=== PATIENT | male | born 1955 | race Caucasian/White ===

== ENCOUNTER 2025-04-15 13:27 | Outpatient (POV) | payer MEDICARE, MEDICAID, SELFPAY ==
--- OUTSIDE RECORDS SUMMARY | 2025-02-17 11:12 | XMS_ITS | Encounter Summary ---
Author Organization [facility] [address] [facility] [address] Phone Care Team Providers Care Manager Equity Name Role Phone KeenanCassyAundreadalton LANTIGUA Primary Care Provider [phone] Encounter Details Date Type Department Care Team (Latest Contact Info) Description 02/17/2025 11:12 AM EDT - 02/17/2025 11:59 PM EDT Hospital Encounter [facility] - [facility] - [facility] [address] [facility] [place], [place] [id number] Johnnie Mccarthy, [place] [address] [place], [place] [id number] Other injury of unspecified body region, initial encounter [T14.8XXA] Discharge Disposition: Home or Self Care Social History Tobacco Use Types Packs/Day Years Used Date Smoking Tobacco: Former Smokeless Tobacco: Never Alcohol Use Standard Drinks/Week Comments No 0 (1 standard drink = 0.6 oz pur e alcohol) Sex and Gender Information Value Date Recorded Sex Assigned at Not on file Legal Sex Male 7:53 PM EDT Gender Identity Male 02/02/2019 7:24 AM EDT Sexual Orientation Not on file documented as of this encounter Functional Status * Are you deaf or do you have serious difficulty hearing? Answer Date of Assessment Author No 02/02/2019 7:45 AM EDT Rachana Young, Registered Nurse * Are you blind or do you have serious difficulty seeing, even when wearing glasses? Answer Date of Assessment Author No 02/02/2019 7:45 AM EDT Rachana Young, Registered Nurse * Do you have serious difficulty walking or climbing stairs? (5 years old or older) Answer Date of Assessment Author No 02/02/2019 7:45 AM EDRachana Farmer, Registered Nurse * Do you have difficulty dressing or bathing? (5 years old or older) Answer Date of Assessment Author No 02/02/2019 7:45 AM EDT Rachana Young, Registered Nurse * Because of a physical, mental, or emotional condition, do you have difficulty doing errands alone such as visiting a doctor???s office or shopping? (15 years old or older) Answer Date of Assessment Author No 02/02/2019 7:45 AM Rachana Servin, Registered Nurse documented as of this encounter Mental Status * Because of a physical, mental, or emotional condition, do you have serious difficulty concentrating, remembering, or making decisions? (5 years old or older) Answer Entry Date Author No 02/02/2019 7:45 AM Rachana Servin, Registered Nurse documented in this encounter Medications at Time of Discharge metoprolol succinate (TOPROL-XL) 50 MG TB24 Take 1 tablet by mouth daily. 90 tablet 3 05/15/2019 acetaminophen (TYLENOL) 500 MG TABS Take 500 mg by mouth every 6 (six) hours as needed. apixaban (ELIQUIS) 5 MG TABSIndications:a trial fibrillation Take 1 tablet by mouth 2 (two) times daily. Indications: atrial fibrillation 60 tablet 3 02/06/2019 documented as of this encounter Plan of Treatment Not on file documented as of this encounter Procedures Procedure Name Priority Date/Time Associated Diagnosis Comments XR LUMBAR SPINE AP AND LATERAL Routine 02/17/2025 11:23 AM EDT Sprain documented in this encounter Results * XR LUMBAR SPINE AP AND LATERAL (02/17/2025 11:23 AM EDT) Anatomical Region Laterality Modality Ankle Foot Toe Right, Femur Right, Knee Right, Tib Fib Right Digital Radiography 02/17/2025 1:54 PM EDT Impressions 02/17/2025 1:55 PM EDT Multilevel mild degenerative disc height loss and mild facet arthrosis Narrative 02/17/2025 1:55 PM EDT HISTORY: Other injury of unspecified body region, initial encounter COMPARISON: 2014 NOTE: If there are questions about the content of this report, please contact [facility] radiology by calling [phone] FINDINGS: ALIGNMENT: Unremarkable BONES: Unremarkable. No aggressive osseous lesion or fracture POST-SURGICAL FINDINGS: None DISC LEVELS: Mild multilevel degenerative disc height loss. Mild anterior spur formation FACET JOINTS: Degenerative sclerosis of the facet joints in the lower lumbar spine LUMBOSACRAL JUNCTION: Unremarkable SACRUM AND SI JOINTS: Unremarkable OTHER: None Procedure Note Alfredito Shay MD - 02/17/2025 HISTORY: Other injury of unspecified body region, initial encounter COMPARISON: 2014 NOTE: If there are questions about the content of this report, pleasecontact [facility] radiology by calling [phone] FINDINGS: ALIGNMENT: Unremarkable BONES: Unremarkable. No aggressive osseous lesion or fracture POST-SURGICAL FINDINGS: None DISC LEVELS: Mild multilevel degenerative disc height loss. Mild anteriorspur formation FACET JOINTS: Degenerative sclerosis of the facet joints in the lowerlumbar spine LUMBOSACRAL JUNCTION: Unremarkable SACRUM AND SI JOINTS: Unremarkable OTHER: None IMPRESSION Multilevel mild degenerative disc height loss and mild facet arthrosis Johnnie Mccarthy DC RAD Final Resu lt documented in this encounter Visit Diagnoses Diagnosis Sprain Unspecified site of sprain and strain documented in this encounter Care Teams Manager Equity Relationship Specialty Start Date End Date Aundrea Hussein CNP PCP - General 12/23/19 documented as of this encounter
--- OUTSIDE RECORDS SUMMARY | 2025-03-07 09:45 | XMS_ITS | Encounter Summary ---
Author Organization [facility] Address [address] [place] [address] Care Team Providers Care Line Tender Flakeboard Name Role Phone Stephany Ortega RN Unavailable Amaris Cueva MD Unavailable [phone] Maverick Lee MD Unavailable [phone] Michael Gonzales MD Unavailable [phone] Lolly Warren NP Unavailable [phone] Daniel Whittington MD, PhD Unavailable [phone] Regina Esquivel NP Unavailable [phone] Maverick Waterman DO Unavailable [phone] Aris Tracey MD Unavailable [phone] Noé Sofia DO Unavailable [phone] Sudhakar Lipscomb AMBULANCE ATTENDANT Primary Care Provider Reason for Referral * Consult, Test & Treat (Routine) - Authorized Specialty Diagnoses / Procedures Referred By Winter t Referred To Contact Spine Surgery / Orthopedic Surgery Diagnoses Right hip pain Acute right-sided low back pain, unspecified whether sciatica present Judd Wu PA [address] [place] [address] Phone: tel: [place]: [place] [address] [place] [address]. [address] [place] [address] Phone: tel: fax: Referral ID Status Reason Start Date Expiration Date V isits Requested Visits Authorized [id number] Authorized 03/07/2025 03/07/2026 99 99 * Radiology Services (Routine) - Pending Review Specialty Diagnoses / Procedures Referred By Contac t Referred To Contact Diagnoses Right knee pain, unspecified chronicity Procedures DIAG-KNEE MIN 4-[place] [address] [place] [address] Phone: tel: fax: [address] [address] Phone: tel: Referral ID Status Reason Start Date Expiration Date V isits Requested Visits Authorized [id number] Pending Review 03/07/2025 03/07/2026 1 1 * Radiology Services (Routine) - Pending Review Specialty Diagnoses / Procedures Referred By Contac t Referred To Contact Diagnoses Right hip pain Procedures DIAG-RIGHT HIP 2-3 VIEWS W/[place] [address] [place] [address] Phone: tel: fax: [address] [address] Phone: tel: Referral ID Status Reason Start Date Expiration Date V isits Requested Visits Authorized [id number] Pending Review 03/07/2025 03/07/2026 1 1 Reason for Visit * Reason Comments Hip/pelvic Pain Knee Pain Encounter Details Date Type Department Care Team (Latest Contact Info) Description 03/07/2025 9:45 AM EDT Office Visit [facility] Physicians - Orthopaedics & Sports Medicine, [employer] [address] [place] [address] Judd Wu, PA [address] [place] [address] Arthritis of right knee (Primary Dx); Right hip pain; Right knee pain, unspecified chronicity; Acute right-sided low back pain, unspecified whether sciatica present Social History Tobacco Use Types Packs/Day Years Used Date Smoking Tobacco: Former Cigarettes 1 6 0 09/11/1964 - 09/11/1970 Passive Smoke Exposure: Past Smokeless Tobacco: Never Alcohol Use Standard Drinks/Week Comments Not Currently 0 (1 standard drink = 0.6 oz pur e alcohol) PHQ-2 Answer Date Recorded PHQ-9 Auto Total 10 08/31/2021 Sex and Gender Information Value Date Recorded Sex Assigned at Male 03/07/2025 9:32 AM EDT Legal Sex Male 7:03 PM EST Gender Identity Male 03/07/2025 9:32 AM EDT Sexual Orientation Straight 03/07/2025 9: 32 AM EDT documented as of this encounter Last Filed Vital Signs Vital Sign Reading Time Taken Comments Blood Pressure - - Pulse - - Temperature - - Respiratory Rate - - Oxygen Saturation - - Inhaled Oxygen Concentration - - Weight 113.4 kg (250 lb) 03/07/2025 9:47 AM EDT Height 172.7 cm (5' 8 ) 03/07/2025 9:47 AM EDT Body Mass Index 38.01 03/07/2025 9:47 AM EDT documented in this encounter Functional Status * Are you blind or do you have difficulty seeing, even when wearing glasses? Answer Date of Assessment Author Yes 10/29/2024 11:35 AM Zain Tirado RN * Do you have serious difficulty walking or climbing stairs? Answer Date of Assessment Author No 10/29/2024 11:35 AM Zain Tirado RN * Do you have difficulty dressing or bathing? Answer Date of Assessment Author No 10/29/2024 11:35 AM Zain Tirado RN * Because of a physical, mental, or emotional condition, do you have difficulty doing errands alone such as a visiting a doctor's office or shopping? Answer Date of Assessment Author Yes 10/29/2024 11:35 AM Zain Tirado RN documented as of this encounter Mental Status * Because of a physical, mental, or emotional condition, do you have serious difficulty concentrating, remembering, or making decisions? Answer Entry Date Author Yes 10/29/2024 11:35 AM Zain Tirado RN documented in this encounter Patient Instructions * Patient Instructions* Judd Wu PA - 03/07/2025 9:45 AM EDT Today you received a CORTISONE injection. In general, you may notice a benefit from the injection in approximately 1-3 days. The effect can last several months. We can repeat the injection every 3 months if needed. If you are diabetic, please monitor your sugars, as the injection may increase your blood sugar temporarily. You may want to ice the area tonight as sometimes you can have mild increase in pain and swelling from the injection procedure. documented in this encounter Progress Notes * Judd Wu PA - 03/07/2025 9:45 AM EDT Images from the original note were not included. Patient Name: Yo Ruiz :1955 Provider: FRANKLIN Dietrich Encounter Date: 03/07/2025 Chief Complaint: Chief Complaint Patient presents with Hip/pelvic Pain Knee Pain History HPI: Yo Ruiz is a 69 year old male with knee arthritis who presents with right leg pain. He experiences right leg pain, primarily in the knee and hip, with shooting pains extending down the leg. The pain is burning and sometimes accompanied by swelling in the ankle. There is no numbness or tingling in the foot, but occasional swelling on the outside of the ankle. The pain disrupts sleep, causing him to be up almost all night. Chiropractic therapy has improved his back pain but not fully alleviated the leg pain. A past injury where he tripped and twisted his leg two to three months ago may have exacerbated his symptoms. Heuses a TENS unit and has undergone traction therapy, which he believes helps with nerve alignment. He takes prednisone, 4 mg daily, and has been prescribed tramadol, which he is hesitant to take dueto concerns about interactions with his heart condition. The pain worsens with sitting or applying pressure to the knee, particularly on the medial side. The arthritis pain in his knee has worsened since his recent fall. He has had steroid injections in the past for meniscus issues. Past Medical History[1] Past Surgical History[2] Medications Ordered Prior to Encounter[3] Physical Examination General height: Ht Readings from Last 1 Encounters: 03/07/25 5' 8 (1.727 m) weight: Wt Readings from Last 3 Encounters: 03/07/25 250 lb (113.4 kg) 01/13/25 250 lb (113.4 kg) 12/18/24 253 lb 9.6 oz (115 kg) current BMI: Body mass index is 38.01 kg/m??. Patient is a very pleasant 69 y.o. male, appearing stated age, no acute distress, alert and oriented x3. Patient converses freely without shortness of breath, lower extremities appear well-perfused. Ambulation assistive device: independently without assistive device gait: antalgic Inspection effusion: small Palpation tenderness: medial joint line and greater trochanter Range of motion knee: full active and passive with crepitus hip above: full active and passive without pain Stability stable to anterior/posterior drawer, stable to varus/valgus stress MUSCULOSKELETAL: Right knee with good range of motion but pain on full flexion. Right knee stable. Distal quadriceps tenderness. Hip with no pain on manipulation. Tenderness at greater trochanter. Imaging Imaging taken in office today and independently reviewed: 4 x-ray views of the right knee demonstrate severe joint height narrowing, osteophyte formation, and sclerosis, particularly in the medial and anterior compartment. AP pelvis, AP, and lateral view of the right hip demonstrate mild joint height narrowing. Assessment & Plan Assessment: 1. Right knee pain, right knee arthritis, greater trochanteric pain, possible lumbar radiculopathy Plan: I had a lengthy, involved, and complete discussion with the patient in the office. We discussed treatment options of right knee pain with use of activity modification, over the counter medication, ice, physical therapy, home exercise program, weight loss, and injections. Right knee osteoarthritis Chronic osteoarthritis with significant pain and swelling, exacerbated by recent fall. X-rays show [id number] arthritis with spurs. Previous steroid injections well-tolerated. - Administer right knee cortisone injection. - Encourage low-impact activities like exercise bike or swimming. - Advise using ice for swelling. Sciatica Suspected sciatica with shooting leg pain, possibly due to spinal nerve compression. Some relief from chiropractic traction therapy. - Refer to FRANKLIN Cohen on spine team for evaluation. - Consider MRI of back if recommended by spine team. Mild hip osteoarthritis Mild osteoarthritis with joint space narrowing. Pain in groin area, possibly due to altered gait from knee and back pain. - Encourage low-impact activities. - Consider referral to physical therapy if symptoms persist. Atrial fibrillation Well-controlled atrial fibrillation with minimal symptoms. Concerns about medication interactions with heart rhythm noted. - Ensure new medications or treatments do not affect heart rhythm. Brief summary: Patient would like cortisone injection, which was provided in our office without complication. See procedure note below. Patient may return for repeat injection per our protocol as needed. All of patient's questions have been answered, and he agrees to this plan of care. Follow up with us for further evaluation and treatment options as needed, or for additional concerns or questions. FRANKLIN Hannon * Please note that this document was generated using voice recognition software. If there are any questions about the content of this document, please contact the office at [phone] as some errors in brush polisher may have occurred. Procedure Performed Lateral Knee Injection - Right Procedure in Detail: After the patient's chart was reviewed, informed consent was obtained to proceed with the stated procedure. The appropriate extremity and site of procedure was identified and verified with the patient. The site was then prepped and draped in usual sterile fashion utilizing aseptic solution. The patient was seated upright with knees flexed approximately 90 degrees and legs suspended from table. The sulcus or soft spot, defined by the lateral joint line, patellar tendon, femoral condyle, and tibial plateau was identified. Ethyl Chloride was used to anesthetize the skin. Theneedle was introduced and directed posteriorly and towards the intercondylar notch. A 3 ml mixture of 1 % lidocaine, 80 mg Kenalog was injected freely without resistance using a 22 gauge 1-1/2 inch needle. The needle was withdrawn from the site and hemostasis was obtained by direct pressure. A bandaide was applied to the site. The patient tolerated the procedure well without complications. [1] Past Medical History: Diagnosis Date Accidental overdose with resusitation in 1972 Arrhythmia PAF Asthma Back problem from laying in bed recently-11/30 Cancer ([facility]) prostate cancer treated with radiation and hormones 2018 to 2020 GERD (gastroesophageal reflux disease) Hypertension Kidney stones Neck problem neck pain--right side Sleep apnea going through testing in a couple weeks-01/2022 [2] Past Surgical History: Procedure Laterality Date CRYOABLATION 09/09/2021 CRYOABLATION performed by Daniel Whittington MD, PhD at [facility] ELECTROPHYSIOLOGY LAB HX KNEE SURGERY HX SPLENECTOMY IABP INSERTION 09/02/2021 IABP INSERTION performed by Maverick Lee MD at [facility] CARDIAC BIAS CUTTER HELPER LEFT & RIGHT HEART CATH 09/02/2021 LEFT & RIGHT HEART CATH performed by Maverick Lee MD at [facility] CARDIAC BIAS CUTTER HELPER [place] LITHOLAPAXY SMPL/SM <2.5 CM N/A 01/24/2022 Cystoscopy Laser Litholapaxy. performed by Aris Tracey MD at [facility] [place] THORACENTESIS NEEDLE/CATH PLEURA W/O IMAGING Right 08/30/2023 RIGHT ULTRASOUND GUIDED THORACENTESIS performed by Schuyler Dueñas MD at ENDOSCOPY [3] Current Outpatient Medications on File Prior to Visit Medication Sig Dispense Refill abiraterone (Zytiga) 250 mg Tablet Take 4 Tablets (1,000 mg) by mouth daily. 0 acetaminophen 325 mg Capsule Take 2 Capsules by mouth every 6 hours as needed. albuterol (VENTOLIN/PROAIR/PROVENTIL HFA) 90 mcg/actuation HFA Aerosol Inhaler Inhale 1 puff every 4 hours by inhalation route, for wheezing. apixaban (ELIQUIS) 5 mg Tablet Take 1 Tablet (5 mg) by mouth 2 times daily. 60 Tablet 4 cyclobenzaprine (FLEXERIL) 5 mg tablet dapagliflozin propanediol (Farxiga) 10 mg Tablet tablet Take 1 Tablet by mouth every morning. 90 Tablet 3 furosemide (LASIX) 20 mg tablet Take 1 Tablet (20 mg) by mouth daily. 60 Tablet 0 gabapentin (NEURONTIN) 300 mg capsule Take 1 Capsule (300 mg) by mouth every evening. 30 Capsule 2 leuprolide (Eligard) 22.5 mg Syringe 22.5 mg by Subcutaneous route. Lidocaine 4 % Adhesive Patch, Medicated Apply 1 patch every day by topical route as needed. losartan (COZAAR) 100 mg Tablet Take 1 Tablet by mouth in the morning. 90 Tablet 3 metoprolol succinate (TOPROL) 50 mg Tablet Sustained Release 24 hr Take 1 Tablet (50 mg) by mouth 2times daily. 180 Tablet 3 predniSONE (DELTASONE) 5 mg tablet Take 1 Tablet (5 mg) by mouth 2 times daily. tamsulosin (FLOMAX) 0.4 mg sustained release capsule Take 0.4 mg by mouth 2 times daily. traMADol (ULTRAM) 50 mg tablet No current facility-administered medications on file prior to visit. documented in this encounter Plan of Treatment Upcoming Encounters Date Type Department Care Team (Late st Contact Info) Description 04/17/2025 10:30 AM EDT Appointment [facility] Physicians - Heart & Vascular, [address] [place] [address] Daniel Elder MD [address] [place] [address] 04/21/2025 1:00 PM EDT Appointment [facility] Physicians - Sleep Medicine, [address] [phone] Jayy Whitfield, TORRES [address] [place], [place] [phone] 04/28/2025 2:40 PM EDT Appointment [facility] Physicians - Pulmonary Medicine, [facility] [address] [facility] [address] [place] [phone] Noé Sofia DO [address] [place], [place] [address] 05/14/2025 1:15 PM EDT Appointment [facility] Physicians - Spine Surgery, [facility] [address] [place] [phone] Leo Mosley PA-C [address] [place], [place] [phone] 07/02/2025 2:15 PM EDT Appointment [facility] Physicians - Heart & Vascular, [facility] [address] [place] [address] [address] [place] [address] Amaris Cueva MD [address] [facility] [address] [place] [address] Scheduled Referrals Name Type Priority Associated Diagnoses Orde r Schedule AMB REFERRAL TO SPINE SURGERY Outpatient Referral Routine Right hip pain Acute right-sided low back pain, unspecified whether sciatica present Ordered: 03/07/2025 documented as of this encounter Goals Goal Patient Goal Type Associated Problems Recent Progress Patient-Stated? Author Limit fluid intake to 2 liters per day Diet No Tariq Lee BS Reduce salt intake to 2 grams per day Diet No Tariq Lee BS Record weight daily Lifestyle Yes Tariq Lee BS documented as of this encounter Procedures Procedure Name Priority Date/Time Associated Diagnosis Comments DIAG-KNEE MIN 4-VIEWS RT Today 03/07/2025 Right knee pain, unspecified chronicity DIAG-RIGHT HIP 2-3 VIEWS W/WO PELVIS Today 03/07/2025 Right hip pain documented in this encounter Results * DIAG-KNEE MIN 4-VIEWS RT (03/07/2025) Anatomical Region Laterality Modality Thigh, Knee, Leg Other Richar Aguirre MD [facility] ORDERAB LES Final Result * DIAG-RIGHT HIP 2-3 VIEWS W/WO PELVIS (03/07/2025) Anatomical Region Laterality Modality Pelvis Other Richar Aguirre MD [facility] ORDERAB LES Final Result documented in this encounter Visit Diagnoses Diagnosis Arthritis of right knee- Primary Unspecified arthropathy, lower leg Right hip pain Pain in joint, pelvic region and thigh Right knee pain, unspecified chronicity Acute right-sided low back pain, unspecified whether sciatica present documented in this encounter Administered Medications Inactive Administered Medications - up to 3 most recent administrations Medication Order MAR Action Action Date Dose Rate Site lidocaine 1 % injection 1 mL 1 mL, Injection, ONCE, On Mon03/07/25 at 1123, For 1 doseIndications:Right knee pain, unspecified chronicity Given 03/07/2025 11:24 AM EDT 1 mL Right Knee triamcinolone (KENALOG-40) injection 80 mg 80 mg, Intra-articular, ONCE, On Mon03/07/25 at 1123, For 1 doseIndications:Right knee pain, unspecified chronicity Given 03/07/2025 11:25 AM EDT 80 mg Right Knee documented in this encounter Care Teams Line Tender Flakeboard Relationship Specialty Start Date End Date Sudhakar Lipscomb NP [address] [place] [address] PCP - General Family Medicine 08/30/23 Stephany Ortega, RN Cardiology 08/04/21 Amaris Cueva MD [address] [address] Cardiology 08/10/21 Maverick Lee MD [address] [facility] [address] [place] [address] Interventional Cardiology 09/06/21 Michael Gonzales MD [address] [place] [address] Internal Medicine, Sleep Medicine 09/07/21 Lolly Warren, TORRES [address] [place] [address] Nurse Practitioner Nurse Practitioner, Acute Care 09/08/21 Daniel Whittington MD, PhD [facility] [address] [place] [address] Clinical Cardiac Electrophysiology 09/13/21 Regina Esquivel NP [address] [place] [address] Nurse Practitioner Nurse Practitioner, Acute Care 09/22/21 Maverick Waterman DO [address] [facility] [place] [address] Advanced Heart Failure/Transplant 09/30/21 Aris Tracey MD [facility] [facility] [address] [place] [address] Urology 10/28/21 Noé Sofia DO [facility] [place] [address] Critical Care Medicine 12/28/22 documented as of this encounter
--- OUTSIDE RECORDS SUMMARY | 2025-03-22 19:53 | XMS_ITS | Encounter Summary ---
Author Organization [facility] Address [address] [place] [address] Care Team Providers Care Brim Cutter Name Role Phone Stephany Ortega RN Unavailable Amaris Cueva MD Unavailable [phone] Maverick Lee MD Unavailable [phone] Michael Gonzales MD Unavailable [phone] Lolly Warren NP Unavailable [phone] Daniel Whittington MD, PhD Unavailable [phone] Regina Esquivel NP Unavailable [phone] Maverick Waterman DO Unavailable [phone] Aris Tracey MD Unavailable [phone] oNé Sofia DO Unavailable [phone] Sudhakar Lipscomb DIGITAL FORENSIC ANALYST Primary Care Provider Reason for Visit * Auth/Cert (Routine) Specialty Diagnoses / Procedures Referred By Contac t Referred To Contact Diagnoses HANNAH (obstructive sleep apnea) Procedures SPLIT-NIGHT SLEEP STUDY Referral ID Status Reason Start Date Expiration Date Visits Re quested Visits Authorized [id number] 1 1 Encounter Details Date Type Department Care Team (Latest Contact Info) Description 03/22/2025 7:53 PM EDT - 03/22/2025 10:58 PM EDT Hospital Encounter [facility] [place] [address] [place] [address] HANNAH (obstructive sleep apnea) Discharge Disposition: Home [...] mouth every 6 hours as needed. albuterol (VENTOLIN/PROAIR/NM OVENTIL HFA) 90 mcg/actuation HFA Aerosol Inhaler [...] Description 04/17/2025 10:30 AM EDT Appointment [facility] Physicians - Heart & Vascular, [address] [place] [address] Daniel Elder MD [address] [facility] [place] [address] 04/21/2025 1:00 PM EDT Appointment [facility] - Sleep Medicine, [place] [address] [place] [phone] Jayy Whitfield NP [address] [place] [address] 04/28/2025 2:40 PM EDT Appointment [facility] Physicians - Pulmonary Medicine, [facility] [address] [facility] [address] [place] [phone] Noé Sofia DO [address] [place], [place] [id number] 05/14/2025 1:15 PM EDT Appointment [facility]icians - Spine Surgery, [facility] [address] [place] [phone] Leo Mosley PA-C [address] [place], [place] [id number] 07/02/2025 2:15 PM EDT Appointment [facility]icians - Heart & Vascular, [facility] [address] [place] [address] Amaris Cueva MD [address] [facility] [address] [place] [address] Scheduled Orders Name Type Priority Associated Diagnoses [...] sleep apnea) Obstructive sleep apnea (adult) (pediatric) documented in this encounter Care Teams Brim Cutter Relationship Specialty Start Date End Date Sudhakar Lipscomb NP [address] [place] [address] PCP - General Family Medicine 08/30/23 Stephany Ortega RN Cardiology 08/04/21 Amaris Cueva MD [address] [facility] [address] [place] [address] Cardiology 08/10/21 Maverick Lee MD [address] [facility] [address] [place], [place] [id number] Interventional Cardiology 09/06/21 Michael Gonzales MD [address] [place] [address] Internal Medicine, Sleep Medicine 09/07/21 Lolly Warren NP [address] [place] [address] Nurse Practitioner Nurse Practitioner, Acute Care 09/08/21 Daniel Whittington MD, PhD [address] [place] [address] Clinical Cardiac Electrophysiology 09/13/21 Regina Esquivel DIGITAL FORENSIC ANALYST [address] [place] [address] Nurse Practitioner Nurse Practitioner, Acute Care 09/22/21 Maverick Waterman DO [address] [place] [address] Advanced Heart Failure/Transplant 09/30/21 Aris Tracey MD [facility] [address] [place] [address] Urology 10/28/21 Noé Sofia DO [address] [place], [place] [address] Critical Care Medicine 12/28/22 documented as of this encounter
--- OUTSIDE RECORDS SUMMARY | 2025-03-26 14:00 | XMS_ITS | Encounter Summary ---
Author Organization [facility] Address [address] [place] [address] Care Team Providers Care Noodle Press Operator Name Role Phone Stephany Ortega RN Unavailable Amaris Cueva MD Unavailable [phone] Maverick Lee MD Unavailable [phone] Michael Gonzales MD Unavailable [phone] Lolly Warren NP Unavailable [phone] Daniel Whittington MD, PhD Unavailable [phone] Regina Esquivel NP Unavailable [phone] Maverick Waterman DO Unavailable [phone] Aris Tracey MD Unavailable [phone] Noé Sofia DO Unavailable [phone] Sudhakar Lipscomb IT CONSULTING MANAGER Primary Care Provider Reason for Referral * Consult, Test & Treat (Urgent) - Authorized Specialty Diagnoses / Procedures Referred By Contact Referred To Contact Clinical Cardiac Electrophysiology Diagnoses Persistent atrial fibrillation ([facility]/HCC) Amaris Cueva MD [address] [place] [address] Phone: tel:[phone] fax:[phone] Daniel Whittington MD, PhD [address] [facility] [place] [address] Phone: tel:[phone] fax: Referral ID Status Reason Start Date Expiration Date V isits Requested Visits Authorized [id number] Authorized 03/26/2025 03/26/2026 99 99 * Radiology Services (Emergency) - Not Needed Specialty Diagnoses / Procedures Referred By Contac t Referred To Contact Diagnoses Persistent atrial fibrillation (CMS/HCC) Procedures KRIS ECHO CARDIOVERSION PRN CONTR/BUBBLE/3D CA CELL ENUMRTION W/IMMUN SELXN & ID FLUID SPECIMN Amaris Cueva MD [address] [place] [address] Phone: tel: fax: [facility] [address] [place] [address] Phone: tel: Referral ID Status Reason Start Date Expiration Date V isits Requested Visits Authorized [id number] Not Needed 03/26/2025 1 1 Reason for Visit * Reason Comments 3 month follow up Encounter Details Date Type Department Care Team (Late st Contact Info) Description 03/26/2025 2:00 PM EDT Office Visit [facility] Physicians - Heart & Vascular, [facility] [address] [place] [address] Amaris Cueva MD [address] [place], [place] [id number] Persistent atrial fibrillation (CMS/HCC) (Primary Dx); Coronary artery disease involving [place] ge[place] coronary artery of [place] george heart without angina pectoris; Cryoballoon catheter ablation of longstanding persistent atrial fibrillation 09-09-2021 Nelsy; Essential hypertension; Nonischemic cardiomyopathy (CMS/HCC); HANNAH (obstructive sleep apnea); Chronic systolic CHF (congestive heart failure) (CMS/HCC); Localized edema; Mixed hyperlipidemia Social History Tobacco Use Types Packs/Day Years Used Date Smoking Tobacco: Former Cigarettes 1 6 0 09/11/1964 - 09/11/1970 Passive Smoke Exposure: Past Smokeless Tobacco: Never Tobacco Cessation:Counseling Given: No Alcohol Use Standard Drinks/Week Comments Not Currently [...] Sign Reading Time Taken Comments Blood Pressure 140/70 03/26/2025 1:47 PM EDT Pulse 78 03/26/2025 1:47 PM EDT Temperature - - Respiratory Rate - - Oxygen Saturation - - Inhaled Oxygen Concentration - - Weight 119.3 kg (263 lb) 03/26/2025 1:47 PM EDT Height 172.7 cm (5' 8 ) 03/26/2025 1:47 PM EDT Body Mass Index 39.99 03/26/2025 1:47 PM EDT documented in this encounter Functional Status [...] this encounter Patient Instructions * Patient Instructions* Amaris Cueva MD - 03/26/2025 2:00 PM EDT 1) start taking eliquis twice a day starting today!! 2) increase Toprol two in the AM and one in the PM until your cardioversion (take two tonight) thengo back to taking one tablet twice a day documented in this encounter Progress Notes * Amaris Cueva MD - 03/26/2025 2:00 PM EDT Subjective Renetta Sheppard Joseph 1955 Chief Complaint Patient presents with 3 month follow up I had the pleasure seeing Renetta in a follow-up. The patient is a 69-year-old with a history of metastatic prostate cancer for which he received hormone therapy and external radiation. He has had issues with pleural effusions and required thoracentesis last year. He had abdominal surgery and went into atrial fibrillation in January of 2019. to be in AFib with a rapid ventricular rate. He was started onXarelto along with amiodarone therapy and underwent an echo 02/05/2019 which showed an EF of 55-60%with concentric left ventricular hypertrophy and no significant valvular heart disease. He apparently was seen by [facility] recently and noted to be back in AFib with a rapid ventricular rate with a heart rate running about 130-140. He had his Toprol dose is adjusted and amiodarone but he still have elevated heart rates. He was sent for a outpatient KRIS cardioversion on 08/30/2021 andwas noted to have severely depressed LV function with RV dysfunction. Patient was subsequently admitted to the hospital. He had a right left heart catheterization which showed elevated filling pressur es with a wedge of 22 mm Hg but nonobstructive coronary disease with preserved cardiac output. He was diuresed and was taken to the ICU with a IABP assisted cardioversion. He had recurrent atrial fibrillation and EP was consulted and subsequently underwent a cryo balloon catheter ablation on 09/09/2021. He had issues with perioperative hypotension requiring pressors he had problems with acute renal insufficiency and hypotension with Entresto along with some hyperkalemia and this was discontinued. A repeat KRIS prior to discharge showed his ejection fraction was 10% with mild aortic stenosis, mild mitral regurgitation, [id number]-[id number] tricuspid regurgitation and left atrial dilatation. He had a subsequent echo done 10/26/2021 which showed an EF of 45%. He was seen in follow-up 01/2023 and taken off of amiodarone. He also notes that he is stopped taking Eliquis. He was admitted to [facility] on 08/18/2024 after presenting with shortness of breath and found to be in AFib with a rapid ventricular rate. Echo showed a decline in his ejection fraction to 25-30% with mild mitral regurgitation and he subsequently had a cardioversion after having a CT of the chest which showed no evidence of a left atrial appendage thrombus. He was placed on Eliquis, he had been intolerant of Entresto and Aldactone in the past and was discharged home on metoprolol, Farxiga and losartan which he had been taking it as an outpatient. He was noted to be back in atrial fibrillation with a rapid ventricular rate on 10/07/2024 and was started on amiodarone 400 mg three times daily. He was subsequentlyweaned down on amiodarone with plans for a repeat cardioversion. He was subsequently admitted to the hospital 10/29/2024 with a fall and generalized weakness. He was in AFib with a rapid ventricular r ate with signs pneumonia. He subsequently underwent a KRIS cardioversion with his transesophageal echo showing that his EF was still reduced at 25-30% with mild AR and mild MR and no evidence of left atrial appendage. He was subsequently cardioverted from AFib to normal sinus rhythm. The patient wasdischarged home on Lasix 20 mg a day Eliquis 5 mg a day, Farxiga 10 mg a day, Toprol-XL 50 mg a day. Amiodarone was held due to concerns for hyperthyroidism.and losartan was held due to low blood pressure. He called the office March 11 because he thought he was in atrial fibrillation with a rapid ventricular rate and was instructed to go the emergency room but did not. He notes that his heart rates been intermittently high. He has had some increased fatigue and weakness over the last several weeks but denies any increased lower extremity swelling or shortness of breath. He has gained weight because he has had sciatica in his been much less active. He has been getting physical therapy for this with some improvement in symptoms. He denies any chest pain and has had some occasional intermittent palpitations. He denies any melena hematochezia. He has had no syncope or dizziness. He notes that he has only been taking his Eliquis once a day Patient's Medications Current Medications ABIRATERONE (ZYTIGA) 250 MG TABLET Take 1,000 mg by mouth in the morning. Order Dose: 1,000 mg ACETAMINOPHEN 325 MG CAPSULE Take 2 Capsules by mouth every 6 hours as needed. Order Dose: 2 Capsules ALBUTEROL (VENTOLIN/PROAIR/PROVENTIL HFA) 90 MCG/ACTUATION HFA AEROSOL INHALER Order Dose: -- APIXABAN (ELIQUIS) 5 MG TABLET Take 1 Tablet (5 mg) by mouth 2 times daily. Order Dose: 5 mg CYCLOBENZAPRINE (FLEXERIL) 5 MG TABLET Order Dose: -- DAPAGLIFLOZIN PROPANEDIOL (FARXIGA) 10 MG TABLET TABLET Take 1 Tablet by mouth every morning. Order Dose: 10 mg FUROSEMIDE (LASIX) 20 MG TABLET Take 1 Tablet (20 mg) by mouth daily. Order Dose: 20 mg GABAPENTIN (NEURONTIN) 300 MG CAPSULE Take 1 Capsule (300 mg) by mouth every evening. Order Dose: 300 mg LEUPROLIDE (ELIGARD) 22.5 MG SYRINGE 22.5 mg by Subcutaneous route. Order Dose: 22.5 mg LIDOCAINE 4 % ADHESIVE PATCH, MEDICATED Apply 1 patch every day by topical route as needed. Order Dose: -- LOSARTAN (COZAAR) 100 MG TABLET Take 1 Tablet by mouth in the morning. Order Dose: 100 mg METOPROLOL SUCCINATE (TOPROL) 50 MG TABLET SUSTAINED RELEASE 24 HR Take 1 Tablet (50 mg) by mouth 2times daily. Order Dose: 50 mg PREDNISONE (DELTASONE) 5 MG TABLET Take 5 mg by mouth in the morning and 5 mg before bedtime. Order Dose: 5 mg TAMSULOSIN (FLOMAX) 0.4 MG SUSTAINED RELEASE CAPSULE Take 0.4 mg by mouth in the morning and 0.4 mgbefore bedtime. Order Dose: 0.4 mg TRAMADOL (ULTRAM) 50 MG TABLET Order Dose: -- Review of Systems Constitutional: Positive for fatigue. Musculoskeletal: Positive for back pain. Neurological: Positive for weakness. Objective Vitals: 03/26/25 1347 BP: 140/70 Pulse: 78 Weight: 263 lb (119.3 kg) Height: 5' 8 (1.727 m) Body mass index is 39.99 kg/m??. Physical Exam Vitals reviewed. Constitutional: General: He is not in acute distress. Appearance: Normal appearance. Neck: Vascular: No carotid bruit or JVD. Cardiovascular: Rate and Rhythm: Tachycardia present. Rhythm irregularly irregular. No extrasystoles are present. Pulses: Normal pulses. Heart sounds: Normal heart sounds, S1 normal and S2 normal. No murmur heard. No gallop. Pulmonary: Effort: Pulmonary effort is normal. Breath sounds: Normal breath sounds. No wheezing or rales. Abdominal: General: Bowel sounds are normal. Tenderness: There is no abdominal tenderness. Skin: General: Skin is warm and dry. Nails: There is no clubbing. Neurological: Mental Status: He is alert and oriented to person, place, and time. The patient's most recent CBC, basic metabolic panel, liver function tests and lipids were reviewed Assessment IMPRESSION: ICD-10-CM 1. Coronary artery disease involving [facility] george coronary artery of [place] george heart without angina pchyoxycH29.10 2. Cryoballoon catheter ablation of longstanding persistent atrial fibrillation 09-09-2021 Nelsy Z98.890 Z86.79 3. Essential hypertension I10 4. Nonischemic cardiomyopathy ([facility] HCC) I42.8 5. HANNAH (obstructive sleep apnea) G47.33 6. Persistent atrial fibrillation ([facility] HCC) I48.19 7. Chronic systolic CHF (congestive heart failure) ([facility] HCC) I50.22 8. Localized edema R60.0 9. Mixed hyperlipidemia E78.2 PLAN AND RECOMMENDATION: 1. Persistent atrial fibrillation-the patient is back in AFib with a rapid ventricular rate. The patient has had significant issues with heart failure when he has had AFib with RVR. The patient was encouraged to see EP at his last visit but never made an appointment. He has been taking Eliquis onlyonce a day so will have him take it twice a day. Will set him up for a urgent KRIS cardioversion on Monday. I am concerned that he would go back in decompensated heart failure if we do not get his heart rate under better control. Will have him increase his Toprol to 100 mg in the morning and 50 at night until he has his procedure 2. Cryo balloon catheter ablation of AFib-the patient had an ablation in the past. He is now off antiarrhythmic therapy due to problems with hyperthyroidism. He is significantly depressed LV function. Will send an urgent consult to Dr. Whittington to see if we can get him seen in the office. I think he would benefit from another procedure 3. Essential hypertension-the patient's blood pressure is slightly above goal. Will increase Toprolfor rate control for now and will follow up with his blood pressures at his follow-up visit 4. Nonischemic cardiomyopathy-the patient has had a tachycardia mediated cardiomyopathy in the pastwith severely depressed LV function based on his EF assessment October 2024. He will have a repeatTEE on Monday to see what his ejection fraction is. It could be depressed persistently due to his recurrent AFib with rapid ventricular rate. Despite this he does not appear to be volume overloaded. The patient is on Farxiga and will increase his Toprol up to 150 mg a day. He will continue on high-dose losartan. He is also taking Lasix with minimal swelling 5. Chronic systolic heart failure-the patient has had a tachycardia mediated cardiomyopathy likely in the past. Will get a repeat transesophageal echo. Will continue Toprol, Lasix, Farxiga and losartan 6. Mixed hyperlipidemia-the patient's LDL cholesterol is been reasonably controlled at 72. Will continue with dietary management. 7. Nonrheumatic tricuspid valve regurgitation-the patient has had oxdd-ya-ogymtlvm tricuspid regurgitation based on prior imaging. He is not having symptoms related to the valve documented in this encounter Plan of Treatment Upcoming Encounters Date Type Department Care Team (Late st Contact Info) Description 04/17/2025 10:30 AM EDT Appointment [facility] Physicians - Heart & Vascular, [address] [place] [address] Daniel Elder MD [address] [facility] [address] [facility] [place] [address] 04/21/2025 1:00 PM EDT Appointment [facility] Physicians - Sleep Medicine, [facility] [address] [place] [phone] Jayy Whitfield NP [address] [place], [place] [address] 04/28/2025 2:40 PM EDT Appointment [facility] Phys[facility] - Pulmonary Medicine, [facility] [address] [place] [phone] Noé Sofia DO [address] [place], [place] [phone] 05/14/2025 1:15 PM EDT Appointment [facility] Physicians - Spine Surgery, [facility] [address] [place] [phone] Leo Mosley PA-C [address] [place], [place] [id number] 07/02/2025 2:15 PM EDT Appointment [facility] Phys[facility] - Heart & Vascular, [facility] [address] [place] [address] Amaris Cueva MD [address] [place] [address] Scheduled Referrals Name Type Priority Associated Diagnoses Order Schedule REFERRAL TO CLINICAL CARDIAC ELECTROPHYSIOLOGY Outpatient Referral Routine Persistent atrial fibrillation (CMS/HCC) Ordered: 03/26/2025 documented as of this encounter Goals Goal Patient Goal Type Associated Problems Recent Progress Patient-Stated? Author Limit fluid intake to 2 liters per day Diet No Tariq Lee BS Reduce salt intake to 2 grams per day Diet No Tariq Lee BS Record weight daily Lifestyle Yes Tariq Lee BS documented as of this encounter Procedures Procedure Name Priority Date/Time Associated Diagnosis Comments ECG Routine 03/26/2025 2:02 PM EDT Persistent atrial fibrillation (CMS/HCC) documented in this encounter Results * KRIS ECHO CARDIOVERSION PRN CONTR/BUBBLE/3D (03/28/2025 8:09 AM EDT) Anatomical Region Laterality Modality Cardiac Ultrasou nd 03/28/2025 7:32 AM EDT Narrative 03/28/2025 1:17 PM EDT [facility] Echocardiography Lab [address] [place] [address] Transesophageal Echocardiography Patient: Renetta Ruiz Gender: Loco MR #: [id number] Age: 69 Account: [id number] : 1955 Study Date: 03/28/2025 Room: BP: 125 / 91 Referring Physician: Amaris Cueva Interpreting Physician: Herbert Camacho REFERRING Amaris Cueva PERFORMING Herbert Camacho ORDERING Amaris Cueva Procedure:KRIS ECHO CARDIOVERSION PRN Order: Number:[id number] Facility: [facility] Heart Station Indications: Atrial Fibrillation. PMH: Atrial fibrillation. Right bundle branch block. Coronary artery disease. Congestive heart failure. Non-ischemic cardiomyopathy. Risk factors: The patient is a former tobacco user. Hypertension. Dyslipidemia. Family history is significant for coronary artery disease. Study data: Study began at 07:40 AM. Study was ended at 07:47 AM. Study status: Stat. Objective: Pre-procedural evaluation prior to cardioversion. Consent: The risks, benefits, and alternatives to the procedure were explained to the patient and informed consent was obtained. Procedure: The patient arrived at the laboratory in an in the fasting state. Intravenous access was obtained. Surface ECG leads, blood pressure measurements, and pulse oximetric signals were monitored. Moderate sedation was administered by cardiology staff. Sedation medication administered by Jerri Coon RN. A transesophageal echocardiogram was performed for exclusion of intracardiac thrombi. Topical anesthesia was obtained using viscous lidocaine. Anadult multiplane transesophageal probe was insertedby the performing material checker without difficulty. Image quality was adequate. Scanning was performed from the esophageal and transgastric acoustic windows. The transesophageal probe was removed. Study completion: The patient tolerated the procedure well. There were no complications. Administered medications: Fentanyl , 50 mcg , IV. Midazolam , 1 mg , IV. Transesophageal echocardiography. Complete 2D, complete spectral Doppler, and Color Flow Doppler. Age: Patient is 69year(s) old. Sex: gender: male. Body mass index: BMI: 40kg/m^2. Patient status: Outpatient. Study date: Study date: 03/28/2025. Study time: 07:32 AM. Location: Echo laboratory. Study Conclusions - Left atrium: The atrium is dilated. Appendage: There is no evidence of a thrombus. - Left ventricle: The cavity size is normal. Wall thickness is normal. Systolic function is moderately reduced. The estimated ejection fraction is 30-35%, by visual assessment. - Right ventricle: The cavity size is normal. Systolic function is normal. - Aortic valve: There is mild regurgitation. - Mitral valve: There is mild to moderate regurgitation. - Atrial septum: No defect or patent foramen ovale is identified. Cardiac Anatomy Left ventricle: - The cavity size is normal. Wall thickness is normal. Systolic function is moderately reduced. The estimated ejection fraction is 30-35%, by visual assessment. Aortic valve: - The valve is trileaflet. There is mild regurgitation. Mitral valve: - There is mild to moderate regurgitation. Left atrium: The atrium is dilated. Appendage: There is no evidence of a thrombus. Atrial septum: No defect or patent foramen ovale is identified. Right ventricle: - The cavity size is normal. Systolic function is normal. Pulmonic valve: - There is trivial regurgitation. Tricuspid valve: - There is mild regurgitation. Right atrium: The atrium is normal in size. Pericardium: - There is no pericardial effusion. Reviewed and confirmed by Herbert Camacho [id number] Procedure Note Herbert Camacho MD - 03/28/2025 [facility] Echocardiography Lab [address] [place] [address] Transesophageal Echocardiography Patient: Renetta Ruiz Gender: M MR #: [id number] Age: 69 Account: [id number] : 1955 Study Date: 03/28/2025 Room: BP: 125 / 91 Referring Physician: Amaris Cueva Interpreting Physician: Herbert Camacho REFERRING Amaris Cueva PERFORMING Herbert Camacho ORDERING Amaris Cueva Procedure:KRIS ECHO CARDIOVERSION PRN Order: Sol NOLAND/MARC/3D Number:[id number] Facility: [facility] Heart Station Indications: Atrial Fibrillation. PMH: Atrial fibrillation. Right bundle branch block. Coronary artery disease. Congestive heart failure. Non-ischemic cardiomyopathy. Risk factors: The patient is a former tobacco user. Hypertension.Dyslipidemia. Family history is significant for coronary artery disease. Study data: Study began at 07:40 AM. Study was ended at 07:47 AM.Study status: Stat. Objective: Pre-procedural evaluation prior to cardioversion. Consent: The risks, benefits, and alternatives to the procedure were explained to the patient and informed consent wasobtained. Procedure: The patient arrived at the laboratory in an in the fasting state. Intravenous access was obtained. Surface ECG leads, bloodpressure measurements, and pulse oximetric signals were monitored. Moderatesedation was administered by cardiology staff. Sedation medication administeredby Jerri Coon RN. A transesophageal echocardiogram was performedfor exclusion of intracardiac thrombi. Topical anesthesia was obtained using viscous lidocaine. Anadult multiplane transesophageal probe wasinsertedby the performing material checker without difficulty. Image quality wasadequate. Scanning was performed from the esophageal and transgastric acoustic windows. The transesophageal probe was removed. Study completion: The patient tolerated the procedure well. There were no complications. Administered medications: Fentanyl , 50 mcg , IV. Midazolam , 1 mg ,IV. Transesophageal echocardiography. Complete 2D, completespectral Doppler, and Color Flow Doppler. Age: Patient is 69year(s) old. Sex: gender: male. Body mass index: BMI: 40kg/m^2. Patient status: Outpatient. Study date: Study date: 03/28/2025. Study time: 07:32 AM. Location: Echo laboratory. Study Conclusions - Left atrium: The atrium is dilated. Appendage: There is no evidence ofa thrombus. - Left ventricle: The cavity size is normal. Wall thickness is normal. Systolic function is moderately reduced. The estimated ejectionfraction is 30-35%, by visual assessment. - Right ventricle: The cavity size is normal. Systolic function isnormal. - Aortic valve: There is mild regurgitation. - Mitral valve: There is mild to moderate regurgitation. - Atrial septum: No defect or patent foramen ovale is identified. Cardiac Anatomy Left ventricle: - The cavity size is normal. Wall thickness is normal. Systolic functionis moderately reduced. The estimated ejection fraction is 30-35%, byvisual assessment. Aortic valve: - The valve is trileaflet. There is mild regurgitation. Mitral valve: - There is mild to moderate regurgitation. Left atrium: The atrium is dilated. Appendage: There is no evidence of a thrombus. Atrial septum: No defect or patent foramen ovale is identified. Right ventricle: - The cavity size is normal. Systolic function is normal. Pulmonic valve: - There is trivial regurgitation. Tricuspid valve: - There is mild regurgitation. Right atrium: The atrium is normal in size. Pericardium: - There is no pericardial effusion. Reviewed and confirmed by Herbert Camacho [id number] us Amaris Cueva MD CARDNT KRIS ORDERABLES Final Result * ECG (03/26/2025 2:02 PM EDT) Heart Rate 132 bpm [facility] EXTER NAL LAB QRS Interval 134 ms [facility] EXT ERNAL LAB QT Interval 336 ms [facility] EXTE RNAL LAB QTc Interval 498 ms [facility] EXT ERNAL LAB P [place] 0 deg [facility] SENIOR CYTOGENETIC TECHNOLOGIST AL LAB QRS [place] -60 deg [facility] SENIOR CYTOGENETIC TECHNOLOGIST AL LAB T Wave [place] 99 deg [facility] EXTE RNAL LAB P-R Interval 0 msec [facility] EXT ERNAL LAB 03/26/2025 2:02 PM EDT Narrative [facility] EXTERNAL LAB - 03/26/2025 2:14 PM EDT [facility] Test Date: 2025-03-26 14:02:42 Pat Name: RENETTA RUIZ [facility] Room: blank Gender: Male 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: JEREMI : 1955 Requested By: AMARIS Centeno Order Number: [id number] Reading MD: Amaris Cueva MD Interpretive Statements Atrial fibrillation With a rapid ventricular rate RBBB and LAFB Abnormal T, consider ischemia, lateral leads Electronically Signed On 03-26-2025 14:14:51 EDT by Amaris Cueva MD Procedure Note Amaris Cueva MD - 03/26/2025 [facility] Test Date: 2025-03-26 14:02:42 Pat Name: RENETTA RUIZ Department: [facility] Room: blank Gender: Male 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 coronary artery of 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 [place] [address] Internal Medicine, Sleep Medicine 09/07/21 Lolly Warren NP [facility] [address] [place] [address] Nurse Practitioner Nurse Practitioner, Acute Care 09/08/21 Daniel Whittington MD, PhD [facility] [address] [place] [address] Clinical Cardiac Electrophysiology 09/13/21 Regina Esquivel NP [facility] [address] [place] [address] Nurse Practitioner Nurse Practitioner, Acute Care 09/22/21 Maverick Waterman DO [address] [place] [address] Advanced Heart Failure/Transplant 09/30/21 Aris Tracey MD [facility] [facility] [address] [place] [address] Urology 10/28/21 Noé Sofia DO [address] [facility] [address] [place] [address] Critical Care Medicine 12/28/22 documented as of this encounter
--- OUTSIDE RECORDS SUMMARY | 2025-03-28 06:44 | XMS_ITS | Encounter Summary ---
Author Organization [facility] Address [address] [place] [address] Care Team Providers Care Proof Load Mechanic Name Role Phone Stephany Ortega RN Unavailable Amaris Cueva MD Unavailable [phone] Maverick Lee MD Unavailable [phone] Michael Gonzales MD Unavailable [phone] Lolly Warren NP Unavailable [phone] Daniel Whittington MD, PhD Unavailable [phone] Regina Esquivel NP Unavailable [phone] Maverick Waterman DO Unavailable [phone] Aris Tracey MD Unavailable [phone] Noé Sofia DO Unavailable [phone] Sudhakar Lipscomb PAPER GUILLOTINE OPERATOR Primary Care Provider [phone] Reason for Referral * Radiology Services (Emergency) - Not Needed Specialty Diagnoses / Procedures Referred By Contkristi t Referred To Contact Diagnoses Persistent atrial fibrillation (CMS/HCC) Procedures KRIS ECHO CARDIOVERSION PRN CONTR/BUBBLE/3D DE CELL ENUMRTION W/IMMUN SELXN & ID FLUID SPECIMN Amaris Cueva MD [address] [facility] [address] [place] [address] Phone: tel: fax: [address] [address] Phone: tel: Referral ID Status Reason Start Date Expiration Date V isits Requested Visits Authorized [id number] Not Needed 03/26/2025 1 1 Reason for Visit * Radiology Services (Emergency) - Not Needed Specialty Diagnoses / Procedures Referred By Contac t Referred To Contact Diagnoses Persistent atrial fibrillation (CMS/HCC) Procedures KRIS ECHO CARDIOVERSION PRN CONTR/BUBBLE/3D DE CELL ENUMRTION W/IMMUN SELXN & ID FLUID SPECIMN Amaris Cueva MD [address] [facility] [address] [place] [address] Phone: tel: fax: [address] [address] Phone: tel: Referral ID Status Reason Start Date Expiration Date V isits Requested Visits Authorized [id number] Not Needed 03/26/2025 1 1 Encounter Details Date Type Department Care Team (Latest Contact Info) Description 03/28/2025 6:44 AM EDT - 03/28/2025 11:59 PM EDT Hospital Encounter [facility] C-Level [address] [place] [address] Persistent atrial fibrillation (CMS/HCC) Discharge Disposition: Home or Self Care Social [...] Sign Reading Time Taken Comments Blood Pressure 131/85 03/28/2025 8:30 AM EDT Pulse 61 03/28/2025 8:30 AM EDT Temperature 36.7 C (98.1 F) 03/28/2025 7:02 AM EDT Respiratory Rate 16 03/28/2025 8:30 AM EDT Oxygen Saturation 95% 03/28/2025 8:30 AM EDT Inhaled Oxygen Concentration - - Weight 119.3 kg (263 lb) 03/28/2025 7:02 AM EDT Height 172.7 cm (5' 8 ) 03/28/2025 7:02 AM EDT Body Mass Index 39.99 03/28/2025 7:02 AM EDT documented in this encounter Functional [...] Zain Tirado RN documented in this encounter Discharge Instructions * Discharge Instructions* Mariluz Coon RN - 03/28/2025 8:13 AM EDT [facility] Transesophageal Echocardiogram (KRIS) with Cardioversion Patient Instructions Your physician sent you in for a Transesophageal Echocardiogram (KRIS) with Electrical Cardioversiontoday. 1. Activity: Driving: Do not drive or operate any form of machinery today Bath/Shower: No restrictions Walking: No restrictions Steps: No restrictions Lifting: No restrictions Other: No important decision making today because the sedatives may impair your judgement. 2. Nutrition: Resume your regular diet but avoid alcoholic beverages today. 3. Expect as normal and remedies: a. Sore throat: Use over the counter throat lozenges or gargle with warm water. b. IV Site: If you have soreness, swelling, or bruising at the IV site, apply a cool compress to the site. c. You may experience lightheadedness, tiredness, and/or sleepiness. We suggest you plan on bedrestor quiet relaxation. You should not drive yourself, take public transportation, Uber, or Lift today. d. For a day, you skin on your chest and back may feel a little sore, like a mild sunburn. 4. Arrange for a plant health care technician to bring you home and for someone to stay with you for 24 hours following your cardioversion. 5. Return to the emergency room if you are experiencing any neck pain, fevers, chest pain, bloody sputum, voice changes, or difficulty swallowing. 6. Follow up with your ordering provider. Call for an appointment. No Smoking. Information regarding smoking cessation and/or risk factors associated with tobacco products given. Continue taking these medications which have not changed: Prior to Admission medications Medication Sig Start Date End Date Taking? Authorizing Provider abiraterone (Zytiga) 250 mg Tablet Take 1,000 mg by mouth in the morning. 10/16/23 Yes Amaris Cueva MD acetaminophen 325 mg Capsule Take 2 Capsules by mouth every 6 hours as needed. Yes Provider, Historical albuterol (VENTOLIN/PROAIR/PROVENTIL HFA) 90 mcg/actuation HFA Aerosol Inhaler Provider, Historical apixaban (ELIQUIS) 5 mg Tablet Take 1 Tablet (5 mg) by mouth 2 times daily. 10/14/24 Yes Amaris Cueva MD cyclobenzaprine (FLEXERIL) 5 mg tablet 02/20/25 Provider, Historical dapagliflozin propanediol (Farxiga) 10 mg Tablet tablet Take 1 Tablet by mouth every morning. 02/26/25 Yes Amaris Cueva MD furosemide (LASIX) 20 mg tablet Take 1 Tablet (20 mg) by mouth daily. 11/06/24 Yes Nathaly Weems MD leuprolide (Eligard) 22.5 mg Syringe 22.5 mg by Subcutaneous route. 01/03/24 Provider, Historical losartan (COZAAR) 100 mg Tablet Take 1 Tablet by mouth in the morning. 02/26/25 Yes Amaris Cueva MD metoprolol succinate (TOPROL) 50 mg Tablet Sustained Release 24 hr Take 1 Tablet (50 mg) by mouth 2times daily. 12/16/24 Yes Amaris Cueva MD predniSONE (DELTASONE) 5 mg tablet Take 5 mg by mouth in the morning and 5 mg before bedtime. 10/09/23 Yes Amaris Cueva MD tamsulosin (FLOMAX) 0.4 mg sustained release capsule Take 0.4 mg by mouth in the morning and 0.4 mgbefore bedtime. Provider, Historical If you have questions or concerns feel free to call [phone] between the hours of 8:00 am and 4:30 pm; after hours please contact your ordering provider. MARILUZ COON RN, RN 8:13 AM 03/28/2025 documented in this encounter Medications at Time of Discharge abiraterone (Zytiga) 250 mg Tablet Take 1,000 mg by mouth in the morning. 0 4 acetaminophen 325 mg Capsule Take 2 Capsules by mouth every 6 hours as needed. albuterol (VENTOLIN/PROAIR/DE OVENTIL HFA) 90 mcg/actuation HFA Aerosol Inhaler [...] (FLEXERIL) 5 mg tablet 5 04/01/20 25 tamsulosin (FLOMAX) 0.4 mg sustained release capsule Take 0.4 mg by mouth in the morning and 0.4 mg before bedtime. 04/01/20 25 documented as of this encounter Procedure Notes * Herbert Camacho MD - 03/28/2025 8:00 AM EDTAssociated Order(s): ELECTRICAL CARDIOVERSION Procedure(s): ELECTRICAL CARDIOVERSION Pre-Procedure Diagnose(s): Persistent atrial fibrillation (CMS/HCC) Images from the original note were not included. Electrical Cardioversion Procedure Note Physician Performing Procedure: Herbert Camacho MD Informed Consent: The nature and purpose of the procedure were reviewed along with its medical indications. The potential risks and complications of the procedure, in total, were extensively reviewed including disability and . The likelihood of success of the procedure was discussed and the alternatives to thisprocedure, including the risks and benefits and likelihood of success of these, were introduced. The likely and possible outcomes if this procedure was not performed was also discussed. All questionswere answered to the patient's satisfaction. The patient understands and agrees to the procedure. Indication: Persistent atrial fibrillation Procedure: The patient was brought to the procedural room where informed consent was obtained. The risks benefits and alternatives of the procedure were discussed and all questions were answered to his satisfaction. I confirmed that the patient is adequately anticoagulated. The potassium was normal. A KRIS was performed to rule out thrombus.. He was sedated with brevitol and 1 synchronized biphasic shock was performed at 200 Joules. The procedure was successful. There were no acute complications. The patient was instructed to continue without interruption his anticoagulation regimen.The patient awakened spontaneously. He was instructed not to drive today. Moderate Sedation: Start time: 7:38 AM End time: 7:54 AM Conclusion: Successful cardioversion. Final rhythm was Sinus rhythm documented in this encounter Miscellaneous Notes * Interdisciplinary - Carla Leal RN - 03/28/2025 8:00 AM EDT Patient Education D: Patient to Heart Station for Transesophageal Echocardiogram with Electrical Cardioversion. A: Patient oriented to room and call light. Educated about procedure, medications, anticoagulation,pain scale 0-10, and consent signed. Patient connected to monitors. R: Atrial fibrillation noted on monitor. Patient verbalized understanding. * Interdisciplinary - Ricardo Mistry RCP - 03/28/2025 8:00 AM EDT D. Called to room for Transesophageal Echocardiogram and Cardioversion Assist. A. Patient on 2lpm nasal cannula prior to procedure. Procedure performed without incident. Jaw thrust and oral airway was used for airway support. R. Patient on 6lpm nasal cannula. Patient is arousable. Vital Signs Stable. HR 64, B/P 125/91 and SaO2 95%. RN aware and will continue to monitor patient. documented in this encounter Plan of Treatment Upcoming Encounters Date Type Department Care Team (Late st Contact Info) Description 04/17/2025 10:30 AM EDT Appointment [facility] - Heart & Vascular, [address] [place] [address] [address] [place] [address] Daniel Elder MD [address] [place] [address] 04/21/2025 1:00 PM EDT Appointment [facility] - Sleep Medicine, [facility] [address] [place] [phone] Jayy Whitfield NP [address] [place] [address] 04/28/2025 2:40 PM EDT Appointment [facility] - Pulmonary Medicine, [facility] [address] [place] [address] [address] [place] [phone] Noé Sofia DO [address] [place], [place] [address] 05/14/2025 1:15 PM EDT Appointment [facility] - Spine Surgery, [facility] [address] [place] [phone] Leo Mosley, PALouieC [address] [facility] [place], [place] [id number] 07/02/2025 2:15 PM EDT Appointment [facility] - Heart & Vascular, [facility] [address] [place] [address] AVE [address] [place] [address] Amaris Cueva MD [address] [facility] [address] [place], [place] [id number] documented as of this encounter Goals Goal Patient Goal Type Associated Problems Recent Progress Patient-Stated? Author Limit fluid intake to 2 liters per day Diet No Tariq Lee, BS Reduce salt intake to 2 grams per day Diet No Tariq Lee BS Record weight daily Lifestyle Yes Tariq Lee BS documented as of this encounter Procedures Procedure Name Priority Date/Time Associated Diagnosis Comments KRIS ECHO CARDIOVERSION PRN CONTR/BUBBLE/3D STAT 03/28/2025 8:09 AM EDT Persistent atrial fibrillation (CMS/HCC) ELECTRICAL CARDIOVERSION Routine 03/28/2025 8:00 AM EDT ECG STAT 03/28/2025 7:59 AM EDT POC POTASSIUM Routine 03/28/2025 7:14 AM EDT ECG Routine 03/28/2025 7:10 AM EDT documented in this encounter Results * KRIS ECHO CARDIOVERSION PRN CONTR/BUBBLE/3D (03/28/2025 8:09 AM EDT) Anatomical Region Laterality Modality Cardiac Ultrasou nd 03/28/2025 7:32 AM EDT Narrative 03/28/2025 1:17 PM EDT [facility] Echocardi[facility] [address] [place], [place] [id number] Transesophageal Echocardiography Patient: Renetta Ruiz Gender: Loco MR #: [id number] Age: 69 Account: [id number] : 1955 Study Date: 03/28/2025 Room: BP: 125 / 91 Referring Physician: Amaris Cueva Interpreting Physician: Herbert Camacho REFERRING Amaris Cueva PERFORMING Herbert Camacho ORDERING Amaris Cueva Procedure:KRIS ECHO CARDIOVERSION PRN Order: Number:[id number] Facility: [facility] Heart Station Indications: Atrial Fibrillation. PMH: [...] by cardiology staff. Sedation medication administered by Mariluz Coon RN. A transesophageal echocardiogram was performed for exclusion of intracardiac thrombi. Topical anesthesia was obtained using viscous lidocaine. Anadult multiplane transesophageal probe was insertedby the performing return checker without difficulty. Image quality was adequate. [...] effusion. Reviewed and confirmed by Herbert Camacho [id number] Procedure Note Herbert Camacho MD - 03/28/2025 [facility] [address] [place] [address] Transesophageal Echocardiography Patient: Renetta Ruiz Gender: M MR #: [id number] Age: 69 Account: [id number] : 1955 Study Date: 03/28/2025 Room: BP: 125 / 91 Referring Physician: Amaris Cueva Interpreting Physician: Herbert Camacho REFERRING Amaris Cueva PERFORMING Herbert Camacho ORDERING Amaris Cueva Procedure:KRIS ECHO CARDIOVERSION PRN Order: Sol NOLAND/MARC/3D Number:[id number] Facility: [facility] Heart Station Indications: Atrial Fibrillation. PMH: [...] administered by cardiology staff. Sedation medication administeredby Mariluz Coon RN. A transesophageal echocardiogram was performedfor exclusion of intracardiac thrombi. Topical anesthesia was obtained using viscous lidocaine. Anadult multiplane transesophageal probe wasinsertedby the performing return checker without difficulty. Image quality wasadequate. Scanning [...] effusion. Reviewed and confirmed by Herbert Camacho [id number] us Amaris Cueva MD CARDNT KRIS ORDERABLES Final Result * ELECTRICAL CARDIOVERSION (03/28/2025 8:00 AM EDT) Narrative Procedure Note Herbert Camacho MD - 03/28/2025 8:00 AM EDT Images from the original note were not included. Electrical Cardioversion Procedure Note Physician Performing Procedure: Herbert Camacho MD Informed Consent: The nature and purpose of the procedure were reviewed along with itsmedical indications. The potential risks and complications of theprocedure, in total, were extensively reviewed including disability anddeath. The likelihood of success of the procedure was discussed and thealternatives to this procedure, including the risks and benefits andlikelihood of success of these, were introduced. The likely and possibleoutcomes if this procedure was not performed was also discussed. Allquestions were answered to the patient's satisfaction. The patientunderstands and agrees to the procedure. Indication: Persistent atrial fibrillation Procedure: The patient was brought to the procedural room where informedconsent was obtained. The risks benefits and alternatives of theprocedure were discussed and all questions were answered to hissatisfaction. I confirmed that the patient is adequately anticoagulated.The potassium was normal. A KRIS was performed to rule out thrombus.. Hewas sedated with brevitol and 1 synchronized biphasic shock wasperformed at 200 Joules. The procedure was successful. There were noacute complications. The patient was instructed to continue withoutinterruption his anticoagulation regimen.The patient awakenedspontaneously. He was instructed not to drive today. Moderate Sedation: Start time: 7:38 AM End time: 7:54 AM Conclusion: Successful cardioversion. Final rhythm was Sinus rhythm us Physician Procedure MD PROCEDURE/MINOR SURGICAL ORDERABLES Final Result * ECG (03/28/2025 7:59 AM EDT) Heart Rate 64 bpm [facility] EXTER NAL LAB QRS Interval 141 ms [facility] EXT ERNAL LAB QT Interval 462 ms [facility] EXTE RNAL LAB QTc Interval 477 ms [facility] EXT ERNAL LAB P [place] 32 deg [facility] CHEMIST ASSISTANT AL LAB QRS [place] -54 deg T[facility] CHEMIST ASSISTANT AL LAB T Wave [place] 17 deg [facility] EXTE RNAL LAB P-R Interval 142 msec [facility] EXT ERNAL LAB 03/28/2025 7:59 AM EDT Narrative [facility] EXTERNAL LAB - 03/28/2025 11:54 AM EDT [facility] Test Date: 2025-03-28 07:59:07 Pat Name: RENETTA RUIZ Department: [facility] Room: [facility] Gender: Male Facilities 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: [facility] : 1955 Requested By: LYDIA Cárdenas Order Number: [id number] Reading MD: Jeff Buck MD Interpretive Statements Sinus rhythm Ventricular premature complexes Premature atrial complex RBBB and LAFB Compared to the prior tracing, sinus rhythm has replaced atrial fibrillation Electronically Signed On 03-28-2025 11:54:11 EDT by Jeff Buck MD Procedure Note Jeff Buck MD - 03/28/2025 [facility] Test Date: 2025-03-28 07:59:07 Pat Name: RENETTA RUIZ Department: [facility] Room: [facility] Gender: Male Facilities 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: [facility] : 1955 Requested By: LYDIA Cárdenas Order Number: [id number] Reading MD: Jeff Buck MD Interpretive Statements Sinus rhythm Ventricular premature complexes Premature atrial complex RBBB and LAFB Compared to the prior tracing, sinus rhythm has replaced atrialfibrillation Electronically Signed On 03-28-2025 11:54:11 EDT by Jeff Buck MD us Lydia Villanueva MD ECG ORDERABLES Final Result Performing Organization Address [facility] Co de Phone Number [facility] EXTERNAL LAB [address] * POC POTASSIUM (03/28/2025 7:14 AM EDT) Pathologist [facility] POC Potassium 4.4 3.5 - 5.1 mmol/L [facility] EXTERNAL LAB Blood, Venous 03/28/2025 7:1 4 AM EDT 03/28/2025 7:15 AM EDT us Amaris Cueva MD POINT OF CARE TEST ORDERABL ES Final Result Performing Organization Address [facility] Co de Phone Number [facility] EXTERNAL LAB [address] * ECG (03/28/2025 7:10 AM EDT) Heart Rate 127 bpm [facility] EXTER NAL LAB QRS Interval 130 ms [facility] EXT ERNAL LAB QT Interval 346 ms [facility] EXTE RNAL LAB QTc Interval 504 ms [facility] EXT ERNAL LAB P [place] 0 deg TCH CHEMIST ASSISTANT AL LAB QRS [place] 192 deg TCH CHEMIST ASSISTANT AL LAB T Wave [place] 47 deg T[facility] EXTE RNAL LAB P-R Interval 0 msec [facility] EXT ERNAL LAB 03/28/2025 7:10 AM EDT Narrative [facility] EXTERNAL LAB - 03/28/2025 11:53 AM EDT [facility] Test Date: 2025-03-28 07:10:54 Pat Name: RENETTA RUIZ Department: [facility] Room: KRIS ROOM 1 Gender: Male Facilities 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: B[employer] : 1955 Requested By: LYDIA Cárdenas Order Number: [id number] Reading MD: Jeff Buck MD Interpretive Statements Atrial fibrillation with RVR Nonspecific intraventricular conduction delay Nonspecific ST-T changes Low voltage Compared to the prior tracing, no significant change Electronically Signed On 03-28-2025 11:53:06 EDT by Jeff Buck MD Procedure Note Jeff Buck MD - 03/28/2025 [facility] Test Date: 2025-03-28 07:10:54 Pat Name: [facility] Department: [facility] Room: KRIS ROOM 1 Gender: Male Facilities 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: [id number] : 1955 Requested By: LYDIA Cárdenas Order Number: [id number] Reading MD: Jeff Buck MD Interpretive Statements Atrial fibrillation with RVR Nonspecific intraventricular conduction delay Nonspecific ST-T changes Low voltage Compared to the prior tracing, no significant change Electronically Signed On 03-28-2025 11:53:06 EDT by Jeff Buck MD us Lydia Villanueva MD ECG ORDERABLES Final Result [facility] EXTERNAL LAB [facility] [place] [facility] documented in this encounter Visit Diagnoses Diagnosis Persistent atrial fibrillation (CMS/HCC) Atrial fibrillation documented in this encounter Administered Medications Inactive Administered Medications - up to 3 most recent administrations Medication Order MAR Action Action Date Dose Rate Site fentaNYL (Sublimaze) 50 mcg/mL injection 25-200 mcg 25-200 mcg, Intravenous, INTRA-PROCEDURE, Starting on Mon03/28/25 at 0648, For 1 dose Given 03/28/2025 8:06 AM EDT 50 mcg lidocaine HCL (GLYDO) 2 % jelly 6 mL 6 mL, Mouth/Throat, INTRA-OP PRN, Pain, gag reflex, Starting on Mon03/28/25 at 0648, May repeat times one. Given 03/28/2025 8:06 AM EDT 6 mL METHOHEXITAL (Brevital) 100 mg/ 10 ml IV syringe 10-100 mg 10-100 mg, Intravenous, PRE-PROCEDURE, Starting on Mon03/28/25 at 0648, For 1 dose Given 03/28/2025 8:05 AM EDT 50 mg midazolam (Versed) 5 mg/mL injection 1-10 mg 1-10 mg, Intravenous, INTRA-PROCEDURE, Starting on Mon03/28/25 at 0648, For 1 dose Given 03/28/2025 8:05 AM EDT 1 mg sodium chloride 0.9% IV solution 500 mL, Intravenous, CONTINUOUS, Starting on Mon03/28/25 at 0800 New Bag 03/28/2025 8:04 AM EDT 500 mL 30 mL/hr documented in this encounter Care Teams Proof Load Mechanic Relationship Specialty Start Date End Date Sudhakar Lipscomb NP [address] [place] [address] PCP - General Family Medicine 08/30/23 Stephany Ortega, RN Cardiology 08/04/21 Amaris Cueva MD [address] [facility] [address] [facility] [place] [address] Cardiology 08/10/21 Maverick Lee MD [address] [facility] [address] [place] [address] Interventional Cardiology 09/06/[address] [facility] [place], [place] [id number] Internal Medicine, Sleep Medicine 09/07/[address] [facility] [place], [place] [address] Nurse Practitioner Nurse Practitioner, Acute Care 09/08/21 Daniel Whittington MD, PhD [facility] [address] [place] [address] Clinical Cardiac Electrophysiology 09/13/21 Regina Esquivel NP [address] [place] [address] Nurse Practitioner Nurse Practitioner, Acute Care 09/22/21 Maverick Waterman DO 1955 [address] [facility] [place] [address] Advanced Heart Failure/Transplant 09/30/21 Aris Tracey MD [address] [place] [address] [address] [place] [address] Urology 10/28/21 Noé Sofia DO [address] [place] [address] Critical Care Medicine 12/28/22 documented as of this encounter
--- OUTSIDE RECORDS SUMMARY | 2025-04-01 14:15 | XMS_ITS | Encounter Summary ---
Author Organization [facility] Address [address] [place] [address] Care Team Providers Care Hotel Custodian Name Role Phone Stephany Ortega RN Unavailable Mariola Cueva MD Unavailable [phone] Maverick Lee MD Unavailable [phone] Michael Gonzales MD Unavailable [phone] Lolly Warren NP Unavailable [phone] Daniel Whittington MD, PhD Unavailable [phone] Regina Esquivel NP Unavailable [phone] Maverick Waterman DO Unavailable [phone] Aris Tracey MD Unavailable [phone] Noé Sofia DO Unavailable [phone] Sudhakar Lipscomb POLICE OFFICER BOOKING Primary Care Provider [phone] Reason for Visit * Reason Comments Atrial Fibrillation Encounter Details Date Type Department Care Team (Late st Contact Info) Description 04/01/2025 2:15 PM EDT Office Visit [facility] Physicians - Heart & Vascular, [facility] [address] [facility] [address] [place] [address] Mariola Cueva MD [address] [place] [address] Persistent atrial fibrillation (CMS/HCC) (Primary Dx); Cryoballoon catheter ablation of longstanding persistent atrial fibrillation 09-09-2021 Beyerbach; Coronary artery disease involving wyandotte coronary artery of wyandotte heart without angina pectoris; Nonischemic cardiomyopathy (CMS/HCC); HANNAH (obstructive sleep apnea); Mixed hyperlipidemia; Nonrheumatic mitral valve regurgitation; Chronic systolic CHF (congestive heart failure) (CMS/HCC) Social History Tobacco Use Types Packs/Day Years [...] Sign Reading Time Taken Comments Blood Pressure 130/80 04/01/2025 2:27 PM EDT Pulse 70 04/01/2025 2:27 PM EDT Temperature - - Respiratory Rate - - Oxygen Saturation - - Inhaled Oxygen Concentration - - Weight 116 kg (255 lb 12.8 oz) 04/01/2025 2:27 P M EDT Height 172.7 cm (5' 8 ) 04/01/2025 2:27 PM EDT Body Mass Index 38.89 04/01/2025 2:27 PM EDT documented in this encounter Functional [...] Entry Date Author Yes 10/29/2024 11:35 AM aZin Tirado RN documented in this encounter Progress Notes * Mariola Cueva MD - 04/01/2025 2:15 PM EDT Subjective Renetta Sheppard Joseph 1955 Chief Complaint Patient presents with Atrial Fibrillation I had the pleasure seeing Renetta in [...] heart disease. He apparently was seen by [facility] Cardiology recently and noted to be [...] with mild aortic stenosis, mild mitral regurgitation, nbif-pp-tzqyvbmd tricuspid regurgitation and left atrial dilatation. He had a subsequent echo done 10/26/2021 which showed an EF of 45%. He was seen in follow-up 01/2023 and taken off of amiodarone. He also notes that he is stopped taking Eliquis. He was admitted to [facility] on 08/18/2024 after presenting with shortness of [...] his heart rates been intermittently high. He was seen in follow-up on 03/26/2025 and was noted to be in AFib witha rapid ventricular rate. He had not been taking his anticoagulation regularly and so he underwent a KRIS cardioversion on 03/28/2025 in his here in follow-up. His KRIS showed an EF of 30-35% with mildaortic regurgitation and vija-tk-iayxnnbu mitral regurgitation he is supposed to see EP in consultation early April. He notes that he has had no further episodes of palpitations in his heart is beenregular at home. He has had baseline energy level with baseline dyspnea exertion. He does note thathe has been having problems with his sciatica but his symptoms have improved and he has been takinggabapentin. Patient's Medications Current Medications ABIRATERONE (ZYTIGA) 250 [...] 2 times daily. Order Dose: 5 mg DAPAGLIFLOZIN PROPANEDIOL (FARXIGA) 10 MG TABLET TABLET Take 1 Tablet by mouth every morning. Order Dose: 10 mg FUROSEMIDE (LASIX) 20 MG TABLET Take 1 Tablet (20 mg) by mouth daily. Order Dose: 20 mg LEUPROLIDE (ELIGARD) 22.5 MG SYRINGE 22.5 mg by Subcutaneous route. Order Dose: 22.5 mg LOSARTAN (COZAAR) 100 MG TABLET Take 1 Tablet by mouth in the morning. Order Dose: 100 mg METOPROLOL SUCCINATE (TOPROL) 50 MG TABLET SUSTAINED RELEASE 24 HR Take 1 Tablet (50 mg) by mouth 2times daily. Order Dose: 50 mg PREDNISONE (DELTASONE) 5 MG TABLET Take 5 mg by mouth in the morning and 5 mg before bedtime. Order Dose: 5 mg Discontinued Medications CYCLOBENZAPRINE (FLEXERIL) 5 MG TABLET Notes: -- TAMSULOSIN (FLOMAX) 0.4 MG SUSTAINED RELEASE CAPSULE Take 0.4 mg by mouth in the morning and 0.4 mgbefore bedtime. Notes: >> REGINA BUTTERFIELD MonJan 05, 2022 12:50 PM May take dos. Review of Systems Musculoskeletal: Positive for arthralgias and back pain. Objective Vitals: 04/01/25 1427 BP: 130/80 Pulse: 70 Weight: 255 lb 12.8 oz (116 kg) Height: 5' 8 (1.727 m) Body mass index is 38.89 kg/m??. Physical Exam Vitals reviewed. Constitutional: General: He is not in acute distress. Appearance: Normal appearance. He is not diaphoretic. Neck: Vascular: Normal carotid pulses. No carotid bruit, hepatojugular reflux or JVD. Cardiovascular: Rate and Rhythm: Normal rate and regular rhythm. No extrasystoles are present. Chest Wall: PMI is not displaced. Pulses: Normal pulses. Heart sounds: Normal heart sounds, S1 normal and S2 normal. No murmur heard. No systolic murmur is present. No diastolic murmur is present. No friction rub. No gallop. No S3 or S4 sounds. Pulmonary: Effort: Pulmonary effort is normal. No respiratory distress. Breath sounds: Normal breath sounds. No wheezing. Abdominal: General: Bowel sounds are normal. Tenderness: There is no abdominal tenderness. Musculoskeletal: General: Swelling present. Comments: Trace Psychiatric: Judgment: Judgment normal. The patient's most recent CBC, lipids, liver function and BMP were reviewed. Assessment IMPRESSION: ICD-10-CM 1. Persistent atrial fibrillation ([facility] I48.19 ECG 2. Cryoballoon catheter ablation of longstanding persistent atrial fibrillation 09-09-2021 Nelsy Z98.890 Z86.79 3. Coronary artery disease involving wy[place] coronary artery of wyand[place] heart without angina kqfboxqqZ38.10 4. Nonischemic cardiomyopathy ([facility] I42.8 5. HANNAH (obstructive sleep apnea) G47.33 6. Nonrheumatic tricuspid valve regurgitation I36.1 7. Morbid (severe) obesity with alveolar hypoventilation ([facility] E66.2 8. Mixed hyperlipidemia E78.2 9. Localized edema R60.0 PLAN AND RECOMMENDATION: 1. Coronary artery disease wy[place] vessel without complaints of angina-the patient has had nonobstructive coronary disease by catheterization in the past. He is not having symptoms to suggest cardiac ischemia 2. Persistent atrial fibrillation-the patient is off amiodarone due to issues with hyperthyroidism in the past. He did have an ablation in the past. The patient is not a candidate for any other antiarrhythmic the Betapace. The patient is going to see EP in consultation concerning a repeat ablation in early April. The patient is back in sinus rhythm per my personal interpretation of his EKG. The patient is agreeable to staying on Eliquis twice a day dosing in his on metoprolol with adequate heart rate control. 3. Cryo balloon catheter ablation of AFib-the patient has had an ablation in the past. He is off antiarrhythmic therapy in his seeing EP for considerations of a repeat ablation. 4. Nonischemic cardiomyopathy-the patient has had issues with a tachycardia mediated cardiomyopathy. His LV function has improved slightly in his up to 30- 35%. The patient does not appear to have signs of volume overload in his clinically stable on Lasix, losartan, metoprolol and Farxiga. 5. Chronic systolic heart failure-the patient has a tachycardia mediated cardiomyopathy. The patient is clinically stable on his present heart failure regimen. 6. Mixed hyperlipidemia-the patient's LDL cholesterol is reasonably controlled on dietary management at 72 7. Nonrheumatic mitral valve regurgitation-the patient has qadu-wt-fqwlifvo mitral regurgitation based on his most recent assessment. He is not having symptoms related to the valve 8. Obstructive sleep apnea-the patient is undergoing a repeat sleep study. The patient understands the importance of diagnosing and treating sleep apnea if present. documented in this encounter Plan of Treatment Upcoming Encounters Date Type Department Care Team (Late st Contact Info) Description 04/17/2025 10:30 AM EDT Appointment [facility] Physicians - Heart & Vascular, [address] [place] [address] Daniel Elder MD [address] [facility] [place] [address] 04/21/2025 1:00 PM EDT Appointment [facility] Physicians - Sleep Medicine, [place] [address] [place] [address] Jayy Whitfield NP [address] [place] [address] 04/28/2025 2:40 PM EDT Appointment [facility] Physicians - Pulmonary Medicine, [facility] [address] [facility] [address] [place] [phone] Noé Sofia DO [address] [facility] [place], [place] [id number] 05/14/2025 1:15 PM EDT Appointment [facility] Physicians - Spine Surgery, [facility] [address] [facility] [place] [phone] Leo Mosley PA-C [address] [place], [place] [id number] 07/02/2025 2:15 PM EDT Appointment [facility] Physicians - Heart & Vascular, [facility] [address] [place] [address] [address] [place] [address] Mariola Cueva MD [address] [facility] [address] [place] [address] documented as of this encounter Goals Goal [...] Priority Date/Time Associated Diagnosis Comments ECG Routine 04/01/2025 2:29 PM EDT Persistent atrial fibrillation (CMS/HCC) documented in this encounter Results * ECG (04/01/2025 2:29 PM EDT) Heart Rate 67 bpm [facility] EXTER NAL LAB QRS Interval 133 ms [facility] EXT ERNAL LAB QT Interval 441 ms [facility] EXTE RNAL LAB QTc Interval 466 ms [facility] EXT ERNAL LAB P Avilla 10 deg [facility] TESTING MANAGER AL LAB QRS Avilla -82 deg T[facility] TESTING MANAGER AL LAB T Wave Avilla 24 deg [facility] EXTE RNAL LAB P-R Interval 139 msec [facility] EXT ERNAL LAB 04/01/2025 2:29 PM EDT Narrative [facility] EXTERNAL LAB - 04/01/2025 2:44 PM EDT [facility] Test Date: 2025-04-01 14:29:22 Pat Name: RENETTA MARILEEFORMERLY [facility] Department: [facility] Room: blank 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: HAS : 1955 Requested By: MARIOLA Centeno Order Number: [id number] Reading MD: Mariola Cueva MD Interpretive Statements Sinus rhythm Ventricular premature complex RBBB and LAFB abnormal EKG PACs are no longer present compared with the prior EKG Electronically Signed On 04-01-2025 14:44:03 EDT by Mariola Cueva MD Procedure Note Mariola Cueva MD - 04/01/2025 [facility] Test Date: 2025-04-01 14:29:22 Pat Name: RENETTA RUIZ Department: [facility] Room: blank 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: HAS : 1955 Requested By: MARIOLA Centeno Order Number: [id number] Reading : Mariola Cueva MD Interpretive Statements Sinus rhythm Ventricular premature complex RBBB and LAFB abnormal EKG PACs are no longer present compared with the prior EKG Electronically Signed On 04-01-2025 14:44:03 EDT by Mariola Cueva MD us Mariola Cueva MD ECG ORDERABLES Final Resul t [facility] EXTER[facility] [address] [id number], [facility] documented in this encounter Visit Diagnoses Diagnosis Persistent atrial fibrillation (CMS/HCC)- Primary Atrial fibrillation Cryoballoon catheter ablation of longstanding persistent atrial fibrillation 09-09-2021 Nelsy Other postprocedural status Coronary artery disease involving wy[place] coronary artery of wy[place] heart without angina pectoris Nonischemic cardiomyopathy (CMS/HCC) Other primary cardiomyopathies HANNAH (obstructive sleep apnea) Obstructive sleep apnea (adult) (pediatric) Mixed hyperlipidemia Nonrheumatic mitral valve regurgitation Chronic systolic CHF (congestive heart failure) (CMS/HCC) Chronic systolic heart failure documented in this encounter Care Teams Hotel Custodian Relationship Specialty Start Date End Date Sudhakar Lipscomb NP [address] [place] [address] PCP - General Family Medicine 08/30/23 Stephany Ortega RN Cardiology 08/04/21 Mariola Cueva MD [address] [facility] [address] [place] [address] Cardiology 08/10/21 Maverick Lee MD [address] [facility] [address] [facility] [place] [address] Interventional Cardiology 09/06/21 Michael Gonzales MD [address] [facility] [place] [address] Internal Medicine, Sleep Medicine 09/07/21 Lolly Warren NP [address] [place] [address] Nurse Practitioner Nurse Practitioner, Acute Care 09/08/21 Daniel Whittington MD, PhD [address] [place] [address] Clinical Cardiac Electrophysiology 09/13/21 Regina Esquivel POLICE OFFICER BOOKING [address] [place] [address] Nurse Practitioner Nurse Practitioner, Acute Care 09/22/21 Maverick Waterman DO 1955 [facility] [place] [address] Advanced Heart Failure/Transplant 09/30/21 Aris Tracey MD [facility] [facility] [address] [place] [address] Urology 10/28/21 Noé Sofia DO [address] [place] [address] Critical Care Medicine 12/28/22 documented as of this encounter
--- OUTSIDE RECORDS SUMMARY | 2025-04-15 13:41 | XMS_ITS | Encounter Summary ---
Author Organization [facility] Address [address] [place] [address] Care Team Providers Care Bicycle Racer Name Role Phone Stephany Ortega RN Unavailable Amaris Cueva MD Unavailable [phone] Maverick Lee MD Unavailable [phone] Michael Gonzales MD Unavailable [phone] Lolly Warren NP Unavailable [phone] Daniel Whittington MD, PhD Unavailable +[phone] Regina Esquivel NP Unavailable [phone] Maverick Waterman DO Unavailable [phone] Aris Tracey MD Unavailable [phone] Noé Sofia DO Unavailable [phone] Sudhakar Lipscomb DRILLER MULTIPLE SPINDLE Primary Care Provider [phone] Reason for Visit * Reason Comments Medications Refill Encounter Details Date Type Department Care Team (Late st Contact Info) Description 02/25/2025 Refill [facility] Physicians - Heart & Vascular, [facility] [address] [place] [address] [address] [place] [address] Amaris Cueva MD [address] [facility] [address] [place] [address] Medications Refill Social History Tobacco Use Types Packs/Day Years [...] Zain Tirado RN documented in this encounter Plan of Treatment Upcoming Encounters Date Type Department Care Team (Late st Contact Info) Description 04/17/2025 10:30 AM EDT Appointment [facility] Physicians - Heart & Vascular, [address] [place] [address] Daniel Elder MD [address] [place] [address] 04/21/2025 1:00 PM EDT Appointment [facility] Physicians - Sleep Medicine, [place] [address] [place] [address] Jayy Whitfield NP [address] [place] [address] 04/28/2025 2:40 PM EDT Appointment [facility] Physicians - Pulmonary Medicine, [facility] [address] [facility] [address] [place] [address] Noé Sofia DO [address] [place], [place] [address] 05/14/2025 1:15 PM EDT Appointment [facility] Physicians - Spine Surgery, [facility] [address] [place] [address] Leo Mosley PA-C [address] [place] [address] 07/02/2025 2:15 PM EDT Appointment [facility] Physicians - Heart & Vascular, [facility] [address] [place] [address] Amaris Cueva MD [address] [facility] [address] [place] [address] documented as of this encounter Goals Goal Patient Goal Type Associated Problems Recent Progress Patient-Stated? Author Limit fluid intake to 2 liters per day Diet No Tariq Lee BS Reduce salt intake to 2 grams per day Diet No Tariq Lee BS Record weight daily Lifestyle Yes Tariq Lee BS documented as of this encounter Visit Diagnoses Diagnosis Primary hypertension Unspecified essential hypertension Persistent atrial fibrillation (CMS/HCC) Atrial fibrillation documented in this encounter Care Teams Bicycle Racer Relationship Specialty Start Date End Date Sudhakar Lipscomb NP [address] [place] [address] PCP - General Family Medicine 08/30/23 Stephany Ortega, SHARONDA Cardiology 08/04/21 Amaris Cueva MD [address] [facility] [address] [place], [place] [id number] Cardiology 08/10/21 Maverick Lee MD [address] [facility] [address] [place], [place] [id number] Interventional Cardiology 09/06/21 Michael Gonzales MD [address] [place], [place] [address] Internal Medicine, Sleep Medicine 09/07/21 Lolly Warren NP [address] [place], [place] [address] Nurse Practitioner Nurse Practitioner, Acute Care 09/08/21 Daniel Whittington MD, PhD [address] [place], [place] [address] Clinical Cardiac Electrophysiology 09/13/21 Regina Esquivel NP [facility] [place] [place] [address] Nurse Practitioner Nurse Practitioner, Acute Care 09/22/21 Maverick Waterman DO [address] [place] [address] Advanced Heart Failure/Transplant 09/30/21 Aris Tracey MD [facility] [facility] [address] [place] [address] Urology 10/28/21 Noé Sofia DO [address] [place], [place] [address]. [address] [place] [address] Critical Care Medicine 12/28/22 documented as of this encounter
--- OUTSIDE RECORDS SUMMARY | 2025-04-15 13:41 | XMS_ITS | Encounter Summary ---
Author Organization [facility] Address [address] [place] [address] Care Team Providers Care Hog Counter Name Role Phone Stephany Ortega RN Unavailable Amaris Cueva MD Unavailable [phone] Maverick Lee MD Unavailable [phone] Michael Gonzales MD Unavailable [phone] Lolly Warren NP Unavailable [phone] Daniel Whittington MD, PhD Unavailable [phone] Regina Esquivel NP Unavailable [phone] Maverick Waterman DO Unavailable [phone] Aris Tracey MD Unavailable [phone] Noé Sofia DO Unavailable [phone] Sudhakar Lipscomb BLOCKER METAL BASE Primary Care Provider [phone] Encounter Details Date Type Department Care Team (Latest Contact Info) Description 03/22/2025 Travel Social History Tobacco Use Types Packs/Day Years [...] [facility] - [facility] Vascular, [address] [place] [address] Daniel Elder MD [address] [facility] [place] [address] 04/21/2025 1:00 PM EDT Appointment [facility] Physicians - Sleep Medicine, [place] [address] [place] [address] Jayy Whitfield NP [address] [place], [place] [address] 04/28/2025 2:40 PM EDT Appointment [facility] Physicians - Pulmonary Medicine, [facility] [address] [facility] [address] [place] [address] Noé Sofia DO [address] [facility] [place], [place] [address] 05/14/2025 1:15 PM EDT Appointment [facility] Physicians - Spine Surgery, [facility] [address] [place] [address] Leo Mosley PA-C [address] [place] [address] 07/02/2025 2:15 PM EDT Appointment [facility] Physicians - Heart & Vascular, [facility] [address] [place] [address] [address] [place] [address] Amaris Cueva MD [address] [facility] [address] [place], [place] [address] documented as of this encounter Goals Goal Patient Goal Type Associated Problems Recent Progress Patient-Stated? Author Limit fluid intake to 2 liters per day Diet No Tariq Lee BS Reduce salt intake to 2 grams per day Diet No Tariq Lee BS Record weight daily Lifestyle Yes Tariq Lee BS documented as of this encounter Visit Diagnoses Not on filedocumented in this encounter Care Teams Hog Counter Relationship Specialty Start Date End Date Sudhakar Lipscomb NP [address] [place] [id number] PCP - General Family Medicine 08/30/23 Stephany Ortega, RN Cardiology 08/04/21 Amaris Cueva MD [address] [facility] [address] [place] [address] Cardiology 08/10/21 Maverick Lee MD [address] [facility] [address] [place] [address] Interventional Cardiology 09/06/21 Michael Gonzales MD [address] [place] [address] Internal Medicine, Sleep Medicine 09/07/21 Lolly Warren NP [address] [place] [address] Nurse Practitioner Nurse Practitioner, Acute Care 09/08/21 Daniel Whittington MD, PhD [address] [place] [address] Clinical Cardiac Electrophysiology 09/13/21 Regina Esquivel NP [address] [place] [address] Nurse Practitioner Nurse Practitioner, Acute Care 09/22/21 Maverick Waterman DO [address] [facility] [place], [place] [address] Advanced Heart Failure/Transplant 09/30/21 Aris Tracey MD [address] [place] [address] [address] [place], [place] [address] Urology 10/28/21 Noé Sofia DO [address] [place] [address] [address] [place] [address] Critical Care Medicine 12/28/22 documented as of this encounter
--- OUTSIDE RECORDS SUMMARY | 2025-04-15 13:41 | XMS_ITS | Encounter Summary ---
Author Organization [facility] Address [address] [place] [address] Care Team Providers Care Scraper Operator Name Role Phone Pamela Apple Primary Care Provider Stephany Ortega RN Unavailable Amaris Cueva MD Unavailable [phone] Maverick Lee MD Unavailable [phone] Michael Gonzales MD Unavailable [phone] Lolly Warren NP Unavailable [phone] Daniel Whittington MD, PhD Unavailable [phone] Regina Esquivel NP Unavailable [phone] Maverick Waterman DO Unavailable [phone] Aris Tracey MD Unavailable [phone] Noé Sofia DO Unavailable [phone] Sudhakar Lipscomb LEASE EXAMINER Primary Care Provider Encounter Details Date Type Department Care Team (Latest Contact Info) Description 10/28/2021 Preop Surgical Orders [facility] Physicians - Urology, [place] [address] [facility] [address] [place] [address] Lolly Lipscomb, RN Bladder stone (Primary Dx); Gross hematuria Social History Tobacco Use Types Packs/Day Years Used Date Smoking Tobacco: Former Cigarettes 1 6 0 09/11/1964 - 09/11/1970 Smokeless Tobacco: Never Alcohol Use Standard Drinks/Week [...] Orientation Straight 03/07/2025 9: 32 AM EDT COVID-19 Exposure Response Date Recorded In the last month, have you been in contact with someone who was confirmed or suspected to have Coronavirus / COVID-19? No / Unsure 10/26/2021 2:12 PM EST documented as of this encounter Plan of Treatment Upcoming Encounters Date Type Department Care Team (Late st Contact Info) Description 04/17/2025 10:30 AM EDT Appointment [facility] Physicians - Heart & Vascular, [address] [facility] [address] [place] [address] Daniel Elder MD [address] [facility] [place] [address] 04/21/2025 1:00 PM EDT Appointment [facility] Physicians - Sleep Medicine, [place] [address] [place] [address] Jayy Whitfield NP [address] [facility] [address] [place] [address] 04/28/2025 2:40 PM EDT Appointment [facility] Physicians - Pulmonary Medicine, [place] [address] [facility] [address] [place] [address] Noé Sofia DO [address] [facility] [place] [address] 05/14/2025 1:15 PM EDT Appointment [facility] Physicians - Spine Surgery, [facility] [address] [facility] [address] [place] [address] Leo Mosley PA-C [address] [place], [place] [address] 07/02/2025 2:15 PM EDT Appointment [facility] Physicians - Heart & Vascular, [facility] [address] [facility] [address] [place] [address] Amaris Cueva MD [address] [facility] [address] [place] [address] documented as of this encounter Goals Goal Patient Goal Type Associated Problems Recent Progress Patient-Stated? Author Limit fluid intake to 2 liters per day Diet No Tariq Lee BS Reduce salt intake to 2 grams per day Diet No Tariq Lee BS Record weight daily Lifestyle Yes Tariq Lee BS documented as of this encounter Visit Diagnoses Diagnosis Bladder stone- Primary Other calculus in bladder Gross hematuria documented in this encounter Care Teams Scraper Operator Relationship Specialty Start Date End Date Apple Santiago [address] [place] [address] M[place]IEHL [address] PCP - General Family Medicine 08/02/21 08/29/23 Sudhakar Lipscomb NP [address] [place] [address] PCP - General Family Medicine 08/30/23 Stephany Ortega, RN Cardiology 08/04/21 Amaris Cueva MD [address] [facility] [address] [place] [address] Cardiology 08/10/21 Maverick Lee MD [address] [facility] [address] [place], [place] [phone] Interventional Cardiology 09/06/21 Michael Gonzales MD [address] [place] [address] Internal Medicine, Sleep Medicine 09/07/21 Lolly Warren NP [address] [place] [address] Nurse Practitioner Nurse Practitioner, Acute Care 09/08/21 Daniel Whittington MD, PhD [address] [place] [address] Clinical Cardiac Electrophysiology 09/13/21 Regina Esquivel NP [address] [place] [address] Nurse Practitioner Nurse Practitioner, Acute Care 09/22/21 Maverick Waterman DO [address] [facility] [place] [address] Advanced Heart Failure/Transplant 09/30/21 Aris Tracey MD [address] [facility] [address] [place] [address] Urology 10/28/21 Noé Sofia DO [address] [place] [address] [place] [address] Critical Care Medicine 12/28/22 documented as of this encounter
--- OUTSIDE RECORDS SUMMARY | 2025-04-15 13:41 | XMS_ITS | Encounter Summary ---
Author Organization [facility] Address [address] [place] [address] Care Team Providers Care Residential Solar Consultant Name Role Phone Stephany Ortega RN Unavailable Amaris Cueva MD Unavailable [phone] Maverick Lee MD Unavailable [phone] Michael Gonzales MD Unavailable [phone] Lolly Warren NP Unavailable [phone] Daniel Whittington MD, PhD Unavailable [phone] Regina Esquivel NP Unavailable [phone] Maverick Waterman DO Unavailable [phone] Aris Tracey MD Unavailable [phone] Noé Sofia DO Unavailable [phone] Sudhakar Lipscomb CIGARETTE INSPECTOR Primary Care Provider [phone] Reason for Visit * Reason Onset Date Comments Scheduling 03/24/2025 Encounter Details Date Type Department Care Team (Late st Contact Info) Description 03/24/2025 Telephone [facility] Physicians - Sleep Medicine, [place] [address] [place] [address] Michael Gonzales MD [address] [place] [address] Scheduling Social History Tobacco Use Types Packs/Day Years [...] Zain Tirado RN documented in this encounter Miscellaneous Notes * Telephone Encounter - Kina Brownlee - 03/24/2025 9:21 AM EDT Called pt to reschedule sleep study. Pt stated that he would call back to reschedule when he finds out what his chemotherapy schedule will be. documented in this encounter Plan of Treatment Upcoming Encounters Date Type Department Care Team (Late st Contact Info) Description 04/17/2025 10:30 AM EDT Appointment [facility] Physicians - Heart & Vascular, [address] [place] [address] Daniel Elder MD [address] [facility] [place] [address] 04/21/2025 1:00 PM EDT Appointment [facility] Physicians - Sleep Medicine, [place] [address] [place] [address] Jayy Whitfield NP [address] [place], [place] [address] 04/28/2025 2:40 PM EDT Appointment [facility] Physicians - Pulmonary Medicine, [address] [place] [address] Noé Sofia DO [address] [place], [place] [address] 05/14/2025 1:15 PM EDT Appointment [facility] Physicians - Spine Surgery, [facility] [place] [address] [place] [address] Leo Mosley PA-C [address] [place], [place] [id number] 07/02/2025 2:15 PM EDT Appointment [facility] Physicians - Heart & Vascular, [facility] [address] [facility] [address] [place] [address] Amaris Cueva MD [address] [facility] [address] [facility] [place] [address] documented as of this encounter Goals Goal [...] on filedocumented in this encounter Care Teams Residential Solar Consultant Relationship Specialty Start Date End Date Sudhakar Lipscomb NP [address] [place] [address] PCP - General Family Medicine 08/30/23 Stephany Ortega, SHARONDA Cardiology 08/04/21 Amaris uCeva MD [address] [facility] [address] [place], [place] [address] Cardiology 08/10/21 Maverick Lee MD [address] [facility] [address] [facility] [place], [place] [id number] Interventional Cardiology 09/06/21 Michael Gonzales MD [facility] [place], [place] [address] Internal Medicine, Sleep Medicine 09/07/21 Lolly Warren NP [address] [place] [address] Nurse Practitioner Nurse Practitioner, Acute Care 09/08/21 Daniel Whittington MD, PhD [address] [place] [address] Clinical Cardiac Electrophysiology 09/13/21 Regina Esquivel, CIGARETTE INSPECTOR [address] [place] [address] Nurse Practitioner Nurse Practitioner, Acute Care 09/22/21 Maverick Waterman DO [address] [place] [address] Advanced Heart Failure/Transplant 09/30/21 Aris Tracey MD [address] [facility] [address] [place] [address] Urology 10/28/21 Noé Sofia DO [address] [place] [address] Critical Care Medicine 12/28/22 documented as of this encounter
--- OUTSIDE RECORDS SUMMARY | 2025-04-15 13:41 | XMS_ITS | Encounter Summary ---
Author Organization [facility] Address [address] [place] [address] Care Team Providers Care Scrap Separator Name Role Phone Stephany Ortega RN Unavailable Amaris Cueva MD Unavailable [phone] Maverick Lee MD Unavailable [phone] Michael Gonzales MD Unavailable [phone] Lolly Warren NP Unavailable [phone] Daniel Whittington MD, PhD Unavailable [phone] Regina Esquivel NP Unavailable [phone] Maverick Waterman DO Unavailable [phone] Aris Tracey MD Unavailable [phone] Noé Sofia DO Unavailable [phone] Sudhakar Lipscomb GRAPPLER Primary Care Provider [phone] Reason for Visit * Reason Onset Date Comments Results 03/28/2025 KRIS & DCCV Encounter Details Date Type Department Care Team (Latest Contact Info) Description 03/28/2025 Results Follow-Up [facility] Physicians - Heart & Vascular, [facility] [address] [place] [address] Ayesha Rouse RN [address] [place] [address] KRIS ECHO CARDIOVERSION PRN CONTR/BUBBLE/3D Social History Tobacco Use Types Packs/Day Years [...] encounter Miscellaneous Notes * Telephone Encounter - Ayesha Rouse RN - 03/28/2025 2:39 PM EDT Spoke w/JLE Pt successfully cardioverted Advised per JLE to take BB twice daily Reinforced pt to take Eliquis twice daily Pt has f/u w/JLE 04/01 and EP GRAPPLER visit 04/17/25 Pt aware of all instructions documented in this encounter Plan of Treatment Upcoming Encounters Date Type Department Care Team (Late st Contact Info) Description 04/17/2025 10:30 AM EDT Appointment [facility] Physicians - Heart & Vascular, [address] [facility] [address] [place] [address] aDniel Elder MD [address] [facility] [place] [address] 04/21/2025 1:00 PM EDT Appointment [facility] Physicians - Sleep Medicine, [address] [phone] Jayy Whitfield NP [address] [facility] [address] [place] [address] 04/28/2025 2:40 PM EDT Appointment [facility] Physicians - Pulmonary Medicine, [facility] [address] [facility] [address] [place] [address] Noé Sofia DO [address] [facility] [place], [place] [address] 05/14/2025 1:15 PM EDT Appointment [facility] Physicians - Spine Surgery, [facility] [address] [place] [address] Leo Mosley PA-C [address] [place] [address] 07/02/2025 2:15 PM EDT Appointment [facility] Physicians - Heart & Vascular, [facility] [address] [facility] [address] [place] [address] Amaris Cueva MD [address] [facility] [address] [place] [address] documented as of this encounter Goals Goal [...] on filedocumented in this encounter Care Teams Scrap Separator Relationship Specialty Start Date End Date Sudhakar Lipscomb NP [address] [place] [address] PCP - General Family Medicine 08/30/23 Stephany Ortega, RN Cardiology 08/04/21 Amaris Cueva MD [address] [facility] [address] [facility] [place] [address] Cardiology 08/10/21 Maverick Lee MD [address] [facility] [address] [place] [address] Interventional Cardiology 09/06/21 Michael Gonzales MD [address] [place] [address] [address] [place] [address] Internal Medicine, Sleep Medicine 09/07/21 Lolly Warren NP [address] [place] [address] Nurse Practitioner Nurse Practitioner, Acute Care 09/08/21 Daniel Whittington MD, PhD [address] [place] [address] Clinical Cardiac Electrophysiology 09/13/21 Regina Esquivel NP [address] [place] [address] Nurse Practitioner Nurse Practitioner, Acute Care 09/22/21 Maverick Waterman DO [address] [facility] [place] [address] Advanced Heart Failure/Transplant 09/30/21 Aris Tracey MD [address] [place] [address] [address] [place] [address] Urology 10/28/21 Noé Sofia DO [address] [place] [address] Critical Care Medicine 12/28/22 documented as of this encounter
--- OUTSIDE RECORDS SUMMARY | 2025-04-15 13:41 | XMS_ITS | Clinical Summary ---
Author Organization [facility] Address [address] [facility] [place] [address] Care Team Providers Care Wing Commander Name Role Phone Donell Decker Primary Care Provider [phone] Allergies Active Allergy Reactions Criticality Noted Date Comments Antihistamines, Diphenhydramine-Type Anxiety Low 10/30/2013 Codeine Hives,Itching Low 10/30/2013 Medications ibuprofen (ADVIL;MOTRIN) 600 MG tablet Take 600 mg by mouth every 6 hours as needed for Pain Active predniSONE (DELTASONE) 10 MG tabletIndication s:Labyrinthine vertigo, unspecified laterality Take 2 tablets bid for 3 days, 1 tablet bid for 2 days, 1 tablet daily for 2 days, then one half tablet daily 25 tablet 09/22/2017 Active Active Problems Problem Noted Date Diagnosed Date Vertigo, 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 Social History Tobacco Use Types Packs/Day Years Used Date Smoking Tobacco: Never Smokeless Tobacco: Never Alcohol Use Standard Drinks/Week Comments No 0 (1 standard drink = 0.6 oz pur e alcohol) Sex and Gender Information Value Date Recorded Sex Assigned at Not on file Legal Sex Male 3:36 PM EST Gender Identity Not on file Sexual Orientation Not on file Last Filed Vital Signs Vital Sign Reading Time Taken Comments Blood Pressure 120/86 09/22/2017 12:32 PM EST Pulse 75 08/08/2016 1:11 PM EST Temperature 35.7 C (96.3 F) 03/20/2016 8:02 PM EDT Respiratory Rate 18 03/20/2016 8:02 PM EDT Oxygen Saturation 98% 03/20/2016 8:02 PM EDT Inhaled Oxygen Concentration - - Weight 108.9 kg (240 lb) 08/08/2016 1:11 PM EST Height 172.7 cm (5' 8 ) 08/08/2016 1:11 PM EST Body Mass Index 36.49 08/08/2016 1:11 PM EST Plan of Treatment Not on file Care Teams Wing Commander Relationship Specialty Start Date End Date Donell Decker [address] [facility] [address] PCP - General 11/25/10
--- OUTSIDE RECORDS SUMMARY | 2025-04-15 13:41 | XMS_ITS | Clinical Summary ---
Author Organization [facility] Address [address] [place] [address] Care Team Providers Care Machine Installer Name Role Phone Stephany Ortega RN Unavailable Amaris Cueva MD Unavailable [phone] Maverick Lee MD Unavailable [phone] Michael Gonzales MD Unavailable [phone] Lolly Warren NP Unavailable [phone] Daniel Whittington MD, PhD Unavailable [phone] Regina Esquivel NP Unavailable [phone] Maverick Waterman DO Unavailable [phone] Aris Tracey MD Unavailable [phone] Noé Sofia DO Unavailable [phone] Sudhakar Lipscomb TIRE CENTER MANAGER Primary Care Provider Allergies Active Allergy Reactions Criticality Noted Date Comments Amiodarone 12/18/2024 Low TSH Anti-Hyst 08/16/2010 excitable Diphenhydramine Hcl 08/04/2021 excitable Codeine 08/16/2010 itchy Meperidine 08/16/2010 Scared feeling Proton Pump Inhibitors Other (See Comments) Phenazopyridine Other (See Comments) 09/05/2021 Visual disturbances- orange color in eyes Medications acetaminophen 325 mg Capsule Take 2 Capsules by mouth every 6 hours as needed. Active predniSONE (DELTASONE) 5 mg tablet Take 5 mg by mouth in the morning and 5 mg before bedtime. Active abiraterone (Zytiga) 250 mg Tablet Take 1,000 mg by mouth in the morning. 0 Active leuprolide (Eligard) 22.5 mg Syringe 22.5 mg by Subcutaneous route. Active albuterol (VENTOLIN/PROAIR/ PROVENTIL HFA) 90 mcg/actuation HFA Aerosol Inhaler Acti ve furosemide (LASIX) 20 mg tabletIndications :Nonischemic cardiomyopathy (CMS/HCC) Take 1 Tablet (20 mg) by mouth daily. 60 Tablet Active metoprolol succinate (TOPROL) 50 mg Tablet Sustained Release 24 hrIndications:Ekaterina charlette hypertension,Pers istent atrial fibrillation (CMS/HCC) Take 1 Tablet (50 mg) by mouth 2 times daily. 180 Tablet 3 Active losartan (COZAAR) 100 mg Tablet Take 1 Tablet by mouth in the morning. 90 Tablet 3 Active dapagliflozin propanediol (Farxiga) 10 mg Tablet tablet Take 1 Tablet by mouth every morning. 90 Tablet 3 025 Active apixaban (Eliquis) 5 mg Tablet Take 1 Tablet (5 mg) by mouth 2 times daily. 60 Tablet 11 Active tamsulosin (FLOMAX) 0.4 mg sustained release capsule Take 0.4 mg by mouth in the morning and 0.4 mg before bedtime. 2024 Discontinued apixaban (ELIQUIS) 5 mg Tablet Take 1 Tablet (5 mg) by mouth 2 times daily. 60 Tablet 4 025 2024 Discontinued traMADol (ULTRAM) 50 mg tablet 025 2024 Discontinued gabapentin (NEURONTIN) 300 mg capsule Take 1 Capsule (300 mg) by mouth every evening. 30 Capsule 2 025 2024 Discontinued Lidocaine 4 % Adhesive Patch, Medicated Apply 1 patch every day by topical route as needed. 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 11/08/2022 Essential hypertension 05/09/2022 Bladder stone 10/28/2021 Overview (10/28/2021): Added automatically from request for surgery [id number] Chronic systolic CHF (congestive heart failure) 09/21/2021 Cryoballoon catheter ablatio n of longstanding persistent atrial fibrillation 09-09-2021 Beyerbach 09/09/2021 Persistent atrial fibrillation 09/09/2021 Paroxysmal A-fib 08/10/2021 Gross hematuria 08/10/2021 History of prostate cancer 08/10/2021 RBBB with left anterior fascicular block 021 HANNAH (obstructive sleep apnea) 08/10/2021 Localized edema 08/10/2021 Resolved Problems Problem Noted Date Diagnosed Date Resolved Date Nonrheumatic tricuspid valve regurgitation 01/10/2023 04/01/2025 Acute systolic CHF (congestive heart failure) 08/30/20 21 11/08/2022 Acute systolic heart failure 08/30/2021 12/18/2024 MORRELL (dyspnea on exertion) 08/10/2021 Encounters Date Type Department Care Team Description 04/09/2025 Refill [facility] Heart [address] [place] [phone] Amaris Cueva MD Medications Refill 04/01/2025 2:15 PM EDT Office Visit The [address] [place] [phone] Amaris Cueva MD Persistent atrial fibrillation (CMS/HCC) (Primary Dx); Cryoballoon catheter ablation of longstanding persistent atrial fibrillation 09-09-2021 Beyerbach; Coronary artery disease involving tribe coronary artery of tribe heart without angina pectoris; Nonischemic cardiomyopathy (CMS/HCC); HANNAH (obstructive sleep apnea); Mixed hyperlipidemia; Nonrheumatic mitral valve regurgitation; Chronic systolic CHF (congestive heart failure) (CMS/HCC) 03/28/2025 6:44 AM EDT - 03/28/2025 11:59 PM EDT Hospital Encounter [facility] Cardiovascular Testing Center - [facility] - C-Level [address] [place] [address] Persistent atrial fibrillation (CMS/HCC) Discharge Disposition: Home or Self Care 03/28/2025 Results Follow-Up The [address] [place] [phone] Ayesha Rouse RN KRIS ECHO CARDIOVERSION PRN CONTR/BUBBLE/3D 03/26/2025 2:00 PM EDT Office Visit The [address] [place] [phone] Amaris Cueva MD Persistent atrial fibrillation (CMS/HCC) (Primary Dx); Coronary artery disease involving tribe coronary artery of tribe heart without angina pectoris; Cryoballoon catheter ablation of longstanding persistent atrial fibrillation 09-09-2021 Beyerbach; Essential hypertension; Nonischemic cardiomyopathy (CMS/HCC); HANNAH (obstructive sleep apnea); Chronic systolic CHF (congestive heart failure) (CMS/HCC); Localized edema; Mixed hyperlipidemia 03/26/[address] [facility] Physicians - Heart & Vascular, [facility] [address] [facility] [address] [place] [address] Tiffanie Cole RN Procedure (KRIS/CV) 03/24/[address] [facility] Physicians - Sleep Medicine, [place] [address] [place] [address] Michael Gonzales MD Scheduling 03/23/2025 Orders Only [facility] - Sleep Medicine, [address] [place] [address] Michael Gonzales MD HANNAH (obstructive sleep apnea) (Primary Dx) 03/22/2025 7:53 PM EDT - 03/22/2025 10:58 PM EDT Hospital Encounter [facility] Sleep [place] [id number] [facility] [address] [place] [address] HANNAH (obstructive sleep apnea) Discharge Disposition: Home or Self Care 03/22/2025 Travel 03/21/2025 Telephone [facility] Sleep Medicine, [address] [place] [address] Michael Gonzales MD 03/11/2025 Telephone Cardiology Services [address] [place] [address] Lindsey Danielson PA Palpitations/Arrhythm ia 03/11/[address] [facility]opedic [facility] - Central Scheduling [address] [place] [address] Richar Aguirre MD Advice Only 03/07/2025 9:45 AM EDT Office Visit [facility] Physicians - Orthopaedics & Sports Medicine, [place] [address] [facility] [address] [place] [address] Judd Wu PA Arthritis of right knee (Primary Dx); Right hip pain; Right knee pain, unspecified chronicity; Acute right-sided low back pain, unspecified whether sciatica present 03/07/2025 Clinical Update [facility] - Spine Surgery, [place] [address] [place] [phone] ElleCharlette 02/26/2025 Refill [facility] Heart & [facility] [address] [place] [address] Amaris Cueva MD Medications Refill 02/25/2025 Refill [facility] Heart & [facility] [address] [facility] [address] [place] [address] Amaris Cueva MD Medications Refill 02/13/2025 Telephone [facility] [address] [place] [phone] Michael Gonzales MD Scheduling (r/s split night at [place]) 02/13/2025 Telephone [facility] [address] [facility] [address] [place] [address] Tiffanie Cole RN Patient Status Update 01/13/2025 1:00 PM EDT Office Visit [facility] Sleep Medicine, [place] [address] [place] [phone] Michael Gonzales MD HANNAH (obstructive sleep apnea) (Primary Dx); Obesity (BMI 30-39.9); Paroxysmal A-fib ([facility]); Cryoballoon catheter ablation of longstanding persistent atrial fibrillation 09-09-2021 Beyerbach; Chronic systolic CHF (congestive heart failure) ([facility]); RLS (restless legs syndrome); Essential hypertension; Chronic insomnia from Last 3 Months Family History Medical History Relation Name Comments Diabetes Brother Heart Problems Brother Anesthesia Complications Neg Hx Relation Name Status Comments Brother Social History Tobacco Use Types Packs/Day Years [...] Orientation Straight 03/07/2025 9: 32 AM EDT Last Filed Vital Signs Vital Sign Reading Time Taken Comments Blood Pressure 130/80 04/01/2025 2:27 PM EDT Pulse 70 04/01/2025 2:27 PM EDT Temperature 36.7 C (98.1 F) 03/28/2025 7:02 AM EDT Respiratory Rate 16 03/28/2025 8:30 AM EDT Oxygen Saturation 95% 03/28/2025 8:30 AM EDT Inhaled Oxygen Concentration - - Weight 116 kg (255 lb 12.8 oz) 04/01/2025 2:27 P M EDT Height 172.7 cm (5' 8 ) 04/01/2025 2:27 PM EDT Body Mass Index 38.89 04/01/2025 2:27 PM EDT Plan of Treatment Upcoming Encounters Date Type Department Care Team (Late st Contact Info) Description 04/17/2025 10:30 AM EDT Appointment [facility] Physicians - Heart & Vascular, [address] [facility] [address] [place] [address] Daniel Elder MD [address] [facility] [place], [place] [address] 04/21/2025 1:00 PM EDT Appointment [facility] Physicians - Sleep Medicine, [place] [address] [place] [phone] Jayy Whitfield NP [address] [facility] [address] [place] [address] 04/28/2025 2:40 PM EDT Appointment [facility] Physicians - Pulmonary Medicine, [place] [address] [facility] [address] [place] [phone] Noé Sofia DO [address] [facility] [place], [place] [address] 05/14/2025 1:15 PM EDT Appointment [facility] Physicians - Spine Surgery, CoFady ClancyMarcie [address] [facility] [address] [place] [phone] Leo Mosley PA-C [address] [place], [place] [phone] 07/02/2025 2:15 PM EDT Appointment [facility] Physicians - Heart & Vascular, [facility] [address] [place] [address] [address] [place] [address] Amaris Cueva MD [address] [facility] [address] [place] [address] Health Maintenance Due Date Last Done Comments Annual Care Visit for Contra ct Coordination 1955 Cologuard 1955 Colonoscopy 1955 Colorectal Cancer Screening 1955 FIT 1955 Tetanus Vaccination (Every 10 Years) 1972 Pneumococcal Vaccine: 50+ Ye ars (1 of 2 - PCV) 1973 Hepatitis C Virus (HCV) Screening 1975 Zoster-RZV(Shingrix) (1 of 2) 2004 RSV Vaccines (1 - Risk 60-74 years 1-dose series) 2014 Fall Risk Assessment 2019 COVID-19 Vaccine (1 - 2023-2 5 season) 2024 Advance Care Planning 09/11/2024 BMI Counseling 09/11/2024 Depression Screening 09/11/2024 Influenza Vaccination (#1) 2025 Lipid Monitoring 09/07/2025 09/07/2024, 11/2022, 08/30/2021 Lipid Screening Discontinued 09/07/2024, 11/0 11/2022, 08/30/2021 Goals Goal Patient Goal Type Associated Problems Recent Progress Patient-Stated? Author Limit fluid intake to 2 liters per day Diet No Tariq Lee BS Reduce salt intake to 2 grams per day Diet No Tariq Lee BS Record weight daily Lifestyle Yes Tariq Lee BS Procedures Procedure Name Priority Date/Time Associated Diagnosis Comments ECG Routine 04/01/2025 2:29 PM EDT Persistent atrial fibrillation (CMS/HCC) KRIS ECHO CARDIOVERSION PRN CONTR/BUBBLE/3D STAT 03/28/2025 8:09 AM EDT Persistent atrial fibrillation (CMS/HCC) ELECTRICAL CARDIOVERSION Routine 03/28/2025 8:00 AM EDT ECG STAT 03/28/2025 7:59 AM EDT POC POTASSIUM Routine 03/28/2025 7:14 AM EDT ECG Routine 03/28/2025 7:10 AM EDT ECG Routine 03/26/2025 2:02 PM EDT Persistent atrial fibrillation (CMS/HCC) DIAG-KNEE MIN 4-VIEWS RT Today 03/07/2025 Right knee pain, unspecified chronicity DIAG-RIGHT HIP 2-3 VIEWS W/WO PELVIS Today 03/07/2025 Right hip pain LIPID PROFILE STAT Future 09/07/2024 7:14 PM EST from Last 3 Months or Most Recently Relevant to Health Maintenance Results * ECG (04/01/2025 2:29 PM EDT) Only the most recent of2 resultswithin the time period is included. Heart Rate 67 bpm [facility] EXTER NAL LAB QRS Interval 133 ms [facility] EXT ERNAL LAB QT Interval 441 ms [facility] EXTE RNAL LAB QTc Interval 466 ms [facility] EXT ERNAL LAB P [place] 10 deg [facility] QRS [place] -82 deg [facility] LAB T Wave [place] 24 deg [facility] EXTE RNAL LAB P-R Interval 139 msec [facility] EXT ERNAL LAB 04/01/2025 2:29 PM EDT Narrative [facility] EXTERNAL LAB - 04/01/2025 2:44 PM EDT [facility] C[facility] Test Date: 2025-04-01 14:29:22 Pat [facility] Department: [facility] Room: blank Gender: Male Unit Secretary: HAS : 1955 Requested By: AMARIS Centeno Order Number: [id number] [place] MD: Amaris Cueva MD Interpretive Statements Sinus rhythm Ventricular premature complex RBBB and LAFB abnormal EKG PACs are no longer present compared with the prior EKG Electronically Signed On 04-01-2025 14:44:03 EDT by Amaris Cueva MD Procedure Note Amaris Cueva MD - 04/01/2025 [facility] Test Date: 2025-04-01 14:29:22 Pat Name: [facility] Department: [facility] Room: blank Gender: Male Unit Secretary: HAS : 1955 Requested By: AMARIS Centeno Order Number: [id number] [place] MD: Amaris Cueva MD Interpretive Statements Sinus rhythm Ventricular premature complex RBBB and LAFB abnormal EKG PACs are no longer present compared with the prior EKG Electronically Signed On 04-01-2025 14:44:03 EDT by Amaris Cueva MD us Amaris Cueva MD ECG ORDERABLES Final Resul t [facility] EXTERNAL LAB [address] * KRIS ECHO CARDIOVERSION PRN CONTR/BUBBLE/3D (03/28/2025 8:09 AM EDT) Anatomical Region Laterality Modality Cardiac Ultrasou nd 03/28/2025 7:32 AM EDT Narrative 03/28/2025 1:[address] [facility] Echocardiography Lab [facility] [place] [address] Transesophageal Echocardiography Patient: Renetta Ruiz Gender: Loco MR #: [id number] Age: 69 Account: [id number] : 1955 Study Date: 03/28/2025 Room: 10 BP: 125 / 91 Referring Physician: Amaris Cueva Interpreting Physician: Herbert Camacho REFERRING Amaris Cueva PERFORMING Herbert Camacho ORDERING Amaris Cueva Procedure:KRIS ECHO CARDIOVERSION PRN Order: Sol JOSEPH/Mee Number:[id number] Facility: [facility] Heart Station Indications: Atrial Fibrillation. PMH: [...] multiplane transesophageal probe was insertedby the performing technology lead without difficulty. Image quality was adequate. Scanning [...] effusion. Reviewed and confirmed by Herbert Camacho [id number] Procedure Note Herbert Camacho MD - 03/28/[address] [facility] Echocardiography Lab [address] [place] [address] Transesophageal Echocardiography Patient: Renetta Ruiz Gender: Loco MR #: [id number] Age: 69 Account: [id number] : 1955 Study Date: 03/28/2025 Room: BP: 125 / 91 Referring Physician: Amaris Cueva Interpreting Physician: Herbert Camacho REFERRING Amaris Cueva PERFORMING Herbert Camacho ORDERING Amaris Cueva Procedure:KRIS ECHO CARDIOVERSION PRN Order: Number:[id number] Facility: [facility] Heart Station Indications: Atrial Fibrillation. PMH: [...] Anadult multiplane transesophageal probe wasinsertedby the performing technology lead without difficulty. Image quality wasadequate. Scanning was [...] effusion. Reviewed and confirmed by Herbert Camacho [id number] us Amaris Cueva MD CARDNT KRIS ORDERABLES [...] Result * ECG (03/28/2025 7:59 AM EDT) Only the most recent of2 resultswithin the time period is included. Heart Rate 64 bpm [facility] EXTER NAL LAB QRS Interval 141 ms [facility] EXT ERNAL LAB QT Interval 462 ms [facility] EXTE RNAL LAB QTc Interval 477 ms TC EXT ERNAL LAB P [place] 32 deg [facility] QRS [place] -54 deg [facility] LAB T Wave [place] 17 deg TCH EXTE RNAL LAB P-R Interval 142 msec TC EXT ERNAL LAB 03/28/2025 7:59 AM EDT Narrative [facility] EXTERNAL LAB - 03/28/2025 11:54 AM EDT [facility] Test Date: 2025-03-28 07:59:07 Pat Name: [facility] Department: [facility] Room: [facility] Gender: Male Unit Secretary: [facility] : 1955 Requested By: LYDIA Cárdenas Order Number: [id number] [place] MD: Jeff Buck MD Interpretive Statements Sinus rhythm Ventricular premature complexes Premature atrial complex RBBB and LAFB Compared to the prior tracing, sinus rhythm has replaced atrial fibrillation Electronically Signed On 03-28-2025 11:54:11 EDT by Jeff Buck MD Procedure Note Jeff Buck MD - 03/28/2025 [facility] Test Date: 2025-03-28 07:59:07 Pat [facility]: [facility]: [facility] Room: [facility] Gender: Male Unit Secretary: [facility] : 1955 Requested By: LYDIA Cárdenas Order Number: [id number] [place] MD: Jeff Buck MD Interpretive Statements Sinus rhythm Ventricular premature complexes Premature atrial complex RBBB and LAFB Compared to the prior tracing, sinus rhythm has replaced atrialfibrillation Electronically Signed On 03-28-2025 11:54:11 EDT by Jeff Buck MD us Lydia Villanueva MD ECG ORDERABLES Final Result [facility] EXTERNAL LAB [address] * POC POTASSIUM (03/28/2025 7:14 AM EDT) POC Potassium 4.4 3.5 - 5.1 mmol/L [facility] EXTERNAL LAB Blood, Venous 03/28/2025 7:1 4 AM EDT 03/28/2025 7:15 AM EDT Amaris Cueva MD POINT OF CARE TEST ORDERABL ES Final Result [facility] EXTERNAL LAB [address] [place] [address], [facility] * DIAG-KNEE MIN 4-VIEWS RT (03/07/2025) Anatomical Region Laterality Modality Thigh, Knee, Leg Other Richar Aguirre MD IMG DIAGNOSTIC IMAGING ORDERAB LES Final Result * DIAG-RIGHT HIP 2-3 VIEWS W/WO PELVIS (03/07/2025) Anatomical Region Laterality Modality Pelvis Other Richar Aguirre MD IMG DIAGNOSTIC IMAGING ORDERAB LES Final Result * (ABNORMAL) LIPID PROFILE (09/07/2024 7:14 PM EST) Cholesterol 118(L) 125 - 199 mg/dL [facility] EXTERNAL LAB Comment: TOTAL CHOLESTEROL INTERPRETATION: Less than 200 mg/dL Desireable 200-239 mg/dL Borderline Greater or Equal to 240 mg/dL High LDL Calculated 72 0 - 100 mg/dL [facility] EXTERNAL LAB Comment: LDL CHOLESTEROL INTERPRETATION: Less than 100 mg/dL Optimal 100-129 mg/dL Near optimal/above optimal 130-159 mg/dL Borderline High 160-189 mg/dL High Greater or Equal to 190 mg/dL Very High HDL 35(L) 40 - 180 mg/dL [facility] EXTERNAL LAB Comment: HDL CHOLESTEROL INTERPRETATION: Less than 40 mg/dL Low Greater than 60 mg/dL Desirable Triglycerides 56 0 - 149 mg/dL [facility] EXTERNAL LAB Comment: TOTAL TRIGLYCERIDE INTERPRETATION: Less than 150 mg/dL Normal 150-199 mg/dL Borderline HIgh 200-499 mg/dL High Greater or Equal to 500 mg/dL Very High NONHDL Calculated 83 0 - 129 mg/dL [facility] EXTERNAL LAB Comment: NON-HDL INTERPRETATION: Less than 130 mg/dL Desirable 130-159 mg/dL Above Desirable 160-189 mg/dL Borderline High 190-219 mg/dL High Greater than or equal to 220 mg/dL Very High Plasma 09/07/2024 7:14 PM EST 09/07/2024 7:37 PM EST Barbie Taylor MD CHEMISTRY ORDERABLES Final Result [facility] EXTERNAL LAB [address] [place] [address], [facility] from Last 3 Months or Most Recently Relevant to Health Maintenance Insurance [facility] DUAL Advance Directives For more information, please contact: [phone] Documents on File Type Date Recorded Patient Assurance Senior Manager Insurance Expl anation Advance Directives and Living Will 09/17/2021 10:26 AM [facility] * Full Code (Latest Code Status on File) Date Activated Date Inactivated Comments 10/29/2024 11:27 AM 03/22/2025 7:53 PM No automate d chest compression devices for VAD Patients * Full Code Date Activated Date Inactivated Comments 09/10/2024 8:01 AM 10/29/2024 10:47 AM * Full Code Date Activated Date Inactivated Comments 09/07/2024 4:05 PM 09/10/2024 8:01 AM No automat ed chest compression devices for VAD Patients * Full Code Date Activated Date Inactivated Comments 09/09/2021 5:19 PM 01/24/2022 7:43 AM No automate d chest compression devices for VAD Patients * Full Code Date Activated Date Inactivated Comments 09/02/2021 6:52 PM 09/09/2021 5:19 PM No automat ed chest compression devices for VAD Patients Healthcare Agents on File Name Relationship Healthcare Agent Relationshi p Communication None Other Health Care Agent Ingrid Stephenson Daughter First Alternate Health Care Agent Care Teams Machine Installer Relationship Specialty Start Date End Date Sudhakar Lipscomb NP [address] [place] [address] PCP - General Family Medicine 08/30/23 Stephany Ortega, SHARONDA Cardiology 08/04/21 Amaris Cueva MD [address] [facility] [address] [place], [place] [id number] Cardiology 08/10/21 Maverick Lee MD [address] [facility] [address] [place], [place] [phone] Interventional Cardiology 09/06/21 Michael Gonzales MD [address] [place], [place] [address] Internal Medicine, Sleep Medicine 09/07/21 Lolly Warren NP [address] [place], [place] [address] Nurse Practitioner Nurse Practitioner, Acute Care 09/08/21 Daniel Whittington MD, PhD [address] [place], [place] [address] Clinical Cardiac Electrophysiology 09/13/21 Regina Esquivel NP [address] [place], [place] [address] Nurse Practitioner Nurse Practitioner, Acute Care 09/22/21 Maverick Waterman DO [address] [place] [address] Advanced Heart Failure/Transplant 09/30/21 Aris Tracey MD [address] [place] [address] [address] [place] [address] Urology 10/28/21 Noé Sofia DO [address] [place] [address] [address] [place] [address] Critical Care Medicine 12/28/22
--- OUTSIDE RECORDS SUMMARY | 2025-04-15 13:41 | XMS_ITS | Encounter Summary ---
Author Organization [facility] Address [address] [place] [address] Care Team Providers Care Karate Instructor Name Role Phone Stephany Ortega RN Unavailable Amaris Cueva MD Unavailable [phone] Maverick Lee MD Unavailable [phone] Michael Gonzales MD Unavailable [phone] Lolly Warren NP Unavailable [phone] Daniel Whittington MD, PhD Unavailable [phone] Regina Esquivel NP Unavailable [phone] Maverick Waterman DO Unavailable [phone] Aris Tracey MD Unavailable [phone] Noé Sofia DO Unavailable [phone] Sudhakar Lipscomb OPTICAL MECHANIC APPRENTICE Primary Care Provider Reason for Visit * Reason Comments Medications Refill Encounter Details Date Type Department Care Team (Late st Contact Info) Description 04/09/2025 Refill [facility] Physicians - Heart & Vascular, [facility] [address] [place] [address] [address] [place] [address] Amaris Cueva MD [address] [facility] [address] [place] [address] Medications Refill Social History Tobacco Use Types [...] encounter Miscellaneous Notes * Telephone Encounter - Lesley Matt - 04/09/2025 9:[address] Cueva is out, Please advise documented in this encounter Plan of Treatment Upcoming Encounters Date Type Department Care Team (Late st Contact Info) Description 04/17/2025 10:30 AM EDT Appointment [facility] Physicians - Heart & Vascular, [address] [place] [address] Daniel Elder MD [address] [place], [place] [address] 04/21/2025 1:00 PM EDT Appointment [facility] Physicians - Sleep Medicine, [place] [address] [place] [phone] aJyy Whitfield NP [address] [place], [place] [id number] 04/28/2025 2:40 PM EDT Appointment [facility] Physicians - Pulmonary Medicine, [facility] [address] [facility] [address] [place] [address] Noé Sofia DO [address] [place], [place] [id number] 05/14/2025 1:15 PM EDT Appointment [facility] Physicians - Spine Surgery, [facility] [address] [place] [address] Leo Mosley PA-C [address] [facility]. [place], [place] [id number] 07/02/2025 2:15 PM EDT Appointment [facility] Physicians - Heart & Vascular, [facility] [address] [facility] [address] [place] [address] Amaris Cueva MD [address] [facility] [address] [place] [address] documented as of this encounter Goals Goal [...] on filedocumented in this encounter Care Teams Karate Instructor Relationship Specialty Start Date End Date Sudhakar Lipscomb NP [address] [place] [address] PCP - General Family Medicine 08/30/23 Stephany Ortega, SHARONDA Cardiology 08/04/21 Amaris Cueva MD [address] [facility] [address] [place], [place] [id number]- Cardiology 08/10/21 Maverick Lee MD [address] [facility] [address] [facility] [place], [place] [phone] Interventional Cardiology 09/06/21 Michael Gonzales MD [address] [place], [place] [address] Internal Medicine, Sleep Medicine 09/07/21 Lolly Warren NP [address] [place], [place] [address] Nurse Practitioner Nurse Practitioner, Acute Care 09/08/21 Daniel Whittington MD, PhD [address] [place] [address] Clinical Cardiac Electrophysiology 09/13/21 Regina Esquivel NP [address] [place] [address] Nurse Practitioner Nurse Practitioner, Acute Care 09/22/21 Maverick Waterman DO [address] [place] [address] Advanced Heart Failure/Transplant 09/30/21 Aris Tracey MD [facility] [facility] [address] [place] [address] Urology 10/28/21 Noé Sofia DO [address] [place] [address] Critical Care Medicine 12/28/22 documented as of this encounter
--- OUTSIDE RECORDS SUMMARY | 2025-04-15 13:41 | XMS_ITS | Encounter Summary ---
Author Organization [facility] Address [address] [place] [address] Care Team Providers Care Route Cdl Driver Name Role Phone Stephany Ortega RN Unavailable Amaris Cueva MD Unavailable [phone] Maverick Lee MD Unavailable [phone] Michael Gonzales MD Unavailable [phone] Lolly Warren NP Unavailable [phone] Daniel Whittington MD, PhD Unavailable [phone] Regina Esquivel NP Unavailable [phone] Maverick Waterman DO Unavailable [phone] Aris Tracey MD Unavailable [phone] Noé Sofia DO Unavailable [phone] Sudhakar Lipscomb ELECTRONICS PARTS SALES REPRESENTATIVE Primary Care Provider [phone] Reason for Visit * Reason Onset Date Comments Procedure 03/26/2025 KRIS/CV Encounter Details Date Type Department Care Team (Late st Contact Info) Description 03/26/2025 Telephone [facility] Physicians - Heart & Vascular, [facility] [address] [place] [address] Tiffanie Cole RN [address] [place] [address] Procedure (KRIS/CV) Social History Tobacco Use Types Packs/Day Years [...] encounter Miscellaneous Notes * Telephone Encounter - Tiffanie Cole RN - 03/26/2025 2:21 PM EDT Images from the original note were not included. Cardioversion Scheduling Scheduled CV w/Pt today for KRIS / CV - discussed all instructions w/pt and pt verbalized understanding Denied any questions - sent all information discussed through [employer] message and encouraged to reach out as needed DCCV = CARDIOVERSION - if pt has device will need to contact rep b/c they need to be there!! [employer] = URGENT schedule: Call [facility] [id number] #2 STAT request then call schedules to put on schedule Non-urgent (3 wks or longer) call schedules [phone] KRIS prior to Cardioversion - this will take an US of heart obtained through the throat - camera used to take images at the back of the heart to show if there is a clot. 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 - If taking WARFARIN INR MUST be WNL xlast few months to be able to have CV and INR will be checked prior to procedure If INR has NOT been WNL pt will need INR 1 a week x4 weeks and all WNL before can have CV Warfarin look back last 2 mths at INR levels - INR will need to be w/in range to proceed Amio load Post Cardioversion AC needs to be stayed on x1 mth no stopping CARDIOVERSION Brevital for moderate sedation Arrive 60 minutes prior to scheduled time. Nothing to eat or drink 6 hours prior to procedure. It is acceptable to take scheduled medicines with just a sip of water. The patient will be receiving sedation for their procedure so they will need a loved one to drive them to and from the hospital and they will be required to stay in the waiting room during the procedure. The procedure will be canceled if they do not have a designated person to stay with them duringthe procedure and to observe them for 24 hours post procedure. NO Uber, Lift, or Taxi rides home unless a loved one is with them. NO driving or operating heavy machinery for 24 hours post procedure. NO alcoholic beverages for 24 hours post procedure. Please inform your physician if you have missed any doses of your blood thinner in the last 3 weeks. If CV unsuccessful next step could be adding a antiarrhythmic medication (this being amio, or flecainide along w/BB (can only be on flecainide if pt not dx w/CAD) and/or Sotalol but pt will need admission to start this. Afternoon Yo Ruiz , We just spoke and set up your heart procedure. KRIS Cardioversion at [facility] on Friday, March 28, 2025 Arrival time: 7am Procedure time: 8am Otorhinolaryngologist: Family Please arrive to [facility], Heart Center, Level Registration Desk - Ground level Address: [address] [place] [address] 1. Please do NOT have anything to eat or drink 6 hours prior (unless taking medications w/sips of water). 2. If you need to CANCEL your procedure, please call [phone]. - SHARONDA Moreno 3. The patient will be receiving sedation for their procedure so they will need a loved one to drive them to and from the hospital and they will be required to stay in the waiting room during the procedure. The procedure will be canceled if they do not have a designated person to stay during the procedure and to observe them for 24 hours post procedure. NO Uber, Lift, or Taxi rides home unless a loved one is with them. NO driving or operating heavy machinery for 24 hours post procedure. NO alcoholic beverages for 24 hours post procedure. Please inform your physician if you have missed any doses of your blood thinner in the last 3 weeks. 4. Your procedure will be performed at the [facility] on [facility]. The most convenient parking option is to use the [facility] [employer] Parking Service. [employer] parking is provided for a fee of $6. Follow signs to the Heart Center (P3). Academic Vice President parking is located under the overhang in the fishs eddy driveway. Other self parking is available free of charge in the P3 parking garage. Enter the hospital and go to the Registration desk. It is located on C level. 5. Here is a check list of items to bring into the hospital with you: List of current medications Insurance Card Photo ID MEDICATION INSTRUCTIONS: Please hold all vitamins, supplements, and diabetic medications the day of procedure. Okay to take approved morning medications day of procedure with small sips of water; Eliquis, Farxiga, Losartan, Metoprolol. Your follow up appointment MondayApril 01 @ 2:15 T[facility] & [facility] documented in this encounter Plan of Treatment Upcoming Encounters Date Type Department Care Team (Late st Contact Info) Description 04/17/2025 10:30 AM EDT Appointment [facility] Physicians - Heart & Vascular, [address] [place], [place] [address] [address] [place] [address] [place] [address] [place] [address]. [address] [place] [address] 04/21/2025 1:00 PM EDT Appointment [facility] Physicians - Sleep Medicine, [address] [phone] Jayy Whitfield NP [address] [facility] [address] [place] [address] 04/28/2025 2:40 PM EDT Appointment [facility] Physicians - Pulmonary Medicine, [address] [place] [phone] Noé Sofia DO [address] [facility] [place], [place] [address] 05/14/2025 1:15 PM EDT Appointment [facility] Physicians - Spine Surgery, [place] [address] [place] [address] Leo Mosley PA-C [address] [place] [address] 07/02/2025 2:15 PM EDT Appointment [facility] Physicians - Heart & Vascular, [facility] [address] [facility] [address] [place] [address] Amaris Cueva MD [address] [id number] documented as of this encounter Goals Goal [...] on filedocumented in this encounter Care Teams Route Cdl Driver Relationship Specialty Start Date End Date Sudhakar Lipscomb NP [address] [place] [address] PCP - General Family Medicine 08/30/23 Stephany Ortega, SHARONDA Cardiology 08/04/21 Amaris Cueva MD [address] [id number] Cardiology 08/10/21 Maverick Lee MD [address] [id number] Interventional Cardiology 09/06/21 Michael Gonzales MD [address] [place] [address] Internal Medicine, Sleep Medicine 09/07/21 Lolly Warren NP [address] [place] [address] Nurse Practitioner Nurse Practitioner, Acute Care 09/08/21 Daniel Whittington MD, PhD [address] [place] [address] Clinical Cardiac Electrophysiology 09/13/21 Regina Esquivel NP [address] [place] [address] Nurse Practitioner Nurse Practitioner, Acute Care 09/22/21 Maverick Waterman DO [address] [place] [address] Advanced Heart Failure/Transplant 09/30/21 Aris Tracey MD [address] [place] [address] [address] [place] [address] Urology 10/28/21 Noé Sofia DO [address] [place], [place] [address] Critical Care Medicine 12/28/22 documented as of this encounter
--- OUTSIDE RECORDS SUMMARY | 2025-04-15 13:41 | XMS_ITS | Encounter Summary ---
Author Organization [facility] Address [address] [place] [address] Care Team Providers Care Central Control Room Operator Name Role Phone Stephany Ortega RN Unavailable Amaris Cueva MD Unavailable [phone] Maverick Lee MD Unavailable [phone] Michael Gonzales MD Unavailable [phone] Lolly Warren NP Unavailable [phone] Daniel Whittington MD, PhD Unavailable [phone] Regina Esquivel NP Unavailable [phone] Maverick Waterman DO Unavailable [phone] Aris Tracey MD Unavailable [phone] Noé Sofia DO Unavailable [phone] uSdhakar Lipscomb HEAVY RAIL TRAIN OPERATOR Primary Care Provider Reason for Visit * Reason Comments Medications Refill Encounter Details Date Type Department Care Team (Late st Contact Info) Description 02/26/2025 Refill [facility] Physicians - Heart & Vascular, [facility] [address] [place] [address] [address] [place] [address] Amaris Cueva MD [address] [facility] [address] [place] [address] Medications Refill Social History Tobacco Use Types [...] of Assessment Author Yes 10/29/2024 11:35 AM Zani Tirado RN * Do you have serious [...] Description 04/17/2025 10:30 AM EDT Appointment [facility] Physicians - Heart & Vascular, [address] [place] [address] Daniel Elder MD [address] [place] [address] 04/21/2025 1:00 PM EDT Appointment [facility] Physicians - Sleep Medicine, [place] [address] [place] [address] Jayy Whitfield NP [address] [place] [address] 04/28/2025 2:40 PM EDT Appointment [facility] Physicians - Pulmonary Medicine, [facility] [address] [facility] [address] [place] [address] Noé Sofia DO [address] [place], [place] [address] 05/14/2025 1:15 PM EDT Appointment [facility] Physicians - Spine Surgery, [facility] [address] [place] [address] Leo Mosley PA-C [address] [place] [address] 07/02/2025 2:15 PM EDT Appointment [facility] Physicians - Heart & Vascular, [facility] [address] [place] [address] Amaris Cueva MD [address] [facility] [address] [place] [address] documented as of this encounter Goals Goal [...] on filedocumented in this encounter Care Teams Central Control Room Operator Relationship Specialty Start Date End Date Sudhakar Lipscomb NP [address] [place] [address] PCP - General Family Medicine 08/30/23 Stephany Ortega, SHARONDA Cardiology 08/04/21 Amaris Cueva MD [address] [facility] [address] [place], [place] [id number] Cardiology 08/10/21 Maverick Lee MD [address] [facility] [address] [place], [place] [phone] Interventional Cardiology 09/06/21 Michael Gonzales MD [address] [place] [address] Internal Medicine, Sleep Medicine 09/07/21 Lolly Warren NP [address] [place] [address] Nurse Practitioner Nurse Practitioner, Acute Care 09/08/21 Daniel Whittington MD, PhD [address] [place], [place] [address] Clinical Cardiac Electrophysiology 09/13/21 Regina Esquivel NP [facility] [place] [address] Nurse Practitioner Nurse Practitioner, Acute Care 09/22/21 Maverick Waterman DO [address] [facility] [place] [address] Advanced Heart Failure/Transplant 09/30/21 Aris Tracey MD [facility] [facility] [address] [place] [address] Urology 10/28/21 Noé Sofia DO [facility] [place] [address] Critical Care Medicine 12/28/22 documented as of this encounter
--- OUTSIDE RECORDS SUMMARY | 2025-04-15 13:41 | XMS_ITS | Encounter Summary ---
Author Organization [facility] Address [address] [place] [address] Care Team Providers Care Ivory Polisher Name Role Phone Stephany Ortega RN Unavailable Amaris Cueva MD Unavailable [phone] Maverick Lee MD Unavailable [phone] Michael Gonzales MD Unavailable [phone] Lolly Warren NP Unavailable [phone] Daniel Whittington MD, PhD Unavailable [phone] Regina Esquivel NP Unavailable [phone] Maverick Waterman DO Unavailable [phone] Aris Tracey MD Unavailable [phone] Noé Sofia DO Unavailable [phone] Sudhakar Lipscomb CORE DRILLER Primary Care Provider [phone] Reason for Visit * Reason Onset Date Comments Advice Only 03/11/2025 Encounter Details Date Type Department Care Team (Late st Contact Info) Description 03/11/2025 Telephone [facility] - Central Scheduling [address] [place] [address] [place] [address] [facility] [address] [place], [place] [id number] Advice Only Social History Tobacco Use Types Packs/Day Years [...] encounter Miscellaneous Notes * Telephone Encounter - Yamileth Baron MA - 03/11/2025 10:40 AM EDT Spoke with Kendal Edmonds know I have faxed over last office note along with X- ray report with Judd REID to [phone]. Kendal verbalized understanding. * Telephone Encounter - Annmarie Collins - 03/11/2025 10:23 AM EDT Molly with Dr. Mccarthy called for patient with a Request: requesting X ray report from 03/07/25. Ph. [phone]. documented in this encounter Plan of Treatment Upcoming Encounters Date Type Department Care Team (Late st Contact Info) Description 04/17/2025 10:30 AM EDT Appointment [facility] Physicians - Heart & Vascular, [address] [place] [address] [place] [address] [place] [address] Ave[address] [place], [place] [address] 04/21/2025 1:00 PM EDT Appointment [facility] Physicians - Sleep Medicine, [place] [address] [place] [phone] Jayy Whitfield NP [address] [place], [place] [address] 04/28/2025 2:40 PM EDT Appointment [facility] Physicians - Pulmonary Medicine, [address] [place] [address] Noé Sofia DO [address] [place] [address] 05/14/2025 1:15 PM EDT Appointment [facility] Physicians - Spine Surgery, [place] [address] [place] [address] Leo Mosley PA-C [address] [place] [address] 07/02/2025 2:15 PM EDT Appointment [facility] Physicians - Heart & Vascular, [facility] [address] [facility] [address] [place] [address] [place]ue[place] [address] [id number] documented as of this encounter Goals Goal [...] on filedocumented in this encounter Care Teams Ivory Polisher Relationship Specialty Start Date End Date Sudhakar Lipscomb NP [address] [place] [address] PCP - General Family Medicine 08/30/23 Stehpany Ortega, SHARONDA Cardiology 08/04/21 Amaris Cueva MD [address] [id number] Cardiology 08/10/21 Maverick Lee MD [address] [id number] Interventional Cardiology 09/06/21 Michael Gonzales MD [address] [place] [address] Internal Medicine, Sleep Medicine 09/07/21 Lolly Warren NP [address] [place] [address] Nurse Practitioner Nurse Practitioner, Acute Care 09/08/21 Daniel Whittington MD, PhD [address] [place] [address] Clinical Cardiac Electrophysiology 09/13/21 Regina Esquivel NP [address] [place] [address] Nurse Practitioner Nurse Practitioner, Acute Care 09/22/21 Maverick Waterman DO [address] [place] [address] Advanced Heart Failure/Transplant 09/30/21 Aris Tracey MD [address] [place] [address] [address] [place] [address] Urology 10/28/21 Noé Sofia DO [address] [place] [address] Critical Care Medicine 12/28/22 documented as of this encounter
--- OUTSIDE RECORDS SUMMARY | 2025-04-15 13:41 | XMS_ITS | Encounter Summary ---
Author Organization [facility] Address [address] [place] [address] Care Team Providers Care Pocket Flap Creasing Machine Operator Name Role Phone Stephany Ortega RN Unavailable Amaris Cueva MD Unavailable [phone] Maverick Lee MD Unavailable [phone] Michael Gonzales MD Unavailable [phone] Lolly Warren NP Unavailable [phone] Daniel Whittington MD, PhD Unavailable [phone] Regina Esquivel NP Unavailable [phone] Maverick Waterman DO Unavailable [phone] Aris Tracey MD Unavailable [phone] Noé Sofia DO Unavailable [phone] Sudhakar Lipscomb HOMEOPATHIC DOCTOR Primary Care Provider Encounter Details Date Type Department Care Team (Late st Contact Info) Description 03/21/2025 Telephone [facility] Physicians - Sleep Medicine[address] [place] [phone] Michael Gonzales MD [address] [place] [address]. [address] [place] [address] Social History Tobacco Use Types Packs/Day Years [...] of Assessment Author Yes 10/29/2024 11:35 AM Zian Tirado RN * Do you have serious [...] encounter Miscellaneous Notes * Telephone Encounter - Michelle Saba - 03/21/2025 12:00 PM EDT While calling to confirm sleep study patient informed that he is NOT taking Gabapentin as rx'd due to his concerns regard Afib. documented in this encounter Plan of Treatment Upcoming Encounters Date Type Department Care Team (Late st Contact Info) Description 04/17/2025 10:30 AM EDT Appointment [facility] Physicians - Heart & Vascular, [address] [place] [address] Daniel Elder MD [address] [place] [address] 04/21/2025 1:00 PM EDT Appointment [facility] Physicians - Sleep Medicine, [place] [address] [place] [address] Jayy Whitfield NP [address] [place], [place] [id number] 04/28/2025 2:40 PM EDT Appointment [facility] Physicians - Pulmonary Medicine, [address] [place] [address] Noé Sofia DO [address] [place], [place] [address] 05/14/2025 1:15 PM EDT Appointment [facility] Physicians - Spine Surgery, [facility] [address] [place] [phone] Leo Mosley PA-C [address] [facility]. [place], [place] [id number] 07/02/2025 2:15 PM EDT Appointment [facility] Physicians - Heart & Vascular, [facility] [address] [facility] [address] [place] [address] Amaris Cueva MD [address] [facility] [address] [place] [address] documented as of this encounter Goals Goal [...] on filedocumented in this encounter Care Teams Pocket Flap Creasing Machine Operator Relationship Specialty Start Date End Date Sudhakar Lipscomb NP [address] [place] [address] PCP - General Family Medicine 08/30/23 Stephany Ortega, SHARONDA Cardiology 08/04/21 Amaris Cueva MD [address] [place] [address] [address] [place], [place] [id number] Cardiology 08/10/21 Maverick Lee MD [address] [facility] [address] [place], [place] [id number] Interventional Cardiology 09/06/21 Michael Gonzales MD [address] [place], [place] [address] Internal Medicine, Sleep Medicine 09/07/21 Lolly Warren NP [address] [place] [address] Nurse Practitioner Nurse Practitioner, Acute Care 09/08/21 Daniel Whittington MD, PhD [address] [place] [address] Clinical Cardiac Electrophysiology 09/13/21 Regina Esquivel NP [address] [place] [address] Nurse Practitioner Nurse Practitioner, Acute Care 09/22/21 Maverick Waterman DO [address] [place] [address] Advanced Heart Failure/Transplant 09/30/21 Aris Tracey MD [address] [place] [address] [address] [place] [address] Urology 10/28/21 Noé Sofia DO [address] [place] [address] Critical Care Medicine 12/28/22 documented as of this encounter
--- OUTSIDE RECORDS SUMMARY | 2025-04-15 13:41 | XMS_ITS | Encounter Summary ---
Author Organization [facility] Address [address] [place] [address] Care Team Providers Care Supervisor Edging Name Role Phone Stephany Ortega RN Unavailable Amaris Cueva MD Unavailable [phone] Maverick Lee MD Unavailable [phone] Michael Gonzales MD Unavailable [phone] Lolly Warren NP Unavailable [phone] Daniel Whittington MD, PhD Unavailable [phone] Regina Esquivel NP Unavailable [phone] Maverick Waterman DO Unavailable [phone] Aris Tracey MD Unavailable [phone] Noé Sofia DO Unavailable [phone] Sudhakar Lipscomb TOMB MAKER HELPER Primary Care Provider [phone] Reason for Visit * Reason Onset Date Comments Palpitations/Arrhythmia 03/11/2025 Encounter Details Date Type Department Care Team (Late st Contact Info) Description 03/11/2025 Telephone Cardiology Services [address] [place] [address] Lindsey Danielson PA [address] [place], [place] [address] Palpitations/Arrhythmia Social History Tobacco Use Types Packs/Day Years [...] Telephone Encounter - Tiffanie Cole RN - 03/12/2025 9:34 AM EDT Patient called in with an update today and his HR has been 60-80 since he woke up. His sciatic nerve is not bothering him today and he reports no pain. He is feeling better today and is at work. He will reach out with any further issues. * Telephone Encounter - Lindsey Danielson PA - 03/11/2025 9:16 PM EDT Patient reports HR 130s on EKG at PCP office earlier today. Was advised to go to the ED for furtherevaluation, but pt wished to call business continuity specialist cardiology. States his HR was in the 110s at home. Hx of afib s/p ablations and cardioversion in the past. On eliquis anticoagulation. Also takes toprol 50mgBID, for which he took both his morning and evening dose. Pt reports agitation d/t pain from his sciatic nerve. States that's likely what's driving his elevated HR. Advised patient to recheck HR. Twodifferent forms of monitoring showed HR in the 50-60. Advised patient to continue to monitor, but no new recommendations at this time. documented in this encounter Plan of Treatment Upcoming Encounters Date Type Department Care Team (Late st Contact Info) Description 04/17/2025 10:30 AM EDT Appointment [facility] Physicians - Heart & Vascular, [address] [place] [address] Daniel Elder MD [address] [facility] [address] [place] [address] 04/21/2025 1:00 PM EDT Appointment [facility] Physicians - Sleep Medicine, [place] [address] [place] [address] Jayy Whitfield NP [address] [place] [address] 04/28/2025 2:40 PM EDT Appointment [facility] Physicians - Pulmonary Medicine, [facility] [address] [facility] [address] [place] [phone] Noé Sofia DO [address] [facility] [place] [address] 05/14/2025 1:15 PM EDT Appointment [facility] Physicians - Spine Surgery, [facility] [address] [facility] [address] [place] [phone] Leo Mosley PA-C [address] [facility] [place] [address] 07/02/2025 2:15 PM EDT Appointment [facility] Physicians - Heart & Vascular, [facility] [address] [place] [address] [address] [place] [address] Amaris Cueva MD [address] [facility] [address] [place], [place] [id number] documented as of this encounter Goals Goal Patient Goal Type Associated Problems Recent Progress Patient-Stated? Author Limit fluid intake to 2 liters per day Diet No Tariq Lee BS Reduce salt intake to 2 grams per day Diet No Tariq Lee BS Record weight daily Lifestyle Yes aTriq Lee BS documented as of this encounter Visit Diagnoses Not on filedocumented in this encounter Care Teams Supervisor Edging Relationship Specialty Start Date End Date Sudhakar Lipscomb NP [address] [place], [place] [id number] PCP - General Family Medicine 08/30/23 Stephany Ortega, RN Cardiology 08/04/21 Amaris Cueva MD [address] [facility] [address] [place], [place] [id number] Cardiology 08/10/21 Maverick Lee MD [address] [facility] [address] [place], [place] [phone] Interventional Cardiology 09/06/21 Michael Gonzales MD [address] [place] [address] Internal Medicine, Sleep Medicine 09/07/21 Lolly Warren NP [address] [place] [address] Nurse Practitioner Nurse Practitioner, Acute Care 09/08/21 Daniel Whittington MD, PhD [address] [place] [address] Clinical Cardiac Electrophysiology 09/13/21 Regina Esquivel NP [address] [place] [address] Nurse Practitioner Nurse Practitioner, Acute Care 09/22/21 Maverick Waterman DO [address] [facility] [place], [place] [address] Advanced Heart Failure/Transplant 09/30/21 Aris Tracey MD [facility] [facility] [address] [place] [address] Urology 10/28/21 Noé Sofia DO [address] [place] [address] [address] [place] [address] Critical Care Medicine 12/28/22 documented as of this encounter
--- OUTSIDE RECORDS SUMMARY | 2025-04-15 13:41 | XMS_ITS | Encounter Summary ---
Author Organization [facility] Address [address] [place] [address] Care Team Providers Care Starbucks Clerk Name Role Phone Stephany Ortega RN Unavailable Amaris Cueva MD Unavailable [phone] Maverick Lee MD Unavailable [phone] Michael Gonzales MD Unavailable [phone] Lolly Warren NP Unavailable [phone] Daniel Whittington MD, PhD Unavailable [phone] Regina Esquivel NP Unavailable [phone] Maverick Waterman DO Unavailable [phone] Aris Tracey MD Unavailable [phone] Noé Sofia DO Unavailable [phone] Sudhakar Lipscomb ARC WELDING MACHINE OPERATOR Primary Care Provider [phone] Encounter Details Date Type Department Care Team (Late st Contact Info) Description 03/07/2025 Clinical Update [facility] Physicians - Spine Surgery, [place] [address] [place] [address] Almeida, Charlette Social History Tobacco Use Types Packs/Day Years [...] documented in this encounter Miscellaneous Notes * Update Note - Charlette Almeida - 03/07/2025 11:37 AM EDT Most appropriate to be seen by: Spine PA VISIT TYPE ARC WELDING MACHINE OPERATOR / AREA LUMBAR / PREV TX NONE / PREV SX NONE / IMG XRAY L SPINE 02-17-25 AT [facility] / INSURANCE [facility] / REF BY MIRIAM CUELLAR ORTHO Referred to: Dr. Ezekiel Bolanos Referred by: Miriam REID ortho I called patient to discuss his symptoms. Yo reports that he had tripped over a curb about three weeks ago sustaining a fall and subsequentpain radiating from low back down right buttock, lateral hip, thigh and anterior and posterior calf. He denies weakness or bowel or bladder dysfunction. He reports that he has been going to a chiropractor which has improved the back greatly but the radicular type pain has not resolved and interferes with his life but particularly his sleep. He is also getting a right hip workup per orthopedics. He does have HX of paroxysmal A fib and is on Eliqius daily. BMI: 38.01 A1c: 6.5 Smoker or Active Nicotine Use: former smoker Imaging Studies and Findings Xray L Spine 02/17/25 [facility] Multilevel mild degenerative disc height loss and mild facet arthrosis Medications he has tried to date: Tylenol NSAIDs Muscle Relaxers Neuromodulatory Agents Treatments he has tried to date: Exercise-Based Physical Therapy Gear Machine Operator Prior spine surgical procedures- none documented in this encounter Plan of Treatment Upcoming Encounters Date Type Department Care Team (Late st Contact Info) Description 04/17/2025 10:30 AM EDT Appointment [facility] Physicians - Heart & Vascular, [address] [place] [address] Daniel Elder MD [address] [place] [address] 04/21/2025 1:00 PM EDT Appointment [facility] Physicians - Sleep Medicine, [place] [address] [place] [address] Jayy Whitfield NP [address] [place] [address] 04/28/2025 2:40 PM EDT Appointment [facility] Physicians - Pulmonary Medicine, [place] [address] [place] [address] Noé Sofia DO [address] [facility] [place], [place] [address] 05/14/2025 1:15 PM EDT Appointment [facility] Physicians - Spine Surgery, [place] [place] [address] [facility] [address] [place] [phone] Leo Mosley PA-C [address] [place] [address] [place], [place] [address] 07/02/2025 2:15 PM EDT Appointment [facility] Physicians - Heart & Vascular, [facility] [address] [place] [address] [address] [place] [address] Amaris Cueva MD [address] [facility] [address] [place], [place] [id number] documented as of this encounter Goals Goal [...] on filedocumented in this encounter Care Teams Starbucks Clerk Relationship Specialty Start Date End Date Sudhakar Lipscomb NP [address] [place] [address] PCP - General Family Medicine 08/30/23 Stephany Ortega, SHARONDA Cardiology 08/04/21 Amaris Cueva MD [address] [facility] [address] [place], [place] [phone] Cardiology 08/10/21 Maverick Lee MD [address] [facility] [address] [place] [address] Interventional Cardiology 09/06/21 Michael Gonzales MD [address] [place] [address] Internal Medicine, Sleep Medicine 09/07/21 Lolly Warren NP [address] [place] [address] Nurse Practitioner Nurse Practitioner, Acute Care 09/08/21 Daniel Whittington MD, PhD [facility] [address] [place] [address] Clinical Cardiac Electrophysiology 09/13/21 Regina Esquivel NP [address] [place] [address] Nurse Practitioner Nurse Practitioner, Acute Care 09/22/21 Maverick Waterman DO [address] [facility] [place] [address] Advanced Heart Failure/Transplant 09/30/21 Aris Tracey MD [facility] [facility] [address] [place] [address] Urology 10/28/21 Noé Sofia DO [address] [place] [address] Critical Care Medicine 12/28/22 documented as of this encounter
--- OUTSIDE RECORDS SUMMARY | 2025-04-15 13:42 | XMS_ITS | Encounter Summary ---
Author Organization [facility] Address [address] [place] [address] Care Team Providers Care Collection Manager Name Role Phone Stephany Ortega RN Unavailable Amaris Cueva MD Unavailable [phone] Maverick Lee MD Unavailable [phone] Michael Gonzales MD Unavailable [phone] Lolly Warren NP Unavailable [phone] Daniel Whittington MD, PhD Unavailable [phone] Regina Esquivel NP Unavailable [phone] Maverick Waterman DO Unavailable [phone] Aris Tracey MD Unavailable [phone] Noé Sofia DO Unavailable [phone] Sudhakar Lipscomb BLOW MACHINE TENDER STARCH SPRAYING Primary Care Provider [phone] Reason for Visit * Reason Onset Date Comments Questions About Medications 09/12/2024 Encounter Details Date Type Department Care Team (Late st Contact Info) Description 09/12/2024 Telephone [facility] Physicians - Pulmonary Medicine, [place] [address] [facility] [address] [place] [phone] Noé Sofia DO [address] [facility] [place] [address] Questions About Medications Social History Tobacco Use Types Packs/Day Years [...] AM EDT documented as of this encounter Miscellaneous Notes * Telephone Encounter - Puja Esqueda - 09/12/2024 12:21 PM EST Patient is wanting the Dr to see his CT scan. It was done here at the [facility] on 09/10. Please advise. Avised would send this message. documented in this encounter Plan of Treatment Upcoming Encounters Date Type Department Care Team (Late st Contact Info) Description 04/17/2025 10:30 AM EDT Appointment [facility] Physicians - Heart & Vascular, [address] [place] [address] Daniel Elder MD [address] [facility] [place] [address] 04/21/2025 1:00 PM EDT Appointment [facility] Physicians - Sleep Medicine, [address] [place] [address] Jayy Whitfield NP [address] [place], [place] [id number] 04/28/2025 2:40 PM EDT Appointment [facility] Physicians - Pulmonary Medicine, [facility] [address] [facility] [address] [place] [address] oNé Sofia DO [address] [facility] [place], [place] [id number] 05/14/2025 1:15 PM EDT Appointment [facility] Physicians - Spine Surgery, [facility] [address] [place] [phone] Leo Mosley PA-C [address] [place] [address] 07/02/2025 2:15 PM EDT Appointment [facility] Physicians - Heart & Vascular, [facility] [address] [place] [address] [address] [place] [address] Amaris Cueva MD [address] [facility] [address] [place], [place] [id number] documented as of this encounter Goals Goal [...] on filedocumented in this encounter Care Teams Collection Manager Relationship Specialty Start Date End Date Sudhakar Lipscomb NP [address] [place], [place] [id number] PCP - General Family Medicine 08/30/23 Stephany Ortega, RN Cardiology 08/04/21 Amaris Cueva MD [address] [facility] [address] [place] [address] Cardiology 08/10/21 Maverick Lee MD [address] [facility] [address] [place], [place] [id number] Interventional Cardiology 09/06/21 Michael Gonzales MD [address] [place] [address] Internal Medicine, Sleep Medicine 09/07/21 Lolly Warren NP [address] [place] [address] Nurse Practitioner Nurse Practitioner, Acute Care 09/08/21 Daniel Whittington MD, PhD [address] [place] [address] Clinical Cardiac Electrophysiology 09/13/21 Regina Esquivel NP [address] [place] [address] Nurse Practitioner Nurse Practitioner, Acute Care 09/22/21 Maverick Waterman DO [address] [facility] [place] [address] Advanced Heart Failure/Transplant 09/30/21 Aris Tracey MD [address] [facility] [address] [place] [address] Urology 10/28/21 Noé Sofia DO [address] [facility] [address] [place], [place] [address] Critical Care Medicine 12/28/22 documented as of this encounter
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
--- OUTSIDE RECORDS SUMMARY | 2025-04-15 13:42 | XMS_ITS | Encounter Summary ---
Author Organization The Address [address] [place] [address] Care Team Providers Care Cementing Bulk Material Operator Name Role Phone Stephany Ortega RN Unavailable Amaris Cueva MD Unavailable [phone] Maverick Lee MD Unavailable [phone] Michael Gonzales MD Unavailable [phone] Lolly Warren NP Unavailable [phone] Daniel Whittington MD, PhD Unavailable [phone] Regina Esquivel NP Unavailable [phone] Maverick Waterman DO Unavailable [phone] Aris Tracey MD Unavailable [phone] Noé Sofia DO Unavailable [phone] Sudhakar Lipscomb ACCOUNT GROUP SUPERVISOR Primary Care Provider [phone] Encounter Details Date Type Department Care Team (Late st Contact Info) Description 08/30/2023 Orders Only [facility] [place] [address] [place] [address] Melendez Ermelinda, RT [address] [place] [address] Social History Tobacco Use Types Packs/Day Years [...] AM EDT documented as of this encounter Plan of Treatment Upcoming Encounters Date Type Department Care Team (Late st Contact Info) Description 04/17/2025 10:30 AM EDT Appointment [facility] - Heart [facility] Vascular, [address] [place] [address] Daniel Elder MD [address] [place] [address] 04/21/2025 1:00 PM EDT Appointment The [facility] - Sleep Medicine, [address] [phone] Jayy Whitfield, TORRES [address] [place] [address] 04/28/2025 2:40 PM EDT Appointment The [facility] - Pulmonary Medicine, [facility] [address] [place] [address] Noé Sofia DO [address] [place] [address] 05/14/2025 1:15 PM EDT Appointment [facility] - Spine Surgery, [place] [address] [place] [phone] Leo Mosley PA-C [address] [place] [address] 07/02/2025 2:15 PM EDT Appointment [facility], [facility] [address] [facility] [address] [place] [address] Amaris Cueva MD [address] [id number] documented as of this encounter Goals Goal [...] on filedocumented in this encounter Care Teams Cementing Bulk Material Operator Relationship Specialty Start Date End Date Sudhakar Lipscomb NP [address] [place] [address] PCP - General Family Medicine 08/30/23 Stephany Ortega, RN Cardiology 08/04/21 Amaris Cueva MD [address] [id number] Cardiology 08/10/21 [place] MD [address] [id number] Interventional Cardiology 09/06/21 Michael Gonzales MD [address] [place] [address] Internal Medicine, Sleep Medicine 09/07/21 Lolly Warren NP [address] [place] [address] Nurse Practitioner Nurse Practitioner, Acute Care 09/08/21 Daniel Whittington MD, PhD [address] [place] [address] Clinical Cardiac Electrophysiology 09/13/21 Regina Esquivel NP [address] [place] [address] Nurse Practitioner Nurse Practitioner, Acute Care 09/22/21 Maverick Waterman DO [address] [place] [address] Advanced Heart Failure/Transplant 09/30/21 Aris Tracey MD [address] [place] [address] [address] [place] [address] Urology 10/28/21 Noé Sofia DO [address] [place] [address] Critical Care Medicine 12/28/22 documented as of this encounter
--- OUTSIDE RECORDS SUMMARY | 2025-04-15 13:42 | XMS_ITS | Encounter Summary ---
Author Organization The [facility] Address [address] [place] [address] Care Team Providers Care Restaurant Manager Name Role Phone Stephany Ortega RN Unavailable Amaris Cueva MD Unavailable [phone] Maverick Lee MD Unavailable [phone] Michael Gonzales MD Unavailable [phone] Lolly Warren NP Unavailable [phone] Daniel Whittington MD, PhD Unavailable [phone] Regina Esquivel NP Unavailable [phone] Maverick Waterman DO Unavailable [phone] Aris Tracey MD Unavailable [phone] Noé Sofia DO Unavailable [phone] Sudhakar Lipscomb BIOASSAYIST Primary Care Provider [phone] Encounter Details Date Type Department Care Team (Late st Contact Info) Description 09/17/2024 Telephone [facility] Physicians - Pulmonary Medicine, [facility] [address] [facility] [address] [place] [address] Noé Sofia DO [address] [facility] [address] [place] [address] Social History Tobacco Use Types Packs/Day Years [...] * Telephone Encounter - Puja Esqueda - 09/17/2024 11:16 AM EST Patient is requesting for the Dr to read his Ct scan and other procedure that he had done a few days ago. Please Advise. documented in this encounter Plan of Treatment Upcoming Encounters Date Type Department Care Team (Late st Contact Info) Description 04/17/2025 10:30 AM EDT Appointment [facility] Physicians - Heart & Vascular, [address] [place] [address] Daniel Elder MD [address] [facility] [address] [place] [address] 04/21/2025 1:00 PM EDT Appointment [facility] Physicians - Sleep Medicine, [address] [address] BasJayy calderon NP [address] [facility] [address] [place], [place] [address] 04/28/2025 2:40 PM EDT Appointment [facility] Physicians - Pulmonary Medicine, [facility] [address] [facility] [address] [place] [address] Noé Sofia DO [address] [facility] [address] [place], [place] [id number] 05/14/2025 1:15 PM EDT Appointment [facility] Physicians - Spine Surgery, [facility] [address] [facility] [address] [place] [phone] Leo Mosley PA-C [address] [facility] [place], [place] [id number] 07/02/2025 2:15 PM EDT Appointment [facility] Physicians - Heart & Vascular, [facility] [address] [place] [address] [address] [place] [address] Amaris Cueva MD [address] [facility] [address] [place], [place] [id number] documented as of this encounter Goals Goal [...] on filedocumented in this encounter Care Teams Restaurant Manager Relationship Specialty Start Date End Date Sudhakar Lipscomb NP [address] [place] [address] PCP - General Family Medicine 08/30/23 Stephany Ortega, RN Cardiology 08/04/21 Amaris Cueva MD [address] [facility] [address] [place] [address] Cardiology 08/10/21 Maverick Lee MD [address] [facility] [address] [place] [address] Interventional Cardiology 09/06/21 Michael Gonzales MD [address] [place] [address] Internal Medicine, Sleep Medicine 09/07/21 Lolly Warren NP [facility] [address] [place] [address] Nurse Practitioner Nurse Practitioner, Acute Care 09/08/21 Daniel Whittington MD, PhD [facility] [address] [place] [address] Clinical Cardiac Electrophysiology 09/13/21 Regina Esquivel NP [facility] [address] [place] [address] Nurse Practitioner Nurse Practitioner, Acute Care 09/22/21 Maverick Waterman DO [address] [facility] [place] [address] Advanced Heart Failure/Transplant 09/30/21 Aris Tracey MD [facility] [facility] [address] [place] [address] Urology 10/28/21 Noé Sofia DO [facility] [place] [address] Critical Care Medicine 12/28/22 documented as of this encounter
--- OUTSIDE RECORDS SUMMARY | 2025-04-15 13:42 | XMS_ITS | Encounter Summary ---
Author Organization [facility] Address [address] [place] [address] [place] [address] Phone Care Team Providers Care Pipe Fitter Apprentice Name Role Phone [facility] Primary Care Provider Lico Villareal MD Primary Care Provider [phone] Aundrea Hussein CNP Primary Care Provider [phone] Encounter Details Date Type Department Care Team (Late st Contact Info) Description 02/07/2019 Discharge Call Center Patient Call Center [address] [place] [address] Social History Tobacco Use Types Packs/Day Years [...] 02/02/2019 7:45 AM Rachana Servin, Registered Nurse * Are you blind or do you have serious difficulty seeing, even when wearing glasses? Answer Date of Assessment Author No 02/02/2019 7:45 AM Rachana Servni, Registered Nurse * Do you have serious difficulty walking or climbing stairs? (5 years old or older) Answer Date of Assessment Author No 02/02/2019 7:45 AM Rachana Servin, Registered Nurse * Do you have difficulty dressing or bathing? (5 years old or older) Answer Date of Assessment Author No 02/02/2019 7:45 AM Rachana Servin, Registered Nurse * Because of a physical, [...] Servin, Registered Nurse documented in this encounter Plan of Treatment Not on file documented as of this encounter Visit Diagnoses Not on filedocumented in this encounter Additional Health Concerns Infection Onset Date Last Indicated Resolved Time COVID-19 Suspect 10/31/2024 10/31/2024 11/30/2024 8:08 PM EDT documented as of this encounter Care Teams Pipe Fitter Apprentice Relationship Specialty Start [facility] [address] [place] [address] PCP - General Family Medicine 02/07/19 04/03/19 Lico Villareal MD [address] [place] [address] PCP - General Internal Medicine 04/04/19 12/22/19 Aundrea Hussein CNP [facility] [place] [address] PCP - General 12/23/19 documented as of this encounter
--- OUTSIDE RECORDS SUMMARY | 2025-04-15 13:42 | XMS_ITS | Encounter Summary ---
Author Organization [facility] Address [address] [place] [address] Care Team Providers Care Cook Cold Meat Name Role Phone Alfredito Ramey MD Unavailable [phone] Joann Zarate RN Unavailable Unavailable Ezekiel Kang MD Unavailable [phone] Aundrea Hussein APRN Primary Care Provider [phone] Alfredito Ramey MD Unavailable [phone] Jerri Santiago MD Primary Care Provider [phone] Source Comments This information has been disclosed to you from confidential records protectfrom disclosure by state law. You shall make no further disclosure of thisinformation without the specific, written, and informed release of theindividual to whom it pertains, or as otherwise permitted by law. A generalauthorization for the release of medical or other information is not sufficientfor the purposes of the release of HIV test results or diagnoses. [id number] Health Encounter Details Date Type Department Care Team (Late st Contact Info) Description 06/03/2019 Chart Note [facility] Radiotherapy [address] [place] [address] Rae Alvarado MD [address] [place] [address] Adenocarcinoma of prostate ([facility]) (Primary Dx) Social History Tobacco Use Types Packs/Day Years Used Date Smoking Tobacco: Former Cigarettes Q uit: 1972 Smokeless Tobacco: Never Alcohol Use Standard Drinks/Week Comments No 0 (1 standard drink = 0.6 oz pur e alcohol) Sex and Gender Information Value Date Recorded Sex Assigned at Male 01/28/2025 11:54 AM EDT Legal Sex Male 7:53 PM EST Gender Identity Male 01/28/2025 11:54 AM EDT Sexual Orientation Not on file 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 Not on f ile Not on file Not on file documented as of this encounter Plan of Treatment Not on file documented as of this encounter Visit Diagnoses Diagnosis Adenocarcinoma of prostate (CMS-HCC)- Primary Malignant neoplasm of prostate documented in this encounter Additional Health Concerns Assessment Noted Time PHQ-9 Depression Total Score: 3 02/20/20 19 3:00 PM EDT documented as of this encounter Care Teams Cook Cold Meat Relationship Specialty Start Date End Date Aundrea Hussein APRN [facility] [place] [address] PCP - General Internal Medicine 02/18/19 04/11/21 [place] [address] PCP - General Family Medicine 04/12/21 Alfredito Ramey MD Radiation Oncologist Radiation Oncology 02/18/19 Joann Zarate, RN Registered Nurse 02/18/19 Ezekiel Kang MD [address] [facility] [address] [place] [address] 02/18/19 Alfredito Ramey MD Initiating Oncologist Radiation Oncology 06/03/20 documented as of this encounter
--- OUTSIDE RECORDS SUMMARY | 2025-04-15 13:42 | XMS_ITS | Clinical Summary ---
Author Organization [facility] Address [address] [place] [address] Care Team Providers Care Computer Technician Name Role Phone Alfredito Ramey MD Unavailable [phone] Joann Zarate RN Unavailable Unavailable Ezekiel Kang MD Unavailable [phone] Alfredito Ramey MD Unavailable [phone] Jerri Santiago MD Primary Care Provider [phone] Source Comments This information has been disclosed to you from confidential records protectedfrom disclosure by state law. You shall make no further disclosure of thisinformation without the specific, written, and informed release of theindividual to whom it pertains, or as otherwise permitted by law. A generalauthorization for the release of medical or other information is not sufficientfor the purposes of therelease of HIV test results or diagnoses. [id number] Allergies Active Allergy Reactions Criticality Noted Date Comments Anti-Hyst 08/16/2010 excitable Antihistamines - Alkylamine Anxiety Low 01/08/2019 Clemastine-Phenylprop 04/26/2012 Per pt, he experiences panic attacks Codeine Itching 08/16/2010 itchy Meperidine 08/16/2010 Scared feeling States he has taken recently but no incidence of paranoia like he experiences in 2005 Other Anxiety Low 10/30/2013 Pheniramine 2016 Other reaction(s): increased heart rate Other reaction(s): increased heart rate Pseudoephedrine Hcl Anxiety,Other (See Comments) Low 06/30/2011 Rapid heart rate. Medications metoprolol succinate (TOPROL-XL) 50 MG 24 hr tablet Take 1 tablet (50 mg total) by mouth daily. Active acetaminophen (TYLENOL) 500 MG tablet Take 1 tablet (500 mg total) by mouth every 6 hours as needed. Active dapagliflozin (FARXIGA) 10 mg Tab tablet Take 1 tablet (10 mg total) by mouth daily. Active losartan (COZAAR) 100 MG tablet Take 1 tablet (100 mg total) by mouth daily. Active furosemide (LASIX) 20 MG tablet Take 1 tablet (20 mg total) by mouth if needed. Active aspirin 81 MG EC tablet Take 1 tablet (81 mg total) by mouth daily. Active bicalutamide (CASODEX) 50 MG tablet Take 1 tablet (50 mg total) by mouth daily. Active abiraterone (ZYTIGA) 250 mg TabIndications: metastatic castration-resi stant prostate cancer Take 4 tablets (1,000 mg total) by mouth daily. 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 120 tablet 11 5 Active tamsulosin (FLOMAX) 0.4 mg CapIndications: Adenocarcinoma of prostate (CMS-HCC) Take 1 capsule (0.4 mg total) by mouth in the morning and at bedtime. 180 capsule 3 5 Active predniSONE (DELTASONE) 5 MG tabletIndicatio ns:Adenocarcino ma of prostate (CMS-HCC) Take 1 tablet (5 mg total) by mouth 2 times a day. 180 tablet 3 5 Active tamsulosin (FLOMAX) 0.4 mg Cap Take 1 capsule (0.4 mg total) by mouth 2 times a day as needed. 180 capsule 3 5 04/09/20 25 Active Problems Patient Care Coordination No te Formatting of this note is d ifferent from the original. Mr. Yo Ruiz is a 63 year old male who refers self at the direction of daughter, Benny Stephenson to discuss radiation therapy for prostate cancer. Mr. Ruiz reports his care [facility] # [phone] prior to obtaining insurance. He currently has [...] has a CT of abd/pelvis scheduled at [facility] on 02/26/2019. Mr. Ruiz has not had [...] his daughter. Oncology History Adenocarcinoma of prostate ([facility]) 02/01/2019 Imaging Imaging Completed: Ultrasound Renal Kidney [...] carcinoma: 12 02/14/2019 Pathology Adenocarcinoma of prostate Anjali score 10(5+5) left lateral mid / core 100% 9012 mm of 12 mm). Left lateral apec / core 85% (11 mm of 13 mm). [...] 13 mm Oncology Care Plan-Prostate Cancer 01/09/2019 Encounters Date Type Department Care Team Description 03/25/2025 Telephone [facility] Radiation Oncology at [address] [address] Joann Zarate, RN 03/12/2025 Telephone [facility] Radiation Oncology at [address] [address] Joann Zarate, RN 02/18/2025 Telephone [facility] Radiation Oncology at [address] [address] Joann Zarate, RN 02/13/2025 Telephone [facility] Radiation Oncology at [address] [address] Joann Zarate, RN 01/13/2025 Refill [facility] Radiation Oncology at [address] [address] Alfredito Ramey MD Adenocarcinoma of prostate ([facility]) 01/13/2025 Telephone [facility] Radiation Oncology at [address] [address] Joann Zarate, RN from Last 3 Months Family History Medical History Relation Comments Prostate Cancer Brother Lung Cancer Father Relation Status Comments Brother Alive Father Mother (Age 90) old age Social History Tobacco Use Types Packs/Day Years Used Date Smoking Tobacco: Former Cigarettes Q uit: 1972 Smokeless Tobacco: Never Alcohol Use Standard Drinks/Week Comments No 0 (1 standard drink = 0.6 oz pur e alcohol) PHQ-2 Answer Date Recorded PHQ-2 Total Score 0 01/09/2025 Yearly Questionnaire Answer Date Record ed Do you need any assistance w ith obtaining housing, meals, medication, transportation or medical equipment? No 01/09 Assistance needed for: Not on file 5 Yearly Questionnaire Answer Date Record ed Do you need any assistance w ith obtaining housing, meals, medication, transportation or medical equipment? No 01/09 Assistance needed for: Not on file 5 Yearly Questionnaire Answer Date Record ed Do you need any assistance w ith obtaining housing, meals, medication, transportation or medical equipment? 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 Not on f ile Not on file Not on file Last Filed Vital Signs Vital Sign Reading Time Taken Comments Blood Pressure 145/87 01/09/2025 2:54 PM EDT Pulse 60 01/09/2025 2:54 PM EDT Temperature 36.3 C (97.4 F) 01/09/2025 2:54 PM EDT Respiratory Rate 16 01/09/2025 2:54 PM EDT Oxygen Saturation 95% 01/09/2025 2:54 PM EDT Inhaled Oxygen Concentration 95% 01/09/2025 2 :54 PM EDT Weight 114.8 kg (253 lb) 01/09/2025 2:54 PM EDT Height 172.7 cm (5' 8 ) 01/09/2025 2:54 PM EDT Body Mass Index 38.47 01/09/2025 2:54 PM EDT Plan of Treatment Health Maintenance Due Date Last Done Comments Abnormal Colonoscopy Follow Up 1955 Diabetes Screening 1955 Hepatitis C Screening ([employer]ioGenixhart) 1955 Immunization: Haemophilus Influenzae Type B / Hib (1 of 1 - Risk 1-dose series) 12/14/1955 Immunization: Meningococcal ACWY (1 - Risk 2-dose series) 1956 Immunization: COVID-19 (#1) 1959 Immunization: Meningococcal B (1 of 4 - Increased Risk) 1964 Immunization: DTaP/Tdap/Td (1 - Tdap) 1973 Immunization: Pneumococcal (1 of 2 - PCV) 1973 Immunization: Zoster (1 of 2) 1973 Cologuard (FIT-DNA) 1999 Colonoscopy 1999 Colorectal Cancer Screening (MyChart) 1999 Stool Testing (gFOBT) 1999 Immunization: RSV (Adult) (1 - Risk 60-74 years 1-dose series) 2014 Abdominal Aortic Aneurysm (AAA) Screening 2019 Immunization: Influenza (MyChart) (#1) 2025 Depression Screening 01/09/2026 01/09/2025, 07/04/2024, 04/04/2024, Additional history exists Immunization: HPV Aged Out No longer eligible based on patient's age to complete this topic Insurance [facility] MEDICARE HMO COMPLETE [facility] Care Address: [id number] [place] [id number] Care Teams Computer Technician Relationship Specialty Start Date End Date Jerri Santiago MD [address] [place] [address] PCP - General Family Medicine 04/12/21 Alfredito Ramey MD Radiation Oncologist Radiation Oncology 02/18/19 Joann Zarate, RN Registered Nurse 02/18/19 Ezekiel Kang MD [address] [address] 02/18/19 Alfredito Ramey MD Initiating Oncologist Radiation Oncology 06/03/20
--- OUTSIDE RECORDS SUMMARY | 2025-04-15 13:42 | XMS_ITS | Encounter Summary ---
Author Organization [facility] Address [facility] [place] [address] Care Team Providers Care Pediatric Cns Name Role Phone Alfredito Ramey MD Unavailable [phone] Joann Zarate RN Unavailable Unavailable Ezekiel Kang MD Unavailable [phone] Alfredito Ramey MD Unavailable [phone] Jerri Santiago MD Primary Care Provider [phone] Source Comments This information has been disclosed [...] release of HIV test results or diagnoses. 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 Not on file Not on file documented as of this encounter Plan of Treatment Not on file documented as of this encounter Visit Diagnoses Not on filedocumented in this encounter Additional Health Concerns Assessment Noted Time PHQ-9 Depression Total Score: 3 02/20/20 19 3:00 PM EDT documented as of this encounter Care Teams Pediatric Cns Relationship Specialty Start Date End [place] [address] PCP - General Family Medicine 04/12/21 Alfredito Ramey MD Radiation Oncologist Radiation Oncology 02/18/19 Joann Zarate, RN Registered Nurse 02/18/19 Ezekiel Kang MD [address] [place] [address] [address] [place] [phone] 02/18/19 Alfredito Ramey MD Initiating Oncologist Radiation Oncology 06/03/20 documented as of this encounter
--- OUTSIDE RECORDS SUMMARY | 2025-04-15 13:42 | XMS_ITS | Encounter Summary ---
Author Organization [facility] Address [address] [place] [address] Care Team Providers Care Rd Manager Name Role Phone Stephany Ortega RN Unavailable Amaris Cueva MD Unavailable [phone] Maverick Lee MD Unavailable [phone] Michael Gonzalse MD Unavailable [phone] Lolly Warren NP Unavailable [phone] Daniel Whittington MD, PhD Unavailable [phone] Regina Esquivel NP Unavailable [phone] Maverick Waterman DO Unavailable [phone] Aris Tracey MD Unavailable [phone] Noé Sofia DO Unavailable [phone] Sudhakar Lipscomb NEGATIVE DEVELOPER Primary Care Provider [phone] Reason for Visit * Reason Onset Date Comments Imaging Results 11/23/2023 Patient called a nd stated he had his PET CT done yesterday, 11/22/23 at Encounter Details Date Type Department Care Team (Late st Contact Info) Description 11/23/2023 Telephone [facility] Physicians - Pulmonary Medicine, [facility] [address] [facility] [address] [place] [address] Noé Sofia [address] [facility] [place] [address] Imaging Results (Patient called and stated he had his PET CT done yesterday, 11/22/23 at ) Social History Tobacco Use Types Packs/Day Years [...] encounter Miscellaneous Notes * Telephone Encounter - Mariza Singh MA - 11/23/2023 12:36 PM EDT Images requested * Telephone Encounter - Maurice Castañeda CMA - 11/23/2023 9:56 AM EDT Pt called and stated that PET SCAN was done at [facility]. * Telephone Encounter - Mariza Singh MA - 11/23/2023 9:52 AM EDT Left MessageCommunicated - [facility] for pt to confirm the location where the pt had his PET/CT scan so that I can request the imaging. If pt calls back please find out what location the imaging was done. Thanks * Telephone Encounter - Charlette Thomas - 11/23/2023 9:26 AM EDT Patient called and stated he had his PET CT done yesterday, 11/22/23 at documented in this encounter Plan of Treatment Upcoming Encounters Date Type Department Care Team (Late st Contact Info) Description 04/17/2025 10:30 AM EDT Appointment [facility] Physicians - Heart & Vascular, [address] [place] [address] Daniel Elder MD [address] [facility] [place] [address] 04/21/2025 1:00 PM EDT Appointment [facility] Physicians - Sleep Medicine, [address] [phone] Jayy Whitfield NP [address] [place] [address] 04/28/2025 2:40 PM EDT Appointment [facility] Physicians - Pulmonary Medicine, [facility] [address] [facility] [address] [place] [phone] Noé Sofia DO [address] [place], [place] [id number] 05/14/2025 1:15 PM EDT Appointment [facility] Physicians - Spine Surgery, [place] [address] [place] [phone] Leo Mosley PA-C [address] [place] [address] 07/02/2025 2:15 PM EDT Appointment [facility] Physicians - Heart & Vascular, [facility] [address] [facility] [address] [place] [address] Amaris Cueva MD [address] [facility] [address] [place] [address] documented as of this encounter Goals Goal [...] on filedocumented in this encounter Care Teams Rd Manager Relationship Specialty Start Date End Date Sudhakar Lipscomb NP [address] [place] [address] PCP - General Family Medicine 08/30/23 Stephany Ortega, RN Cardiology 08/04/21 Amaris Cueva MD [address] [facility] [address] [facility] [place], [place] [id number] Cardiology 08/10/21 Maverick Lee MD [address] [id number] Interventional Cardiology 09/06/21 Michael Gonzales MD [address] [place] [address] [address] [place] [address] Internal Medicine, Sleep Medicine 09/07/21 Lolly Warren NP [address] [place] [address] Nurse Practitioner Nurse Practitioner, Acute Care 09/08/21 Daniel Whittington MD, PhD [address] [place] [address] Clinical Cardiac Electrophysiology 09/13/21 Regina Esquivel NP [address] [place] [address] Nurse Practitioner Nurse Practitioner, Acute Care 09/22/21 Maverick Waterman DO [address] [facility] [place] [address] Advanced Heart Failure/Transplant 09/30/21 Aris Tracey MD [address] [place] [address] [address] [place] [address] Urology 10/28/21 Noé Sofia DO [address] [place] [address] Critical Care Medicine 12/28/22 documented as of this encounter
--- OUTSIDE RECORDS SUMMARY | 2025-04-15 13:42 | XMS_ITS | Referral Summary ---
Author Organization [facility] Address [id number] [place] [address] Care Team Providers Care Machinery Rigger Name Role Phone KeenanCassyAundreadalton LANTIGUA Primary Care Provider Encounters Date Type Department Care Team Description 02/17/2025 11:12 AM EDT - 02/17/2025 11:59 PM EDT Hospital Encounter [facility] - Imaging - [address] [place], [place] [id number] Johnnie Mccarthy, YAO Other injury of unspecified body region, initial encounter [T14.8XXA] Discharge Disposition: Home or Self Care from Last 3 Months Allergies Active Allergy Reactions Criticality Noted Date Comments Antihistamines, Chlorpheniramine-Type Anxiety High 02/28/2019 Codeine Hives 06/01/2015 Medications apixaban (ELIQUIS) 5 MG TABSIndications: atrial fibrillation Take 1 tablet by mouth 2 (two) times daily. Indications: atrial fibrillation 60 tablet 3 9 Active acetaminophen (TYLENOL) 500 MG TABS Take 500 mg by mouth every 6 (six) hours as needed. Active metoprolol succinate (TOPROL-XL) 50 MG TB24 Take 1 tablet by mouth daily. 90 tablet 3 9 Active Active Problems Problem Noted Date Diagnosed Date Prostatic cancer (HCC) Gleas on 10, treating at [facility]. 02/25/2019 Hyperkalemia 02/07/2019 Atrial fibrillation with RVR 02/04/2019 Benign prostatic hyperplasia with urinary obstru ction 02/02/2019 Hydronephrosis, bilateral 02/02/2019 Enlarged prostate with urinary obstruction 02/01 Labral tear of shoulder, left, sequela 8 Chondromalacia of patella 05/12/2017 Contusion of knee, left 01/05/2017 Lesions of both ulnar nerves 08/27/2015 Carpal tunnel syndrome, bilateral 08/27/2015 Herniated cervical disc 07/16/2015 Impingement syndrome of shoulder 07/13/2015 Intervertebral cervical disc disorder with myelopathy, cervical region 07/13/2015 Left-sided low back pain with left-sided sciatic a 06/08/2015 Contusion of leg 06/08/2015 Lumbar spine strain 06/01/2015 Cervical strain, acute 06/01/2015 H/O amiodarone therapy Resolved Problems Problem Noted Date Diagnosed Date Resolved Date JERRY (acute kidney injury) 02/02/2019 Hyperkalemia 02/02/2019 02/03/2019 Metabolic acidosis 02/02/2019 9 Social History Tobacco Use Types Packs/Day Years Used Date Smoking Tobacco: Former Smokeless Tobacco: Never Alcohol Use Standard Drinks/Week Comments No 0 (1 standard drink = 0.6 oz pur e alcohol) Sex and Gender Information Value Date Recorded Sex Assigned at Not on file Legal Sex Male 7:53 PM EDT Gender Identity Male 02/02/2019 7:24 AM EDT Sexual Orientation Not on file Last Filed Vital Signs Vital Sign Reading Time Taken Comments Blood Pressure 150/100 04/04/2019 9:56 AM EDT Pulse 72 04/04/2019 9:56 AM EDT Temperature 36.6 C (97.8 F) 02/06/2019 9:01 AM EDT Respiratory Rate 22 02/06/2019 9:01 AM EDT Oxygen Saturation 95% 02/28/2019 8:19 AM EDT Inhaled Oxygen Concentration - - Weight 111.1 kg (245 lb) 04/04/2019 9:56 AM EDT Height 172.7 cm (5' 8 ) 04/04/2019 9:56 AM EDT Body Mass Index 37.25 04/04/2019 9:56 AM EDT Functional Status * Are you deaf or [...] Young, Registered Nurse * Do you have difficulty [...] 7:45 AM EDT Rachana Young, Registered Nurse Mental Status * Because of a physical, mental, or emotional condition, do you have serious difficulty concentrating, remembering, or making decisions? (5 years old or older) Answer Entry Date Author No 02/02/2019 7:45 AM Rachana Servin, Registered Nurse Plan of Treatment Not on file Procedures Procedure Name Priority Date/Time Associated Diagnosis Comments XR LUMBAR SPINE AP AND LATERAL Routine 02/17/2025 11:[address] ABDOMEN PELVIS W CONTRAST Routine 02/26/2019 7:50 AM EDT Prostate cancer (HCC) PROSTATIC SPECIF AG-BLOOD Routine 02/01/2019 12:32 PM EDT Enlarged prostate with urinary obstruction from Last 3 Months or Most Recently Relevant to Health Maintenance Results * XR LUMBAR SPINE AP AND [...] the content of this report, please contact [facility] by calling [phone] FINDINGS: ALIGNMENT: Unremarkable BONES: Unremarkable. No aggressive [...] about the content of this report, pleasecontact [facility] by calling [phone] FINDINGS: ALIGNMENT: Unremarkable BONES: Unremarkable. No aggressive osseous lesion or fracture POST-SURGICAL FINDINGS: None DISC LEVELS: Mild multilevel degenerative disc height loss. Mild anteriorspur formation FACET JOINTS: Degenerative sclerosis of the facet joints in the lowerlumbar spine LUMBOSACRAL JUNCTION: Unremarkable SACRUM AND SI JOINTS: Unremarkable OTHER: None IMPRESSION Multilevel mild degenerative disc height loss and mild facet arthrosis us Johnnie Mccarthy DC RAD Final Resu lt * CT ABDOMEN PELVIS W CONTRAST (02/26/2019 7:50 AM EDT) Anatomical Region Laterality Modality Pelvis Computed Tomogra phy 02/26/2019 8:01 AM EDT Impressions 02/26/2019 8:21 AM EDT No evidence of metastatic disease. Questionable 2.2 cm renal lesion left superior pole. Recommend follow-up MRI of the abdomen with and without contrast. Narrative 02/26/2019 8:21 AM EDT HISTORY: Prostate cancer Malignant neoplasm of prostate COMPARISON: None TECHNIQUE: Post IV contrast multiplanar CT images of the abdomen and pelvis NOTE: If there are questions about the content of this report, please contact [facility] radiology by calling [phone] FINDINGS: LOWER CHEST: Unremarkable LIVER: Unremarkable GALLBLADDER/BILE DUCTS: Unremarkable. No opaque gallstones PANCREAS: Unremarkable. No mass or duct dilation SPLEEN: Splenules left upper quadrant. ADRENALS: Unremarkable KIDNEYS/URETERS: Nonspecific lesion left upper pole, measuring 2.2 cm. Renal cysts. GI TRACT: Unremarkable. No obstruction or wall thickening VESSELS: Unremarkable. No aneurysm or dissection LYMPH NODES: Unremarkable. No enlarged lymph nodes ABD WALL: Unremarkable PELVIS: Unremarkable BONES: Unremarkable OTHER: None Procedure Note Manuel Xavier MD - 02/26/2019 HISTORY: Prostate cancer Malignant neoplasm of prostate COMPARISON: None TECHNIQUE: Post IV contrast multiplanar CT images of the abdomen andpelvis NOTE: If there are questions about the content of this report, pleasecontact [facility] radiology by calling [phone] FINDINGS: LOWER CHEST: Unremarkable LIVER: Unremarkable GALLBLADDER/BILE DUCTS: Unremarkable. No opaque gallstones PANCREAS: Unremarkable. No mass or duct dilation SPLEEN: Splenules left upper quadrant. ADRENALS: Unremarkable KIDNEYS/URETERS: Nonspecific lesion left upper pole, measuring 2.2 cm.Renal cysts. GI TRACT: Unremarkable. No obstruction or wall thickening VESSELS: Unremarkable. No aneurysm or dissection LYMPH NODES: Unremarkable. No enlarged lymph nodes ABD WALL: Unremarkable PELVIS: Unremarkable BONES: Unremarkable OTHER: None IMPRESSION No evidence of metastatic disease. Questionable 2.2 cm renal lesion left superior pole. Recommend follow-upMRI of the abdomen with and without contrast. Ezekiel Kang MD CT Final Resul t from Last 3 Months or Most Recently Relevant to Health Maintenance Administered Medications Insurance [facility] Care Teams Machinery Rigger Relationship Specialty Start Date End Date Aundrea Hussein CNP PCP - General 12/23/19
--- OUTSIDE RECORDS SUMMARY | 2025-04-15 13:42 | XMS_ITS | Encounter Summary ---
Author Organization [facility] Address [facility] [place] [address] Care Team Providers Care Manager Operations Research Name Role Phone Alfredito Ramey MD Unavailable [phone] Joann Zarate RN Unavailable Unavailable Ezekiel Kang MD Unavailable [phone] Alfredito Ramey MD Unavailable [phone] Jerri Santiago MD Primary Care Provider [phone] Source Comments This information has been disclosed [...] release of HIV test results or diagnoses. 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 Have a blessed evening. Joann Zarate RN-CN III OCN [facility] Department of Radiation Oncology [address] [place] [address]. [id number] [email or web address] documented in this encounter Plan of Treatment Not on file documented as of this encounter Visit Diagnoses Not on filedocumented in this encounter Additional Health Concerns Assessment Noted Time PHQ-9 Depression Total Score: 3 02/20/20 19 3:00 PM EDT documented as of this encounter Care Teams Manager Operations Research Relationship Specialty Start Date End Date [place] [address] PCP - General Family Medicine 04/12/21 Alfredito Ramey MD Radiation Oncologist Radiation Oncology 02/18/19 Joann Zarate, RN Registered Nurse 02/18/19 Ezekiel Kang MD [address] [place] [address] 02/18/19 Alfredito Ramey MD Initiating Oncologist Radiation Oncology 06/03/20 documented as of this encounter
--- OUTSIDE RECORDS SUMMARY | 2025-04-15 13:42 | XMS_ITS | Encounter Summary ---
Author Organization [facility] Address [address] [place] [address] Care Team Providers Care Nylon Machine Operator Name Role Phone Pamela Apple Primary Care Provider Stephany Ortega RN Unavailable Amaris Cueva MD Unavailable [phone] Maverick Lee MD Unavailable [phone] Michael Gonzales MD Unavailable [phone] Lolly Warren NP Unavailable [phone] Daniel Whittington MD, PhD Unavailable [phone] Regina Esquivel NP Unavailable [phone] Maverick Waterman DO Unavailable [phone] Aris Tracey MD Unavailable [phone] Noé Sofia DO Unavailable [phone] Sudhakar Lipscomb GLASS TINTER Primary Care Provider [phone] Encounter Details Date Type Department Care Team (Late st Contact Info) Description 06/20/2022 Abstract [facility] [address] [place] [address] Stephany Ortega, SHARONDA Social History Tobacco Use Types Packs/Day Years [...] Description 04/17/2025 10:30 AM EDT Appointment [facility] Physicians - Heart & [address] [place] [address] [place] [address] [place] [address] Ave[address] [place], [place] [address] 04/21/2025 1:00 PM EDT Appointment [facility] Physicians - Sleep Medicine, [address] [phone] Jayy Whitfield NP [address] [place] [address] 04/28/2025 2:40 PM EDT Appointment [facility] Physicians - Pulmonary Medicine, [facility] [address] [facility] [address] [place] [address] Noé Sofia DO [address] [place] [address] 05/14/2025 1:15 PM EDT Appointment [facility] Physicians - Spine Surgery, [place] [address] [place] [address] Leo Mosley PA-C [address] [place] [address] 07/02/2025 2:15 PM EDT Appointment [facility] Physicians - Heart & Vascular, [facility] [address] [facility] [address] [place] [address] Amaris Cueva MD [address] [place], [place] [id number] documented as of this encounter Goals Goal [...] on filedocumented in this encounter Care Teams Nylon Machine Operator Relationship Specialty Start Date End Date Apple Santiago [address] [place] [address] [place] [address] PCP - General Family Medicine 08/02/21 08/29/23 Sudhakar Lipscomb NP [address] [place] [address] PCP - General Family Medicine 08/30/23 Stephany Ortega, SHARONDA Cardiology 08/04/21 Amrais Cueva MD [address] [facility] [address] [place] [address] Cardiology 08/10/21 Maverick Lee MD [address] [facility] [address] [place] [address] Interventional Cardiology 09/06/21 Michael Gonzales MD [address] [place] [address] Internal Medicine, Sleep Medicine 09/07/21 Lolly Warren NP [address] [place] [address] Nurse Practitioner Nurse Practitioner, Acute Care 09/08/21 Daniel Whittington MD, PhD [facility] [address] [place] [address] Clinical Cardiac Electrophysiology 09/13/21 Regina Esquivel NP [address] [place] [address] Nurse Practitioner Nurse Practitioner, Acute Care 09/22/21 Maverick Waterman DO [address] [facility]. [address] [place] [address] Advanced Heart Failure/Transplant 09/30/21 Aris Tracey MD [facility] [facility] [address] [place] [address] Urology 10/28/21 Noé Sofia DO [address] [place] [address] Critical Care Medicine 12/28/22 documented as of this encounter
--- OUTSIDE RECORDS SUMMARY | 2025-04-15 13:42 | XMS_ITS | Encounter Summary ---
Author Organization [facility] Address [address] [place] [address] Care Team Providers Care Cannoneer Name Role Phone Stephany Ortega RN Unavailable Amaris Cueva MD Unavailable [phone] Maverick Lee MD Unavailable [phone] Michael Gonzales MD Unavailable [phone] Lolly Warren NP Unavailable [phone] Daniel Whittington MD, PhD Unavailable [phone] Regina Esquivel NP Unavailable [phone] Maverick Waterman DO Unavailable [phone] Aris Tracey MD Unavailable [phone] Noé Sofia DO Unavailable [phone] Sudhakar Lipscomb MANAGED CARE PROVIDER Primary Care Provider [phone] Encounter Details Date Type Department Care Team (Late st Contact Info) Description 03/23/[address] [facility] Physicians - Sleep Medicine, [address] [place] [phone] Michael Gonzales MD [address] [place] [address]. [address] [place] [address] HANNAH (obstructive sleep apnea) (Primary Dx) Social History Tobacco Use Types [...] 10:30 AM EDT Appointment [facility] Physicians - Heart & Vascular, [address] [facility] [address] [place] [address] Daniel Elder MD [address] [facility] [address] [place] [address] 04/21/2025 1:00 PM EDT Appointment [facility] Physicians - Sleep Medicine, [place] [address] [place] [phone] Jayy Whitfield NP [address] [place] [address] 04/28/2025 2:40 PM EDT Appointment [facility] Physicians - Pulmonary Medicine, [facility] [address] [facility] [address] [place] [address] Noé Sofia DO [address] [facility] [place], [place] [address] 05/14/2025 1:15 PM EDT Appointment [facility] Physicians - Spine Surgery, [facility] [address] [place] [phone] Leo Mosley PA-C [address] [place] [address] 07/02/2025 2:15 PM EDT Appointment [facility] Physicians - Heart & Vascular, [facility] [address] [facility] [address] [place] [address] Amaris Cueva MD [address] [facility] [address] [place] [address] Scheduled Orders Name Type Priority Associated Diagnoses Orde r Schedule SPLIT-NIGHT SLEEP STUDY PFT Routine HANNAH (obstructive sleep apnea) 1 Occurrences starting 03/23/2025 until 03/23/2026 SPLIT-NIGHT READING PFT Routine HANNAH (obstructive sleep apnea) 1 Occurrences starting 03/23/2025 until 03/23/2026 documented as of this encounter Goals Goal Patient Goal Type Associated Problems Recent Progress Patient-Stated? Author Limit fluid intake to 2 liters per day Diet No Tariq Lee BS Reduce salt intake to 2 grams per day Diet No Tariq Lee BS Record weight daily Lifestyle Yes Tariq Lee BS documented as of this encounter Visit Diagnoses Diagnosis HANNAH (obstructive sleep apnea)- Primary Obstructive sleep apnea (adult) (pediatric) documented in this encounter Care Teams Cannoneer Relationship Specialty Start Date End Date Sudhakar Lipscomb NP [address] [place] [address] PCP - General Family Medicine 08/30/23 Stephany Ortega, SHARONDA Cardiology 08/04/21 Amaris Cueva MD [address] [facility] [address] [place], [place] [id number] Cardiology 08/10/21 Maverick Lee MD [address] [facility] [address] [place], [place] [id number] Interventional Cardiology 09/06/21 Michael Gonzales MD [facility][note 2][address] [facility] [facility] [place], [place] [address] Internal Medicine, Sleep Medicine 09/07/21 Lolly Warren NP [address] [facility] [place], [place] [address] Nurse Practitioner Nurse Practitioner, Acute Care 09/08/21 Daniel Whittington MD, PhD [address] [place] [address] Clinical Cardiac Electrophysiology 09/13/21 Regina Esquivel MANAGED CARE PROVIDER [address] [place] [address] Nurse Practitioner Nurse Practitioner, Acute Care 09/22/21 Maverick Waterman DO [address] [place] [address] Advanced Heart Failure/Transplant 09/30/21 Aris Tracey MD [address] [place] [address] [address] [place] [address] Urology 10/28/21 Noé Sofia DO [address] [place] [address] Critical Care Medicine 12/28/22 documented as of this encounter
--- OUTSIDE RECORDS SUMMARY | 2025-04-15 13:42 | XMS_ITS | Encounter Summary ---
Author Organization [facility] Address [address] [place] [address] Care Team Providers Care Public Relations Studies Director Name Role Phone Pamela Apple Primary Care Provider [phone] Stephany Ortega RN Unavailable Amaris Cueva MD Unavailable [phone] Maverick Lee MD Unavailable [phone] Michael Gonzales MD Unavailable [phone] Lolly Warren NP Unavailable [phone] Daniel Whittington MD, PhD Unavailable [phone] Regina Esquivel NP Unavailable [phone] Maverick Waterman DO Unavailable [phone] Aris Tracey MD Unavailable [phone] Noé Sofia DO Unavailable [phone] Sudhakar Lipscomb DEVELOPMENT MECHANIC Primary Care Provider Encounter Details Date Type Department Care Team (Latest Contact Info) Description 10/08/2021 Preop Surgical Orders [facility] Physicians - Urology, [place] [address] [facility] [address] [place] [phone] Lolly Lipscomb, RN Gross hematuria (Primary Dx) Social History Tobacco Use Types [...] have Coronavirus / COVID-19? No / Unsure 10/01/2021 12:31 PM EST documented as of this encounter Plan of Treatment Upcoming Encounters Date Type Department Care Team (Late st Contact Info) Description 04/17/2025 10:30 AM EDT Appointment [facility] Physicians - Heart & Vascular, [address] [facility] [address] [place] [address] Daniel Elder MD [address] [facility] [place] [address] 04/21/2025 1:00 PM EDT Appointment [facility] Physicians - Sleep Medicine, [place] [address] [place] [phone] Jayy Whitfield NP [address] [facility] [address] [place] [address] 04/28/2025 2:40 PM EDT Appointment [facility] Physicians - Pulmonary Medicine, [place] [address] [facility] [address] [place] [address] Noé Sofia DO [address] [facility] [place] [address] 05/14/2025 1:15 PM EDT Appointment [facility] Physicians - Spine Surgery, [facility] [address] [facility] [address] [place] [phone] Leo Mosley PA-C [address] [place], [place] [id number] 07/02/2025 2:15 PM EDT Appointment [facility] Physicians - Heart & Vascular, [facility] [address] [facility] [address] [place] [address] Amaris Cueva MD [address] [facility] [address] [place] [address] documented as of this encounter Goals Goal Patient Goal Type Associated Problems Recent Progress Patient-Stated? Author Limit fluid intake to 2 liters per day Diet No Tariq Lee BS Reduce salt intake to 2 grams per day Diet No Tariq Lee BS Record weight daily Lifestyle Yes Tariq Lee BS documented as of this encounter Visit Diagnoses Diagnosis Gross hematuria- Primary documented in this encounter Care Teams Public Relations Studies Director Relationship Specialty Start Date End Date Apple Santiago [address] [place] [address] [place] [address] PCP - General Family Medicine 08/02/21 08/29/23 Sudhakar Lipscomb NP [address] [place] [address] PCP - General Family Medicine 08/30/23 Stephany Ortega RN Cardiology 08/04/21 Amaris Cueva MD [address] [facility] [address] [place] [address] Cardiology 08/10/21 Maverick Lee MD [address] [facility] [address] [place] [address] Interventional Cardiology 09/06/21 Michael Gonzales MD [address] [place] [address] Internal Medicine, Sleep Medicine 09/07/21 Lolly Warren NP [facility] [address] [place] [address] Nurse Practitioner Nurse Practitioner, Acute Care 09/08/21 Daniel Whittington MD, PhD [facility] [address] [place] [address] Clinical Cardiac Electrophysiology 09/13/21 Regina Esquivel NP [facility] [address] [place] [address] Nurse Practitioner Nurse Practitioner, Acute Care 09/22/21 Maverick Waterman DO [address] [facility] [place] [address] Advanced Heart Failure/Transplant 09/30/21 Aris Tracey MD [facility] [facility] [address] [place] [address] Urology 10/28/21 Noé Sofia DO [facility] [place] [address] Critical Care Medicine 12/28/22 documented as of this encounter
--- OUTSIDE RECORDS SUMMARY | 2025-04-15 13:42 | XMS_ITS | Encounter Summary ---
Author Organization [facility] Address [address] [place] [address] Care Team Providers Care Telephoner Name Role Phone Stephany Ortega RN Unavailable Amaris Cueva MD Unavailable [phone] Maverick Lee MD Unavailable [phone] Michael Gonzales MD Unavailable [phone] Lolly Warren NP Unavailable [phone] Daniel Whittington MD, PhD Unavailable [phone] Regina Esquivel NP Unavailable [phone] Maverick Waterman DO Unavailable [phone] Aris Tracey MD Unavailable [phone] Noé Sofia DO Unavailable [phone] Sudhakar Lipscomb LPC Primary Care Provider [phone] Reason for Visit * Reason Onset Date Comments Other 09/06/2023 Encounter Details Date Type Department Care Team (Late st Contact Info) Description 09/06/2023 Telephone [facility] Physicians - Pulmonary Medicine, [place] [address] [facility] [place] [address] Noé Sofia DO [address] [place], [place] [address] Other Social History Tobacco Use Types Packs/Day Years [...] encounter Miscellaneous Notes * Telephone Encounter - Maki Cuelalr - 09/06/2023 2:21 PM EST Patient's daughter called because she was not at his appointment today. She would like to speak to Dr. 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 She is listed as emerg contact. PH. [phone] documented in this encounter Plan of Treatment Upcoming Encounters Date Type Department Care Team (Late st Contact Info) Description 04/17/2025 10:30 AM EDT Appointment [facility] Physicians - Heart & Vascular, [address] [place] [address] Daniel Elder MD [address] [place] [address] 04/21/2025 1:00 PM EDT Appointment [facility] Physicians - Sleep Medicine, [place] [address] [place] [address] Jayy Whitfield NP [address] [place] [address] 04/28/2025 2:40 PM EDT Appointment [facility] Physicians - Pulmonary Medicine, [facility] [address] [facility] [address] [place] [address] Noé Sofia DO [address] [facility] [place] [address] 05/14/2025 1:15 PM EDT Appointment [facility] Physicians - Spine Surgery, [facility] [address] [facility] [address] [place] [phone] Leo Mosley PA-C [address] [facility] [place] [address] 07/02/2025 2:15 PM EDT Appointment [facility] Physicians - Heart & Vascular, [facility] [address] [place] [address] [address] [place] [address] Amaris Cueva MD [address] [facility] [address] [place], [place] [id number] documented as of this encounter Goals Goal [...] on filedocumented in this encounter Care Teams Telephoner Relationship Specialty Start Date End Date Sudhakar Lipscomb NP [address] [place], [place] [id number] PCP - General Family Medicine 08/30/23 Stephany Ortega, RN Cardiology 08/04/21 Amaris Cueva MD [address] [facility] [address] [place], [place] [phone] Cardiology 08/10/21 Maverick Lee MD [address] [facility] [address] [place], [place] [phone] Interventional Cardiology 09/06/21 Michael Gonzales MD [address] [place] [address] Internal Medicine, Sleep Medicine 09/07/21 Lolly Warren NP [address] [place] [address] Nurse Practitioner Nurse Practitioner, Acute Care 09/08/21 Daniel Whittington MD, PhD [address] [place] [address] Clinical Cardiac Electrophysiology 09/13/21 Regina Esquivel NP [address] [place] [address] Nurse Practitioner Nurse Practitioner, Acute Care 09/22/21 Maverick Waterman DO [address] [facility] [place], [place] [id number] Advanced Heart Failure/Transplant 09/30/21 Aris Tracey MD [facility] [facility] [address] [place] [address] Urology 10/28/21 Noé Sofia DO [address] [place] [address] [address] [place] [address] Critical Care Medicine 12/28/22 documented as of this encounter
--- OUTSIDE RECORDS SUMMARY | 2025-04-15 13:42 | XMS_ITS | Clinical Summary ---
Author Organization [facility] Address [address] [place] [address] Care Team Providers Care Permastone Installer Name Role Phone Tasha Husseingifty LANTIGUA Primary Care Provider [phone] Allergies Active Allergy Reactions Criticality Noted Date [...] cancer (HCC) Gleas on 10, treating at [facility]. 02/25/2019 Hyperkalemia 02/07/2019 Atrial fibrillation with [...] Hyperkalemia 02/02/2019 02/03/2019 Metabolic acidosis 02/02/2019 9 Encounters Date Type Department Care Team Description 02/17/2025 11:12 AM EDT - 02/17/2025 11:59 PM EDT Hospital Encounter [facility] [address] [place] [address] Dr [place] [id number] Johnnie Mccarthy, [place] Other injury of unspecified body region, initial encounter [T14.8XXA] Discharge Disposition: Home or Self Care from Last 3 Months Family History Medical History Relation Name Comments Cancer Father Diabetes Father Hypertension Mother Relation Name Status Comments Father Mother Social History Tobacco Use Types Packs/Day Years [...] Mass Index 37.25 04/04/2019 9:56 AM EDT Plan of Treatment Health Maintenance Due Date Last Done Comments DTap,Tdap,and Td (1 - Tdap) 1965 Colonoscopy 1999 Pneumococcal 50+ (1 of 1 - PCV) 2004 Shingrix (#1) 2004 Influenza Vaccine (#1) 2025 PSA YEARLY 01/09/2026 01/09/2025, 02/01/2019 RSV Vaccine (60+ or ) (1 - 1-dose 75+ series) 2029 Hepatitis C Screening Completed 04/17/2017 Abdominal Aortic Aneurysm Screening Completed 02/26/2019 HPV Aged Out No longer eligi ble based on patient's age to complete this topic Meningococcal conjugate nidhi nt 4 (MCV4) Aged Out No longer eligible b ased on patient's age to complete this topic RSV Immunization (<20 months) Aged Out No longer eligible based on patient's age to complete this topic Procedures Procedure Name Priority Date/Time Associated Diagnosis [...] the content of this report, please contact [facility] radiology by calling [phone] FINDINGS: ALIGNMENT: Unremarkable BONES: Unremarkable. No aggressive [...] about the content of this report, pleasecontact [facility] radiology by calling [phone] FINDINGS: ALIGNMENT: Unremarkable BONES: Unremarkable. No aggressive [...] the content of this report, please contact [facility] radiology by calling [phone] FINDINGS: LOWER CHEST: Unremarkable LIVER: Unremarkable GALLBLADDER/BILE [...] about the content of this report, pleasecontact [facility] radiology by calling [phone] FINDINGS: LOWER CHEST: Unremarkable LIVER: Unremarkable GALLBLADDER/BILE [...] of the abdomen with and without contrast. us Ezekiel Kang MD CT Final Resul t from Last 3 Months or Most Recently Relevant to Health Maintenance Insurance [facility] DUAL COMPLETE Advance Directives * Full Code (Latest Code Status on File) Date Activated Date Inactivated Comments 02/02/2019 4:07 PM 02/06/2019 5:53 PM Care Teams Permastone Installer Relationship Specialty Start Date End Date Aundrea Hussein CNP PCP - General 12/23/19
--- OUTSIDE RECORDS SUMMARY | 2025-04-15 13:42 | XMS_ITS | Clinical Summary ---
Author Organization [facility] Address [address] [place] [address] Phone Care Team Providers Care Yellow Pages Space Salesperson Name Role Phone Pat Campoverde MD Unavailable Rena Hussein FOOD PRODUCTS SALES REPRESENTATIVE Primary Care Provider [phone] Allergies Active Allergy Reactions Criticality Noted Date Comments Antihistamines - Alkylamine Anxiety Low 09/14/19 17 Other reaction(s): increased heart rate Other reaction(s): increased heart rate Other reaction(s): increased heart rate Codeine Hives,Itching 08/16/2010 itchy Medications apixaban (ELIQUIS) 5 mg Oral Tablet Take 5 mg by mouth 2 times daily. 9 Active metoprolol succinate (TOPROL-XL) 50 mg Oral Tablet Sustained Release 24 hr Take 50 mg by mouth daily. 9 Active tamsulosin (FLOMAX) 0.4 mg Oral Capsule Take 1 Capsule by mouth 2 times daily. 4 Active sildenafiL (VIAGRA) 25 mg Oral Tablet Take 25 mg by mouth daily as needed. 7 Active senna-docusate (SENOKOT-S) 8.6-50 mg Oral Tablet Take 1 Tablet by mouth daily. 9 Active polyethylene glycol (GLYCOLAX, MIRALAX) 17 gram Oral Powder in Packet Take 17 g by mouth daily as needed. 9 Active losartan (COZAAR) 100 mg Oral Tablet Take 1 tablet every day by oral route. 4 Active Leuprolide (ELIGARD) 22.5 mg SubQ Syringe Subcutaneous (Inject under the skin) 22.5 mg. 4 Active lidocaine (LIDODERM) 5 % Top Adhesive Patch, Medicated 1 Patch. Active ibuprofen (ADVIL;MOTRIN) 600 mg Oral Tablet Take 600 mg by mouth 3 times daily as needed. 9 Active fUROsemide (LASIX) 20 mg Oral Tablet Take 1 tablet every day by oral route. 3 Active famotidine (PEPCID) 40 mg Oral Tablet Take 40 mg by mouth. Active doxazosin (CARDURA) 4 mg Oral Tablet Take 4 mg by mouth nightly. 9 Active dapagliflozin propanediol (FARXIGA) 10 mg Oral Tablet Take 1 Tablet by mouth every morning. 4 Active bicalutamide (CASODEX) 50 mg Oral Tablet Take 50 mg by mouth daily. Active amiodarone (PACERONE) 200 mg Oral Tablet Take 200 mg by mouth daily. 9 Active abiraterone (ZYTIGA) 250 mg Oral Tablet Take 1,000 mg by mouth daily. 4 Active Active Problems Problem Noted Date Diagnosed Date Acute kidney failure CKD (chronic kidney disease), stage II Prostate CA Medical History Medical History Date Comments Acute kidney failure Prostate CA (HCC) CKD (chronic kidney disease), stage II Atrial fibrillation (HCC) Hypertension Family History Medical History Relation Name Comments Hypertension Neg Hx Kidney Disease Neg Hx Social History Tobacco Use Types Packs/Day Years Used Date Smoking Tobacco: Former Cigarettes Q uit: 1972 Alcohol Use Standard Drinks/Week Comments Not Currently 0 (1 standard drink = 0.6 oz pur e alcohol) Sex and Gender Information Value Date Recorded Sex Assigned at Not on file Legal Sex Male 5:41 PM EDT Gender Identity Not on file Sexual Orientation Not on file Obstetrics History Last Filed Vital Signs Vital Sign Reading Time Taken Comments Blood Pressure 141/77 04/23/2024 8:32 AM EDT Pulse 60 04/23/2024 8:32 AM EDT Temperature 37.1 C (98.8 F) 04/23/2024 8:32 AM EDT Respiratory Rate 18 04/23/2024 7:28 AM EDT Oxygen Saturation 97% 04/23/2024 8:32 AM EDT Inhaled Oxygen Concentration - - Weight - - Height - - Body Mass Index - - Plan of Treatment Health Maintenance Due Date Last Done Comments Wellness Exam Medicare 1957 Hepatitis C Screening 1972 DTaP/TDaP/Td (1 - Tdap) 1973 Cologuard 1999 Colon Cancer Screening 1999 Colonoscopy 1999 FIT 1999 Sigmoidoscopy 1999 Virtual Colonography 1999 Pneumococcal Vaccine 50+ (1 of 1 - PCV) 2004 Zoster (1 of 2) 2004 RSV or 60+ (1 - Ris k 60-74 years 1-dose series) 2014 AAA Screening 2019 COVID-19 Vaccine ( - 2023-2 5 season) 2024 Influenza Vaccine (#1) 2025 Hepatitis B Vaccine Aged Out No longe r eligible based on patient's age to complete this topic Meningococcal B Vaccine Aged Out No l onger eligible based on patient's age to complete this topic Insurance [employer] MEDICARE ADVANTAGE MR MEDICARE [place] PART B CLAIMS PB Care Teams Yellow Pages Space Salesperson Relationship Specialty Start Date End Date Rena Hussein FNP [address] [place] [address] PCP - General Nurse Practitioner 04/02/20 Pat Campoverde MD Internal Medicine-Nephrology 04/02/20
--- OUTSIDE RECORDS SUMMARY | 2025-04-15 13:42 | XMS_ITS | Encounter Summary ---
Author Organization [facility] Address [address] [place] [address] Care Team Providers Care Van Helper Name Role Phone Pamela Apple Primary Care Provider [phone] Stephany Ortega RN Unavailable Amaris Cueva MD Unavailable [phone] Maverick Lee MD Unavailable [phone] Michael Gonzales MD Unavailable [phone] Lolly Warren NP Unavailable [phone] Daniel Whittington MD, PhD Unavailable [phone] Regina Esquivel NP Unavailable [phone] Maverick Waterman DO Unavailable [phone] Aris Tracey MD Unavailable [phone] Noé Sofia DO Unavailable [phone] Sudhakar Lipscomb COORDINATOR OF HEALTH SERVICES Primary Care Provider [phone] Encounter Details Date Type Department Care Team (Late st Contact Info) Description 08/21/2023 Preop Surgical Orders [facility] Physicians - Pulmonary Medicine, [place] [address] [facility] [address] [place] [phone] Noé Sofia DO [address] [facility] [place], [place] [address] Social History Tobacco Use Types Packs/Day Years [...] Description 04/17/2025 10:30 AM EDT Appointment [facility] Physicians - Heart & Vascular, [address] [facility] [address] [place] [address] Daniel Elder MD [address] [facility] [place] [address] 04/21/2025 1:00 PM EDT Appointment [facility] Physicians - Sleep Medicine, [place] [address] [place] [phone] Jayy Whitfield NP [address] [facility] [address] [place] [address] 04/28/2025 2:40 PM EDT Appointment [facility] Physicians - Pulmonary Medicine, [place] [address] [facility] [address] [place] [address] Noé SofiaDO [address] [place] [address] 05/14/2025 1:15 PM EDT Appointment [facility] Physicians - Spine Surgery, [facility] [address] [place] [address] Leo Mosley PA-C [address] [place] [address] 07/02/2025 2:15 PM EDT Appointment [facility] Physicians - Heart & Vascular, [facility] [address] [place] [address] [address] [place] [address] Amaris Cueva MD [address] [facility] [address] [place] [address] documented as of this encounter Goals Goal [...] on filedocumented in this encounter Care Teams Van Helper Relationship Specialty Start Date End Date Apple Santiago [address] [place] [address] [place] [address] PCP - General Family Medicine 08/02/21 08/29/23 Sudhakar Lipscomb NP [address] [place] [address] PCP - General Family Medicine 08/30/23 Stephany Ortega, SHARONDA Cardiology 08/04/21 Amaris Cueva MD [address] [facility] [address] [place] [address] Cardiology 08/10/21 Maverick Lee MD [address] [facility] [address] [place] [address] Interventional Cardiology 09/06/21 Michael Gonzales MD [address] [place] [address] Internal Medicine, Sleep Medicine 09/07/21 Lolly Warren NP [address] [place] [address] Nurse Practitioner Nurse Practitioner, Acute Care 09/08/21 Daniel Whittington MD, PhD [address] [place] [address] Clinical Cardiac Electrophysiology 09/13/21 Regina Esquivel NP [address] [place] [address] Nurse Practitioner Nurse Practitioner, Acute Care 09/22/21 Maverick Waterman DO [address] [place] [address] Advanced Heart Failure/Transplant 09/30/21 Aris Tracey MD [facility] [facility] [address] [place] [address] Urology 10/28/21 Noé Sofia DO [address] [place], [place] [address] Critical Care Medicine 12/28/22 documented as of this encounter
--- OUTSIDE RECORDS SUMMARY | 2025-04-15 13:42 | XMS_ITS | Encounter Summary ---
Author Organization [facility] Address [facility] [place] [address] Care Team Providers Care Reproductive Healthcare Assistant Name Role Phone Alfredito Ramey MD Unavailable [phone] Joann Zarate RN Unavailable Unavailable Ezkeiel Kang MD Unavailable [phone] Alfredito Ramey MD Unavailable [phone] Jerri Santiago MD Primary Care Provider [phone] Source Comments This information has been disclosed [...] release of HIV test results or diagnoses. 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 Will need to approve future prescriptions with [employer]. documented in this encounter Plan of Treatment Not on file documented as of this encounter Visit Diagnoses Not on filedocumented in this encounter Additional Health Concerns Assessment Noted Time PHQ-9 Depression Total Score: 3 02/20/20 19 3:00 PM EDT documented as of this encounter Care Teams Reproductive Healthcare Assistant Relationship Specialty Start Date [place] [address] PCP - General Family Medicine 04/12/21 Alfredito Ramey MD Radiation Oncologist Radiation Oncology 02/18/19 Joann Zarate RN Registered Nurse 02/18/19 Ezekiel Kang MD [address] [facility] [address] [place] [address] 02/18/19 Alfredito Ramey MD Initiating Oncologist Radiation Oncology 06/03/20 documented as of this encounter
--- OUTSIDE RECORDS SUMMARY | 2025-04-15 13:42 | XMS_ITS | Encounter Summary ---
Author Organization [facility] Address [address] [place] [address] Care Team Providers Care Head End Desizing Machine Operator Name Role Phone Stephany Ortega RN Unavailable Amaris Cueva MD Unavailable [phone] Maverick Lee MD Unavailable [phone] Michael Gonzales MD Unavailable [phone] Lolly Warren NP Unavailable [phone] Daniel Whittington MD, PhD Unavailable [phone] Regina Esquivel NP Unavailable [phone] Maverick Waterman DO Unavailable [phone] Aris Tracey MD Unavailable [phone] Noé Sofia DO Unavailable [phone] Sudhakar Lipscomb SOAKING PITS SUPERVISOR Primary Care Provider Encounter Details Date Type Department Care Team (Late st Contact Info) Description 11/23/2023 Abstract [facility] Physicians - Heart & Vascular, [place] [address] [place] [address] Stephany Ortega RN Social History Tobacco Use Types Packs/Day [facility] [place] [address] [place] [address] [place], [place] [address]e. [address] [place] [address] 04/21/2025 1:00 PM EDT Appointment [facility] Physicians - Sleep Medicine, [address] [phone] Jayy Whitfield NP [address] [place] [address] 04/28/2025 2:40 PM EDT Appointment [facility] Physicians - Pulmonary Medicine, [place] [address] [facility] [address] [place] [phone] Noé Sofia DO [address] [place], [place] [address] 05/14/2025 1:15 PM EDT Appointment [facility] Physicians - Spine Surgery, [place] [address] [place] [phone] Leo Mosley PA-C [address] [place] [address] 07/02/2025 2:15 PM EDT Appointment [facility] Physicians - Heart & Vascular, [facility] [address] [facility] [address] [place] [address] Amaris Cueva MD [address] [id number] documented as of this encounter Goals Goal [...] on filedocumented in this encounter Care Teams Head End Desizing Machine Operator Relationship Specialty Start Date End Date Sudhakar Lipscomb NP [address] [place] [address] PCP - General Family Medicine 08/30/23 Stephany Ortega, SHARONDA Cardiology 08/04/21 Amaris Cueva MD [address] [id number] Cardiology 08/10/21 Maverick Lee MD [address] [id number] Interventional Cardiology 09/06/21 Michael Gonzales MD [address] [place] [address] Internal Medicine, Sleep Medicine 09/07/21 Lolly Warren NP [address] [place] [address] Nurse Practitioner Nurse Practitioner, Acute Care 09/08/21 Danile Whittington MD, PhD [address] [place] [address] Clinical Cardiac Electrophysiology 09/13/21 Regina Esquivel NP [address] [place] [address] Nurse Practitioner Nurse Practitioner, Acute Care 09/22/21 Maverick Waterman DO [address] [place] [address] Advanced Heart Failure/Transplant 09/30/21 Aris Tracey MD [address] [place] [address] [address] [place] [address] Urology 10/28/21 Noé Sofia DO [address] [place] [address] Critical Care Medicine 12/28/22 documented as of this encounter
--- OUTSIDE RECORDS SUMMARY | 2025-04-15 13:42 | XMS_ITS | Encounter Summary ---
Author Organization [facility] Address [address] [place] [address] Care Team Providers Care Conservation Educator Name Role Phone Apple Santiago Primary Care Provider Stephany Ortega RN Unavailable Amaris Cueva MD Unavailable [phone] Maverick Lee MD Unavailable [phone] Michael Gonzales MD Unavailable [phone] Lolly Warren NP Unavailable [phone] Daniel Whittington MD, PhD Unavailable [phone] Regina Esquivel NP Unavailable [phone] Maverick Waterman DO Unavailable [phone] Aris Tracey MD Unavailable [phone] Noé Sofia DO Unavailable [phone] Sudhakar Lipscomb WHEEL ADJUSTER Primary Care Provider Reason for Visit * Reason Onset Date Comments Results 08/18/2023 Encounter Details Date Type Department Care Team (Late st Contact Info) Description 08/18/2023 Clinical Update [facility] [address] [place] [address] Stephany Ortega, RN Results Social History Tobacco Use Types Packs/Day Years [...] 04/17/2025 10:30 AM EDT Appointment [facility] Physicians - Heart & V[address] [place] [address] Daniel Elder MD [address] [facility] [place] [address] 04/21/2025 1:00 PM EDT Appointment [facility] Physicians - Sleep Medicine, [place] [address] [place] [phone] Jayy Whitfield NP [address] [place] [address] 04/28/2025 2:40 PM EDT Appointment [facility] Physicians - Pulmonary Medicine, [facility] [address] [facility] [address] [place] [phone] Noé Sofia DO [address] [place] [address] 05/14/2025 1:15 PM EDT Appointment [facility] Physicians - Spine Surgery, [place] [address] [place] [phone] Leo Mosley PA-C [address] [place] [address] 07/02/2025 2:15 PM EDT Appointment [facility] Physicians - Heart & Vascular, [facility] [address] [facility] [address] [place] [address] Amarsi Cueva MD [address] [facility] [address] [place], [place] [phone] documented as of this encounter Goals Goal [...] on filedocumented in this encounter Care Teams Conservation Educator Relationship Specialty Start Date End Date Apple Santiago [address] [place] [address] [place] [address] PCP - General Family Medicine 08/02/21 08/29/23 Sudhakar Lipscomb NP [address] [place] [address] PCP - General Family Medicine 08/30/23 Stephany Ortega, SHARONDA Cardiology 08/04/21 Amaris Cueva MD [address] [facility] [address] [place] [address] Cardiology 08/10/21 Maverick Lee MD [address] [facility] [address] [place] [address] Interventional Cardiology 09/06/21 Michael Gonzales MD [address] [place] [address] Internal Medicine, Sleep Medicine 09/07/21 Lolly Warren NP [address] [place] [address] Nurse Practitioner Nurse Practitioner, Acute Care 09/08/21 Daniel Whittington MD, PhD [address] [place] [address] Clinical Cardiac Electrophysiology 09/13/21 Regina Esquivel NP [address] [place] [address] Nurse Practitioner Nurse Practitioner, Acute Care 09/22/21 Maverick Waterman DO [address] [facility] [place] [address] Advanced Heart Failure/Transplant 09/30/21 Aris Tracey MD [facility] [facility] [address] [place] [address] Urology 10/28/21 Noé Sofia DO [address] [place], [place] [address] Critical Care Medicine 12/28/22 documented as of this encounter
--- NOTE | 2025-04-15 13:48 | EXP.PAIN.OV ---
HPI Data of Consult Patient: new to practice Consult date: 04/15/25 Requesting Physician: Laura Steinberg APRN Primary Care Provider: Sade Lipscomb APRN Reason for consult: Low back pain, right hip pain, right groin pain History of present illness: Mr. VITALE is a 69 year old male who presents today as a new patient. He has a referral from Sade Giron. Today he rates his pain a 5 out of 10. Patient states that he has bad chronic low back pain and leg symptoms for years however he is gone on a regular basis to a chiropractor and they did overall really improve the leg symptoms. He does state that about 3 months ago he ended up having a fall and this ongoing pains really started. He states it is a fairly constant aching, stiffness with burning sensations that does go in and around his low back right hip and buttocks and groin. Patient does state the pain is worse with prolonged sitting or laying and is interfering with his ability perform activities of daily living such as cooking and cleaning. He does state that he has a lot of difficulty laying on the right side due to the pain. Patient has tried oral medications along with heat and ice and topicals with minimal changes. Patient denies any prior back injections however has had right knee injections and a prior right knee meniscus repair. He states he is still actively seeing his chiropractor and that those visits do seem to help. Patient denies any recent MRI however does state that he brought x-ray imaging that was just done recently. Patient does have significant history of A-fib and is on Eliquis. Patient also has prostate, lung and skin cancer and is on oral chemo tablets. Patient does also make mention that he is trying to do a TENS unit at home and that does help temporarily.Patient is currently managed with gabapentin and tramadol from outside providers. His Elier has been reviewed and is appropriate. Pain at rest (0-10 scale): 5 Has patient had previous pain injection?: No Conservative treatment options previously tried: Home exercise plan (Longer than 12 weeks), Chiropractor (Ongoing) and Other (Please Describe) (TENS unit) cc:: CC: Laura Steinberg APRN [facility] Disclaimer: The information contained in this section may have been updated after the patient was seen, as this information can be updated by other users. Medical History (Updated 04/15/25 @ 14:38 by Laura Steinberg APRN) Skin cancer Cancer of prostate Cancer of lung Afib Social History (Updated 04/15/25 @ 14:20 by Shanti Arriaga RN) Smoking Status: Former smoker alcohol intake: former current occupational status: retired Travel in the last 8 weeks?: None Review of Systems Review of Systems Review of systems:: pertinent systems reviewed and negative unless documented below Review of systems (narrative): Review of Systems: General: No recent weight changes, no fever, no sleep disturbances Respiratory: No cough, no shortness of air, no recurring pulmonary infections Cardiovascular/peripheral vascular: No chest pain, no palpitations, no edema, no shortness of breath Gastrointestinal: No new onset incontinence, normal bowel movements reported Genitourinary: No new onset incontinence Musculoskeletal: Low back pain, right hip pain, right buttocks pain, groin pain Psychiatric: [Normal mood/affect] Neurological: [Denies weakness in extremities], [denies balance issues] Meds Home Medications and Allergies Home Medications ?Medication ?Instructions ?Recorded ?Confirmed ?Type abiraterone 250 mg tablet 250 mg PO DIRECTED 04/15/25 04/15/25 History apixaban 5 mg tablet (Eliquis) 5 mg PO BID 04/15/25 04/15/25 History dapagliflozin propanediol 10 mg 10 mg PO DIRECTED 04/15/25 04/15/25 History tablet (Farxiga) furosemide 20 mg tablet 20 mg PO DAILY 04/15/25 04/15/25 History losartan 100 mg tablet 100 mg PO DAILY 04/15/25 04/15/25 History metoprolol succinate 50 mg 50 mg PO BID 04/15/25 04/15/25 History tablet,extended release 24 hr prednisone 5 mg tablet 5 mg PO DAILY 04/15/25 04/15/25 History tamsulosin 0.4 mg capsule 0.4 mg PO DAILY 04/15/25 04/15/25 History New Prescriptions to Start Prescriptions: Allergies Allergy/AdvReac Type Severity Reaction Status Date / Time codeine AdvReac Other Verified 04/15/25 14:23 meperidine (From Demerol) AdvReac Confusion Verified 04/15/25 14:23 antihistamines AdvReac Anxiety Uncoded 04/15/25 14:23 Objective Narrative: Physical Exam: General: Alert and oriented x3, no acute distress, pleasant and cooperative Lungs: Respirations even and unlabored, symmetrical chest expansion Eyes: PERRL Musculoskeletal: Flexion and extension of lumbar [spine] somewhat guarded secondary to pain, [antalgic gait noted] point tenderness along right SI with positive right Jerry's, Ziyad's, Gaenslen's, compression and distraction exam Neurological: Speech clear, no gross sensory deficit Additional findings Additional findings: Lumbar x-ray February 18, 2025: Findings multilevel mild degenerative disc height loss. Mild anterior spur formation. Degenerative sclerosis of the facet joints in the lower spine. X-ray imaging right hip with pelvis 02/25/2025. Findings no acute fracture or dislocation of the right hip. No acute fracture visualized in the pelvis. Minimal/mild osteoarthritis of the right hip Assessment and Plan *Assessment and plan (1) Sacroiliitis: Status: Acute Category: Medical Code(s): M46.1 - Sacroiliitis, not elsewhere classified (2) Degenerative disc disease: Status: Acute Category: Medical (3) Right hip pain: Status: Acute Category: Medical Code(s): M25.551 - Pain in right hip Plan We did discuss that he may be a beneficial candidate of a SI injection or even the possibility of a intra-articular hip injection however at this time he would like to wait. Patient is worried that without advanced imaging that there could be a chance that we would not go exactly where we needed to. I did discuss the possibility of ordering an MRI and he would like to proceed forward with this plan of care. I will submit to insurance for MRI without contrast of his lumbar spine. Patient will return to clinic in 1 month for reevaluation of symptoms and plan of care. Patient has been instructed to contact the clinic with any concerns before the next appointment. Dr. Terry has reviewed this note and agrees with this plan of care. This note was dictated using voice recognition software and make contain errors or omissions. All injections are used with Lidocaine, Bupivacaine and dexamethasone. Occasionally urine drug screen is needed to verify patient's compliance with our office pain contract. This is ordered based off specific treatments related to chronic pain with the potential to abuse certain medications.
[2025-04-15 14:00] VITALS: BP 162/103; PULSE 66; RESP 18; O2SAT 94; BMI 38.0
== END 2025-04-15 23:59 | disposition home or self-care (01) ==
LOC: SC.PAIN 13:38
PROVIDERS: PCP Nurse Practitioner Family; Visit Provider Nurse Practitioner Family
DX: M46.1 Sacroiliitis, not elsewhere classified (principal); M25.551 Pain in right hip; Z79.899 Other long term (current) drug therapy; Z79.891 Long term (current) use of opiate analgesic
CPT/HCPCS: 99202; G0463

== ENCOUNTER 2025-05-03 00:21 | Emergency (ER) | payer MEDICARE, MEDICAID, SELFPAY ==
--- OUTSIDE RECORDS SUMMARY | 2025-03-07 09:45 | XMS_ITS | Encounter Summary ---
Author Organization [facility] Address [address] [place] [address] Care Team Providers Care Supervisor [employer]ension Warehouse Name Role Phone Stephany Ortega RN Unavailable Amaris Cueva MD Unavailable [phone] Maverick Lee MD Unavailable [phone] Michael Gonzales MD Unavailable [phone] Lolly Warren NP Unavailable [phone] Daniel Whittington MD, PhD Unavailable [phone] Regina Esquivel NP Unavailable [phone] Maverick Waterman DO Unavailable [phone] Aris Tracey MD Unavailable [phone] Noé Sofia DO Unavailable [phone] Sudhakar Lipscomb MACHINE BURRER Primary Care Provider [phone] Reason for Referral * Consult, Test & Treat (Routine) - Pending Review Specialty Diagnoses / Procedures Referred By Winter t Referred To Contact Spine Surgery / Orthopedic Surgery Diagnoses Right hip pain Acute right-sided low back pain, unspecified whether sciatica present Judd Wu PA [address] [place] [address] Phone: tel: fax: Ezekiel Bolanos MD [address] [facility] [place] [address] Phone: tel: fax: Referral ID Status Reason Start Date Expiration Date V isits Requested Visits Authorized [id number] Pending Review 03/07/2025 03/07/2026 99 99 * Radiology Services (Routine) - Pending Review Specialty Diagnoses / Procedures Referred By Contac t Referred To Contact Diagnoses Right knee pain, unspecified chronicity Procedures DIAG-KNEE [place] 4-[place] [address] [facility] [address] [place] [address] Phone: tel: fax: [address] [address] Phone: tel: Referral ID Status Reason Start Date Expiration Date V isits Requested Visits Authorized [id number] Pending Review 03/07/2025 03/07/2026 1 1 * Radiology Services (Routine) - Pending Review Specialty Diagnoses / Procedures Referred By Contac t Referred To Contact Diagnoses Right hip pain Procedures DIAG-RIGHT HIP 2-3 VIEWS W/[place] [address] [place] [address] Phone: tel: fax: [address] [address] Phone: tel: Referral ID Status Reason Start Date Expiration Date V isits Requested Visits Authorized [id number] Pending Review 03/07/2025 03/07/2026 1 1 Reason for Visit * Reason Comments Hip/pelvic Pain Knee Pain Encounter Details Date Type Department Care Team (Latest Contact Info) Description 03/07/2025 9:45 AM EDT Office Visit [facility] - Orthopaedics & Sports Medicine, [employer] [address] [place] [address] Judd Wu PA [address] [place] [address] Arthritis of right knee (Primary Dx); Right [...] swelling, exacerbated by recent fall. X-rays show [id number] arthritis with spurs. Previous steroid injections well-tolerated. [...] this document, please contact the office at [phone] as some errors in manager work may have occurred. Procedure Performed Lateral Knee [...] problem from laying in bed recently-11/30 Cancer ([facility] HCC) prostate cancer treated with radiation and hormones 2018 to 2020 GERD (gastroesophageal reflux disease) Hypertension Kidney stones Neck problem neck pain--right side Sleep apnea going through testing in a couple weeks-01/2022 [2] Past Surgical History: Procedure Laterality Date CRYOABLATION 09/09/2021 CRYOABLATION performed by Daniel Whittington MD, PhD at [facility] ELECTROPHYSIOLOGY LAB HX KNEE SURGERY HX SPLENECTOMY IABP INSERTION 09/02/2021 IABP INSERTION performed by Maverick Lee MD at [facility] CARDIAC LARD RENDERER LEFT & RIGHT HEART CATH 09/02/2021 LEFT & RIGHT HEART CATH performed by Maverick Lee MD at [facility] CARDIAC LARD RENDERER IN LITHOLAPAXY SMPL/SM <2.5 CM N/A 01/24/2022 Cystoscopy Laser Litholapaxy. performed by Aris Tracey MD at [facility] IN [place] NEEDLE/CATH PLEURA W/O IMAGING Right 08/30/2023 [...] Upcoming Encounters Date Type Department Care Team (Latest Contact Info) Description 05/13/2025 10:45 AM EDT Appointment [facility] [address] [facility], [address] [place] [address] 05/14/2025 1:15 PM EDT Appointment [facility] - Spine Surgery, [place] [address] [place] [address] [address] [place] [address] Leo Mosley PA-C [address] [place] [address] 05/16/2025 8:00 PM EDT Appointment [facility] [place] [address] [place] [address] Medical Office [address] [place] [address] 05/19/2025 9:40 AM EDT Appointment [facility] - Pulmonary Medicine, [facility] [address] [facility] [address] [place] [id number] Noé Sofia DO [address] [place] [address] [place] [address] 06/25/2025 9:45 AM EDT Hospital Encounter Cardiovascular Recovery Unit (CVRU) [address] [place] [address] Daniel Elder MD [address] [facility] [place] [address] Persistent atrial fibrillation (CMS/HCC) 06/25/2025 9:45 AM EDT - 06/25/2025 11:30 AM EDT Surgery Electrophysiology Lab [address] [place] [address] Daniel Elder MD [address] [facility] [place] [address] [employer] 07/02/2025 1:00 PM EDT Appointment [facility] [address] [place] [phone] Jayy Whitfield NP [address] [facility] [address] [place] [address] 07/02/2025 2:15 PM EDT Appointment [facility] - Heart & Vascular, [address] [place] [address] Amaris Cueva MD [address] [facility] [address] [place] [address] 07/28/2025 1:00 PM EST Appointment [facility] - Heart & Vascular, [place] [address] [facility] [place] [phone] Lynnette Lopez NP [address] [facility] [place] [address] Scheduled Referrals Name Type Priority Associated Diagnoses [...] Region Laterality Modality Thigh, Knee, Leg Other Rihcar [facility] ORDERAB LES Final Result * DIAG-RIGHT HIP 2-3 VIEWS W/WO PELVIS (03/07/2025) Anatomical Region Laterality Modality Pelvis Other Richar [facility] ORDERAB LES Final Result documented in this encounter Visit Diagnoses Diagnosis Arthritis of right knee- Primary Unspecified arthropathy, lower leg Right hip pain Pain in joint, pelvic region and thigh Right knee pain, unspecified chronicity Acute right-sided low back pain, unspecified whether sciatica present Persistent atrial fibrillation (CMS/HCC)- Primary Atrial fibrillation Persistent atrial fibrillation (CMS/HCC) Atrial fibrillation documented in this encounter Administered Medications Inactive [...] Knee documented in this encounter Care Teams Supervisor [employer] Relationship Specialty Start Date End Date Sudhakar Lipscomb NP [address] [id number] PCP - General Family Medicine 08/30/23 Stephany Ortega, SHARONDA Cardiology 08/04/21 Amaris Cueva MD [address] [facility] [address] [place], [place] [id number] Cardiology 08/10/21 Maverick Lee MD [address] [facility] [address] [place], [place] [id number] Interventional Cardiology 09/06/21 Michael Gonzales MD [address] [place], [place] [address] Internal Medicine, Sleep Medicine 09/07/21 Lolly Warren NP [address] [place], [place] [address] Nurse Practitioner Nurse Practitioner, Acute Care 09/08/21 Daniel Whittington MD, PhD [address] [place] [address] Clinical Cardiac Electrophysiology 09/13/21 Regina Esquivel MACHINE BURRER [address] [place] [address] Nurse Practitioner Nurse Practitioner, Acute Care 09/22/21 Maverick Waterman DO [address] [place] [address] Advanced Heart Failure/Transplant 09/30/21 Aris Tracey MD [facility] [facility] [address] [place] [address] Urology 10/28/21 Noé Sofia DO [address] [place] [address] Critical Care Medicine 12/28/22 documented as of this encounter
--- OUTSIDE RECORDS SUMMARY | 2025-03-22 19:53 | XMS_ITS | Encounter Summary ---
Author Organization [facility] Address [address] [place] [address] Care Team Providers Care Scientist Engineer Name Role Phone Stephany Ortega RN Unavailable Amaris Cueva MD Unavailable [phone] Maverick Lee MD Unavailable [phone] Michael Gonzales MD Unavailable [phone] Lolly Warren NP Unavailable [phone] Daniel Whittington MD, PhD Unavailable [phone] Regina Esquivel NP Unavailable [phone] Maverick Waterman DO Unavailable [phone] Aris Tracey MD Unavailable [phone] Noé Sofia DO Unavailable [phone] Sudhakar Lipscomb EMERGENCY VETERINARIAN Primary Care Provider [phone] Reason for Visit * Auth/Cert (Routine) Specialty Diagnoses / Procedures Referred By Contac t Referred To Contact Diagnoses HANNAH (obstructive sleep apnea) Procedures SPLIT-NIGHT SLEEP STUDY Referral ID Status Reason Start Date Expiration Date Visits Re quested Visits Authorized [id number] 1 1 Encounter Details Date Type Department Care Team (Latest Contact Info) Description 03/22/2025 7:53 PM EDT - 03/22/2025 10:58 PM EDT Hospital Encounter [facility] [place] [address] [place] [address] HANNAH (obstructive sleep apnea) Discharge Disposition: Home or Self Care Social [...] AM EDT documented as of this encounter Functional Status [...] Zain Tirado RN documented in this encounter Medications at Time of Discharge abiraterone (Zytiga) 250 mg Tablet Take 1,000 mg by mouth in the morning. 0 4 acetaminophen 325 mg Capsule Take 2 Capsules by mouth every 6 hours as needed. albuterol (VENTOLIN/PROAIR/HI OVENTIL HFA) 90 mcg/actuation HFA Aerosol Inhaler dapagliflozin propanediol (Farxiga) 10 mg Tablet tablet Take 1 Tablet by mouth every morning. 90 Tablet 3 5 furosemide (LASIX) 20 mg tabletIndications:N onischemic cardiomyopathy (CMS/HCC) Take 1 Tablet (20 mg) by mouth daily. 60 Tablet 5 leuprolide (Eligard) 22.5 mg Syringe 22.5 mg by Subcutaneous route. 4 losartan (COZAAR) 100 mg Tablet Take 1 Tablet by mouth in the morning. 90 Tablet 3 5 metoprolol succinate (TOPROL) 50 mg Tablet Sustained Release 24 hrIndications:Prima ry hypertension,Persis tent atrial fibrillation (CMS/HCC) Take 1 Tablet (50 mg) by mouth 2 times daily. 180 Tablet 3 5 predniSONE (DELTASONE) 5 mg tablet Take 5 mg by mouth in the morning and 5 mg before bedtime. 4 apixaban (ELIQUIS) 5 mg Tablet Take 1 Tablet (5 mg) by mouth 2 times daily. 60 Tablet 4 5 04/09/20 25 cyclobenzaprine (FLEXERIL) 5 mg tablet 5 04/01/20 25 gabapentin (NEURONTIN) 300 mg capsule Take 1 Capsule (300 mg) by mouth every evening. 30 Capsule 2 5 03/26/20 25 Lidocaine 4 % Adhesive Patch, Medicated Apply 1 patch every day by topical route as needed. 5 03/26/20 25 tamsulosin (FLOMAX) 0.4 mg sustained release capsule Take 0.4 mg by mouth in the morning and 0.4 mg before bedtime. 04/01/20 25 traMADol (ULTRAM) 50 mg tablet 5 07/16/20 25 documented as of this encounter Plan of Treatment Upcoming Encounters Date Type Department Care Team (Latest Contact Info) Description 05/13/2025 10:45 AM EDT Appointment [facility] Out[facility] [address] [facility] [place] [address] 05/14/2025 1:15 PM EDT Appointment [facility] Physicians - Spine Surgery, [place] [address] [facility] [address] [place] [phone] Leo Mosley PA-C [address] [place], [place] [id number] 05/16/2025 8:00 PM EDT Appointment [facility] [address] [place] [address] Medical Office Building [address] [place] [address] 05/19/2025 9:40 AM EDT Appointment [facility] Physicians - Pulmonary Medicine, [facility] [address] [facility] [address] [place] [address] Noé Sofia DO [address] [facility] [place], [place] [address] 06/25/2025 9:45 AM EDT Hospital Encounter Cardiovascular Recovery Unit (CVRU) [address] [place] [address] Daniel Elder MD [address] [facility] [place] [address] Persistent atrial fibrillation (CMS/HCC) 06/25/2025 9:45 AM EDT - 06/25/2025 11:30 AM EDT Surgery Electrophysiology Lab [address] [place] [address] Daniel Elder MD [address] [facility] [place] [address] [employer] 07/02/2025 1:00 PM EDT Appointment [facility] Physicians - Sleep Medicine, [place] [address] [place] [address] Jayy Whitfield NP [address] [place] [address] 07/02/2025 2:15 PM EDT Appointment [facility] Physicians - Heart & Vascular, [facility] [address] [place], [place] [address] [address] [place] [address] Amaris Cueva MD [address] [facility] [address] [place] [address] 07/28/2025 1:00 PM EST Appointment [facility] - Heart & Vascular, [place] [address] [facility] [address] [place] [phone] Lynnette Lopez NP [address] [facility] [address] [place], [place] [address] Scheduled Orders Name Type Priority Associated Diagnoses Orde r Schedule SPLIT-NIGHT SLEEP STUDY PFT Routine HANNAH (obstructive sleep apnea) 1 Occurrences starting 03/22/2025 until 03/22/2025 documented as of this encounter Goals Goal Patient Goal Type Associated Problems Recent Progress Patient-Stated? Author Limit fluid intake to 2 liters per day Diet No Tariq Lee BS Reduce salt intake to 2 grams per day Diet No Tariq Lee BS Record weight daily Lifestyle Yes Tariq Lee BS documented as of this encounter Visit Diagnoses Diagnosis HANNAH (obstructive sleep apnea) Obstructive sleep apnea (adult) (pediatric) Persistent atrial fibrillation (CMS/HCC)- Primary Atrial fibrillation Persistent atrial fibrillation (CMS/HCC) Atrial fibrillation documented in this encounter Care Teams Scientist Engineer Relationship Specialty Start Date End Date Sudhakar Lipscomb NP [address] [place] [address] PCP - General Family Medicine 08/30/23 Stephany Ortega, RN Cardiology 08/04/21 Amaris Cueva MD [address] [facility] [address] [place], [place] [id number] Cardiology 08/10/21 Maverick Lee MD [address] [facility] [address] [place], [place] [id number] Interventional Cardiology 09/06/21 Michael Gonzales MD [address] [place] [address] Internal Medicine, Sleep Medicine 09/07/21 Lolly Warren NP [address] [place] [address] Nurse Practitioner Nurse Practitioner, Acute Care 09/08/21 Daniel Whittington MD, PhD [address] [place] [address] Clinical Cardiac Electrophysiology 09/13/21 Regina Esquivel NP [address] [place] [address] Nurse Practitioner Nurse Practitioner, Acute Care 09/22/21 Maverick Waterman DO [address] [place] [address] Advanced Heart Failure/Transplant 09/30/21 Aris Tracey MD [address] [place] [address] [place], [place] [address] Urology 10/28/21 Noé Sofia DO [address] [place] [address] Critical Care Medicine 12/28/22 documented as of this encounter
--- OUTSIDE RECORDS SUMMARY | 2025-03-26 14:00 | XMS_ITS | Encounter Summary ---
Author Organization [facility] Address [address] [place] [address] Care Team Providers Care Freight Sales Broker Name Role Phone Stephany Ortega RN Unavailable Amaris Cueva MD Unavailable [phone] Maveirck Lee MD Unavailable [phone] Michael Gonzales MD Unavailable [phone] Lolly Warren NP Unavailable [phone] Daniel Whittington MD, PhD Unavailable [phone] Regina Esquivel NP Unavailable [phone] Maverick Waterman DO Unavailable [phone] Aris Tracey MD Unavailable [phone] Noé Sofia DO Unavailable [phone] Sudhakar Lipscomb GUT SORTER Primary Care Provider Reason for Referral * Consult, Test & Treat (Urgent) - Pending Review Specialty Diagnoses / Procedures Referred By Contact Referred To Contact Clinical Cardiac Electrophysiology Diagnoses Persistent atrial fibrillation (CMS/HCC) Amaris Cueva MD [address] [facility] [address] [place] [address] Phone: tel:[phone] fax:[phone] Daniel Whittington MD, PhD [address] [facility] [place] [address] Phone: tel:[phone] fax:[phone] Referral ID Status Reason Start Date Expiration Date V isits Requested Visits Authorized [id number] Pending Review 03/26/2025 03/26/2026 99 99 * Radiology Services (Emergency) - Not Needed Specialty Diagnoses / Procedures Referred By Contac t Referred To Contact Diagnoses Persistent atrial fibrillation (CMS/HCC) Procedures KRIS ECHO CARDIOVERSION PRN CONTR/BUBBLE/3D OK CELL ENUMRTION W/IMMUN SELXN & ID FLUID SPECIMN Amaris Cueva MD [address] [facility] [address] [place] [address] Phone: tel: fax: [facility] [address] [place] [address] Phone: tel: Referral ID Status Reason Start Date Expiration Date V isits Requested Visits Authorized [id number] Not Needed 03/26/2025 1 1 Reason for Visit * Reason Comments 3 month follow up Encounter Details Date Type Department Care Team (Late st Contact Info) Description 03/26/2025 2:00 PM EDT Office Visit [facility] Phys[facility] - Heart & Vascular, [facility] [address] [facility] [address] [place] [address] Amaris Cueva MD [address] [facility] [address] [place], [place] [id number] 584- Persistent atrial fibrillation (CMS/HCC) (Primary Dx); Coronary artery disease involving zuni coronary artery of zuni heart without angina pectoris; Cryoballoon catheter ablation of longstanding persistent atrial fibrillation 09-09-2021 [place]; Essential hypertension; Nonischemic cardiomyopathy (CMS/HCC); HANNAH (obstructive [...] heart disease. He apparently was seen by [facility] recently and noted to be [...] with mild aortic stenosis, mild mitral regurgitation, avfu-gx-naironjr tricuspid regurgitation and left atrial dilatation. He had a subsequent echo done 10/26/2021 which showed an EF of 45%. He was seen in follow-up 01/2023 and taken off of amiodarone. He also notes that he is stopped taking Eliquis. He was admitted to [facility] on 08/18/2024 after presenting with shortness of [...] IMPRESSION: ICD-10-CM 1. Coronary artery disease involving zuni coronary artery of zuni heart without angina iswsqepyW33.10 2. Cryoballoon catheter ablation of longstanding persistent atrial fibrillation 09-09-2021 Nelsy Z98.890 Z86.79 3. Essential hypertension I10 4. Nonischemic cardiomyopathy (CMS HCC) I42.8 5. HANNAH (obstructive sleep apnea) G47.33 6. Persistent atrial fibrillation (CMS HCC) I48.19 7. Chronic systolic CHF (congestive heart failure) (CMS HCC) I50.22 8. Localized edema R60.0 9. [...] Nonrheumatic tricuspid valve regurgitation-the patient has had cqfs-cc-hncbczft tricuspid regurgitation based on prior imaging. He is not having symptoms related to the valve documented in this encounter Plan of Treatment Upcoming Encounters Date Type Department Care Team (Latest Contact Info) Description 05/13/2025 10:45 AM EDT Appointment [facility] [address] [facility] [place] [address] 05/14/2025 1:15 PM EDT Appointment [facility] - Spine Surgery, [place] [address] [facility] [address] [place] [phone] Leo Mosley PA-C [address] [place], [place] [id number] 05/16/2025 8:00 PM EDT Appointment [facility] Sleep [facility] [address] [place] [address] [address] Building [address] [place] [address] 05/19/2025 9:40 AM EDT Appointment [facility] - Pulmonary Medicine, MOB [address] [facility] [address] [place] [phone] Noé Sofia DO [address] [facility] [address] [place] [address] 06/25/2025 9:45 AM EDT Hospital Encounter [facility] Unit ([facility]) [address] [place] [address] Daniel Elder MD [address] [facility] [place] [address] Persistent atrial fibrillation (CMS/HCC) 06/25/2025 9:45 AM EDT - 06/25/2025 11:30 AM EDT Surgery Electrophysiology Lab [address] [place] [address] Daniel Elder MD [address] [place] [address] [employer] [employer] 07/02/2025 1:00 PM EDT Appointment [facility] [address] [place] [address] Jayy Whitfield NP [address] [place] [address] 07/02/2025 2:15 PM EDT Appointment [facility] [address] [place], [place] [address] [address] [place] [address] Amaris Cueva MD [address] [facility] [address] [place] [address] 07/28/2025 1:00 PM EST Appointment [facility] - Heart & Vascular, [facility] [address] [facility] [place] [address] Lynnette Lopez NP [address] [place] [address] Scheduled Referrals Name Type Priority Associated Diagnoses [...] AM EDT Narrative 03/28/2025 1:17 PM EDT [facility] Echocardiography Lab [address] [place] [address] Transesophageal Echocardiography Patient: Renetta Ruiz Gender: M MR #: [id number] Age: 69 Account: [id number] : 1955 Study Date: 03/28/2025 Room: BP: 125 / 91 Referring Physician: Amaris Cueva Interpreting Physician: Herbert Camacho REFERRING Amaris Cueva PERFORMING Herbert Camacho ORDERING Amaris Cueva Procedure:KRIS ECHO CARDIOVERSION PRN Order: Number:[id number] Facility[facility] Indications: Atrial Fibrillation. PMH: Atrial [...] multiplane transesophageal probe was insertedby the performing supervisor sample preparation without difficulty. Image quality was adequate. Scanning [...] effusion. Reviewed and confirmed by Herbert Camacho [id number] Procedure Note Herbert Camacho MD - 03/28/[address] [facility] Echocardiography Lab [address] [place], [place] [address] Transesophageal Echocardiography Patient: Renetta Ruiz Gender: Loco MR #: [id number] Age: 69 Account: [id number] : 1955 Study Date: 03/28/2025 Room: 10 BP: 125 / 91 Referring Physician: Amaris Cueva Interpreting Physician: Herbert Camacho REFERRING Amaris Cueva PERFORMING Herbert Camacho ORDERING Amaris Cueva Procedure:KRIS ECHO CARDIOVERSION PRN Order: Sol GONZALEZ Number:[id number] Facility[facility] Indications: Atrial Fibrillation. PMH: Atrial [...] Anadult multiplane transesophageal probe wasinsertedby the performing supervisor sample preparation without difficulty. Image quality wasadequate. Scanning was [...] effusion. Reviewed and confirmed by Herbert Camacho [id number] us Amaris Cueva MD CARDNT KRIS ORDERABLES Final Result * ECG (03/26/2025 2:02 PM EDT) Heart Rate 132 bpm [facility] QRS Interval 134 ms [facility] QT Interval 336 ms [facility] QTc Interval 498 ms [facility] P [place] 0 deg [facility] RENEWALS REPRESENTATIVE AL LAB QRS [place] -60 deg [facility] RENEWALS REPRESENTATIVE [facility] LAB T Wave [place] 99 deg [facility] P-R Interval 0 msec [facility] 03/26/2025 2:02 PM EDT Narrative [facility] - 03/26/2025 2:14 PM EDT [facility] Test Date: 2025-03-26 14:02:42 [facility] Department: [facility] Room: blank Gender: Male Skip Tender: JREEMI : 1955 Requested By: AMARIS Centeno Order Number: [id number] Jenny MD: Amaris Cueva MD Interpretive Statements Atrial fibrillation With a rapid ventricular rate RBBB and LAFB Abnormal T, consider ischemia, lateral leads Electronically Signed On 03-26-2025 14:14:51 EDT by Amaris Cueva MD Procedure Note Amaris Cueva MD - 03/26/2025 [facility] Test Date: 2025-03-26 14:02:42 Pat Name: RENETTA RUIZ Department: [facility] Room: blank Gender: Male Skip Tender: JEREMI : 1955 Requested By: AMARIS Centeno Order Number: [id number] Reading MD: Amaris Cueva MD Interpretive Statements Atrial fibrillation With a rapid ventricular rate RBBB and LAFB Abnormal T, consider ischemia, lateral leads Electronically Signed On 03-26-2025 14:14:51 EDT by Amaris Cueva MD us Amaris Cueva MD ECG ORDERABLES Final Resul t [facility] [address] documented in this encounter Visit Diagnoses Diagnosis Persistent atrial fibrillation (CMS/HCC)- Primary Atrial fibrillation Coronary artery disease involving zuni coronary artery of zuni heart without angina pectoris Cryoballoon catheter ablation of longstanding persistent atrial fibrillation 09-09-2021 Nelsy Other postprocedural status Essential hypertension Nonischemic cardiomyopathy (CMS/HCC) Other primary cardiomyopathies HANNAH (obstructive sleep apnea) Obstructive sleep apnea (adult) (pediatric) Chronic systolic CHF (congestive heart failure) (CMS/HCC) Chronic systolic heart failure Localized edema Edema Mixed hyperlipidemia Persistent atrial fibrillation (CMS/HCC) Atrial fibrillation Persistent atrial fibrillation (CMS/HCC)- Primary Atrial fibrillation Persistent atrial fibrillation (CMS/HCC) Atrial fibrillation documented in this encounter Care Teams Freight Sales Broker Relationship Specialty Start Date End Date Sudhakar Lipscomb NP [address] [place] [address] PCP - General Family Medicine 08/30/23 Stephany Ortega, RN Cardiology 08/04/21 Amaris Cueva MD [address] [facility] [address] [place] [address] Cardiology 08/10/21 Maverick Lee MD [address] [id number] Interventional Cardiology 09/06/21 Michael Gonzales MD [address] [place] [address] [place] [address] [place] [address] Internal Medicine, Sleep Medicine 09/07/21 Lolly Warren, TORRES [address] [place] [address] Nurse Practitioner Nurse Practitioner, Acute Care 09/08/21 Daniel Whittington MD, PhD [address] [place] [address] Clinical Cardiac Electrophysiology 09/13/21 Regina Esquivel NP [address] [place] [address] Nurse Practitioner Nurse Practitioner, Acute Care 09/22/21 Maverick Waterman DO [address] [facility] [place] [address] Advanced Heart Failure/Transplant 09/30/21 Aris Tracey MD [address] [facility] [address] [place] [address] Urology 10/28/21 Noé Sofia DO [address] [place] [address] Critical Care Medicine 12/28/22 documented as of this encounter
--- OUTSIDE RECORDS SUMMARY | 2025-03-28 06:44 | XMS_ITS | Encounter Summary ---
Author Organization [facility] Address [address] [place] [address] Care Team Providers Care Event Specialist Name Role Phone Stephany Ortega RN Unavailable Amaris Cueva MD Unavailable [phone] Maverick Lee MD Unavailable [phone] Michael Gonzales MD Unavailable [phone] Lolly Warren NP Unavailable [phone] Daniel Whittington MD, PhD Unavailable [phone] Regina Esquivel NP Unavailable [phone] Maverick Waterman DO Unavailable [phone] Aris Tracey MD Unavailable [phone] Noé Sofia DO Unavailable [phone] Sudhakar Lipscomb [employer] Primary Care Provider [phone] Reason for Referral * Radiology Services (Emergency) - Not Needed Specialty Diagnoses / Procedures Referred By Contkristi t Referred To Contact Diagnoses Persistent atrial fibrillation (CMS/HCC) Procedures KRIS ECHO CARDIOVERSION PRN CONTR/BUBBLE/3D DC CELL ENUMRTION W/IMMUN SELXN & ID FLUID SPECIMN Amaris Cueva MD [address] [facility] [address] [place] [address] Phone: tel: fax: [address] [address] Phone: tel: Referral ID Status Reason Start Date Expiration Date V isits Requested Visits Authorized [id number] Not Needed 03/26/2025 1 1 Reason for Visit * Radiology Services (Emergency) - Not Needed Specialty Diagnoses / Procedures Referred By Contac t Referred To Contact Diagnoses Persistent atrial fibrillation (CMS/HCC) Procedures KRIS ECHO CARDIOVERSION PRN CONTR/BUBBLE/3D DC CELL ENUMRTION W/IMMUN SELXN & ID FLUID SPECIMN Amaris Cueva MD [address] [facility] [address] [place] [address] Phone: tel: fax: [address] [address] Phone: tel: Referral ID Status Reason Start Date Expiration Date V isits Requested Visits Authorized [id number] Not Needed 03/26/2025 1 1 Encounter Details Date Type Department Care Team (Latest Contact Info) Description 03/28/2025 6:44 AM EDT - 03/28/2025 11:59 PM EDT Hospital Encounter [facility] Cardiovascular Testing Center - [place] [facility] - C-Level [address] [place] [address] Persistent atrial fibrillation (CMS/HCC) Discharge Disposition: Home [...] Coon RN - 03/28/2025 8:13 AM EDT [facility] Nursing Service Transesophageal Echocardiogram (KRIS) with Cardioversion [...] a mild sunburn. 4. Arrange for a customer care assistant to bring you home and for someone [...] questions or concerns feel free to call [phone] between the hours of 8:00 am and 4:30 pm; after hours please contact your ordering provider. MARILUZ COON RN, RN 8:13 AM 03/28/2025 documented in this encounter Medications at Time of Discharge abiraterone (Zytiga) 250 mg Tablet Take 1,000 mg by mouth in the morning. 0 4 acetaminophen 325 mg Capsule Take 2 Capsules by mouth every 6 hours as needed. albuterol (VENTOLIN/PROAIR/DC OVENTIL HFA) 90 mcg/actuation HFA Aerosol Inhaler [...] Description 05/13/2025 10:45 AM EDT Appointment [facility] [place] [address] [place] [address], [address] [place] [address] 05/14/2025 1:15 PM EDT Appointment [facility] Physicians - Spine Surgery, [facility] [address] [facility] [address] [place] [phone] Leo Mosley PA-C [address] [facility]. [place], [place] [id number] 05/16/2025 8:00 PM EDT Appointment [facility] Sleep [address] Medical Office [address] [place] [address] 05/19/2025 9:40 AM EDT Appointment [facility] Physicians - Pulmonary Medicine, [address] [place] [phone] Noé Sofia DO [address] [facility] [address] [place] [address] 06/25/2025 9:45 AM EDT Hospital Encounter Cardiovascular Recovery Unit (CVRU) [address] [place] [address] Daniel Elder MD [address] [facility] [address] [place] [address] Persistent atrial fibrillation (CMS/HCC) 06/25/2025 9:45 AM EDT - 06/25/2025 11:30 AM EDT Surgery Electrophysiology Lab 9 [place] [address] Daniel Elder MD [address] [facility] [place] [address] [facility] 07/02/2025 1:00 PM EDT Appointment [facility] Physicians - Sleep Medicine[address] [address] Jayy Whitfield NP [address] [place] [address] 07/02/2025 2:15 PM EDT Appointment [facility] [place] [address] [place], [place] [address] [address] [place] [address] Amaris Cueva MD [address] [facility] [address] [place] [address] 07/28/2025 1:00 PM EST Appointment [facility] - Heart & Vascular, [facility] [address] [facility] [address] [place] [phone] Lynnette Lopez NP [address] [place] [address] documented as of this encounter Goals Goal [...] EDT Narrative 03/28/2025 1:17 PM EDT [facility] Echocardiography Lab [address] [place] [address] Transesophageal Echocardiography Patient: Renetta Ruiz Gender: M MR #: [id number] Age: 69 Account: [id number] : 1955 Study Date: 03/28/2025 Room: BP: 125 / 91 Referring Physician: Amaris Cueva Interpreting Physician: Herbert Camacho REFERRING Amaris Cueva PERFORMING Herbert Camacho ORDERING Amaris Cueva Procedure:KRIS ECHO CARDIOVERSION PRN Order: Number:[id number] Facility: [facility] Heart Station Indications: Atrial Fibrillation. PMH: Atrial [...] multiplane transesophageal probe was insertedby the performing solar installation supervisor without difficulty. Image quality was adequate. Scanning [...] effusion. Reviewed and confirmed by Herbert Camacho [id number] Procedure Note Herbert Camacho MD - 03/28/2025 [facility] Echocardiography Lab [address] [place], [place] [address] Transesophageal Echocardiography Patient: Renetta Ruiz Gender: Loco MR #: [id number] Age: 69 Account: [id number] : 1955 Study Date: 03/28/2025 Room: BP: 125 / 91 Referring Physician: Amaris Cueva Interpreting Physician: Herbert Camacho REFERRING Amaris Cueva PERFORMING Herbert Camacho ORDERING Amaris Cueva Procedure:KIRS ECHO CARDIOVERSION PRN Order: Sol GONZALEZ Number:[id number] Facility: [facility] Heart Station Indications: Atrial Fibrillation. PMH: Atrial [...] Anadult multiplane transesophageal probe wasinsertedby the performing solar installation supervisor without difficulty. Image quality wasadequate. Scanning was [...] effusion. Reviewed and confirmed by Herbert Camacho [id number] Amaris Cueva MD CARDNT KRIS ORDERABLES Final [...] Successful cardioversion. Final rhythm was Sinus rhythm Physician Procedure PROCEDURE/MINOR SURGICAL ORDERABLES Final Result * ECG (03/28/2025 7:59 AM EDT) Heart Rate 64 bpm [facility] EX[facility]AL [facility] QRS Interval 141 ms [facility] E[facility] QT Interval 462 ms [facility] QTc Interval 477 ms [facility] P [place] 32 deg [facility] QRS [place] -54 deg [facility] T Wave [place] 17 deg [facility] P-R Interval 142 msec [facility] EX[facility] ERNAL [facility] 03/28/2025 7:59 AM EDT Narrative [facility] EXTERNAL [facility] - 03/28/2025 11:54 AM EDT [facility] Test Date: 2025-03-28 07:59:07 [facility] Department: [facility] Room: [facility] 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: [facility] : 1955 Requested By: LYDIA Cárdenas Order Number: [id number] Reading MD: Jeff Buck MD Interpretive Statements Sinus rhythm Ventricular premature complexes Premature atrial complex RBBB and LAFB Compared to the prior tracing, sinus rhythm has replaced atrial fibrillation Electronically Signed On 03-28-2025 11:54:11 EDT by Jeff Buck MD Procedure Note Jeff Buck MD - 03/28/2025 [facility] Test Date: 2025-03-28 07:59:07 Pat Name: [facility] Department: [facility] Room: [facility] 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: [facility] : 1955 Requested By: LYDIA Cárdenas Order Number: [id number] Reading : Jeff Buck MD Interpretive Statements Sinus rhythm Ventricular premature complexes Premature atrial complex RBBB and LAFB Compared to the prior tracing, sinus rhythm has replaced atrialfibrillation Electronically Signed On 03-28-2025 11:54:11 EDT by Jeff Buck MD us Lydia Villanueva MD ECG ORDERABLES Final Result [facility] EXTERNAL LAB [address] * POC POTASSIUM (03/28/2025 7:14 AM EDT) POC Potassium 4.4 3.5 - 5.1 mmol/L [facility] EX[facility] Blood, Venous 03/28/2025 7:1 4 AM EDT 03/28/2025 7:15 AM EDT us Amaris Cueva MD POINT OF CARE TEST ORDERABL ES Final Result [facility] [address] * ECG (03/28/2025 7:10 AM EDT) Heart Rate 127 bpm [facility] QRS Interval 130 ms [facility] EX[facility] E[facility] QT Interval 346 ms [facility] EXTE RNAL LAB QTc Interval 504 ms [facility] EX[facility] P [place] 0 deg [facility] QRS [place] 192 deg [facility] DR[facility] AL LAB T Wave [place] 47 deg [facility] EXTE [facility]L [facility] P-R Interval 0 msec [facility] EXT ERNAL LAB 03/28/2025 7:10 AM EDT Narrative [facility] EXTERNAL [facility] - 03/28/2025 11:53 AM EDT [facility] Test Date: 2025-03-28 07:10:54 Pat Name: RENETTA RUIZ Department: [facility] Room: KRSI ROOM 1 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 : 1955 Requested By: LYDIA Cárdenas Order Number: [id number] Reading MD: Jeff Buck MD Interpretive Statements Atrial fibrillation with RVR Nonspecific intraventricular conduction delay Nonspecific ST-T changes Low voltage Compared to the prior tracing, no significant change Electronically Signed On 03-28-2025 11:53:06 EDT by Jeff Buck MD Procedure Note Jeff Buck MD - 03/28/2025 [facility] Test Date: 2025-03-28 07:10:54 Pat Name: RENETTA RUIZ Department: [facility] Room: KRIS ROOM 1 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 : 1955 Requested By: LYDIA Cárdenas Order Number: [id number] Reading MD: Jeff Buck MD Interpretive Statements Atrial fibrillation with RVR Nonspecific intraventricular conduction delay Nonspecific ST-T changes Low voltage Compared to the prior tracing, no significant change Electronically Signed On 03-28-2025 11:53:06 EDT by Jeff Buck MD us Lydia Villanueva MD ECG ORDERABLES Final Result [facility] EXTERNAL LAB [address] documented in this encounter Visit Diagnoses Diagnosis Persistent atrial fibrillation (CMS/HCC) Atrial fibrillation Persistent [...] mL/hr documented in this encounter Care Teams Event Specialist Relationship Specialty Start Date End Date Sudhakar Lipscomb NP [address] [place] [address] PCP - General Family Medicine 08/30/23 Stephany Ortega, RN Cardiology 08/04/21 Amaris Cueva MD [address] [facility] [address] [place] [address] Cardiology 08/10/21 Maverick Lee MD [address] [facility] [address] [place] [address] Interventional Cardiology 09/06/21 Michael Gonzales MD [address] [place] [address] Internal Medicine, Sleep Medicine 09/07/21 Lolly Warren NP [address] [place] [address] Nurse Practitioner Nurse Practitioner, Acute Care 09/08/21 Daniel Whittington MD, PhD [address] [place] [address] Clinical Cardiac Electrophysiology 09/13/21 Regina Esquivel NP [address] [place] [address] Nurse Practitioner Nurse Practitioner, Acute Care 09/22/21 Maverick Waterman DO [address] [facility] [facility] [place] [address] Advanced Heart Failure/Transplant 09/30/21 Aris Tracey MD [address] [place] [address] [address] [place], [place] [address] Urology 10/28/21 Noé Sofia DO [address] [place] [address] [address] [place], [place] [id number] Critical Care Medicine 12/28/22 documented as of this encounter
--- OUTSIDE RECORDS SUMMARY | 2025-04-01 14:15 | XMS_ITS | Encounter Summary ---
Author Organization [facility] Address [address] [place] [address] Care Team Providers Care Histotechnologist Name Role Phone Stephany Ortega RN Unavailable Mariola Cueva MD Unavailable [phone] Maverick Lee MD Unavailable [phone] Michael Gonzales MD Unavailable [phone] Lolly Warren NP Unavailable [phone] Daniel Whittington MD, PhD Unavailable [phone] Regina Esquivel NP Unavailable [phone] Maverick Waterman DO Unavailable [phone] Aris Tracey MD Unavailable [phone] Noé Sofia DO Unavailable [phone] Sudhakar Lipscomb RIVET SPINNER Primary Care Provider [phone] Reason for Visit * Reason Comments Atrial Fibrillation Encounter Details Date Type Department Care Team (Late st Contact Info) Description 04/01/2025 2:15 PM EDT Office Visit [facility] Physicians - Heart & Vascular, [facility] [address] [facility] [address] [place] [address] Mariola Ceuva MD [address] [facility] [address] [place] [address] Persistent atrial fibrillation (CMS/HCC) (Primary Dx); Cryoballoon catheter ablation of longstanding persistent atrial fibrillation 09-09-2021 Beyerbach; Coronary artery disease involving [place] coronary artery of [place] heart without angina pectoris; Nonischemic cardiomyopathy (CMS/HCC); [...] Zain Tirado RN documented in this encounter Progress [...] heart disease. He apparently was seen by [facility] Cardiology recently and noted to be back [...] with mild aortic stenosis, mild mitral regurgitation, loih-hu-jkxleqyd tricuspid regurgitation and left atrial dilatation. He had a subsequent echo done 10/26/2021 which showed an EF of 45%. He was seen in follow-up 01/2023 and taken off of amiodarone. He also notes that he is stopped taking Eliquis. He was admitted to [facility] on 08/18/2024 after presenting with [...] EF of 30-35% with mildaortic regurgitation and lxbi-yi-bqxkmjhb mitral regurgitation he is supposed to see [...] Assessment IMPRESSION: ICD-10-CM 1. Persistent atrial fibrillation ([facility]) I48.19 ECG 2. Cryoballoon catheter ablation of longstanding persistent atrial fibrillation 09-09-2021 Nelsy Z98.890 Z86.79 3. Coronary artery disease involving [place] coronary artery of [place] heart without angina lmbpxnfpK23.10 4. Nonischemic cardiomyopathy ([facility]) I42.8 5. HANNAH (obstructive sleep apnea) G47.33 6. Nonrheumatic tricuspid valve regurgitation I36.1 7. Morbid (severe) obesity with alveolar hypoventilation ([facility]) E66.2 8. Mixed hyperlipidemia E78.2 9. Localized edema R60.0 PLAN AND RECOMMENDATION: 1. Coronary artery disease [place] vessel without complaints of angina-the patient has [...] 7. Nonrheumatic mitral valve regurgitation-the patient has qtsp-lo-ttajoibj mitral regurgitation based on his most recent [...] Description 05/13/2025 10:45 AM EDT Appointment [facility] [address] [facility] [place], [place] [id number] 05/14/2025 1:15 PM EDT Appointment [facility] Physicians - Spine Surgery, [place] [address] [facility] [address] [place] [address] Leo Mosley PA-C [address] [place] [address] 05/16/2025 8:00 PM EDT Appointment [facility] Sleep Center [address] Medical Office Building [address] [place] [address] 05/19/2025 9:40 AM EDT Appointment [facility] Physicians - Pulmonary Medicine, [address] [place] [address] Noé Sofia DO [address] [place] [address] 06/25/2025 9:45 AM EDT Hospital Encounter [facility] ([facility]) [address] [place] [address] Daniel Elder MD [address] [facility] [place] [address] Persistent atrial fibrillation (CMS/HCC) 06/25/2025 9:45 AM EDT - 06/25/2025 11:30 AM EDT Surgery Electrophysiology Lab [address] [place] [address] Daniel Elder MD [address] [facility] [place] [address] [facility] [facility] 07/02/2025 1:00 PM EDT Appointment [facility] Physicians - Sleep Medicine, [address] [place] [address] Jayy Whitfield NP [address] [facility] [address] [place] [address] 07/02/2025 2:15 PM EDT Appointment [facility] Physicians - Heart & Vascular, [facility] [address] [facility] [address] [place] [address] Mariola Cueva MD [address] [facility] [address] [place] [address] 07/28/2025 1:00 PM EST Appointment [facility] Physicians - Heart & Vascular, [place] [address] [place] [phone] Lynnette Lopez NP [address] [place] [address] documented as of this encounter Goals Goal [...] 466 ms [facility] EXT ERNAL LAB P Simla 10 deg TCH MASK DESIGNER AL LAB QRS Simla -82 deg TCH MASK DESIGNER AL LAB T Wave [place] 24 deg T[facility] EXTE RNAL LAB P-R Interval 139 msec [facility] EXT ERNAL LAB 04/01/2025 2:29 PM EDT Narrative [facility] EXTERNAL LAB - 04/01/2025 2:44 PM EDT [facility] Test Date: 2025-04-01 14:29:22 Pat Name: RENETTA RUIZ Department: [facility] Room: blank Gender: Male Shoe Cleaner: HAS : 1955 Requested By: MARIOLA Centeno Order Number: [id number] Reading MD: Mariola Cueva MD Interpretive Statements Sinus rhythm Ventricular premature complex RBBB and LAFB abnormal EKG PACs are no longer present compared with the prior EKG Electronically Signed On 04-01-2025 14:44:03 EDT by Mariola Cueva MD Procedure Note Mariola Cueva MD - 04/01/2025 [facility] Test Date: 2025-04-01 14:29:22 Pat Name: RENETTA [facility] Department: [facility] Room: blank Gender: Male Shoe Cleaner: HAS : 1955 Requested By: MARIOLA Centeno Order Number: [id number] Jenny MD: Mariola Cueva MD Interpretive Statements Sinus rhythm Ventricular premature complex RBBB and LAFB abnormal EKG PACs are no longer present compared with the prior EKG Electronically Signed On 04-01-2025 14:44:03 EDT by Mariola Cueva MD Mariola Cueva MD ECG ORDERABLES Final Resul t [facility] EXTERNAL LAB [address] documented in this encounter Visit Diagnoses Diagnosis Persistent atrial fibrillation (CMS/HCC)- Primary Atrial fibrillation Cryoballoon catheter ablation of longstanding persistent atrial fibrillation 09-09-2021 Nelsy Other postprocedural status Coronary artery disease involving [place] coronary artery of [place] heart without angina pectoris Nonischemic cardiomyopathy (CMS/HCC) Other primary cardiomyopathies HANNAH (obstructive sleep apnea) Obstructive sleep apnea (adult) (pediatric) Mixed hyperlipidemia Nonrheumatic mitral valve regurgitation Chronic systolic CHF (congestive heart failure) (CMS/HCC) Chronic systolic heart failure Persistent atrial fibrillation (CMS/HCC)- Primary Atrial fibrillation Persistent atrial fibrillation (CMS/HCC) Atrial fibrillation documented in this encounter Care Teams Histotechnologist Relationship Specialty Start Date End Date Sudhakar Lipscomb NP [address] [place] [address] PCP - General Family Medicine 08/30/23 Stephany Ortega, RN Cardiology 08/04/21 Mariola Cueva MD [address] [facility] [address] [place], [place] [id number] Cardiology 08/10/21 Maverick Lee MD [address] [facility] [address] [place], [place] [id number] Interventional Cardiology 09/06/21 Michael Gonzales MD [address] [place] [address] Internal Medicine, Sleep Medicine 09/07/21 Lolly Warren NP [address] [place] [address] Nurse Practitioner Nurse Practitioner, Acute Care 09/08/21 Daniel Whittington MD, PhD [address] [place] [address] Clinical Cardiac Electrophysiology 09/13/21 Regina Esquivel NP [address] [place] [address] Nurse Practitioner Nurse Practitioner, Acute Care 09/22/21 Maverick Waterman DO [address] [facility] [place], [place] [id number] Advanced Heart Failure/Transplant 09/30/21 Airs Tracey MD [address] [facility] [address] [place] [address] Urology 10/28/21 Noé Sofia DO [address] [place] [address] [address] [place] [address] Critical Care Medicine 12/28/22 documented as of this encounter
--- OUTSIDE RECORDS SUMMARY | 2025-04-16 13:00 | XMS_ITS | Encounter Summary ---
Author Organization [facility] Address [facility] [place] [address] Care Team Providers Care Solidworks Mechanical Designer Name Role Phone Alfredito Ramey MD Unavailable [phone] Joann Zarate RN Unavailable Unavailable Ezekiel Kang MD Unavailable [phone] Alfredito Ramey MD Unavailable [phone] Jerri Santiago MD Primary Care Provider [phone] Source Comments This information has been disclosed [...] release of HIV test results or diagnoses. [id number] Reason for Visit * Reason Comments Labs Only * Auth/Cert (Routine) Specialty Diagnoses / Procedures Referred By Contac t Referred To Contact Radiation Oncology Diagnoses Malignant neoplasm of prostate ([facility]) Procedures [place] LEUPROLIDE (LUPRON) 7.5 MG [place] CHEMOTX ADMN SUBQ/IM HORMONAL ANTI-LEONARDO [facility] Radiation Oncology at [facility] [address] [place] [address] Phone: tel: fax: Referral ID Status Reason Start Date Expiration Date Visits Re quested Visits Authorized [id number] 1 1 Encounter Details Date Type Department Care Team (Late st Contact Info) Description 04/16/2025 1:00 PM EDT Specimen [facility] Outreach [facility] [address] [place] [phone] Nick Wilkerson MD [address] [place] [address] Adenocarcinoma of prostate (CMS-HCC) Social History Tobacco Use Types Packs/Day Years [...] 01/09 Assistance needed for: Not on file Sex and Gender Information Value Date Recorded Sex Assigned at Male 01/28/2025 11:54 AM EDT Legal Sex Male 7:53 PM EST Gender Identity Male 01/28/2025 11:54 AM EDT Sexual Orientation Not on file 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 [employer] Not on f ile Not on file Not on file documented as of this encounter Plan of Treatment Not on file documented as of this encounter Procedures Procedure Name Priority Date/Time Associated Diagnosis Comments PSA TOTAL, DIAGNOSTIC Routine 04/16/2025 2:22 PM EDT Adenocarcinoma of prostate (CMS-HCC) documented in this encounter Results * PSA Total, Diagnostic (04/16/2025 2:22 PM EDT) PSA 1.92 0.0 - 4.0 ng/mL 04/16/2025 2:59 PM EDT [facility] Serum 04/16/2025 2:22 PM EDT 04/16/2025 2:21 PM EDT Narrative [facility] - 04/16/2025 2:59 PM EDT The testing method for PSA is a chemiluminescent immunoassay manufactured by [employer] Concentrations of PSA obtained by different assay methods or kits may vary and cannot be used interchangeably. PSA results cannot be interpreted as absolute evidence of the presence or absence of malignant disease. us Nick Wilkerson MD LAB BLOOD ORDERABLES Final Res ult [facility] [address] [place] [address], [facility] documented in this encounter Visit Diagnoses Diagnosis Adenocarcinoma of prostate (CMS-HCC) Malignant neoplasm of prostate documented in this encounter Additional Health Concerns Assessment Noted Time PHQ-9 Depression Total Score: 3 02/20/20 19 3:00 PM EDT documented as of this encounter Care Teams Solidworks Mechanical Designer Relationship Specialty Start Date [place] [address] PCP - General Family Medicine 04/12/21 Alfredito Ramey MD Radiation Oncologist Radiation Oncology 02/18/19 Joann Zarate, RN Registered Nurse 02/18/19 Ezekiel Kang MD [address] [place] [address] [place] [phone] 02/18/19 Alfredito Ramey MD Initiating Oncologist Radiation Oncology 06/03/20 documented as of this encounter
--- OUTSIDE RECORDS SUMMARY | 2025-04-16 14:30 | XMS_ITS | Encounter Summary ---
Author Organization [facility] Address [facility] [place] [address] Care Team Providers Care Logging Worker Name Role Phone Alfredito Ramey MD Unavailable [phone] Joann Zarate RN Unavailable Unavailable Ezekiel Kang MD Unavailable [phone] Alfredito Ramey MD Unavailable [phone] Jerri Santiago MD Primary Care Provider [phone] Source Comments This information has been disclosed [...] release of HIV test results or diagnoses. [id number] Health Reason for Visit * Reason Comments Follow-up * Auth/Cert (Routine) Specialty Diagnoses / Procedures Referred By Contac t Referred To Contact Radiation Oncology Diagnoses Malignant neoplasm of prostate ([facility]) Procedures AR LEUPROLIDE (LUPRON) 7.5 MG AR CHEMOTX ADMN SUBQ/IM HORMONAL ANTI-LEONARDO [facility] Radiation Oncology at [address] [address] Phone: tel: fax: Referral ID Status Reason Start Date Expiration Date Visits Re quested Visits Authorized [id number] 1 1 Encounter Details Date Type Department Care Team (Late st Contact Info) Description 04/16/2025 2:30 PM EDT Office Visit [facility] Radiation Oncology at [address] [place] [id number] Alfredito Ramey MD [address] 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 Not on f ile Not on file Not on file documented as of this encounter Last Filed Vital Signs Vital Sign Reading Time Taken Comments Blood Pressure 134/73 04/16/2025 2:21 PM EDT Pulse 71 04/16/2025 2:21 PM EDT Temperature 36.1 C (96.9 F) 04/16/2025 2:21 PM EDT Respiratory Rate 18 04/16/2025 2:21 PM EDT Oxygen Saturation 96% 04/16/2025 2:21 PM EDT Inhaled Oxygen Concentration 96% 04/16/2025 2 :21 PM EDT Weight 116.1 kg (256 lb) 04/16/2025 2:21 PM EDT Height 172.7 cm (5' 8 ) 04/16/2025 2:21 PM EDT Body Mass Index 38.92 04/16/2025 2:21 PM EDT documented in this encounter Progress Notes * Alfredito Ramey MD - 04/16/2025 2:30 PM EDT RADIATION ONCOLOGY FOLLOW-UP NOTE Date of Service 04/15/2025 Diagnosis and Treatment History: Adenocarcinoma of the prostate stage T3b, [place] score 10, PSA 4.24 for which the patient presented with complete urinary obstruction requiring Prabhakar catheterization. He received neoadjuvant and concurrent hormone therapy and definitive external radiation therapy completed in May 2019 with hormone therapy through April 2021 with resumption in June 2022 with Eligard and the addition of Casodex in December 2022 which was discontinued in September 2023 with initiation of Zytiga in September 2023 which is continued Interval History: Yo Ruiz is a 69 y.o. male with the above diagnosis and treatment history who presents today for follow up. He was last seen on 01/09/2025, at that time he described 5 times per night nocturia. He was dealing with a red rash in the inframammary folds previously concerning for a fungal infection. He has no new complaints. His IPSS score today is 10, previously 8 at last visit. Describes upto a handful of times per night nocturia, maybe a little less than that. He describes stable urinary function, with noted frequency, urgency, hesitancy, decreased force/stream. Denies any incontinence, dysuria or hematuria. He describes normal bowel function with no pain with defecation, diarrhea/constipation or rectal bleeding. Usual fluctuations, depends on fluctuations in his diet. Overall he feels well. Physical Examination: Gen: Age appropriate, in no acute distress, awake HEENT: Atraumatic, normocephalic Eyes: EOMI, no conjunctivitis, no erythema or discharge Neck: No stiffness, with normal range of motion Resp: No increased work of breathing, no retractions MSK: Normal range of motion, moving all extremities spontaneously, no joint deformities Neuro: Alert and oriented, motor and sensory function grossly intact, no focal deficits Psych: euthymic mood, congruent affect, linear thought process, fair to good insight Lab Results Component Value Date PSA 1.42 01/09/2025 PSA 1.43 10/10/2024 PSA 1.81 07/04/2024 PSA 0.72 04/04/2024 PSA 1.15 01/03/2024 Assessment: Yo Ruiz is a patient with history of Adenocarcinoma of the prostate stage T3b, Anjali score 10, PSA 4.24 as above returning for follow-up. He is doing well clinically with Good biochemical control with last PSA 1.42 from 01/09/2025. Recheck PSA today in office and hormone therapy shot today. Hormone shot at time of previous visit back in January. Recheck PSA today in office, active in progress. Plan: -Recheck PSA today in office -3 month Eligard shot today and with continuation of hormone therapy -Continuation of Xytiga and prednisone -Return to clinic in about 3 months Nick Wilkerson MD Resident Physician, PGY-2 [facility] Department of Radiation Oncology Addendum: I saw and evaluated the patient and have performed a history and physical examination anddiscussed management with the resident. I have reviewed and edited this note and am in agreement. Signed: Alfredito Ramey M.D. 04/18/2025 documented in this encounter Nursing Notes * Joann Zarate RN - 04/16/2025 2:30 PM EDT Eligard 3 month 22.5 mg subcutaneous right abdomen. No bleeding, band-aid applied. Future Appointments Date Time Provider Department Center 04/21/2025 11:00 AM EMERGENCY ADD-ON [facility]OL [facility] 07/17/2025 2:00 PM Alfredito Ramey MD [facility] documented in this encounter Plan of Treatment Not on file documented as of this encounter Results * PSA Total, Diagnostic (04/16/2025 2:22 PM EDT) PSA 1.92 0.0 - 4.0 ng/mL 04/16/2025 2:59 PM EDT [facility] Serum 04/16/2025 2:22 PM EDT 04/16/2025 2:21 PM EDT Narrative HEALTH LAB - 04/16/2025 2:59 PM EDT The testing method for PSA is a chemiluminescent immunoassay manufactured by [employer] Concentrations of PSA obtained by different assay methods or kits may vary and cannot be used interchangeably. PSA results cannot be interpreted as absolute evidence of the presence or absence of malignant disease. us Nick Wilkerson MD LAB BLOOD ORDERABLES Final Res ult [facility] [address] [place] [address], [facility] documented in this encounter Visit Diagnoses Diagnosis Adenocarcinoma of prostate (CMS-HCC)- Primary Malignant neoplasm of prostate Adenocarcinoma of prostate (CMS-HCC) Malignant neoplasm of prostate documented in this encounter Administered Medications Inactive Administered Medications - up to 3 most recent administrations Medication Order MAR Action Action Date Dose Rate Site leuprolide (ELIGARD) (3 month) subcutaneous syringe 22.5 mg 22.5 mg, Subcutaneous, Once, On Mon04/16/25 at 1430, For 1 dose, LEVEL 1 HAZARDOUS MEDICATIONHIGH ALERTIndications:Adenoc arcinoma of prostate (CMS-HCC) Given 04/16/2025 3:25 PM EDT 22.5 mg Abdominal Tissue documented in this encounter Additional Health Concerns Assessment Noted Time PHQ-9 Depression Total Score: 3 02/20/20 19 3:00 PM EDT documented as of this encounter Care Teams Logging Worker Relationship Specialty Start Date End [place] [address] PCP - General Family Medicine 04/12/21 Alfredito Ramey MD Radiation Oncologist Radiation Oncology 02/18/19 Joann Zarate, RN Registered Nurse 02/18/19 Ezekiel Kang MD [id number] [facility] [address] [place] [address] 02/18/19 Alfredito Ramey MD Initiating Oncologist Radiation Oncology 06/03/20 documented as of this encounter
--- OUTSIDE RECORDS SUMMARY | 2025-04-17 10:30 | XMS_ITS | Encounter Summary ---
Author Organization [facility] Address [address] [place] [address] Care Team Providers Care [employer] One Dealer Name Role Phone Stephany Ortega RN Unavailable Amaris Cueva MD Unavailable [phone] Maverick Lee MD Unavailable [phone] Michael Gonzales MD Unavailable [phone] Lolly Warren NP Unavailable [phone] Daniel Whittington MD, PhD Unavailable [phone] Regina Esquivel NP Unavailable [phone] Maverick Waterman DO Unavailable [phone] Aris Tracey MD Unavailable [phone] Noé Sofia DO Unavailable [phone] Sudhakar Lipscomb ANESTHESIOLOGY FELLOW Primary Care Provider Reason for Referral * Radiology Services (Routine) - Pending Review Specialty Diagnoses / Procedures Referred By Contkristi t Referred To Contact Diagnoses Persistent atrial fibrillation (CMS/HCC) Procedures KIRAN ECHO AND PRN CONTR/BUBBLE/3D Daniel Elder MD [address] [facility] [place] [address] Phone: tel: fax: [facility] [address] [place] [address] Phone: tel: Referral ID Status Reason Start Date Expiration Date V isits Requested Visits Authorized [id number] Pending Review 04/17/2025 04/17/2026 1 1 * Radiology Services (Routine) - Authorized Specialty Diagnoses / Procedures Referred By Contac t Referred To Contact Diagnoses Nonischemic cardiomyopathy (CMS/HCC) Procedures 2D ECHO COMPLETE W/STRAIN/3D PRN CONTR/BUBBLE OH ECHO TTHRC R-T 2D W/WOM-MODE COMPL SPEC&COLR D CHG 3D RENDERING W/INTERP & POSTPROCESS SUPERVISION Daniel Elder MD [address] [facility] [place] [address] Phone: tel: fax: [facility] [address] [place] [address] Phone: tel: Referral ID Status Reason Start Date Expiration Date V isits Requested Visits Authorized [id number] Authorized 04/30/2025 06/14/2025 1 1 Reason for Visit * Reason Comments Atrial Fibrillation New Patient Consult * Consult, Test & Treat (Routine) - Pending Review Specialty Diagnoses / Procedures Referred By Contact Referred To Contact Clinical Cardiac Electrophysiology Diagnoses S/P ablation of atrial fibrillation Persistent atrial fibrillation (CMS/HCC) Amaris Cueva MD [address] [facility] [address] [place] [address] Phone: tel:[phone] fax:[phone] Daniel Elder MD [address] [place] [address] Phone: tel:[phone] fax:[phone] Referral ID Status Reason Start Date Expiration Date V isits Requested Visits Authorized [id number] Pending Review 12/18/2024 12/18/2025 99 99 Encounter Details Date Type Department Care Team (Latest Contact Info) Description 04/17/2025 10:30 AM EDT Office Visit [facility] Physicians - Heart & Vascular, [address] [place] [address] Daniel Elder MD [address] [place], [place] [address] Persistent atrial fibrillation (CMS/HCC) (Primary Dx); RBBB with left anterior fascicular block; Nonischemic cardiomyopathy (CMS/HCC) Social History Tobacco Use Types Packs/Day [...] Sign Reading Time Taken Comments Blood Pressure 120/80 04/17/2025 10:20 AM EDT Pulse 58 04/17/2025 10:20 AM EDT Temperature - - Respiratory Rate - - Oxygen Saturation - - Inhaled Oxygen Concentration - - Weight 113.4 kg (250 lb) 04/17/2025 10:20 AM EDT Height 172.7 cm (5' 8 ) 04/17/2025 10:20 AM EDT Per Pt Body Mass Index 38.01 04/17/2025 10:20 AM EDT documented in this encounter Functional [...] documented in this encounter Progress Notes * Daniel Elder MD - 04/17/2025 10:30 AM EDT Assessment ELECTROPHYSIOLOGY CONSULT NOTE [facility] 04/17/2025 Renetta Ruiz : 1955 69 y.o. Chief Complaint: Atrial Fibrillation and New Patient Consult Primary Care Provider: Sudhakar Lipscomb NP Primary Champion Of Sustainable Design: Dr. Cueva ASSESSMENT: 1. Persistent atrial fibrillation (CMS/HCC) 2. RBBB with left anterior fascicular block 3. Nonischemic cardiomyopathy (CMS/HCC) IMPRESSION AND RECOMMENDATIONS: 1. Persistent atrial fibrillation. He has symptomatic persistent atrial fibrillation which has recurred despite prior cryoablation of atrial fibrillation. His syndrome is relatively severe-he has a severe nonischemic cardiomyopathy and had previously had cardiogenic shock when in atrial fibrillation with rapid ventricular response. Rhythm control is of paramount importance. He has not tolerated antiarrhythmic drug therapy in the form of amiodarone and he is not a candidate for alternate antiarrhythmic drug therapy. As such, I recommended repeat catheter ablation. I recommended pulsed field abl ation of atrial fibrillation to achieve pulmonary vein isolation and posterior wall isolation. I discussed this procedure in detail including success rates of 60-65%, and complication rates of 2-3% including bleeding, infection, damage to blood vessels, heart attack, stroke, and . Understanding the risks and benefits he wishes to proceed. We will do the procedure under general anesthesia with a transesophageal echocardiogram prior. He will continue anticoagulation indefinitely given his elevated CHADS2 Vasc score. 2. Right bundle-branch block with left anterior fascicular block. There has been no evidence of syncope or near-syncope. There has been no significant bradycardia. There was no indication for pacemaker. 3. Nonischemic cardiomyopathy. He has NYHA Functional Class III symptoms. He is mildly hypervolemicon examination today. He remains on Farxiga, Lasix, losartan, and metoprolol. He has not had an echocardiogram in sinus rhythm. I recommended we repeat an echocardiogram. If his left ventricular ejection fraction is less than 35% we will need to consider primary prevention ICD implant. He will return for ECHO and ablation. Thank you for referring Mr. Ruiz. Please do not hesitate to contact me with any questions. Daniel Elder MD RS Cardiac Electrophysiology [facility] [place] Office: [phone] HISTORY OF PRESENT ILLNESS: Mr. Ruiz is a 69-year-old male who was referred by Dr. Amaris Cueva for persistent atrial fibrillation. He is a 69-year-old male with a history of bifascicular block, heart failure secondary to nonischemic cardiomyopathy, prostate cancer, and longstanding persistent atrial fibrillation. He was diagnosed with atrial fibrillation in January 2019 during abdominal surgery. He was placed on Xarelto and amiodarone. Echocardiogram at that time had demonstrated left ventricular ejection fraction 55-60%. He presented to the [facility] in August 2021 with cardiogenic shock and atrial fibrillationwith a rapid ventricular response. He required intra-aortic balloon pump support. I saw him in consultation. Kiran cardioversion was unsuccessful. We referred him for cryoablation of atrial fibrillation which was performed by Dr. Daniel Whittington on September 09, 2021. Subsequent echocardiogram on October 26, 2021 demonstrated left ventricular ejection fraction 45%. He was seen in follow-up in January 2023. At that point he was taken off of amiodarone. He was admitted to the [facility] on August 18, 2024 with atrial fibrillation with a rapid ventricular response. Echocardiogram demonstrated a decrease in his left ventricular ejection fractionof 25-30% at which point he underwent cardioversion. He reverted back to atrial fibrillation in September 2024. He was placed on amiodarone at that point.He ultimately was admitted to the hospital with a fall and generalized weakness in October 2024. KIRAN and cardioversion was performed. Amiodarone was ultimately discontinued secondary to hyperthyroidism. He presented back to the office with atrial fibrillation with a rapid ventricular response in March 2025. He underwent transesophageal echocardiogram and cardioversion on March 28, 2025. Transesophageal echocardiogram on March 28, 2025 demonstrated left ventricular ejection fraction 30 35%, [id number] mitral regurgitation, and a dilated left atrium. Electrocardiogram performed my office today demonstrates sinus rhythm with a rate of 59 beats per minute, a right bundle-branch block, and a left anterior fascicular block. There was a PAC and a PVC. He notes that he often experiences the atrial fibrillation when he has a bad lung virus. Overall hehas fatigue. He has not had syncope or near-syncope. We noted that he has not had an echocardiogramduring when he has been in sinus rhythm. I personally reviewed the following studies: Electrocardiogram March 28, 2025 demonstrates atrial fibrillation with a rate of 127 beats per minute with an incomplete right bundle-branch block Electrocardiogram April 01, 2025 demonstrates sinus rhythm with a rate of 67 beats per minute with an incomplete right bundle-branch block and a left anterior fascicular block Electrocardiogram October 21, 2024 demonstrates atrial fibrillation with a rate of 115 beats per minute with a right bundle-branch block and a left anterior fascicular block TSH October 29, 2024 was 0.07 Outpatient Encounter Medications as of 04/17/2025 Medication Sig abiraterone (Zytiga) 250 mg Tablet Take 1,000 mg by mouth in the morning. acetaminophen 325 mg Capsule Take 2 Capsules by mouth every 6 hours as needed. albuterol (VENTOLIN/PROAIR/PROVENTIL HFA) 90 mcg/actuation HFA Aerosol Inhaler apixaban (Eliquis) 5 mg Tablet Take 1 Tablet (5 mg) by mouth 2 times daily. [DISCONTINUED] apixaban (ELIQUIS) 5 mg Tablet Take 1 Tablet (5 mg) by mouth 2 times daily. [DISCONTINUED] cyclobenzaprine (FLEXERIL) 5 mg tablet (Patient not taking: Reported on 04/01/2025) dapagliflozin propanediol (Farxiga) 10 mg Tablet tablet Take 1 Tablet by mouth every morning. furosemide (LASIX) 20 mg tablet Take 1 Tablet (20 mg) by mouth daily. [DISCONTINUED] gabapentin (NEURONTIN) 300 mg capsule Take 1 Capsule (300 mg) by mouth every evening. (Patient not taking: Reported on 03/26/2025) leuprolide (Eligard) 22.5 mg Syringe 22.5 mg by Subcutaneous route. [DISCONTINUED] Lidocaine 4 % Adhesive Patch, Medicated Apply 1 patch every day by topical route as needed. (Patient not taking: Reported on 03/26/2025) losartan (COZAAR) 100 mg Tablet Take 1 Tablet by mouth in the morning. metoprolol succinate (TOPROL) 50 mg Tablet Sustained Release 24 hr Take 1 Tablet (50 mg) by mouth 2times daily. predniSONE (DELTASONE) 5 mg tablet Take 5 mg by mouth in the morning and 5 mg before bedtime. tamsulosin (FLOMAX) 0.4 mg sustained release capsule [DISCONTINUED] tamsulosin (FLOMAX) 0.4 mg sustained release capsule Take 0.4 mg by mouth in the morning and 0.4 mg before bedtime. (Patient not taking: Reported on 04/01/2025) [DISCONTINUED] traMADol (ULTRAM) 50 mg tablet (Patient not taking: Reported on 03/26/2025) Allergies[1] Past Medical History[2] Past Surgical History[3] Social History Tobacco Use Smoking status: Former Current packs/day: 0.00 Average packs/day: 1 pack/day for 6.0 years (6.0 ttl pk-yrs) Types: Cigarettes Start date: 09/11/1964 Quit date: 09/11/1970 Years since quittin.6 Passive exposure: Past Smokeless tobacco: Never Substance Use Topics Alcohol use: Not Currently Family History[4] PHYSICAL EXAM: Blood pressure 120/80, pulse 58, height 5' 8 (1.727 m), weight 250 lb (113.4 kg). Body mass index is 38.01 kg/m??. Physical Exam Constitutional: General: He is not in acute distress. Appearance: He is not diaphoretic. HENT: Head: Normocephalic and atraumatic. Right Ear: External ear normal. Left Ear: External ear normal. Eyes: General: Right eye: No discharge. Left eye: No discharge. Conjunctiva/sclera: Conjunctivae normal. Neck: Thyroid: No thyromegaly. Vascular: No JVD. Trachea: No tracheal deviation. Cardiovascular: Rate and Rhythm: Normal rate and regular rhythm. Heart sounds: Normal heart sounds. No murmur heard. No friction rub. No gallop. Pulmonary: Effort: Pulmonary effort is normal. No respiratory distress. Breath sounds: No wheezing. Abdominal: General: Bowel sounds are normal. There is no distension. Palpations: Abdomen is soft. Tenderness: There is no abdominal tenderness. Musculoskeletal: General: No tenderness. Normal range of motion. Cervical back: Normal range of motion and neck supple. Skin: General: Skin is warm and dry. Findings: No erythema or rash. Neurological: Mental Status: He is alert and oriented to person, place, and time. Cranial Nerves: No cranial nerve deficit. Psychiatric: Judgment: Judgment normal. Please note that some or all of of this record was generated using voice recognition software. If there are any questions about the content of this document, please contact the author as some errors of facility worker may have occurred. [1] Allergies Allergen Reactions Amiodarone Low TSH Anti-Hyst excitable Antihistamine [Diphenhydramine Hcl] excitable Codeine itchy Demerol [Meperidine] Scared feeling Proton Pump Inhibitors Other (See Comments) Pyridium [Phenazopyridine] Other (See Comments) Visual disturbances- orange color in eyes [2] Past Medical History: Diagnosis Date Accidental overdose with resusitation in 1972 Arrhythmia PAF Asthma Back problem from laying in bed recently-11/30 Cancer (CMS/HCC) prostate cancer treated with radiation and hormones 2018 to 2020 GERD (gastroesophageal reflux disease) Hypertension Kidney stones Neck problem neck pain--right side Sleep apnea going through testing in a couple weeks-01/2022 [3] Past Surgical History: Procedure Laterality Date CRYOABLATION 09/09/2021 CRYOABLATION performed by Daniel Whittington MD, PhD at [facility] ELECTROPHYSIOLOGY LAB HX KNEE SURGERY HX SPLENECTOMY IABP INSERTION 09/02/2021 IABP INSERTION performed by Maverick Lee MD at [facility] CARDIAC CLINICAL ACCOUNT EXECUTIVE LEFT & RIGHT HEART CATH 09/02/2021 LEFT & RIGHT HEART CATH performed by Maverick Lee MD at [facility] CARDIAC CLINICAL ACCOUNT EXECUTIVE [place] LITHOLAPAXY SMPL/SM <2.5 CM N/A 01/24/2022 Cystoscopy Laser Litholapaxy. performed by Aris Tracey MD at [facility] [place] THORACENTESIS NEEDLE/CATH PLEURA W/O IMAGING Right 08/30/2023 RIGHT ULTRASOUND GUIDED THORACENTESIS performed by Schuyler Dueñas MD at ENDOSCOPY [4] Family History Problem Relation Name Age of Onset Heart Problems Brother Diabetes Brother Anesthesia Complications Neg Hx documented in this encounter Plan of Treatment Upcoming Encounters Date Type Department Care Team (Latest Contact Info) Description 05/13/2025 10:45 AM EDT Appointment [facility] [place], [place] [facility] [address] [place] [address] 05/14/2025 1:15 PM EDT Appointment [facility] Physicians - Spine Surgery, [facility] [address] [place] [address] [id number] [place] [phone] Leo Mosley PA-C [address] [place] [address] 05/16/2025 8:00 PM EDT Appointment [facility] [address] Medical Office Building [address] [place] [address] 05/19/2025 9:40 AM EDT Appointment [facility] Physicians - Pulmonary Medicine, [address] [place] [phone] Noé Sofia DO [address] [place] [address] 06/25/2025 9:45 AM EDT Hospital Encounter [facility] Unit ([facility]) [address] [place] [address] Daniel Elder MD [address] [place] [address] Persistent atrial fibrillation (CMS/HCC) 06/25/2025 9:45 AM EDT - 06/25/2025 11:30 AM EDT Surgery Electrophysiology Lab [address] [place] [address] Daniel Elder MD [address] [place] [address] ABLATION PULSED FIELD 07/02/2025 1:00 PM EDT Appointment [facility] - Sleep Medicine[address] [phone] Jayy Whitfield NP [address] [place] [address] 07/02/2025 2:15 PM EDT Appointment [facility] - Heart & Vascular[address] [place] [address] Amaris Cueva MD [address] [place] [address] [address] [facility] [place] [address] 07/28/2025 1:00 PM EST Appointment [facility] Physicians - Heart & Vascular, [facility] [address] [facility] [place] [phone] Lynnette Lpoez NP [address] [facility] [address] [place] [address] Scheduled Orders Name Type Priority Associated Diagnoses Orde r Schedule 2D ECHO COMPLETE W/STRAIN/3D PRN CONTR/BUBBLE ECHO Routine Nonischemic cardiomyopathy (CMS/HCC) Expected: 04/24/2025, Expires: 04/17/2026 KIRAN ECHO AND PRN CONTR/BUBBLE/3D ECHO Routine Persistent atrial fibrillation (CMS/HCC) Expected: 04/24/2025, Expires: 04/17/2026 documented as of this encounter Goals Goal [...] Priority Date/Time Associated Diagnosis Comments ECG Routine 04/17/2025 10:48 AM EDT Persistent atrial fibrillation (CMS/HCC) documented in this encounter Results * ECG (04/17/2025 10:48 AM EDT) Heart Rate 59 bpm [facility] QRS Interval 148 ms [facility] E[facility] QT Interval 455 ms [facility]TE [facility] QTc Interval 451 ms [facility] EX[facility] E[facility] LAB P Douglass 15 deg [facility] EQUIPMENT INSPECTOR AL LAB QRS Douglass -73 deg [facility] EQUIPMENT INSPECTOR AL LAB T Wave Douglass 57 deg [facility] P-R Interval 143 msec [facility] 04/17/2025 10:4 8 AM EDT Narrative [facility] - 04/17/2025 10:52 AM EDT [facility] Test Date: 2025-04-17 10:48:48 Pat Name: RENETTA MICHAELSNORMAN Department: [facility] Room: [facility] Gender: Male Preparation Room Worker: CHAPIS : 1955 Requested By: DANIEL Ramirze Order Number: [id number] Reading MD: Daniel Elder MD Interpretive Statements Sinus rhythm Atrial premature complex RBBB and LAFB PVC No significant change from previous ECG. Electronically Signed On 04-17-2025 10:52:51 EDT by Daniel Elder MD Procedure Note Daniel Elder MD - 04/17/2025 [facility] Test Date: 2025-04-17 10:48:48 Pat Name: RENETTA RUIZ [facility] Gender: Male Preparation Room Worker: CHAPIS : 1955 Requested By: DANIEL HAYES. Order Number: [id number] Reading MD: Daniel Elder MD Interpretive Statements Sinus rhythm Atrial premature complex RBBB and LAFB PVC No significant change from previous ECG. Electronically Signed On 04-17-2025 10:52:51 EDT by Daniel Elder MD us Daniel Elder MD ECG ORDERABLES Final Re sult [facility] [address] documented in this encounter Visit Diagnoses Diagnosis Persistent atrial fibrillation (CMS/HCC)- Primary Atrial fibrillation RBBB with left anterior fascicular block Right bundle branch block and left anterior fascicular block Nonischemic cardiomyopathy (CMS/HCC) Other primary cardiomyopathies Persistent atrial fibrillation (CMS/HCC)- Primary Atrial fibrillation Persistent atrial fibrillation (CMS/HCC) Atrial fibrillation documented in this encounter Care Teams Twenty One Dealer Relationship Specialty Start Date End Date Sudhakar Lipscomb NP [address] [place] [address] PCP - General Family Medicine 08/30/23 Stephany Ortega, RN Cardiology 08/04/21 Amaris Cueva MD [address] [facility] [address] [place], [place] [id number] Cardiology 08/10/21 Maverick Lee MD [address] [facility] [address] [place], [place] [id number] Interventional Cardiology 09/06/21 Michael Gonzales MD [address] [place] [address] Internal Medicine, Sleep Medicine 09/07/21 Lolly Warren NP [address] [place] [address] Nurse Practitioner Nurse Practitioner, Acute Care 09/08/21 Daniel Whittington MD, PhD [address] [place] [address] Clinical Cardiac Electrophysiology 09/13/21 Regina Esquivel NP [address] [place] [address] Nurse Practitioner Nurse Practitioner, Acute Care 09/22/21 Maverick Waterman DO 1955 [facility] [place] [address] Advanced Heart Failure/Transplant 09/30/21 Aris Tracey MD [address] [place] [address] [address] [place] [address] Urology 10/28/21 Noé Sofia DO [address] [place] [address] Critical Care Medicine 12/28/22 documented as of this encounter
--- OUTSIDE RECORDS SUMMARY | 2025-04-21 10:18 | XMS_ITS | Encounter Summary ---
Author Organization [facility] Address [facility] [place] [address] Care Team Providers Care Animal Care Giver Name Role Phone Alfredito Ramey MD Unavailable [phone] Joann Zarate RN Unavailable Unavailable Ezekiel Kang MD Unavailable [phone] Alfredito Ramey MD Unavailable [phone] Jerri Santiago MD Primary Care Provider [phone] Source Comments This information has been disclosed [...] release of HIV test results or diagnoses. [id number] Reason for Visit * Auth/Cert (Routine) Specialty Diagnoses / Procedures Referred By Contkristi t Referred To Contact Oral Surgery [facility] pricing lead at [facility] [address] [facility] [address] [place] [phone] Phone: tel: fax: Referral ID Status Reason Start Date Expiration Date Visits Re quested Visits Authorized [id number] 1 1 Encounter Details Date Type Department Care Team (Late st Contact Info) Description 04/21/2025 10:18 AM EDT - 04/21/2025 11:59 PM EDT Hospital Encounter [facility] pricing lead at [facility] [address] [facility] [address] [place] [address] Unknown, Attending Provider Renetta Mcqueen, DMD [address] [place] [address] Dental caries (Primary Dx) Discharge Disposition: Home or Self Care WITHOUT Home Care Services Social History Tobacco Use Types Packs/Day Years [...] 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 Not on f ile Not on file Not on file documented as of this encounter Last Filed Vital Signs Vital Sign Reading Time Taken Comments Blood Pressure 140/83 04/21/2025 10:54 AM EDT Pulse - - Temperature - - Respiratory Rate - - Oxygen Saturation - - Inhaled Oxygen Concentration - - Weight 116.1 kg (256 lb) 04/21/2025 10:49 AM EDT Height 172.7 cm (5' 8 ) 04/21/2025 10:49 AM EDT Body Mass Index 38.92 04/21/2025 10:49 AM EDT documented in this encounter Medications at Time of Discharge cyclobenzaprine (FLEXERIL) 5 MG tablet 02/20/2025 famotidine (PEPCID) 20 MG tablet 12/05/2022 gabapentin (NEURONTIN) 300 MG capsule 02/16/2025 traMADoL (ULTRAM) 50 mg tablet 01/03/2025 abiraterone (ZYTIGA) 250 mg TabIndications:m etastatic castration-resis tant prostate cancer Take 4 tablets (1,000 mg total) by mouth daily. Indications: metastatic castration-resis tant prostate cancer 120 tablet 11 04/17/2025 2:49 PM EDT 09/01/2024 abiraterone (ZYTIGA) 250 mg TabIndications:A denocarcinoma of prostate ([facility]) Take 4 tablets (1,000 mg total) by mouth daily. 120 tablet 11 12/10/2024 acetaminophen (TYLENOL) 500 MG tablet Take 1 tablet (500 mg total) by mouth every 6 hours as needed. albuterol 90 mcg/actuation Inhl inhaler Inhale 1 puff every 4 hours by inhalation route, for wheezing. amiodarone (PACERONE) 200 MG tablet Take 2 tablets twice a day by oral route. AMOXicillin (AMOXIL) 500 MG capsule Take 1 capsule twice a day by oral route for 10 days. azithromycin (ZITHROMAX) 250 MG tablet TAKE 2 TABLETS (500 MG) BY ORAL ROUTE ONCE DAILY FOR 1 DAY THEN 1 TABLET (250 MG) BY ORAL ROUTE ONCE DAILY FOR 4 DAYS betamethasone dipropionate, NON-AUGMENTED 0.05 % cream APPLY TO AFFECTED AREA(S) IN A THIN LAYER TWO TIMES A DAY NEEDED bicalutamide (CASODEX) 50 MG tablet dapagliflozin (FARXIGA) 10 mg Tab tablet Take 1 tablet (10 mg total) by mouth daily. ELIQUIS 5 mg Tab Take 1 tablet twice a day by oral route for 30 days. furosemide (LASIX) 20 MG tablet Take 1 tablet (20 mg total) by mouth if needed. HYDROcodone-acet aminophen (NORCO) 5-325 mg per tablet Take 1 tablet twice a day by oral route for 2 days. losartan (COZAAR) 100 MG tablet Take 1 tablet (100 mg total) by mouth daily. metoprolol succinate (TOPROL-XL) 50 MG 24 hr tablet Take 1 tablet (50 mg total) by mouth daily. predniSONE (DELTASONE) 5 MG tabletIndication s:Adenocarcinoma of prostate ([facility]) Take 1 tablet (5 mg total) by mouth 2 times a day. 180 tablet 3 01/14/2025 spironolactone (ALDACTONE) 25 MG tablet tamsulosin (FLOMAX) 0.4 mg CapIndications:A denocarcinoma of prostate ([facility]) Take 1 capsule (0.4 mg total) by mouth in the morning and at bedtime. 180 capsule 3 12/10/2024 documented as of this encounter Progress Notes * Renetta Mcqueen DMD - 04/21/2025 11:46 AM EDT [facility] Oral & Maxillofacial Surgery Visit Type: OMS NPV Pt. Name: Renetta Ruiz Pt. : 1955 Sex: male Visit Date: 04/21/2025 Provider: Attending: Katherin Schmid MD Resident: Rneetta Mcqueen DMD Location of Care: [facility] Subjective: Chief Complaint: I have a bad tooth I need taken out. HPI: Renetta Ruiz is a/an 69 y.o. male with a PMH significant for A-fib, CHF (systolic), adenocarcinoma of prostate, asthma, COPD, and Stage 2 CKD referred from general dentist for the extraction of#30. Patient reports moderate episodic pain from this tooth, requiring analgesics for relief. History Allergies: Allergies[1] Medical History: Past Medical History: Diagnosis Date A-fib ([facility]) Adenocarcinoma of prostate ([facility]) 02/18/2019 Anjali score 10(5+5) left lateral mid 1/1 [...] Right lateral base 1/1 core 100% (16 Asthma Cancer ([facility]) Problem List[2]Medical history reviewed. Medications: Current Outpatient Medications Medication Sig cyclobenzaprine famotidine gabapentin traMADoL abiraterone Take 4 tablets (1,000 mg total) by mouth daily. Indications: metastatic castration-resistant prostate cancer abiraterone Take 4 tablets (1,000 mg total) by mouth daily. acetaminophen Take 1 tablet (500 mg total) by mouth every 6 hours as needed. albuterol Inhale 1 puff every 4 hours by inhalation route, for wheezing. amiodarone Take 2 tablets twice a day by oral route. AMOXicillin Take 1 capsule twice a day by oral route for 10 days. azithromycin TAKE 2 TABLETS (500 MG) BY ORAL ROUTE ONCE DAILY FOR 1 DAY THEN 1 TABLET (250 MG) BY ORAL ROUTE ONCE DAILY FOR 4 DAYS betamethasone dipropionate, NON-AUGMENTED APPLY TO AFFECTED AREA(S) IN A THIN LAYER TWO TIMES A DAYAS NEEDED bicalutamide dapagliflozin propanediol Take 1 tablet (10 mg total) by mouth daily. Eliquis Take 1 tablet twice a day by oral route for 30 days. furosemide Take 1 tablet (20 mg total) by mouth if needed. HYDROcodone-acetaminophen Take 1 tablet twice a day by oral route for 2 days. losartan Take 1 tablet (100 mg total) by mouth daily. metoprolol succinate Take 1 tablet (50 mg total) by mouth daily. predniSONE Take 1 tablet (5 mg total) by mouth 2 times a day. spironolactone tamsulosin Take 1 capsule (0.4 mg total) by mouth in the morning and at bedtime. No current facility-administered medications for this encounter. Surgical History: Past Surgical History: Procedure Laterality Date meniscus repair Right PROSTATE BIOPSY SPLENECTOMY, TOTAL 1973 TONSILLECTOMY childhood Social History: No pertinent social history. Family History: No pertinent family history. Review of Systems: 10-point ROS completed and is negative except noted in H&P. Objective: Vitals: 04/21/25 1049 04/21/25 1054 BP: 140/83 Weight: (!) 256 lb (116.1 kg) Height: 5' 8 (1.727 m) Maxillofacial: No facial swelling No cervical masses or LAD No pain to digital palpation - bilaterally No clicking/popping/crepitus of TMJ, No trismus Normal anterior and laterotrusive movements CN II-XII intact Oral: Normal salivary flow, mucosa moist and pink No vestibular edema/swelling/erythema No uvular deviation, FOM soft and non-tender No signs of acute infection No purulence or drainage or fistulae noted No soft tissue pathology Gross caries of #30 Neck: no significant adenopathy, thyroid normal size Neuro: cranial nerves grossly intact, appropriate mental status Psych: affect and mood appropriate, normal interaction Airway: Normal and adequate cervical & mandibular range of motion Thyromental distance >6cm ANNE-MARIE >40mm Tongue Size: normal Mallampati Classification: I (soft palate, uvula, fauces, and tonsillar pillars visible) Radiographic Evaluation/Imaging Maxillary sinuses are equal in size and radiodensity. Mandibular condyles are well-formed and seated in the glenoid fossa. No readily apparent radiographic evidence of gross maxillary or mandibular pathology. Caries on #30 are evident radiographically. Assessment/Plan: Renetta Ruiz is a/an 69 y.o. male with symptomatic #30 that is indicated for extraction, thistooth is associated with an increased risk of infection. Patient elects for the procedure to be completed with Local Anesthesia, ASA Classification: 3 1. Return for extraction of #30. 2. Informed consent will be obtained on day of surgery. 3. Risks & Benefits: Risks, benefits, complications and treatment options discussed with patient. RENETTA MCQUEENSUDEEP 04/21/2025 [facility] AT [facility] [id number] [facility] [address] Dept: [phone] Loc: [phone] OMFS Treatment Plan Anesthesia Type: Local Procedure: #30 extraction Schedule Guidelines: Schedule in normal time Pre-Procedural Instructions: No special instructions Were home medications reviewed and instructions provided? Yes Estimated Procedure Time: 30 minutes [1] Allergies Allergen Reactions Albuterol Other (See Comments) Amiodarone Low TSH Anti-Hyst excitable Clemastine-Phenylprop Per pt, he experiences panic attacks Codeine Itching itchy Meperidine Scared feeling States he has taken recently but no incidence of paranoia like he experiences in 2006 Phenazopyridine Other (See Comments) Visual disturbances- orange color in eyes Pheniramine Other reaction(s): increased heart rate Other reaction(s): increased heart rate Proton Pump Inhibitors Other (See Comments) Product containing hydrogen/potassium adenosine triphosphatase enzyme system inhibitor (product) Antihistamines - Alkylamine Anxiety Other Anxiety Pseudoephedrine Hcl Anxiety and Other (See Comments) Rapid heart rate. [2] Patient Active Problem List Diagnosis Aden[place] of [place] Oncology Care Plan-Prostate Cancer Accommodative paresis, bilateral Acute kidney failure ([facility] Acute bronchitis Age-related nuclear cataract of both eyes Benign prostatic hyperplasia with urinary obstruction Bladder outlet obstruction Bladder stone Carpal tunnel syndrome, bilateral Cervical strain, acute Chondromalacia of patella Chronic knee pain Chronic insomnia Chronic low back pain Chronic neck pain Chronic obstructive pulmonary disease ([facility] Chronic shoulder pain Chronic systolic CHF (congestive heart failure) ([facility]) CKD (chronic kidney disease), stage II Contusion of knee, left Coronary artery disease involving kaibab coronary artery CTS (carpal tunnel syndrome) Elevated PSA Essential hypertension Gross hematuria Microscopic hematuria H/O amiodarone therapy History of prostate cancer History of urinary calculi Hydronephrosis, bilateral Kidney stones Labral tear of shoulder, left, sequela Left-sided low back pain with left-sided sciatica Lesion of lung Lesions of both ulnar nerves Localized edema Cosigned by Katherin Schmid DMD, MD at 04/24/2025 9:00 AM EDT Associated attestation - Katherin Schmid DMD, MD - 04/24/2025 9:00 AM EDT I saw and evaluated the patient, and discussed with the resident. I agree with the resident???s findings and plan as documented in the resident???s note. Katherin Schmid DMD, MD documented in this encounter Plan of Treatment Not on file documented as of this encounter Procedures Procedure Name Priority Date/Time Associated Diagnosis Comments OMS XR PANOREX Routine 04/21/2025 12:43 PM EDT documented in this encounter Results * OMS XR Panorex (04/21/2025 12:43 PM EDT) Anatomical Region Laterality Modality Other us Drake López DDS, MD SCAN DOCS - NO RESULTS Fin al Result documented in this encounter Visit Diagnoses Diagnosis Dental caries- Primary Unspecified dental caries documented in this encounter Additional Health Concerns Assessment Noted Time PHQ-9 Depression Total Score: 3 02/20/20 19 3:00 PM EDT documented as of this encounter Care Teams Animal Care Giver Relationship Specialty Start Date End Date Jerri Santiago [place] [address] PCP - General Family Medicine 04/12/21 Alfredito Ramey MD Radiation Oncologist Radiation Oncology 02/18/19 Joann Zarate, RN Registered Nurse 02/18/19 Ezekiel Kang MD [address] [place] [phone] 02/18/19 Alfredito Ramey MD Initiating Oncologist Radiation Oncology 06/03/20 documented as of this encounter
--- OUTSIDE RECORDS SUMMARY | 2025-04-25 09:04 | XMS_ITS | Encounter Summary ---
Author Organization [facility] Address [address] [place] [address] Care Team Providers Care Doctor Of Podiatric Medicine Name Role Phone Alfredito Ramey MD Unavailable [phone] Joann Zarate RN Unavailable Unavailable Ezekiel Kang MD Unavailable [phone] Alfredito Ramey MD Unavailable [phone] Jerri Santiago MD Primary Care Provider [phone] Source Comments This information has been disclosed [...] release of HIV test results or diagnoses. 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 180 tablet 3 01/14/2025 spironolactone (ALDACTONE) 25 MG tablet tamsulosin (FLOMAX) 0.4 mg CapIndications:A denocarcinoma of prostate (CMS-HCC) Take 1 capsule (0.4 mg total) by mouth in the morning and at bedtime. 180 capsule 3 12/10/2024 documented as of this encounter Plan of Treatment Not on file documented as of this encounter Procedures Procedure Name Priority Date/Time Associated Diagnosis Comments XR COMPARISON IMAGES Routine 04/25/2025 9:04 AM EDT documented in this encounter Results * X-ray Comparison Images (04/25/2025 9:04 AM EDT) Narrative EXTERNAL - 04/25/2025 9:04 AM EDT Images associated with this accession number were presented to us for comparison to an examination performed here. us Provider Not In System IMG DIAGNOSTIC IMAGING OR DERABLES Final Result EXTERNAL documented in this encounter Visit Diagnoses Not on filedocumented in this encounter Additional Health Concerns Assessment Noted Time PHQ-9 Depression Total Score: 3 02/20/20 19 3:00 PM EDT documented as of this encounter Care Teams Doctor Of Podiatric Medicine Relationship Specialty Start Date End Date Jerri Santiago MD [address] [address] PCP - General Family Medicine 04/12/21 Alfredito Ramey MD Radiation Oncologist Radiation Oncology 02/18/19 Joann Zarate, RN Registered Nurse 02/18/19 [place] [address] [place] [phone] 02/18/19 Alfredito Ramey MD Initiating Oncologist Radiation Oncology 06/03/20 documented as of this encounter
--- OUTSIDE RECORDS SUMMARY | 2025-04-25 09:05 | XMS_ITS | Encounter Summary ---
Author Organization [facility] Address [address] [place] [address] Care Team Providers Care Aoc Plans Intelligence Officer Chief Name Role Phone Alfredito Ramey MD Unavailable [phone] Joann Zarate RN Unavailable Unavailable Ezekiel Kang MD Unavailable [phone] Alfredito Ramey MD Unavailable [phone] Jerri Santiago MD Primary Care Provider Source Comments This information has been disclosed [...] release of HIV test results or diagnoses. 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) Take 4 tablets (1,000 mg total) by [...] Name Priority Date/Time Associated Diagnosis Comments XR SPINE OUTSIDE EXAM Routine 04/25/2025 9:05 AM EDT documented in this encounter Results * XR Spine Outside Exam (04/25/2025 9:05 AM EDT) Narrative 04/25/2025 9:05 AM EDT Images associated with this accession number were presented to us for comparison to an examination performed here. us Provider Not In System IMG DIAGNOSTIC IMAGING OR DERABLES Final Result documented in this encounter Visit Diagnoses Not on filedocumented in this encounter Additional Health Concerns Assessment Noted Time PHQ-9 Depression Total Score: 3 02/20/20 3:00 PM EDT documented as of this encounter Care Teams Aoc Plans Intelligence Officer Chief Relationship Specialty Start Date [place] [address] PCP - General Family Medicine 04/12/21 Alfredito Ramey MD Radiation Oncologist Radiation Oncology 02/18/19 Joann Zarate, RN Registered Nurse 02/18/19 Ezekiel Kang MD [address] [place] [phone] 02/18/19 Alfredito Ramey MD Initiating Oncologist Radiation Oncology 06/03/20 documented as of this encounter
--- OUTSIDE RECORDS SUMMARY | 2025-04-25 09:05 | XMS_ITS | Encounter Summary ---
Author Organization [facility] Address [address] [place] [address] Care Team Providers Care Field Evidence Technician Name Role Phone Alfredito Ramey MD Unavailable [phone] Joann Zarate RN Unavailable Unavailable Ezekiel Kang MD Unavailable [phone] Alfredito Ramey MD Unavailable [phone] Jerri Santiago MD Primary Care Provider [phone] Source Comments This information has been disclosed [...] release of HIV test results or diagnoses. 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 Not on [...] (ZYTIGA) 250 mg TabIndications:A denocarcinoma of prostate ([facility]) Take 4 tablets (1,000 mg total) [...] Name Priority Date/Time Associated Diagnosis Comments XR KNEE OUTSIDE EXAM Routine 04/25/2025 9:05 AM EDT documented in this encounter Results * XR Knee Outside Exam (04/25/2025 9:05 AM EDT) Narrative [...] documented as of this encounter Care Teams Field Evidence Technician Relationship Specialty Start [place] [address] PCP - General Family Medicine 04/12/21 Alfredito Ramey MD Radiation Oncologist Radiation Oncology 02/18/19 Joann Zarate, RN Registered Nurse 02/18/19 Ezekiel Kang MD [address] [place] [phone] 02/18/19 Alfredito Ramey MD Initiating Oncologist Radiation Oncology 06/03/20 documented as of this encounter
--- OUTSIDE RECORDS SUMMARY | 2025-04-25 09:05 | XMS_ITS | Encounter Summary ---
Author Organization [facility] Address [address] [place] [address] Care Team Providers Care Boom Truck Driver Name Role Phone Alfredito Ramey MD Unavailable [phone] Joann Zarate RN Unavailable Unavailable Ezekiel Kang MD Unavailable [phone] Alfredito Ramey MD Unavailable [phone] Jerri Santiago MD Primary Care Provider [phone] Source Comments This information has been disclosed [...] release of HIV test results or diagnoses. 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 Not on [...] (ZYTIGA) 250 mg TabIndications:A denocarcinoma of prostate ([facility]) Take 4 tablets (1,000 mg total) by [...] Name Priority Date/Time Associated Diagnosis Comments XR PELVIS OUTSIDE EXAM Routine 04/25/2025 9:05 AM EDT documented in this encounter Results * XR Pelvis Outside Exam (04/25/2025 9:05 AM EDT) Narrative [...] documented as of this encounter Care Teams Boom Truck Driver Relationship Specialty Start Date End [place] [address] PCP - General Family Medicine 04/12/21 Alfredito Ramey MD Radiation Oncologist Radiation Oncology 02/18/19 Joann Zarate, RN Registered Nurse 02/18/19 Ezekiel Kang MD [address] [place] [phone] 02/18/19 Alfredito Ramey MD Initiating Oncologist Radiation Oncology 06/03/20 documented as of this encounter
[2025-05-03 00:47] VITALS: BP 167/93; PULSE 85; RESP 16; TEMP 36.8; O2SAT 100; BMI 39.5
--- OUTSIDE RECORDS SUMMARY | 2025-05-03 00:54 | XMS_ITS | Encounter Summary ---
Author Organization [facility] Address [address] [place] [address] Care Team Providers Care Dye House Worker Name Role Phone Stephany Ortega RN Unavailable Amaris Cueva MD Unavailable [phone] Maverick Lee MD Unavailable [phone] Michael Gonzales MD Unavailable [phone] Lolly Warren NP Unavailable [phone] Daniel Whittington MD, PhD Unavailable +[phone] Regina Esquivel NP Unavailable [phone] Maverick Waterman DO Unavailable [phone] Aris Tracey MD Unavailable [phone] Noé Sofia DO Unavailable +[phone] Sudhakar Lipscomb SPOOL CARRIER Primary Care Provider [phone] Reason for Visit * Reason Onset Date Comments Procedure 03/26/2025 KRIS/CV Encounter Details Date Type Department Care Team (Late st Contact Info) Description 03/26/2025 Telephone [facility] Physicians - Heart & Vascular, [facility] [address] [place] [address] Tiffanie Cole RN [address] [place] [address] Procedure (KRIS/CV) Social History Tobacco Use Types [...] questions - sent all information discussed through Eduora message and encouraged to reach out as needed DCCV = CARDIOVERSION - if pt has device will need to contact rep b/c they need to be there!! [employer] = URGENT schedule: Call Heart Statin 97890 #2 STAT request then call schedules to put on schedule Non-urgent (3 wks or longer) call schedules [phone] KRIS prior to Cardioversion - this will take an US of heart obtained through the throat - camera used to take images at the back of the heart to show if there is a clot. Rural Health Consultant: family Michelle uninterrupted x4 wks - Missed doses NPO systems security consultant NEED: 4wks uninterrupted AC - have you [...] your heart procedure. KRIS Cardioversion at [facility] on Friday, March 28, 2025 Arrival time: 7am Procedure time: 8am Rural Health Consultant: Family Please arrive to [facility], Level Registration Desk - Ground level Address: [address] [place] [address] 1. Please do NOT have anything to eat or drink 6 hours prior (unless taking medications w/sips of water). 2. If you need to CANCEL your procedure, please call [phone]. - SHARONDA Moreno 3. The patient will [...] performed at the Heart Statin on [facility]. The most convenient parking option is to use the [facility] [employer]Call Parking Service. WillCall parking is provided for a fee of $6. Follow signs to the Heart Center (P3). Bit Sharpener Operator parking is located under the overhang in the hamilton driveway. Other self parking is available free of charge in the P3 parking garage. Enter the hospital and go to the Registration desk. It is located on level. 5. Here is a check list [...] MondayApril 01 @ 2:15 [facility] documented in this encounter Plan of Treatment Upcoming Encounters Date Type Department Care Team (Latest Contact Info) Description 05/13/2025 10:45 AM EDT Appointment [facility] Out[facility] [address] [facility], [address] [place] [address] 05/14/2025 1:15 PM EDT Appointment [facility] Physicians - Spine Surgery, [place] [address] [place] [address] [address] [place] [address] Leo Mosley PA-C [address] [place] [address] 05/16/2025 8:00 PM EDT Appointment [facility] Sleep Center [address] Medical Office Building [address] [place] [address] 05/19/2025 9:40 AM EDT Appointment [facility] Physicians - Pulmonary Medicine, [address] [place] [address] Noé Sofia DO [address] [place] [address]. [address] [place] [address] 06/25/2025 9:45 AM EDT Hospital Encounter Cardiovascular Recovery Unit (CVRU) [address] [place] [address] Daniel Elder MD [address] [facility] [address] [place] [address] Persistent atrial fibrillation (CMS/HCC) 06/25/2025 9:45 AM EDT - 06/25/2025 11:30 AM EDT Surgery Electrophysiology Lab [address] [place] [address] Daniel Elder MD [address] [facility] [place] [address] ABLATION PULSED FIELD 07/02/2025 1:00 PM EDT Appointment [facility] Physicians - Sleep Medicine[address] [address] Jayy Whitfield NP [address] [facility] [address] [place] [address] 07/02/2025 2:15 PM EDT Appointment [facility] Physicians - Heart & Vascular[address] [place] [address] Amaris Cueva MD [address] [facility] [address] [place] [address] 07/28/2025 1:00 PM EST Appointment [facility] Physicians - Heart & Vascular, [place] [address] [facility] [place] [address] Lynnette Lopez NP [address] [facility] [address] [place] [address] documented as of this encounter Goals Goal Patient Goal Type Associated Problems Recent Progress Patient-Stated? Author Limit fluid intake to 2 liters per day Diet No Tairq Lee BS Reduce salt intake to 2 grams per day Diet No Tariq Lee BS Record weight daily Lifestyle Yes Tariq Lee BS documented as of this encounter Visit Diagnoses Not on filedocumented in this encounter Care Teams Dye House Worker Relationship Specialty Start Date End Date Sudhakar Lipscomb NP [address] [place], [place] [id number] PCP - General Family Medicine 08/30/23 Stephany Ortega, SHARONDA Cardiology 08/04/21 Amaris Cueva MD [address] [facility] [address] [place], [place] [id number] Cardiology 08/10/21 Maverick Lee MD [address] [facility] [address] [place], [place] [id number] Interventional Cardiology 09/06/21 Michael Gonzales MD [address] [place], [place] [address] Internal Medicine, Sleep Medicine 09/07/21 Lolly Warren NP [address] [place], [place] [address] Nurse Practitioner Nurse Practitioner, Acute Care 09/08/21 Daniel Whittington MD, PhD [address] [place], [place] [address] Clinical Cardiac Electrophysiology 09/13/21 Regina Esquivel NP [facility] [place] [address] [place] [address] Nurse Practitioner Nurse Practitioner, Acute Care 09/22/21 Maverick Waterman DO [address] [place] [address] Advanced Heart Failure/Transplant 09/30/21 Aris Tracey MD [address] [place] [address] [address] [place] [address] Urology 10/28/21 Noé Sofia DO [facility] [facility] [place] [address] Critical Care Medicine 12/28/22 documented as of this encounter
--- OUTSIDE RECORDS SUMMARY | 2025-05-03 00:55 | XMS_ITS | Encounter Summary ---
Author Organization [facility] Address [address] [place] [address] Care Team Providers Care Occ Therapy Asst Name Role Phone Stephany Ortega RN Unavailable Amaris Cueva MD Unavailable [phone] Maverick Lee MD Unavailable [phone] Michael Gonzales MD Unavailable [phone] Lolly Warren NP Unavailable [phone] Daniel Whittington MD, PhD Unavailable [phone] Regina Esquivel NP Unavailable [phone] Maverick Waterman DO Unavailable [phone] Aris Tracey MD Unavailable [phone] Noé Sofia DO Unavailable [phone] Sudhakar Lipscomb RED CROSS WORKER Primary Care Provider [phone] Reason for Visit * Reason Onset Date Comments Results 03/28/2025 KRIS & DCCV Encounter Details Date Type Department Care Team (Latest Contact Info) Description 03/28/2025 Results Follow-Up [facility] Physicians - Heart & Vascular, [facility] [address] [place] [address] Ayesha Rouse RN [address] [place] [address] KRIS ECHO CARDIOVERSION PRN CONTR/BUBBLE/3D Social History [...] Pt has f/u w/JLE 04/01 and EP RED CROSS WORKER visit 04/17/25 Pt aware of all instructions documented in this encounter Plan of Treatment Upcoming Encounters Date Type Department Care Team (Latest Contact Info) Description 05/13/2025 10:45 AM EDT Appointment [facility] Outpatient [place] [address] [facility], [address] [place] [address] 05/14/2025 1:15 PM EDT Appointment [facility] Physicians - Spine Surgery, [facility] [address] [facility] [address] [place] [phone] Leo Mosley PA-C [address] [place], [place] [id number] 05/16/2025 8:00 PM EDT Appointment [facility] Sleep [address] Medical Office Building [address] [place] [address] 05/19/2025 9:40 AM EDT Appointment [facility] Physicians - Pulmonary Medicine, [address] [place] [address] Noé Sofia DO [address] [facility] [place], [place] [address] 06/25/2025 9:45 AM EDT Hospital Encounter Cardiovascular Recovery Unit (CVRU) 9 [place] [address] Daniel Elder MD [address] [facility] [place] [address] Persistent atrial fibrillation (CMS/HCC) 06/25/2025 9:45 AM EDT - 06/25/2025 11:30 AM EDT Surgery Electrophysiology Lab [address] [place] [address] Daniel Elder MD [address] [facility] [place] [address] ABLATION PULSED FIELD 07/02/2025 1:00 PM EDT Appointment [facility] - Sleep Medicine[address] [phone] Jayy Whitfield NP [address] [facility] [address] [place], [place] [address] 07/02/2025 2:15 PM EDT Appointment [facility] Physicians - Heart & Vascular[address] [place] [address] Amaris Cueva MD [address] [place] [address] [place] [id number] 07/28/2025 1:00 PM EST Appointment [facility] Physicians - Heart & Vascular, [facility] [address] [facility] [place] [address] Lynnette Lopez NP [address] [facility] [address] [place], [place] [address] documented as of this encounter Goals Goal [...] on filedocumented in this encounter Care Teams Occ Therapy Asst Relationship Specialty Start Date End Date Sudhakar Lipscomb NP [address] [place] [address] PCP - General Family Medicine 08/30/23 Stephany Ortega, SHARONDA Cardiology 08/04/21 Amaris Cueva MD [address] [facility] [address] [place] [address] Cardiology 08/10/21 Maverick Lee MD [address] [facility] [address] [place] [address] Interventional Cardiology 09/06/21 Michael Gonzales MD [address] [place] [address] Internal Medicine, Sleep Medicine 09/07/21 Lolly Warren NP [address] [place] [address] Nurse Practitioner Nurse Practitioner, Acute Care 09/08/21 Daniel Whittington MD, PhD [address] [place] [address] Clinical Cardiac Electrophysiology 09/13/21 Regina Esquivel NP [address] [place] [address] Nurse Practitioner Nurse Practitioner, Acute Care 09/22/21 Maverick Waterman DO [address] [facility] [place] [address] Advanced Heart Failure/Transplant 09/30/21 Aris Tracey MD [address] [place] [address] [address] [place] [address] Urology 10/28/21 Noé Sofia DO [address] [place] [address] [address] [place], [place] [address] Critical Care Medicine 12/28/22 documented as of this encounter
--- OUTSIDE RECORDS SUMMARY | 2025-05-03 00:55 | XMS_ITS | Encounter Summary ---
Author Organization [facility] Address [address] [place] [address] Care Team Providers Care Storage Solutions Architect Name Role Phone Stephany Ortega RN Unavailable Amaris Cueva MD Unavailable [phone] Maverick Lee MD Unavailable [phone] Michael Gonzales MD Unavailable [phone] Lolly Warren NP Unavailable [phone] Daniel Whittington MD, PhD Unavailable [phone] Regina Esquivel NP Unavailable [phone] Maverick Waterman DO Unavailable [phone] Aris Tracey MD Unavailable [phone] Noé Sofia DO Unavailable [phone] Sudhakar Lipscomb PREDATORY HUNTER Primary Care Provider [phone] Encounter Details Date Type Department Care Team (Late st Contact Info) Description 03/23/2025 Orders Only [facility] Physicians - Sleep Medicine, [address] [place] [phone] Michael Gonzales MD [address] [place] [address]. [address] [place] [address] HANNAH (obstructive sleep apnea) (Primary Dx) Social [...] Description 05/13/2025 10:45 AM EDT Appointment [facility] Outpatient Center [address] [facility], [address] [place], [place] [id number] 05/14/2025 1:15 PM EDT Appointment [facility] Physicians - Spine Surgery, [place] [address] [facility] [address] [place] [phone] Leo Mosley PA-C [address] [place] [address] 05/16/2025 8:00 PM EDT Appointment [facility] Sleep [address] Medical Office Building [address] [place] [address] 05/19/2025 9:40 AM EDT Appointment [facility] Physicians - Pulmonary Medicine, [address] [place] [address] Noé Sofia DO [address] [facility] [address] [place], [place] [address] 06/25/2025 9:45 AM EDT Hospital Encounter Cardiovascular Recovery Unit (CVRU) [address] [place] [address] Daniel Elder MD [address] [facility] [address] [place] [address] Persistent atrial fibrillation (CMS/HCC) 06/25/2025 9:45 AM EDT - 06/25/2025 11:30 AM EDT Surgery Electrophysiology Lab [address] [place] [address] Daniel Elder MD [address] [facility] [place] [address] ABLATION PULSED FIELD 07/02/2025 1:00 PM EDT Appointment [facility] Physicians - Sleep Medicine, [place] [address] [place] [address] Jayy Whitfield NP [address] [place] [address] 07/02/2025 2:15 PM EDT Appointment [facility] Physicians - Heart & Vascular, [facility] [address] [place], [place] [address] [address] [place] [address] Amaris Cueva MD [address] [facility] [address] [place] [address] 07/28/2025 1:00 PM EST Appointment [facility] Physicians - Heart & Vascular, [facility] [address] [facility] [address] [place] [address] Lynnette Lopez NP [address] [place], [place] [address] Scheduled Orders Name Type Priority Associated Diagnoses [...] apnea)- Primary Obstructive sleep apnea (adult) (pediatric) Persistent atrial fibrillation (CMS/HCC)- Primary Atrial fibrillation Persistent atrial fibrillation (CMS/HCC) Atrial fibrillation documented in this encounter Care Teams Storage Solutions Architect Relationship Specialty Start Date End Date Sudhakar Lipscomb NP [address] [place] [address] PCP - General Family Medicine 08/30/23 Stephany Ortega, RN Cardiology 08/04/21 Amaris Cueva MD [address] [facility] [address] [place] [address] Cardiology 08/10/21 Maverick Lee MD [address] [facility] [address] [place] [address] Interventional Cardiology 09/06/21 Michael Gonzales MD [address] [place] [address] Internal Medicine, Sleep Medicine 09/07/21 Lolly Warren NP [address] [place] [address] Nurse Practitioner Nurse Practitioner, Acute Care 09/08/21 Daniel Whittington MD, PhD [address] [place] [address] Clinical Cardiac Electrophysiology 09/13/21 Regina Esquivel NP [address] [place] [address] Nurse Practitioner Nurse Practitioner, Acute Care 09/22/21 Maverick Waterman DO [address] [place] [address] Advanced Heart Failure/Transplant 09/30/21 Aris Tracey MD [address] [place] [address] [address] [place], [place] [address] Urology 10/28/21 Noé Sofia DO [address] [place] [address] [address] [place], [place] [address] Critical Care Medicine 12/28/22 documented as of this encounter
--- OUTSIDE RECORDS SUMMARY | 2025-05-03 00:55 | XMS_ITS | Encounter Summary ---
Author Organization [facility] Address [address] [place] [address] Care Team Providers Care Lens Assistant Name Role Phone Stephany Ortega RN Unavailable Amaris Cueva MD Unavailable [phone] Maverick Lee MD Unavailable [phone] Michael Gonzales MD Unavailable [phone] Lolly Warren NP Unavailable [phone] Daniel Whittington MD, PhD Unavailable [phone] Regina Esquivel NP Unavailable [phone] Maverick Waterman DO Unavailable [phone] Aris Tracey MD Unavailable [phone] Noé Sofia DO Unavailable [phone] Sudhakar Lipscomb DATE NIGHT CAREGIVER Primary Care Provider Reason for Visit * Reason Comments Medications Refill Encounter Details Date Type Department Care Team (Late st Contact Info) Description 04/09/2025 Refill [facility] Physicians - Heart & Vascular, [facility] [address] [place] [address] [address] [place] [address] Amaris Cueva MD [address] [facility] [address] [place] [address] Medications Refill Social History Tobacco Use Types [...] Description 05/13/2025 10:45 AM EDT Appointment [facility] [address] [facility], [address] [place] [address] 05/14/2025 1:15 PM EDT Appointment [facility] Physicians - Spine Surgery, [facility] [address] [facility] [address] [place] [phone] Leo Mosley PA-C [address] [place] [id number] 05/16/2025 8:00 PM EDT Appointment [facility] [place] [address] [facility] [address] [place] [address] 05/19/2025 9:40 AM EDT Appointment [facility] Physicians - Pulmonary Medicine, [address] [place] [phone] Noé Sofia DO [address] [facility] [place], [place] [address] 06/25/2025 9:45 AM EDT Hospital Encounter Cardiovascular Recovery Unit (CVRU) [address] [place] [address] Daniel Elder MD [address] [facility] [place] [address] Persistent atrial fibrillation (CMS/HCC) 06/25/2025 9:45 AM EDT - 06/25/2025 11:30 AM EDT Surgery Electrophysiology Lab [address] [place] [address] Daniel Elder MD [address] [facility] [place] [address] ABLATION PULSED FIELD 07/02/2025 1:00 PM EDT Appointment [facility] [address] [place] [address] Jayy Whitfield NP [address] [facility] [address] [place], [place] [address] 07/02/2025 2:15 PM EDT Appointment [facility] [address] [place] [address] [address] [place] [address] Amaris Cueva MD [address] [facility] [address] [place] [address] 07/28/2025 1:00 PM EST Appointment [facility] - Heart & Vascular, [facility] [address] [facility] [place] [address] Lynnette Lopez NP [address] [facility] [address] [place], [place] [address] documented as of this encounter Goals Goal [...] on filedocumented in this encounter Care Teams Lens Assistant Relationship Specialty Start Date End Date Sudhakar Lipscomb NP [address] [place] [address] PCP - General Family Medicine 08/30/23 Stephany Ortega, RN Cardiology 08/04/21 Amaris Cueva MD [address] [facility] [address] [place], [place] [id number] Cardiology 08/10/21 Maverick Lee MD [address] [facility] [address] [place], [place] [phone] Interventional Cardiology 09/06/21 Michael Gonzales MD [address] [place] [address] Internal Medicine, Sleep Medicine 09/07/21 Lolly Warren NP [address] [place] [address] Nurse Practitioner Nurse Practitioner, Acute Care 09/08/21 Daniel Whittington MD, PhD [address] [place] [address] Clinical Cardiac Electrophysiology 09/13/21 Regina Esquivel NP [address] [place], [place] [address] Nurse Practitioner Nurse Practitioner, Acute Care 09/22/21 Maverick Waterman DO [address] [facility]. [address] [place] [address] Advanced Heart Failure/Transplant 09/30/21 Aris Tracey MD [facility] [facility] [address] [place] [address] Urology 10/28/21 Noé Sofia DO [address] [place] [address] [address] [place] [address] Critical Care Medicine 12/28/22 documented as of this encounter
--- OUTSIDE RECORDS SUMMARY | 2025-05-03 00:55 | XMS_ITS | Clinical Summary ---
Author Organization [facility] Address [address] [facility], [address] [place] [address] Care Team Providers Care Packing Clerk Name Role Phone Donell Decker Primary Care Provider [phone] Allergies Active Allergy Reactions Criticality Noted Date [...] of Treatment Not on file Care Teams Packing Clerk Relationship Specialty Start Date End Date Donell Decker [address] [facility] [address] PCP - General 11/25/10
--- OUTSIDE RECORDS SUMMARY | 2025-05-03 00:55 | XMS_ITS | Encounter Summary ---
Author Organization [facility] Address [address] [place] [address] Care Team Providers Care Liberal Arts Dean Name Role Phone Stephany Ortega RN Unavailable Amaris Cueva MD Unavailable [phone] Maverick Lee MD Unavailable [phone] Michael Gonzales MD Unavailable [phone] Lolly Warren NP Unavailable [phone] Daniel Whittington MD, PhD Unavailable [phone] Regina Esquivel NP Unavailable [phone] Maverick Waterman DO Unavailable [phone] Aris Tracey MD Unavailable [phone] Noé Sofia DO Unavailable [phone] Sudhakar Lipscomb LICENSED PSYCHOLOGIST Primary Care Provider [phone] Reason for Visit * Reason Onset Date Comments Questions About Medications 09/12/2024 Encounter Details Date Type Department Care Team (Late st Contact Info) Description 09/12/2024 Telephone [facility] Physicians - Pulmonary Medicine, [facility] [address] [facility] [address] [place] [address] Noé Sofia DO [address] [facility] [place], [place] [id number] Questions About Medications Social History Tobacco Use [...] It was done here at the [facility] on 09/10. Please advise. Avised would send this message. documented in this encounter Plan of Treatment Upcoming Encounters Date Type Department Care Team (Latest Contact Info) Description 05/13/2025 10:45 AM EDT Appointment [facility] Testing Center - [facility] Outpatient Center [address] [facility], [address] [place], [place] [phone] 05/14/2025 1:15 PM EDT Appointment [facility] Physicians - Spine Surgery, [place] [address] [facility] [address] [place] [phone] Leo Mosley PA-C [address] [place], [place] [phone] 05/16/2025 8:00 PM EDT Appointment [facility] Sleep Center [address] Medical Office Building [address] [place] [address] 05/19/2025 9:40 AM EDT Appointment [facility] Physicians - Pulmonary Medicine, [address] [place] [address] Noé Sofia DO [address] [facility] [place] [address] 06/25/2025 9:45 AM EDT Hospital Encounter Cardiovascular Recovery Unit (CVRU) [address] [place] [address] Daniel Elder MD [address] [facility] [place] [address] Persistent atrial fibrillation (CMS/HCC) 06/25/2025 9:45 AM EDT - 06/25/2025 11:30 AM EDT Surgery Electrophysiology Lab [address] [place] [address] Daniel Elder MD [address] [facility] [place] [address] ABLATION PULSED FIELD 07/02/2025 1:00 PM EDT Appointment [facility] Physicians - Sleep Medicine, [address] [phone] Jayy Whitfield NP [address] [facility] [address] [place] [address] 07/02/2025 2:15 PM EDT Appointment [facility] Physicians - Heart & Vascular, [address] [place] [address] Amaris Cueva MD [address] [facility] [address] [place] [address] 07/28/2025 1:00 PM EST Appointment [facility] Physicians - Heart & Vascular, [place] [address] [facility] [address] [place] [phone] Lynnette Lopez NP [address] [place] [address] documented as of this encounter Goals Goal [...] on filedocumented in this encounter Care Teams Liberal Arts Dean Relationship Specialty Start Date End Date Sudhakar Lipscomb NP [address] [place] [address] PCP - General Family Medicine 08/30/23 Stephany Ortega, SHARONDA Cardiology 08/04/21 Amaris Cueva MD [address] [facility] [address] [place], [place] [id number] Cardiology 08/10/21 Maverick Lee MD [address] [facility] [address] [place] [address] Interventional Cardiology 09/06/21 Michael Gonzales MD [address] [facility] [place] [address] Internal Medicine, Sleep Medicine 09/07/21 Lolly Warren, TORRES [address] [place] [address] Nurse Practitioner Nurse Practitioner, Acute Care 09/08/21 Daniel Whittington MD, PhD [address] [place] [address] Clinical Cardiac Electrophysiology 09/13/21 Regina Esquivel NP [address] [place] [address] Nurse Practitioner Nurse Practitioner, Acute Care 09/22/21 Maverick Waterman DO [address] [facility] [place] [address] Advanced Heart Failure/Transplant 09/30/21 Aris Tracey MD [facility] [facility] [address] [place] [address] Urology 10/28/21 Noé Sofia DO [address] [place] [address] Critical Care Medicine 12/28/22 documented as of this encounter
--- OUTSIDE RECORDS SUMMARY | 2025-05-03 00:55 | XMS_ITS | Clinical Summary ---
Author Organization [facility] Address [address] [place] [address] Care Team Providers Care Clinical Therapist Name Role Phone Stephany Ortega RN Unavailable Amaris Cueva MD Unavailable [phone] Maverick Lee MD Unavailable [phone] Michael Gonzales MD Unavailable [phone] Lolly Warren NP Unavailable [phone] Daniel Whittington MD, PhD Unavailable [phone] Regina Esquivel NP Unavailable [phone] Maverick Waterman DO Unavailable [phone] Aris Tracey MD Unavailable [phone] Noé Sofia DO Unavailable [phone] Sudhakar Lipscomb TOOL GRINDING TECHNICIAN Primary Care Provider Allergies Active Allergy Reactions [...] (20 mg) by mouth daily. 60 Tablet 025 Active metoprolol succinate (TOPROL) 50 mg Tablet Sustained Release 24 hrIndications:Ekaterina charlette hypertension,Pers istent atrial fibrillation (CMS/HCC) Take 1 Tablet (50 mg) by mouth 2 times daily. 180 Tablet 3 025 Active losartan (COZAAR) 100 mg Tablet Take 1 Tablet by mouth in the morning. 90 Tablet 3 025 Active dapagliflozin propanediol (Farxiga) 10 mg Tablet tablet Take 1 Tablet by mouth every morning. 90 Tablet 3 025 Active apixaban (Eliquis) 5 mg Tablet Take 1 Tablet (5 mg) by mouth 2 times daily. 60 Tablet 11 Active tamsulosin (FLOMAX) 0.4 mg sustained release capsule Active apixaban (ELIQUIS) 5 mg Tablet Take 1 Tablet (5 mg) by mouth 2 times daily. 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 11/08/2022 Essential hypertension 05/09/2022 Bladder stone 10/28/2021 Overview (10/28/2021): Added automatically from request for surgery [id number] Chronic systolic CHF (congestive heart failure) 09/21/2021 [...] Encounters Date Type Department Care Team Description 04/17/2025 10:30 AM EDT Office Visit [facility] Physicians - Heart & Vascular, [address] [place] [address] Daniel Elder MD Persistent atrial fibrillation (CMS/HCC) (Primary Dx); RBBB with left anterior fascicular block; Nonischemic cardiomyopathy (CMS/HCC) 04/17/2025 Telephone [facility] Physicians - Heart & Vascular, [place] [address] [place] [address] Selena Posada 04/09/20[address] [place] [phone] Amaris Cueva MD Medications Refill 04/01/2025 2:15 PM EDT Office Visit The [address] [place] [phone] Amaris Cueva MD Persistent atrial fibrillation (CMS/HCC) (Primary Dx); Cryoballoon catheter ablation of longstanding persistent atrial fibrillation 09-09-2021 [place]; Coronary artery disease involving ruby coronary artery of ruby heart without angina pectoris; Nonischemic cardiomyopathy (CMS/HCC); HANNAH (obstructive sleep apnea); Mixed hyperlipidemia; Nonrheumatic mitral valve regurgitation; Chronic systolic CHF (congestive heart failure) (CMS/HCC) 03/28/2025 6:44 AM EDT - 03/28/2025 11:59 PM EDT Hospital Encounter [facility] Cardiovascular Testing Center - [facility] - C-Level [address] [place] [address] Persistent atrial fibrillation (CMS/HCC) Discharge Disposition: Home or Self Care 03/28/2025 Results Follow-Up The [address] [place] [phone] Ayesha Rouse RN KRIS ECHO CARDIOVERSION PRN CONTR/BUBBLE/3D 03/26/2025 2:00 PM EDT Office Visit The [address] [place] [address] Amaris Cueva MD Persistent atrial fibrillation (CMS/HCC) (Primary Dx); Coronary artery disease involving ruby coronary artery of ruby heart without angina pectoris; Cryoballoon catheter ablation of longstanding persistent atrial fibrillation 09-09-2021 [place]; Essential hypertension; Nonischemic cardiomyopathy (CMS/HCC); HANNAH (obstructive sleep apnea); Chronic systolic CHF (congestive heart failure) ([facility]/HCC); Localized edema; Mixed hyperlipidemia 03/26/2025 Telephone [facility] Physicians - Heart & Vascular, [facility] [address] [place] [address] [address] [place] [address] Tiffanie Cole RN Procedure (KRIS/CV) 03/24/2025 Telephone [facility] [address] [place] [address] Michael Gonzales MD Scheduling 03/23/2025 Orders Only [facility] - Sleep Medicine[address] [place] [address] Michael Gonzales MD HANNAH (obstructive sleep apnea) (Primary Dx) 03/22/2025 7:53 PM EDT - 03/22/2025 10:58 PM EDT Hospital Encounter [facility] Sleep [address] [place] [address] HANNAH (obstructive sleep apnea) Discharge Disposition: Home or Self Care 03/22/2025 Travel 03/21/2025 Telephone [facility] Physicians Sleep Medicine[address] [place] [phone] Michael Gonzales MD 03/11/2025 Telephone Cardiology Services [address] [place] [address] Lindsey Danielson PA Palpitations/Arrhythm ia 03/11/2025 Telephone [facility] - [facility] [address] [place], [place] [address] Richar Aguirre MD Advice Only 03/07/2025 9:45 AM EDT Office Visit [facility] Physicians - Orthopaedics & Sports Medicine, [place] [address] [facility] [address] [place] [address] Judd Wu PA Arthritis of right knee (Primary Dx); Right hip pain; Right knee pain, unspecified chronicity; Acute right-sided low back pain, unspecified whether sciatica present 03/07/2025 Clinical Update [facility] Physicians - Spine Surgery, [place] [address] [place] [phone] Charlette Almeida 02/26/2025 Refill [facility] [address] [place] [address] [address] [place] [address] Amaris Cueva MD Medications Refill 02/25/2025 Refill [facility] [address] [place] [address] Amaris Cueva MD Medications Refill 02/13/2025 Telephone [facility] - Sleep Medicine, [place] [address] [place] [address] Michael Gonzales MD Scheduling (r/s split night at [place]) 02/13/2025 Telephone [facility] [address] [place] [address] Tiffanie Cole, RN Patient Status Update from Last 3 Months Family History Medical [...] Pulse 58 04/17/2025 10:20 AM EDT Temperature 36.7 C (98.1 F) 03/28/2025 7:02 AM EDT Respiratory Rate 16 03/28/2025 8:30 AM EDT Oxygen Saturation 95% 03/28/2025 8:30 AM EDT Inhaled Oxygen Concentration - - Weight 113.4 kg (250 lb) 04/17/2025 10:20 AM EDT Height 172.7 cm (5' 8 ) 04/17/2025 10:20 AM EDT Per Pt Body Mass Index 38.01 04/17/2025 10:20 AM EDT Plan of Treatment Upcoming Encounters Date Type Department Care Team (Latest Contact Info) Description 05/13/2025 10:45 AM EDT Appointment [facility] Outpatient Center [address] [facility] [place] [address] 05/14/2025 1:15 PM EDT Appointment [facility] Physicians - Spine Surgery, [facility] [address] [place] [address] [address] [place] [phone] Leo Mosley PA-C [address] [place], [place] [phone] 05/16/2025 8:00 PM EDT Appointment [facility] Sleep Center [address] Medical Office [address] [place] [address] 05/19/2025 9:40 AM EDT Appointment [facility] Physicians - Pulmonary Medicine, [address] [place] [address] Noé Sofia DO [address] [facility] [place], [place] [address] 06/25/2025 9:45 AM EDT Hospital Encounter Cardiovascular Recovery Unit (CVRU) [address] [place] [address] Daniel Elder MD [address] [facility] [place] [address] Persistent atrial fibrillation (CMS/HCC) 06/25/2025 9:45 AM EDT - 06/25/2025 11:30 AM EDT Surgery Electrophysiology Lab [address] [place] [address] Daniel Elder MD [address] [facility] [place] [address] ABLATION PULSED FIELD 07/02/2025 1:00 PM EDT Appointment [facility] - Sleep Medicine[address] [address] Jayy Whitfield NP [address] [facility] [address] [place] [address] 07/02/2025 2:15 PM EDT Appointment [facility] [address] [place] [address] [address] [place] [address] Amaris Cueva MD [address] [facility] [address] [place] [address] 07/28/2025 1:00 PM EST Appointment [facility] Physicians - Heart & Vascular, [facility] [address] [facility] [place] [address] Lynnette Lopez NP [address] [facility] [address] [place], [place] [address] Health Maintenance Due Date Last Done Comments Cologuard 1955 Colonoscopy 1955 Colorectal Cancer Screening [...] 09/07/2024, 11/2022, 08/30/2021 Lipid Screening Discontinued 09/07/2024, 11/2022, 08/30/2021 Goals Goal Patient Goal Type [...] 10:48 AM EDT Persistent atrial fibrillation (CMS/HCC) ECG Routine 04/01/2025 2:29 PM EDT Persistent [...] Relevant to Health Maintenance Results * ECG (04/17/2025 10:48 AM EDT) Only the most recent of3 resultswithin the time period is included. Heart Rate 59 bpm [facility] EXTER NAL LAB QRS Interval 148 ms [facility] EXT ERNAL LAB QT Interval 455 ms [facility] EXTE RNAL LAB QTc Interval 451 ms [facility] EX[facility] ERNAL LAB P [place] 15 deg [facility]CH TURF MANAGER AL LAB QRS [place] -73 deg TCH TURF MANAGER AL LAB T Wave [place] 57 deg [facility] EXTE RNAL LAB P-R Interval 143 msec [facility] EX[facility] ERNAL LAB 04/17/2025 10:4 8 AM EDT Narrative [facility] EXTERNAL [facility] - 04/17/2025 10:52 AM EDT [facility] Test Date: 2025-04-17 10:48:48 Pat Name: RENETTA RUIZ Department: 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 Electronically Signed On 04-17-2025 10:52:51 EDT by Daniel Elder MD Procedure Note Daniel Elder MD - 04/17/2025 [facility] Test Date: 2025-04-17 10:48:48 Pat Name: [facility] Department: 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 Order Number: [id number] Reading MD: Daniel Elder MD Interpretive Statements Sinus rhythm Atrial premature complex RBBB and LAFB PVC No significant change from previous ECG. Electronically Signed On 04-17-2025 10:52:51 EDT by Daniel Elder MD us Daniel Elder MD ECG ORDERABLES Final Re sult [facility] EXTERNAL LAB [address] [place] [address] * KRIS ECHO CARDIOVERSION PRN CONTR/BUBBLE/3D (03/28/2025 8:09 AM EDT) Anatomical Region Laterality Modality Cardiac Ultrasou nd 03/28/2025 7:32 AM EDT Narrative 03/28/2025 1:17 PM EDT [facility] Echocardiography Lab [address] [place] [address] Transesophageal Echocardiography Patient: Renetta Ruzi Gender: M MR #: [id number] Age: 69 Account: [id number] : 1955 Study Date: 03/28/2025 Room: BP: 125 / 91 Referring Physician: Amaris Cueva Interpreting Physician: Herbert Camacho REFERRING Amaris Cueva PERFORMING Herbert Camacho ORDERING Amaris Cueva Procedure:KRIS ECHO CARDIOVERSION PRN Order: Number:[id number] Facility: [facility] Heart Station Indications: Atrial [...] multiplane transesophageal probe was insertedby the performing scagliola mechanic without difficulty. Image quality was adequate. Scanning [...] effusion. Reviewed and confirmed by Herbert Camacho [id number] Procedure Note Herbert Camacho MD - 03/28/2025 [facility] Echocardiography Lab [address] [place], [place] [address] Transesophageal Echocardiography Patient: Renetta Ruiz Gender: M MR #: [id number] Age: 69 Account: [id number] : 1955 Study Date: 03/28/2025 Room: BP: 125 / 91 Referring Physician: Amaris Cueva Interpreting Physician: Herbert Camacho REFERRING Amaris Cueva PERFORMING Herbert Camacho ORDERING Amaris Cueva Procedure:KRIS ECHO CARDIOVERSION PRN Order: Sol JOSEPH/Mee Number:[id number] Facility: [facility] Heart Station Indications: Atrial [...] Anadult multiplane transesophageal probe wasinsertedby the performing scagliola mechanic without difficulty. Image quality wasadequate. Scanning was [...] effusion. 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1955 Requested By: LYDIA Cárdenas Order Number: [id number] Reading MD: Jeff Buck MD Interpretive Statements Sinus rhythm Ventricular premature complexes Premature atrial complex RBBB and LAFB Compared to the prior tracing, sinus rhythm has replaced atrial fibrillation Electronically Signed On 03-28-2025 11:54:11 EDT by Jeff Buck MD Procedure Note Jeff Buck MD - 03/28/2025 [facility] Test Date: 2025-03-28 07:59:07 Pat Name: RENETTA RUIZ [facility] Gender: Male 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: R : 1955 Requested By: LYDIA Cárdenas Order Number: [id number] Reading MD: Jeff Buck MD Interpretive Statements Sinus rhythm Ventricular premature complexes Premature atrial complex RBBB and LAFB Compared to the prior tracing, sinus rhythm has replaced atrialfibrillation Electronically Signed On 03-28-2025 11:54:11 EDT by Jeff Buck MD us Lydia Villanueva MD ECG ORDERABLES Final Result Performing Organization Address [facility] Co de Phone Number [facility] EXTERNAL LAB [address] * POC POTASSIUM (03/28/2025 7:14 AM EDT) Pathologist [facility] POC Potassium 4.4 3.5 - 5.1 mmol/L [facility] EXTERNAL LAB Blood, Venous 03/28/2025 7:1 4 AM EDT 03/28/2025 7:15 AM EDT us Amaris Cueva MD POINT OF CARE TEST ORDERABL ES Final Result Performing Organization Address [facility] de Phone Number [facility] EXTERNAL LAB [address] * DIAG-KNEE MIN 4-VIEWS RT (03/07/2025) Anatomical Region Laterality Modality Thigh, Knee, Leg Other Richar Aguirre MD G DIAGNOSTIC IMAGING ORDERAB LES Final Result * DIAG-RIGHT HIP 2-3 VIEWS W/WO PELVIS (03/07/2025) Anatomical Region Laterality Modality Pelvis Other us Richar Aguirre MD IMG DIAGNOSTIC IMAGING ORDERAB LES Final Result * (ABNORMAL) LIPID PROFILE (09/07/2024 7:14 PM EST) Pathologist [facility] Cholesterol 118(L) 125 - 199 mg/dL [facility] EXTERNAL LAB Comment: TOTAL CHOLESTEROL INTERPRETATION: Less [...] 7:14 PM EST 09/07/2024 7:37 PM EST us Barbie Taylor MD CHEMISTRY ORDERABLES Final Result [facility] EXTERNAL LAB [address] from Last 3 Months or Most Recently Relevant to Health Maintenance Insurance [place] [address] [address] Advance Directives For more information, please contact: [phone] Documents on File Type Date Recorded Patient Vendor Specialist Expl anation Advance Directives and Living Will 09/17/2021 10:26 AM [facility] POWER OF OFFICE MACHINERY OR EQUIPMENT INSTALLER * Full Code (Latest Code Status on [...] First Alternate Health Care Agent Care Teams Clinical Therapist Relationship Specialty Start Date End Date Sudhakar Lipscomb NP [address] [place] [address] PCP - General Family Medicine 08/30/23 Stephany Ortega, RN Cardiology 08/04/21 Amaris Cueva MD [address] [facility] [address] [place] [id number] Cardiology 08/10/21 Maverick Lee MD [address] [facility] [address] [place], [place] [phone] Interventional Cardiology 09/06/21 Michael Gonzales MD [address] [place] [address] Internal Medicine, Sleep Medicine 09/07/21 Lolly Warren NP [address] [place] [address] Nurse Practitioner Nurse Practitioner, Acute Care 09/08/21 Daneil Whittington MD, PhD [facility] [address] [place] [address] Clinical Cardiac Electrophysiology 09/13/21 Regina Esquivel NP [address] [place] [address] Nurse Practitioner Nurse Practitioner, Acute Care 09/22/21 Maverick Waterman DO [address] [facility] [place] [address] Advanced Heart Failure/Transplant 09/30/21 Aris Tracey MD [address] [place] [address] [address] [place] [address] Urology 10/28/21 Noé Sofia DO [address] [place] [address] Critical Care Medicine 12/28/22
--- OUTSIDE RECORDS SUMMARY | 2025-05-03 00:55 | XMS_ITS | Encounter Summary ---
Author Organization [facility] Address [address] [place] [address] Care Team Providers Care Certified Retinal Angiographer Name Role Phone Pamela Apple Primary Care Provider Stephany Ortega RN Unavailable Amaris Cueva MD Unavailable [phone] Maverick Lee MD Unavailable [phone] Michael Gonzales MD Unavailable [phone] Lolly Warren NP Unavailable [phone] Daniel Whittington MD, PhD Unavailable [phone] Regina Esquivel NP Unavailable [phone] Maverick Waterman DO Unavailable [phone] Aris Tracey MD Unavailable [phone] Noé Sofia DO Unavailable [phone] Sudhakar Lipscomb BUSINESS CONSULT Primary Care Provider [phone] Encounter Details Date Type Department Care Team (Latest Contact Info) Description 10/28/2021 Preop Surgical Orders [facility] Physicians - Urology, [facility] [address] [facility] [address] [place] [phone] Lolly Lipscomb, RN Bladder stone (Primary Dx); [...] Description 05/13/2025 10:45 AM EDT Appointment [facility] Testing [facility] Outpatient Center [address] [facility], [address] [place] [address] 05/14/2025 1:15 PM EDT Appointment [facility] Physicians - Spine Surgery, [facility] [address] [facility] [address] [place] [address] Leo Mosley PA-C [address] [place], [place] [phone] 05/16/2025 8:00 PM EDT Appointment [facility] Sleep Center [place] [address] [facility] Medical Office Building [address] [place] [address] 05/19/2025 9:40 AM EDT Appointment [facility] Physicians - Pulmonary Medicine, [facility] [address] [facility] [address] [place] [address] Noé Sofia DO [address] [place] [address] 06/25/2025 9:45 AM EDT Hospital Encounter Cardiovascular Recovery Unit (CVRU) [address] [place] [address] Daniel Elder MD [address] [facility] [place] [address] Persistent atrial fibrillation (CMS/HCC) 06/25/2025 9:45 AM EDT - 06/25/2025 11:30 AM EDT Surgery Electrophysiology Lab 9 [place] [address] Daniel Elder MD [address] [facility] [place] [address] ABLATION PULSED FIELD 07/02/2025 1:00 PM EDT Appointment [facility] Physicians - Sleep Medicine[address] [address] Jayy Whitfield NP [address] [facility] [address] [place] [address] 07/02/2025 2:15 PM EDT Appointment [facility] Physicians - Heart & Vascular, [facility] [address] [place] [address] [address] [place] [address] Amaris Cueva MD [address] [facility] [address] [place] [address] 07/28/2025 1:00 PM EST Appointment [facility] Physicians - Heart & Vascular, [facility] [address] [facility] [address] [place] [address] Lynnette Lopez NP [address] [facility] [address] [place] [address] documented as of this encounter Goals Goal [...] Primary Other calculus in bladder Gross hematuria Persistent atrial fibrillation (CMS/HCC)- Primary Atrial fibrillation Persistent atrial fibrillation (CMS/HCC) Atrial fibrillation documented in this encounter Care Teams Certified Retinal Angiographer Relationship Specialty Start Date End Date Apple Santiago [address] [place], [place] [id number] PCP - General Family Medicine 08/02/21 08/29/23 Sudhakar Lipscomb NP [address] [place] [address] [id number] PCP - General Family Medicine 08/30/23 Stephany Ortega, SHARONDA Cardiology 08/04/21 Amaris Cueva MD [address] [facility] [address] [place], [place] [id number] Cardiology 08/10/21 Maverick Lee MD [address] [facility] [address] [place], [place] [phone] Interventional Cardiology 09/06/21 Michael Gonzales MD [address] [facility] [place] [address] Internal Medicine, Sleep Medicine 09/07/21 Lolly Warren, TORERS [address] [place] [address] Nurse Practitioner Nurse Practitioner, Acute Care 09/08/21 Daniel Whittington MD, PhD [address] [place] [address] Clinical Cardiac Electrophysiology 09/13/21 Regina Esquivel BUSINESS CONSULT [address] [place] [address] Nurse Practitioner Nurse Practitioner, Acute Care 09/22/21 Maverick Waterman DO [address] [facility] [place] [address] Advanced Heart Failure/Transplant 09/30/21 Aris Tracey MD [address] [facility] [address] [place] [address] Urology 10/28/21 Noé Sofia DO [address] [place] [address] Critical Care Medicine 12/28/22 documented as of this encounter
--- OUTSIDE RECORDS SUMMARY | 2025-05-03 00:55 | XMS_ITS | Clinical Summary ---
Author Organization [facility] Address [facility] [address] Phone Care Team Providers Care Human Resources Records Clerk Name Role Phone Pat Campoverde MD Unavailable Rena Hussein MOTHER'S HELPER Primary Care Provider [phone] Allergies Active Allergy Reactions Criticality Noted Date [...] [place] PART B CLAIMS PB Care Teams Human Resources Records Clerk Relationship Specialty Start Date End Date Rena Hussein FNP [address] [place] [address] PCP - General Nurse Practitioner 04/02/20 Pat Campoverde MD Internal Medicine-Nephrology 04/02/20
--- OUTSIDE RECORDS SUMMARY | 2025-05-03 00:55 | XMS_ITS | Encounter Summary ---
Author Organization [facility] Address [address] [place] [address] Care Team Providers Care Plant Anatomist Name Role Phone Stephany Ortega RN Unavailable Amaris Cueva MD Unavailable [phone] Maverick Lee MD Unavailable [phone] Michael Gonzales MD Unavailable [phone] Lolly Warren NP Unavailable [phone] Daniel Whittington MD, PhD Unavailable [phone] Regina Esquivel NP Unavailable [phone] Maverick Waterman DO Unavailable [phone] Aris Tracey MD Unavailable [phone] Noé Sofia DO Unavailable [phone] Sudhakar Lipscomb SAW MAKER Primary Care Provider Encounter Details Date Type Department Care Team (Late st Contact Info) Description 03/21/2025 Telephone [facility] Physicians - Sleep Medicine[address] [place] [phone] Michael Gonzales MD [address] [place] [address]. [address] [place] [address] Social History Tobacco Use Types Packs/Day Years [...] Description 05/13/2025 10:45 AM EDT Appointment [facility] Outpatient Center [address] [facility], [address] [place] [address] 05/14/2025 1:15 PM EDT Appointment [facility] Physicians - Spine Surgery, [place] [address] [facility] [address] [place] [address] Leo Mosley PA-C [address] [place], [place] [address] 05/16/2025 8:00 PM EDT Appointment [facility] Sleep Center [place] [address] [facility] Medical Office Building [address] [place] [address] 05/19/2025 9:40 AM EDT Appointment [facility] Physicians - Pulmonary Medicine, [facility] [address] [facility] [address] [place] [address] Noé Sofia DO [address] [facility] [place] [address] 06/25/2025 9:45 AM EDT Hospital Encounter Cardiovascular Recovery Unit (CVRU) [address] [place] [address] Daniel Elder MD [address] [facility] [place] [address] Persistent atrial fibrillation (CMS/HCC) 06/25/2025 9:45 AM EDT - 06/25/2025 11:30 AM EDT Surgery Electrophysiology Lab 9 [place] [address] Daniel Elder MD [address] [facility] [place] [address] ABLATION PULSED FIELD 07/02/2025 1:00 PM EDT Appointment [facility] [address] [place] [address] Jayy Whitfield NP [address] [place] [address] 07/02/2025 2:15 PM EDT Appointment [facility] [address] [place] [address] [address] [place] [address] Amaris Cueva MD [address] [facility] [address] [place] [address] 07/28/2025 1:00 PM EST Appointment [facility] Physicians - Heart & Vascular, [facility] [address] [facility] 137 [place] [address] Lynnette Lopez NP [address] [facility] [address] [place] [address] documented as of this encounter Goals Goal [...] on filedocumented in this encounter Care Teams Plant Anatomist Relationship Specialty Start Date End Date Sudhakar Lipscomb NP [address] [place] [address] PCP - General Family Medicine 08/30/23 Stephany Ortega, RN Cardiology 08/04/21 Amaris Cueva MD [address] [facility] [address] [place], [place] [phone] Cardiology 08/10/21 Maverick Lee MD [address] [facility] [address] [place], [place] [id number] Interventional Cardiology 09/06/21 Michael Gonzales MD [address] [place] [address] Internal Medicine, Sleep Medicine 09/07/21 Lolly Warren NP [address] [place] [address] Nurse Practitioner Nurse Practitioner, Acute Care 09/08/21 Daniel Whittington MD, PhD [address] [place] [address] Clinical Cardiac Electrophysiology 09/13/21 Regina Esquivel NP [address] [place] [address] Nurse Practitioner Nurse Practitioner, Acute Care 09/22/21 Maverick Waterman DO [address] [place] [address] Advanced Heart Failure/Transplant 09/30/21 Aris Tracey MD [address] [place] [address] [place], [place] [address] Urology 10/28/21 Noé Sofia DO [address] [place] [address] [place], [place] [address] Critical Care Medicine 12/28/22 documented as of this encounter
--- OUTSIDE RECORDS SUMMARY | 2025-05-03 00:55 | XMS_ITS | Encounter Summary ---
Author Organization [facility] Address [address] [place] [address] Care Team Providers Care Dental Front Office Assistant Name Role Phone Stephany Ortega RN Unavailable Amaris Cueva MD Unavailable [phone] Maverick Lee MD Unavailable [phone] Michael Gonzales MD Unavailable [phone] Lolly Warren NP Unavailable [phone] Daniel Whittington MD, PhD Unavailable [phone] Regina Esquivel NP Unavailable [phone] Maverick Waterman DO Unavailable [phone] Aris Tracey MD Unavailable [phone] Noé Sofia DO Unavailable [phone] Sudhakar Lipscomb REGRIND MILL OPERATOR Primary Care Provider [phone] Encounter Details Date Type Department Care Team [...] Description 05/13/2025 10:45 AM EDT Appointment [facility] Outpatient Center [address] [facility], [address] [place] [address] 05/14/2025 1:15 PM EDT Appointment [facility] Physicians - Spine Surgery, [place] [address] [place] [address] [address] [place] [address] Leo Mosley PA-C [address] [place], [place] [phone] 05/16/2025 8:00 PM EDT Appointment [facility] Sleep Center [address] Medical Office Building [address] [place] [address] 05/19/2025 9:40 AM EDT Appointment [facility] Physicians - Pulmonary Medicine, [address] [place] [address] Noé Sofia DO [address] [place], [place] [address] 06/25/2025 9:45 AM EDT Hospital Encounter Cardiovascular Recovery Unit (CVRU) 9 [place] [address] Daniel Elder MD [address] [facility] [place] [address] Persistent atrial fibrillation (CMS/HCC) 06/25/2025 9:45 AM EDT - 06/25/2025 11:30 AM EDT Surgery Electrophysiology Lab [address] [place] [address] Daniel Elder MD [address] [facility] [place] [address] ABLATION PULSED FIELD 07/02/2025 1:00 PM EDT Appointment [facility] Physicians - Sleep Medicine, [place] [address] [place] [address] Jayy Whitfield NP [address] [facility] [address] [place] [address] 07/02/2025 2:15 PM EDT Appointment [facility] Physicians - Heart & Vascular, [facility] [address] [facility] [address] [place] [address] Amaris Cueva MD [address] [facility] [address] [place] [address] 07/28/2025 1:00 PM EST Appointment [facility] Physicians - Heart & Vascular, [place] 3 [facility] 137 [place] [address] Lynnette Lopez NP [address] [facility] 137 [place] [address] documented as of this encounter Goals Goal [...] on filedocumented in this encounter Care Teams Dental Front Office Assistant Relationship Specialty Start Date End Date Sudhakar Lipscomb NP [address] [place] [address] PCP - General Family Medicine 08/30/23 Stephany Ortega, SHARONDA Cardiology 08/04/21 Amaris Cueva MD [address] [facility] [address] [place] [id number] Cardiology 08/10/21 Maverick Lee MD [address] [facility] [address] [place] [address] Interventional Cardiology 09/06/21 Michael Gonzales MD [address] [place] [address] Internal Medicine, Sleep Medicine 09/07/21 Lolly Warren NP [address] [place] [address] Nurse Practitioner Nurse Practitioner, Acute Care 09/08/21 Daniel Whittington MD, PhD [address] [place] [address] Clinical Cardiac Electrophysiology 09/13/21 Regina Esquivel NP [address] [place] [address] Nurse Practitioner Nurse Practitioner, Acute Care 09/22/21 Maverick Waterman DO [address] [place] [address] Advanced Heart Failure/Transplant 09/30/21 Aris Tracey MD [address] [place] [address] [address] [place] [address] Urology 10/28/21 Noé Sofia DO [address] [place] [address] Critical Care Medicine 12/28/22 documented as of this encounter
--- OUTSIDE RECORDS SUMMARY | 2025-05-03 00:55 | XMS_ITS | Encounter Summary ---
Author Organization [facility] Address [address] [place] [address] Care Team Providers Care Milk Driver Name Role Phone Stephany Ortega RN Unavailable Amaris Cueva MD Unavailable [phone] Maverick Lee MD Unavailable [phone] Michael Gonzales MD Unavailable [phone] Lolly Warren NP Unavailable [phone] Daniel Whittington MD, PhD Unavailable +[phone] Regina Esquivel NP Unavailable [phone] Maverick Waterman DO Unavailable [phone] Aris Tracey MD Unavailable [phone] Noé Sofia DO Unavailable [phone] Sudhakar Lipscomb MANUFACTURING TECHNOLOGY PROFESSOR Primary Care Provider [phone] Reason for Visit * Reason Onset Date Comments Advice Only 03/11/2025 Encounter Details Date Type Department Care Team (Late st Contact Info) Description 03/11/2025 Telephone [facility] - Central Scheduling [address] [place] [address] [place] [address] [facility] [address] [place], [place] [id number] Advice Only Social History Tobacco Use Types [...] X- ray report with Judd REID to [phone]. Kendal verbalized understanding. * Telephone Encounter - Annmarie Collins - 03/11/2025 10:23 AM EDT Molly with Dr. Mccarthy called for patient with a Request: requesting X ray report from 03/07/25. Ph. [phone]. documented in this encounter Plan of Treatment Upcoming Encounters Date Type Department Care Team (Latest Contact Info) Description 05/13/2025 10:45 AM EDT Appointment [facility] [address] [facility], [address] [place] [address] 05/14/2025 1:15 PM EDT Appointment [facility] Phys[facility] - Spine Surgery, [place] [address] [place] [address] [address] [place] [address] Leo Mosley PA-C [address] [place] [address] 05/16/2025 8:00 PM EDT Appointment [facility] Sleep Center [address] Medical Office Building [address] [place] [address] 05/19/2025 9:40 AM EDT Appointment [facility] - Pulmonary Medicine, [address] [place] [address] Noé [place] [address] [place] [address]. [address] [place], [place] [address] 06/25/2025 9:45 AM EDT Hospital Encounter Cardiovascular Recovery Unit (CVRU) 2139 [place] [address] Daniel Elder MD [address] [facility] [place] [address] Persistent atrial fibrillation (CMS/HCC) 06/25/2025 9:45 AM EDT - 06/25/2025 11:30 AM EDT Surgery Electrophysiology Lab 2[address] [place] [address] Daniel Elder MD [address] [facility] [place] [address] ABLATION PULSED FIELD 07/02/2025 1:00 PM EDT Appointment [facility] - Sleep Medicine[address] [phone] Jayy Whitfield NP [address] [facility] [address] [place] [address] 07/02/2025 2:15 PM EDT Appointment [facility] - Heart & Vascular[address] [place] [address] Amaris Cueva MD [address] [place] [address] [address] [place] [address] 07/28/2025 1:00 PM EST Appointment [facility] - Heart & Vascular, [facility] [address] [facility] [address] [place] [address] Lynnette Lopez NP [address] [facility] [address] [place] [address] documented as of this encounter Goals Goal [...] on filedocumented in this encounter Care Teams Milk Driver Relationship Specialty Start Date End Date Sudhakar Lipscomb NP [address] [place] [address] PCP - General Family Medicine 08/30/23 Stephany Ortega, RN Cardiology 08/04/21 Amaris Cueva MD [address] [facility] [address] [place] [address] Cardiology 08/10/21 Maverick Lee MD [address] [facility] [address] [place], [place] [id number] Interventional Cardiology 09/06/21 Michael Gonzales MD [address] [place] [address] Internal Medicine, Sleep Medicine 09/07/21 Lolly Warren NP [address] [place] [address] Nurse Practitioner Nurse Practitioner, Acute Care 09/08/21 Daniel Whittington MD, PhD [address] [place] [address] Clinical Cardiac Electrophysiology 09/13/21 Regina Esquivel NP [address] [place] [address] [address] [place] [phone] (Work) Nurse Practitioner Nurse Practitioner, Acute Care 09/22/21 Maverick Waterman DO [address] [place] [address] Advanced Heart Failure/Transplant 09/30/21 Aris Tracey MD [address] [place] [address] [address] [place] [address] Urology 10/28/21 Noé Sofia DO [address] [place] [address] [place] [address] Critical Care Medicine 12/28/22 documented as of this encounter
--- OUTSIDE RECORDS SUMMARY | 2025-05-03 00:55 | XMS_ITS | Encounter Summary ---
Author Organization [facility] Address [address] [place] [address] Care Team Providers Care Boiler Operator Name Role Phone Stephany Ortega RN Unavailable Amaris Cueva MD Unavailable [phone] Maverick Lee MD Unavailable [phone] Michael Gonzales MD Unavailable [phone] Lolly Warren NP Unavailable [phone] Daniel Whittington MD, PhD Unavailable +[phone] Regina Esquivel NP Unavailable [phone] Maverick Waterman DO Unavailable [phone] Aris Tracey MD Unavailable [phone] Noé Sofia DO Unavailable [phone] Sudhakar Lipscomb AGENCY OWNER Primary Care Provider [phone] Encounter Details Date Type Department Care Team (Late st Contact Info) Description 09/17/2024 Telephone [facility] Physicians - Pulmonary Medicine, [facility] [address] [facility] [place] [phone] Noé Sofia DO [address] [facility] [place], [place] [id number] Social History Tobacco Use Types Packs/Day Years [...] encounter Miscellaneous Notes * Telephone Encounter - Puaj Esqueda - 09/17/2024 11:16 AM EST Patient is requesting for the Dr to read his Ct scan and other procedure that he had done a few days ago. Please Advise. documented in this encounter Plan of Treatment Upcoming Encounters Date Type Department Care Team (Latest Contact Info) Description 05/13/2025 10:45 AM EDT Appointment [facility] [address] [facility], [address] [place] [address] 05/14/2025 1:15 PM EDT Appointment [facility] Physicians - Spine Surgery, [place] [address] [facility] [address] [place] [phone] Leo Mosley PA-C [address] [place] [address] 05/16/2025 8:00 PM EDT Appointment [facility] [place] [address] [facility] [address] [place] [address] 05/19/2025 9:40 AM EDT Appointment [facility] [place] Physicians - Pulmonary Medicine, [facility] [address] [facility] [address] [place] [address] Noé Sofia DO [address] [place], [place] [address] 06/25/2025 9:45 AM EDT Hospital Encounter Cardiovascular Recovery Unit (CVRU) 2[address] [place] [address] Daniel Elder MD [address] [facility] [place] [address] Persistent atrial fibrillation (CMS/HCC) 06/25/2025 9:45 AM EDT - 06/25/2025 11:30 AM EDT Surgery Electrophysiology Lab 9 [place] [address] Daniel Elder MD [address] [facility] [place] [address] ABLATION PULSED FIELD 07/02/2025 1:00 PM EDT Appointment [facility] Physicians - Sleep Medicine, [address] [address] Jayy Whitfield NP [address] [facility] [address] [place] [address] 07/02/2025 2:15 PM EDT Appointment [facility] [place] Physicians - Heart & Vascular, [facility] [address] [place] [address] [address] [place] [address] Amaris Cueva MD [address] [facility] [address] [place] [address] 07/28/2025 1:00 PM EST Appointment [facility] Physicians - Heart & Vascular, [place] [address] [facility] [place] [phone] Lynnette Lopez NP [address] [facility] [address] [place], [place] [address] documented as of this encounter Goals Goal [...] on filedocumented in this encounter Care Teams Boiler Operator Relationship Specialty Start Date End Date Sudhakar Lipscomb NP [address] [place] [address] PCP - General Family Medicine 08/30/23 Stephany Ortega, RN Cardiology 08/04/21 Amaris Cueva MD [address] [facility] [address] [place], [place] [id number] Cardiology 08/10/21 Maverick Lee MD [address] [facility] [address] [place], [place] [id number] Interventional Cardiology 09/06/21 Michael Gonzales MD [address] [facility] [place], [place] [address] Internal Medicine, Sleep Medicine 09/07/21 Lolly Warren NP [address] [place] [address] Nurse Practitioner Nurse Practitioner, Acute Care 09/08/21 Daniel Whittington MD, PhD [address] [place] [address] Clinical Cardiac Electrophysiology 09/13/21 Regina Esquivel NP [address] [place] [address] Nurse Practitioner Nurse Practitioner, Acute Care 09/22/21 Maverick Waterman DO [address] [facility] [place] [address] Advanced Heart Failure/Transplant 09/30/21 Aris Tracey MD [address] [place] [address] [address] [place] [address] Urology 10/28/21 Noé Sofia DO [address] [place] [address] Critical Care Medicine 12/28/22 documented as of this encounter
--- OUTSIDE RECORDS SUMMARY | 2025-05-03 00:55 | XMS_ITS | Encounter Summary ---
Author Organization [facility] Address [address] [place] [address] Care Team Providers Care Chiropractic Doctor Name Role Phone Stephany Ortega RN Unavailable Amaris Cueva MD Unavailable [phone] Maverick Lee MD Unavailable [phone] Michael Gonzales MD Unavailable [phone] Lolly Warren NP Unavailable [phone] Daniel Whittington MD, PhD Unavailable [phone] Regina Esquivel NP Unavailable [phone] Maverick Waterman DO Unavailable [phone] Aris Tracey MD Unavailable [phone] Noé Sofia DO Unavailable [phone] Sudhakar Lipscomb TILE HELPER Primary Care Provider [phone] Encounter Details Date Type Department Care Team (Late st Contact Info) Description 03/07/2025 Clinical Update [facility] Physicians - Spine Surgery, [place] [address] [place] [address] Almeida, Charlette Social History Tobacco [...] be seen by: Spine PA VISIT TYPE TILE HELPER / AREA LUMBAR / PREV TX NONE / PREV SX NONE / IMG XRAY L SPINE 02-17-[address] [facility] / INS[facility]ANCE [facility] / REF BY MIRIAM [...] Studies and Findings Xray L Spine 02/17/25 [facility] Multilevel mild degenerative disc height loss and mild facet arthrosis Medications he has tried to date: Tylenol NSAIDs Muscle Relaxers Neuromodulatory Agents Treatments he has tried to date: Exercise-Based Physical Therapy Comfort Station Supervisor Prior spine surgical procedures- none documented in this encounter Plan of Treatment Upcoming Encounters Date Type Department Care Team (Latest Contact Info) Description 05/13/2025 10:45 AM EDT Appointment [facility] [address] [facility] [place] [address] 05/14/2025 1:15 PM EDT Appointment [facility] Physicians - Spine Surgery, [place] [address] [place] [address] [address] [place] [phone] Leo Mosley PA-C [address] [place], [place] [id number] 05/16/2025 8:00 PM EDT Appointment [facility] [place] [address] [facility] [address] [place] [address] 05/19/2025 9:40 AM EDT Appointment [facility] Physicians - Pulmonary Medicine, [place] [address] [facility] [address] [place] [address] Noé Sofia DO [address] [place] [address] 06/25/2025 9:45 AM EDT Hospital Encounter Cardiovascular Recovery Unit (CVRU) 2[address] [place] [address] Daniel Elder MD [address] [facility] [place] [address] Persistent atrial fibrillation (CMS/HCC) 06/25/2025 9:45 AM EDT - 06/25/2025 11:30 AM EDT Surgery Electrophysiology Lab 9 [place] [address] Daniel Elder MD [address] [facility] [place] [address] ABLATION PULSED FIELD 07/02/2025 1:00 PM EDT Appointment [facility] Physicians - Sleep Medicine[address] [address] Jayy Whitfield NP [address] [facility] [address] [place] [address] 07/02/2025 2:15 PM EDT Appointment [facility] Physicians - Heart & Vascular, [facility] [address] [place] [address] [address] [place] [address] Amaris Cueva MD [address] [facility] [address] [place] [address] 07/28/2025 1:00 PM EST Appointment [facility] Physicians - Heart & Vascular, [place] [address] [place] [phone] Lynnette Lopez NP [address] [place] [address] documented as of this encounter Goals Goal [...] on filedocumented in this encounter Care Teams Chiropractic Doctor Relationship Specialty Start Date End Date Sudhakar Lipscomb NP [address] [place] [address] PCP - General Family Medicine 08/30/23 Stephany Ortega, SHARONDA Cardiology 08/04/21 Amaris Cueva MD [address] [facility] [address] [place] [address] Cardiology 08/10/21 Maverick Lee MD [address] [facility] [address] [place] [address] Interventional Cardiology 09/06/21 Michael Gonzales MD [address] [place], [place] [address] Internal Medicine, Sleep Medicine 09/07/21 Lolly Warren NP [address] [place] [address] Nurse Practitioner Nurse Practitioner, Acute Care 09/08/21 Daniel Whittington MD, PhD [address] [place] [address] Clinical Cardiac Electrophysiology 09/13/21 Regina Esquivel NP [address] [place] [address] Nurse Practitioner Nurse Practitioner, Acute Care 09/22/21 Maverick Waterman DO [address] [facility] [place] [address] Advanced Heart Failure/Transplant 09/30/21 Aris Tracey MD [address] [place] [address] [address] [place] [address] Urology 10/28/21 Noé Sofia DO [facility] [place] [address] Critical Care Medicine 12/28/22 documented as of this encounter
--- OUTSIDE RECORDS SUMMARY | 2025-05-03 00:55 | XMS_ITS | Encounter Summary ---
Author Organization [facility] Address [address] [place] [address] Care Team Providers Care Trolley Car Mechanic Name Role Phone Stephany Ortega RN Unavailable Amaris Cueva MD Unavailable [phone] Maverick Lee MD Unavailable [phone] Michael Gonzales MD Unavailable [phone] Lolly Warren NP Unavailable [phone] Daniel Whittington MD, PhD Unavailable [phone] Regina Esquivel NP Unavailable [phone] Maverick Waterman DO Unavailable [phone] Aris Tracey MD Unavailable [phone] Noé Sofia DO Unavailable [phone] Sudhakar Lipscomb CLEATER Primary Care Provider Reason for Visit * Reason Onset Date Comments Scheduling 03/24/2025 Encounter Details Date Type Department Care Team (Late st Contact Info) Description 03/24/2025 Telephone The [facility] Physicians - Sleep Medicine, [place] [address] [place] [address] Michael Gonzales MD [address] [place] [address] Scheduling Social History Tobacco Use [...] Description 05/13/2025 10:45 AM EDT Appointment [facility] [address] [facility] [place] [address] 05/14/2025 1:15 PM EDT Appointment The [facility] Physicians - Spine Surgery, [place] [address] [facility] [address] [place] [address] Leo Mosley PA-C [address] [place] [address] 05/16/2025 8:00 PM EDT Appointment [facility] [place] [address] [facility] [address] [place] [address] 05/19/2025 9:40 AM EDT Appointment [facility] - Pulmonary Medicine, [facility] [address] [facility] [address] [place] [address] Noé Sofia DO [address] [facility] [place] [address] 06/25/2025 9:45 AM EDT Hospital Encounter Cardiovascular Recovery Unit (CVRU) 9 [place] [address] Daniel Elder MD [address] [facility] [place] [address] Persistent atrial fibrillation (CMS/HCC) 06/25/2025 9:45 AM EDT - 06/25/2025 11:30 AM EDT Surgery Electrophysiology Lab 2[address] [place] [address] Daniel Elder MD [address] [facility] [place] [address] ABLATION PULSED FIELD 07/02/2025 1:00 PM EDT Appointment [facility] [address] [place] [phone] Jayy Whitfield NP [address] [facility] [address] [place] [address] 07/02/2025 2:15 PM EDT Appointment [facility] [address] [place] [address] [address] [facility] [place] [address] Amaris Cueva MD [address] [facility] [address] [place] [id number] 07/28/2025 1:00 PM EST Appointment [facility] - Heart & Vascular, [facility] [address] [facility] 137 [place] [address] Lynnette Lopez NP [address] [facility] [address] [place], [place] [address] documented as of this encounter Goals Goal [...] on filedocumented in this encounter Care Teams Trolley Car Mechanic Relationship Specialty Start Date End Date Sudhakar Lipscomb NP [address] [place] [address] PCP - General Family Medicine 08/30/23 Stephany Ortega, RN Cardiology 08/04/21 Amaris Cueva MD [address] [facility] [address] [place] [address] Cardiology 08/10/21 Maverick Lee MD [address] [facility] [address] [place] [address] Interventional Cardiology 09/06/21 Michael Gonzales MD [address] [place] [address] Internal Medicine, Sleep Medicine 09/07/21 Lolly Warren NP [address] [place] [address] Nurse Practitioner Nurse Practitioner, Acute Care 09/08/21 Daniel Whittington MD, PhD [address] [place] [address] Clinical Cardiac Electrophysiology 09/13/21 Regina Esquivel NP [address] [place] [address] Nurse Practitioner Nurse Practitioner, Acute Care 09/22/21 Maverick Waterman DO [address] [facility] [place], [place] [address] Advanced Heart Failure/Transplant 09/30/21 Aris Tracey MD [address] [place] [address] [address] [place], [place] [address] Urology 10/28/21 Noé Sofia DO [address] [place] [address] [address] [place], [place] [address] Critical Care Medicine 12/28/22 documented as of this encounter
--- OUTSIDE RECORDS SUMMARY | 2025-05-03 00:55 | XMS_ITS | Encounter Summary ---
Author Organization [facility] Address [address] [place] [address] Care Team Providers Care Glue Jointer Feeder Name Role Phone Stephany Ortega RN Unavailable Amaris Cueva MD Unavailable [phone] Maverick Lee MD Unavailable [phone] Michael Gonzales MD Unavailable [phone] Lolly Warren NP Unavailable [phone] Daniel Whitting[place] MD, PhD Unavailable [phone] Regina Esquivel NP Unavailable [phone] Maverick Waterman DO Unavailable [phone] Aris Tracey MD Unavailable [phone] Noé Sofia DO Unavailable [phone] Sudhakar Lipscomb COMPLIANCE INTERN Primary Care Provider Reason for Visit * Reason Onset Date Comments Palpitations/Arrhythmia 03/11/2025 Encounter Details Date Type Department Care Team (Late st Contact Info) Description 03/11/2025 Telephone Cardiology Services [address] [place] [address] Lindsey Danielson PA [address] [place], [place] [address] Palpitations/Arrhythmia Social History Tobacco Use Types Packs/Day [...] for 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 [address] 05/16/2025 8:00 PM EDT Appointment [facility] [address] Medical Office [address] [place] [address] 05/19/2025 9:40 AM EDT Appointment [facility] Physicians - Pulmonary Medicine, [address] [place] [phone] Noé [place] [address] [place], [place] [address]. [address] [place], [place] [address] 06/25/2025 9:45 AM EDT Hospital Encounter Cardiovascular Recovery Unit (CVRU) 2[address] [place] [address] Daniel Elder MD [address] [facility] [place] [address] Persistent atrial fibrillation (CMS/HCC) 06/25/2025 9:45 AM EDT - 06/25/2025 11:30 AM EDT Surgery Electrophysiology Lab 2139 [place] [address] Daniel Elder MD [address] [facility] [place] [address] ABLATION PULSED FIELD 07/02/2025 1:00 PM EDT Appointment [facility] Physicians - Sleep Medicine, [address] [phone] Jayy Whitfield, TORRES [address] [facility] [address] [place] [address] 07/02/2025 2:15 PM EDT Appointment [facility] Physicians - Heart & Vascular, [place] [address] [place] [address] Amaris Cueva MD [address] [facility] [address] [place] [address] 07/28/2025 1:00 PM EST Appointment [facility] Physicians - Heart & Vascular, [place] [address] [facility] [address] [place] [address] Lynnette Lopez NP [address] [place], [place] [address] documented as of this encounter Goals Goal [...] on filedocumented in this encounter Care Teams Glue Jointer Feeder Relationship Specialty Start Date End Date Sudhakar Lipscomb NP [address] [place] [address] PCP - General Family Medicine 08/30/23 Stephany Ortega, SHARONDA Cardiology 08/04/21 Amairs Cueva MD [address] [facility] [address] [place] [id number] Cardiology 08/10/21 Maverick Lee MD [address] [facility] [address] [place] [address] Interventional Cardiology 09/06/21 Michael Gonzales MD [facility] [place] [address] Internal Medicine, Sleep Medicine 09/07/21 Lolly Warren, TORRES [address] [place] [address] Nurse Practitioner Nurse Practitioner, Acute Care 09/08/21 Daniel Whittington MD, PhD [address] [place] [address] Clinical Cardiac Electrophysiology 09/13/21 Regina Esquivel NP [address] [place] [address] Nurse Practitioner Nurse Practitioner, Acute Care 09/22/21 Maverick Waterman DO [address] [facility] [place] [address] Advanced Heart Failure/Transplant 09/30/21 Aris Tracey MD [address] [facility] [address] [place] [address] Urology 10/28/21 Noé Sofia DO [address] [place], [place] [address] Critical Care Medicine 12/28/22 documented as of this encounter
--- OUTSIDE RECORDS SUMMARY | 2025-05-03 00:56 | XMS_ITS | Encounter Summary ---
Author Organization [facility] Address [address] [place] [address] Care Team Providers Care Linter Operator Name Role Phone Stephany Ortega RN Unavailable Amaris Cueva MD Unavailable [phone] Maverick Lee MD Unavailable +[phone] Michael Gonzales MD Unavailable [phone] Lolly Warren NP Unavailable [phone] Daniel Whittington MD, PhD Unavailable +[phone] Regina Esquivel NP Unavailable [phone] Maverick Waterman DO Unavailable [phone] Aris Tracey MD Unavailable [phone] Noé Sofia DO Unavailable [phone] Sudhakar Lipscomb CHEESE PANCAKE ROLLER Primary Care Provider [phone] Reason for Visit * Reason Onset Date Comments Imaging Results 11/23/2023 Patient called a nd stated he had his PET CT done yesterday, 11/22/23 at Encounter Details Date Type Department Care Team (Late st Contact Info) Description 11/23/2023 Telephone [facility] Physicians - Pulmonary Medicine, [facility] [address] [facility] [address] [place] [address] Noé Sofia [address] [facility] [place] [address] Imaging Results (Patient called and [...] stated that PET SCAN was done at [facility]. * Telephone Encounter - Mariza Singh MA - 11/23/2023 9:52 AM EDT Left MessageCommunicated - [facility] for pt to confirm the location where [...] Appointment The [facility] [address] [facility], [address] [place] [address] 05/14/2025 1:15 PM EDT Appointment [facility] Physicians - Spine Surgery, [facility] [address] [facility] [address] [place] [address] Leo Mosley PA-C [address] [place], [place] [id number] 05/16/2025 8:00 PM EDT Appointment The [address] Medical Office Building [address] [place] [address] 05/19/2025 9:40 AM EDT Appointment [facility] Physicians - Pulmonary Medicine, [address] [place] [address] Noé Sofia DO [address] [facility] [place], [place] [address] 06/25/2025 9:45 AM EDT Hospital Encounter Cardiovascular Recovery Unit (CVRU) [address] [place] [address] Daniel Elder MD [address] [place] [address] Persistent atrial fibrillation (CMS/HCC) 06/25/2025 9:45 AM EDT - 06/25/2025 11:30 AM EDT Surgery Electrophysiology Lab [address] [place] [address] Daniel Elder MD [address] [facility] [place] [address] ABLATION PULSED FIELD 07/02/2025 1:00 PM EDT Appointment The [facility] [address] [phone] Jayy Whitfield NP [address] [facility] [address] [place] [address] 07/02/2025 2:15 PM EDT Appointment [facility] [address] [place] [address] [address] [place] [address] Amaris Cueva MD [address] [facility] [address] [place] [address] 07/28/2025 1:00 PM EST Appointment [facility] Physicians - Heart & Vascular, [facility] [address] [facility] [address] [place] [address] Lynnette Lopez NP [address] [facility] [address] [place], [place] [address] documented as of this encounter Goals Goal [...] on filedocumented in this encounter Care Teams Linter Operator Relationship Specialty Start Date End Date Sudhakar Lipscomb NP [address] [place] [address] PCP - General Family Medicine 08/30/23 Stephany Ortega, SHARONDA Cardiology 08/04/21 Amaris Cueva MD [address] [facility] [address] [place] [address] Cardiology 08/10/21 Maverick Lee MD [address] [facility] [address] [place] [address] Interventional Cardiology 09/06/21 Michael Gonzales MD [address] [place] [address] Internal Medicine, Sleep Medicine 09/07/21 Lolly Warren NP [address] [place] [address] Nurse Practitioner Nurse Practitioner, Acute Care 09/08/21 Daniel Whittington MD, PhD [address] [place] [address] Clinical Cardiac Electrophysiology 09/13/21 Regina Esquivel NP [address] [place] [address] Nurse Practitioner Nurse Practitioner, Acute Care 09/22/21 Maverick Waterman DO [address] [facility]. [address] [place] [address] Advanced Heart Failure/Transplant 09/30/21 Aris Tracey MD [facility] [facility] [address] [place], [place] [address] Urology 10/28/21 Noé Sofia DO [address] [place] [address] [address] [place] [address] Critical Care Medicine 12/28/22 documented as of this encounter
--- OUTSIDE RECORDS SUMMARY | 2025-05-03 00:56 | XMS_ITS | Encounter Summary ---
Author Organization [facility] Address [address] [place] [address] Care Team Providers Care Blood Bank Assistant Name Role Phone Stephany Ortega RN Unavailable Amaris Cueva MD Unavailable [phone] Maverick Lee MD Unavailable [phone] Michael Gonzales MD Unavailable [phone] Lolly Warren NP Unavailable [phone] Daniel Whittington MD, PhD Unavailable [phone] Regina Esquivel NP Unavailable [phone] Maverick Waterman DO Unavailable [phone] Aris Tracey MD Unavailable [phone] Noé Sofia DO Unavailable [phone] Sudhakar Lipscomb PREP PERSON Primary Care Provider [phone] Reason for Visit * Reason Onset Date Comments Other 09/06/2023 Encounter Details Date Type Department Care Team (Late st Contact Info) Description 09/06/2023 Telephone [facility] - Pulmonary Medicine, [place] [address] [facility] [place] [address] Noé Sofia DO [address] [facility] [place] [address] Other Social History Tobacco Use Types Packs/Day [...] Miscellaneous Notes * Telephone Encounter - Maki Cuellar - 09/06/2023 2:21 PM EST Patient's daughter called because she was not at his appointment today. She would like to speak to Dr. 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 She is listed as emerg contact. PH. [phone] documented in this encounter Plan of Treatment Upcoming Encounters Date Type Department Care Team (Latest Contact Info) Description 05/13/2025 10:45 AM EDT Appointment [facility] [address] [facility], [address] [place] [address] 05/14/2025 1:15 PM EDT Appointment [facility] Phys[facility] - Spine Surgery, [place] [address] [facility] [address] [place] [address] Leo Mosley PA-C [address] [place] [address] 05/16/2025 8:00 PM EDT Appointment [facility] [address] Medical Office Building [address] [place] [address] 05/19/2025 9:40 AM EDT Appointment [facility] - Pulmonary Medicine, [address] [place] [address] [place]é [place] [address] [place], [place] [address]e. [address] [place], [place] [address] 06/25/2025 9:45 AM EDT Hospital Encounter Cardiovascular Recovery Unit (CVRU) [address] [place] [address] Daniel Elder MD [address] [facility] [place] [address] Persistent atrial fibrillation (CMS/HCC) 06/25/2025 9:45 AM EDT - 06/25/2025 11:30 AM EDT Surgery Electrophysiology Lab 2[address] [place] [address] Daniel Elder MD [address] [facility]. [address] [place] [address] ABLATION PULSED FIELD 07/02/2025 1:00 PM EDT Appointment [facility] - Sleep Medicine, [address] [phone] Jayy Whitfield, TORRES [address] [facility] [address] [place] [address] 07/02/2025 2:15 PM EDT Appointment [facility] - Heart & Vascular, [place] [address] [place] [address] Amaris Cueva MD [address] [facility] [address] [place] [address] 07/28/2025 1:00 PM EST Appointment [facility] - Heart & Vascular, [place] [address] [facility] [address] [place] [phone] Lynnette Lopez NP [address] [place], [place] [address] documented as of this encounter Goals Goal [...] on filedocumented in this encounter Care Teams Blood Bank Assistant Relationship Specialty Start Date End Date Sudhakar Lipscomb NP [address] [place] [address] PCP - General Family Medicine 08/30/23 Stephany Ortega, SHARONDA Cardiology 08/04/21 Amaris Cueva MD [address] [facility] [address] [place] [id number] Cardiology 08/10/21 Maverick Lee MD [address] [facility] [address] [place] [address] Interventional Cardiology 09/06/21 Michael Gonzales MD [facility] [place] [address] Internal Medicine, Sleep Medicine 09/07/21 Lolly Warren, TORRES [address] [place] [address] Nurse Practitioner Nurse Practitioner, Acute Care 09/08/21 Daniel Whittington MD, PhD [address] [place] [address] Clinical Cardiac Electrophysiology 09/13/21 Regina Esquivel NP [address] [place] [address] Nurse Practitioner Nurse Practitioner, Acute Care 09/22/21 Maverick Waterman DO [address] [facility] [place] [address] Advanced Heart Failure/Transplant 09/30/21 Aris Tracey MD [address] [facility] [address] [place] [address] Urology 10/28/21 Noé Sofia DO [address] [place], [place] [address] Critical Care Medicine 12/28/22 documented as of this encounter
--- OUTSIDE RECORDS SUMMARY | 2025-05-03 00:56 | XMS_ITS | Encounter Summary ---
Author Organization [facility] Address [address] [place] [address] Care Team Providers Care Sustainability Coordinator Name Role Phone Pamela Apple Primary Care Provider Stephany Ortega RN Unavailable Amaris Cueva MD Unavailable [phone] Maverick Lee MD Unavailable [phone] Michael Gonzales MD Unavailable [phone] Lolly Warren NP Unavailable [phone] Daniel Whittington MD, PhD Unavailable [phone] Regina Esquivel NP Unavailable [phone] Maverick Waterman DO Unavailable [phone] Aris Tracey MD Unavailable [phone] Noé Sofia DO Unavailable [phone] Sudhakar Lipscomb RESEARCH CONTRACTS SUPERVISOR Primary Care Provider Encounter Details Date Type Department Care Team (Late st Contact Info) Description 06/20/2022 Abstract The [facility] Physicians - Heart & Vascular, [facility] [address] [facility] [address] [place] [address] Stephany Ortega, SHARONDA Social History Tobacco Use [...] The [facility] Testing Center [facility] The [facility] Outpatient Center [address] [facility], [address] [place] [address] 05/14/2025 1:15 PM EDT Appointment The [facility] Physicians - Spine Surgery, [place] [address] [facility] [address] [place] [address] Leo Mosley PA-C [address] [place] [address] 05/16/2025 8:00 PM EDT Appointment The [facility] Sleep Center [address] Medical Office Building [address] [place] [address] 05/19/2025 9:40 AM EDT Appointment The [facility] Physicians - Pulmonary Medicine, [address] [place] [address] Noé Sofia DO [address] [place] [address]. [address] [place] [address] 06/25/2025 9:45 AM EDT Hospital Encounter Cardiovascular Recovery Unit (CVRU) [address] [place] [address] Daniel Elder MD [address] [place] [address] Persistent atrial fibrillation (CMS/HCC) 06/25/2025 9:45 AM EDT - 06/25/2025 11:30 AM EDT Surgery Electrophysiology Lab 9 [place] [address] Daniel Elder MD [address] [place] [address] ABLATION PULSED FIELD 07/02/2025 1:00 PM EDT Appointment The [facility] - Sleep Medicine[address] [phone] Jayy Whitfield NP [address] [place] [address] 07/02/2025 2:15 PM EDT Appointment [facility] [address] [place] [address] [address] [place] [address] Amaris Cueva MD [address] [facility] [address] [place] [address] 07/28/2025 1:00 PM EST Appointment The [facility] Physicians - Heart & Vascular, [facility] [address] [place] [address] Lynnette Lopez NP [address] [place] [address] documented as of this encounter Goals Goal [...] on filedocumented in this encounter Care Teams Sustainability Coordinator Relationship Specialty Start Date End Date Apple Santiago [address] [place] [id number] PCP - General Family Medicine 08/02/21 08/29/23 Sudhakar Lipscomb NP [address] [place] [address] PCP - General Family Medicine 08/30/23 Stephany Ortega, SHARONDA Cardiology 08/04/21 Amaris Cueva MD [address] [facility] [address] [place], [place] [phone] Cardiology 08/10/21 Maverick Lee MD [address] [facility] [address] [place], [place] [address] Interventional Cardiology 09/06/21 Michael Gonzales MD [address] [place], [place] [address] Internal Medicine, Sleep Medicine 09/07/21 Lolly Warren NP [address] [place] [address] Nurse Practitioner Nurse Practitioner, Acute Care 09/08/21 Daniel Whittington MD, PhD [address] [place] [address] [place] [address] Clinical Cardiac Electrophysiology 09/13/21 Regina Esquivel NP [address] [place] [address] Nurse Practitioner Nurse Practitioner, Acute Care 09/22/21 Maverick Waterman DO [address] [facility] [place] [address] Advanced Heart Failure/Transplant 09/30/21 Aris Tracey MD [address] [place] [address] [address] [place] [address] Urology 10/28/21 Noé Sofia DO [facility]. [address] [place] [address] Critical Care Medicine 12/28/22 documented as of this encounter
--- OUTSIDE RECORDS SUMMARY | 2025-05-03 00:56 | XMS_ITS | Encounter Summary ---
Author Organization [facility] Address [address] [place] [address] Care Team Providers Care Senior Interior Designer Name Role Phone Stephany Ortega RN Unavailable Amaris Cueva MD Unavailable [phone] Maverick Lee MD Unavailable [phone] Michael Gonzales MD Unavailable [phone] Lolly Warren NP Unavailable [phone] Daniel Whittington MD, PhD Unavailable +[phone] Regina Esquivel NP Unavailable [phone] Maverick Waterman DO Unavailable [phone] Aris Tracey MD Unavailable [phone] Noé Sofia DO Unavailable [phone] Sudhakar Lipscomb ORGANIZATIONAL DEVELOPMENT SPECIALIST Primary Care Provider Encounter Details Date Type Department Care Team (Late st Contact Info) Description 11/23/2023 Abstract [facility] Physicians - Heart & Vascular, [place] [address] [facility] [address] [place] [address] Stephany Ortega, RN Social History Tobacco Use Types Packs/Day [...] Description 05/13/2025 10:45 AM EDT Appointment [facility] Testing Center [facility] Outpatient [facility] [address] [facility], [address] [place] [address] 05/14/2025 1:15 PM EDT Appointment [facility] Physicians - Spine Surgery, [place] [address] [place] [address] [address] [place] [address] Leo Mosley PA-C [address] [place] [address] 05/16/2025 8:00 PM EDT Appointment [facility] [address] Medical Office [address] [place] [address] 05/19/2025 9:40 AM EDT Appointment [facility] Physicians - Pulmonary Medicine, [address] [place] [address] Noé Sofia DO [address] [place] [address]. [address] [place], [place] [address] 06/25/2025 9:45 AM EDT Hospital Encounter Cardiovascular Recovery Unit (CVRU) 2[address] [place] [address] Daniel Elder MD [address] [facility] [place] [address] Persistent atrial fibrillation (CMS/HCC) 06/25/2025 9:45 AM EDT - 06/25/2025 11:30 AM EDT Surgery Electrophysiology Lab 9 [place] [address] Daniel Elder MD [address] [facility]. [address] [place] [address] ABLATION PULSED FIELD 07/02/2025 1:00 PM EDT Appointment The [facility] - Sleep Medicine[address] [phone] Jayy Whitfield NP [address] [facility] [address] [place] [address] 07/02/2025 2:15 PM EDT Appointment The [facility] - Heart & Vascular[address] [place] [address] Amaris Cueva MD [address] [facility] [address] [facility] [place] [address] 07/28/2025 1:00 PM EST Appointment [facility] Physicians - Heart & Vascular, [facility] 3 [facility] [place] [address] [place] [phone] Lynnette Lopez NP 3 [facility] [address] [place] [address] documented as of this encounter Goals Goal [...] on filedocumented in this encounter Care Teams Senior Interior Designer Relationship Specialty Start Date End Date Sudhakar Lipscomb NP 45 [place] [address] PCP - General Family Medicine 08/30/23 Stephany Ortega, SHARONDA Cardiology 08/04/21 Amaris Cueva MD [address] [facility] [address] [place], [place] [phone] Cardiology 08/10/21 Maverick Lee MD [address] [facility] [address] [place], [place] [address] Interventional Cardiology 09/06/21 Michael Gonzales MD [address] [place], [place] [address] Internal Medicine, Sleep Medicine 09/07/21 Lolly Warren NP [address] [place], [place] [address] Nurse Practitioner Nurse Practitioner, Acute Care 09/08/21 Daniel Whittington MD, PhD [address] [place], [place] [address] Clinical Cardiac Electrophysiology 09/13/21 Regina Esquivel NP [facility] [place] [address] Nurse Practitioner Nurse Practitioner, Acute Care 09/22/21 Maverick Waterman DO [address] [place] [address] Advanced Heart Failure/Transplant 09/30/21 Aris Tracey MD [facility]3 [facility] [address] [place] [address] Urology 10/28/21 Noé Sofia DO [address] [place], [place] [address]chris. [address] [place] [address] Critical Care Medicine 12/28/22 documented as of this encounter
--- OUTSIDE RECORDS SUMMARY | 2025-05-03 00:56 | XMS_ITS | Encounter Summary ---
Author Organization [facility] Address [facility] [place] [address] Care Team Providers Care Picker Box Operator Name Role Phone Alfredito Ramey MD Unavailable [phone] Joann Zarate RN Unavailable Unavailable Ezekiel Kang MD Unavailable [phone] Aundrea Hussein APRN Primary Care Provider [phone] Alfredito Ramey MD Unavailable [phone] Jerri Santiago MD Primary Care Provider [phone] Source Comments This information has been disclosed [...] release of HIV test results or diagnoses. [id number] Health Encounter Details Date Type Department Care Team (Late st Contact Info) Description 06/03/2019 Chart Note [facility] Radiotherapy 10 [place] [address] Rae Alvarado MD [address] [place] [address] Adenocarcinoma of prostate (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 [address] [place] [phone] 02/18/19 Alfredito Ramey MD Initiating Oncologist Radiation Oncology 06/03/20 documented as of this encounter
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
--- OUTSIDE RECORDS SUMMARY | 2025-05-03 00:56 | XMS_ITS | Referral Summary ---
Author Organization [facility] Address [id number] [place] [address] Care Team Providers Care Washing Machine Mechanic Name Role Phone KeenanCassyAundreadalton LANTIGUA Primary Care Provider [phone] Encounters Date Type Department Care Team Description 02/17/2025 11:12 AM EDT - 02/17/2025 11:59 PM EDT Hospital Encounter [facility] - Imaging - [address] [place], [place] [id number] Johnnie Mccarthy, YAO Other injury of unspecified [...] cancer (HCC) Gleas on 10, treating at [facility]. 02/25/2019 Hyperkalemia 02/07/2019 Atrial fibrillation with [...] the content of this report, please contact [facility] by calling [phone] FINDINGS: ALIGNMENT: Unremarkable BONES: Unremarkable. No aggressive [...] about the content of this report, pleasecontact [facility] radi[facility] by calling [phone] FINDINGS: ALIGNMENT: Unremarkable BONES: Unremarkable. No aggressive [...] the content of this report, please contact [facility] radiology by calling [phone] FINDINGS: LOWER CHEST: Unremarkable LIVER: Unremarkable GALLBLADDER/BILE [...] about the content of this report, pleasecontact [facility] radiology by calling [phone] FINDINGS: LOWER CHEST: Unremarkable LIVER: Unremarkable GALLBLADDER/BILE [...] Relevant to Health Maintenance Administered Medications Insurance [facility] DUAL COMPLETE Care Teams Washing Machine Mechanic Relationship Specialty Start Date End Date Aundrea Hussein CNP PCP - General 12/23/19
--- OUTSIDE RECORDS SUMMARY | 2025-05-03 00:56 | XMS_ITS | Clinical Summary ---
Author Organization [facility] Address [id number] [place] [phone] Care Team Providers Care Mercury Recoverer Name Role Phone Tasha Husseingifty LANTIGUA Primary Care Provider [phone] Allergies Active Allergy Reactions Criticality Noted Date [...] cancer (HCC) Gleas on 10, treating at [facility]. 02/25/2019 Hyperkalemia 02/07/2019 Atrial fibrillation with [...] EDT Hospital Encounter [facility] - [facility] [place] [address] [place] [address] [address] [place] [id number] Johnnie Mccarthy, [place] Other injury of unspecified [...] 2004 Influenza Vaccine (#1) 2025 PSA YEARLY 04/16/2026 04/16/2025, 01/09/2025, 02/01/2019 RSV Vaccine (60+ or ) [...] the content of this report, please contact [facility] radiology by calling [phone] FINDINGS: ALIGNMENT: Unremarkable BONES: Unremarkable. No aggressive [...] about the content of this report, pleasecontact [facility] radiology by calling [phone] FINDINGS: ALIGNMENT: Unremarkable BONES: Unremarkable. No aggressive [...] the content of this report, please contact [facility] radiology by calling [phone] FINDINGS: LOWER CHEST: Unremarkable LIVER: Unremarkable GALLBLADDER/BILE [...] about the content of this report, pleasecontact [facility] radiology by calling [phone] FINDINGS: LOWER CHEST: Unremarkable LIVER: Unremarkable GALLBLADDER/BILE [...] Most Recently Relevant to Health Maintenance Insurance [facility] DUAL COMPLETE Advance Directives * Full Code (Latest Code Status on File) Date Activated Date Inactivated Comments 02/02/2019 4:07 PM 02/06/2019 5:53 PM Care Teams Mercury Recoverer Relationship Specialty Start Date End Date Aundrea Hussein CNP [facility] - General 12/23/19
--- OUTSIDE RECORDS SUMMARY | 2025-05-03 00:56 | XMS_ITS | Encounter Summary ---
Author Organization [facility] Address [address] [place] [address] Care Team Providers Care Senior Manager Quality Assurance Name Role Phone Apple Santiago Primary Care Provider Stephany Ortega RN Unavailable Amaris Cueva MD Unavailable [phone] Maverick Lee MD Unavailable [phone] Michael Gonzales MD Unavailable [phone] Lolly Warren NP Unavailable [phone] Daniel Whittington MD, PhD Unavailable +[phone] Regina Esquivel NP Unavailable [phone] Maverick Waterman DO Unavailable [phone] Aris Tracey MD Unavailable [phone] Noé Sofia DO Unavailable [phone] Sudhakar Lipscomb WIRE DRAWER Primary Care Provider [phone] Reason for Visit * Reason Onset Date Comments Results 08/18/2023 Encounter Details Date Type Department Care Team (Late st Contact Info) Description 08/18/2023 Clinical Update [facility] Physicians - Heart & Vascular, [facility] [address] [facility] [address] [place] [address] Stephany Ortega, RN Results Social History Tobacco [...] Description 05/13/2025 10:45 AM EDT Appointment [facility] Testing Center [facility] Outpatient Center [address] [facility], [address] [place] [address] 05/14/2025 1:15 PM EDT Appointment [facility] Physicians - Spine Surgery, [facility] [address] [place] [address] [address] [place] [address] Leo Mosley PA-C [address] [place] [address] 05/16/2025 8:00 PM EDT Appointment [facility] Sleep Center [place] [address] [place] [address] Medical Office Building [address] [place] [address] 05/19/2025 9:40 AM EDT Appointment [facility] Physicians - Pulmonary Medicine, [address] [place] [address] Noé Sofia DO [address] [place] [address] 06/25/2025 9:45 AM EDT Hospital Encounter Cardiovascular Recovery Unit (CVRU) [address] [place] [address] Daniel Elder MD [address] [place] [address] Persistent atrial fibrillation (CMS/HCC) 06/25/2025 9:45 AM EDT - 06/25/2025 11:30 AM EDT Surgery Electrophysiology Lab [address] [place] [address] Daniel Elder MD [address] [place] [address] [employer] [employer] [facility] 07/02/2025 1:00 PM EDT Appointment The [facility] - Sleep Medicine[address] [phone] Jayy Whitfield NP [address] [place] [address] 07/02/2025 2:15 PM EDT Appointment [facility] Physicians - Heart & Vascular, [facility] [address] [place], [place] [address] [address] [place] [address] Amaris Cueva MD [address] [facility] [address] [place], [place] [id number] 07/28/2025 1:00 PM EST Appointment [facility] Physicians - Heart & Vascular, [facility] [address] [place] [address] Lynnette Lopez NP [address] [place], [place] [address] documented as of this encounter Goals Goal [...] filedocumented in this encounter Care Teams Senior Manager Quality Assurance Relationship Specialty Start Date End Date pAple Santiago [address] [place] [address] [place] [address] PCP - General Family Medicine 08/02/21 08/29/23 Sudhakar Lipscomb NP [address] [place] [address] PCP - General Family Medicine 08/30/23 Stephany Ortega, SHARONDA Cardiology 08/04/21 Amaris Cueva MD [address] [facility] [address] [place], [place] [id number] Cardiology 08/10/21 Maverick Lee MD [address] [facility] [address] [place], [place] [id number] Interventional Cardiology 09/06/21 Michael Gonzales MD [address] [place], [place] [address] Internal Medicine, Sleep Medicine 09/07/21 Lolly Warren NP [address] [place] [address] Nurse Practitioner Nurse Practitioner, Acute Care 09/08/21 Daniel Whittington MD, PhD [address] [place] [address] Clinical Cardiac Electrophysiology 09/13/21 Regina Esquivel, WIRE DRAWER [address] [place] [address] Nurse Practitioner Nurse Practitioner, Acute Care 09/22/21 Maverick Waterman DO [address] [place] [address] Advanced Heart Failure/Transplant 09/30/21 Aris Tracey MD [address] [facility] [address] [place] [address] Urology 10/28/21 Noé Sofia DO [address] [place] [address] Critical Care Medicine 12/28/22 documented as of this encounter
--- OUTSIDE RECORDS SUMMARY | 2025-05-03 00:56 | XMS_ITS | Encounter Summary ---
Author Organization [facility] Address [address] [place] [address] Care Team Providers Care Director Cpg Name Role Phone Stephany Ortega RN Unavailable Amaris Cueva MD Unavailable [phone] Maverick Lee MD Unavailable [phone] Michael Gonzales MD Unavailable [phone] Lolly Warren NP Unavailable [phone] Daniel Whittington MD, PhD Unavailable [phone] Regina Esquivel NP Unavailable [phone] Maverick Waterman DO Unavailable [phone] Aris Tracey MD Unavailable [phone] Noé Sofia DO Unavailable [phone] Sudhakar Lipscomb GERIATRIC SOCIAL WORKER Primary Care Provider [phone] Encounter Details Date Type Department Care Team (Late st Contact Info) Description 08/30/2023 Orders Only [facility], [address] [place] [address] Ermelinda Melendez, RT [address] [facility] [place] [address] Social History Tobacco Use Types Packs/Day Years [...] Description 05/13/2025 10:45 AM EDT Appointment [facility] Testing Center [facility] Outpatient Center [address] [facility], [address] [place] [address] 05/14/2025 1:15 PM EDT Appointment [facility] Physicians - Spine Surgery, [facility] [address] [facility] [address] [place] [address] Leo Mosley PA-C [address] [place] [address] 05/16/2025 8:00 PM EDT Appointment [facility] Sleep Center [address] Medical Office Building [address] [place] [address] 05/19/2025 9:40 AM EDT Appointment [facility] Physicians - Pulmonary Medicine, [address] [place] [address] Noé Sofia DO [address] [place] [address]. [address] [place] [address] 06/25/2025 9:45 AM EDT Hospital Encounter Cardiovascular Recovery Unit (CVRU) [address] [place] [address] Daniel Elder MD [address] [place] [address] Persistent atrial fibrillation (CMS/HCC) 06/25/2025 9:45 AM EDT - 06/25/2025 11:30 AM EDT Surgery Electrophysiology Lab 9 [place] [address] Daniel Elder MD [address] [facility] [place] [address] [employer] 07/02/2025 1:00 PM EDT Appointment The [facility] - Sleep Medicine[address] [phone] Jayy Whitfield NP [address] [place] [address] 07/02/2025 2:15 PM EDT Appointment [facility] [address] [place] [address] [address] [place] [address] Amaris Cueva MD [address] [facility] [address] [place] [address] 07/28/2025 1:00 PM EST Appointment [facility] Physicians - Heart & Vascular, [facility] [address] [facility] [place] [address] Lynnette Lopez NP [address] [place] [address] documented as of this encounter Goals Goal [...] on filedocumented in this encounter Care Teams Director Cpg Relationship Specialty Start Date End Date Sudhakar Lipscomb NP [address] [place] [address] PCP - General Family Medicine 08/30/23 Stephany Ortega, SHARONDA Cardiology 08/04/21 Amaris Cueva MD [address] [facility] [address] [place] [address] Cardiology 08/10/21 Maverick Lee MD [address] [facility] [address] [place] [address] Interventional Cardiology 09/06/21 Michael Gonzales MD [address] [place] [address] Internal Medicine, Sleep Medicine 09/07/21 Lolly Warren NP [address] [place] [address] Nurse Practitioner Nurse Practitioner, Acute Care 09/08/21 Daniel Whittington MD, PhD [address] [place] [address] Clinical Cardiac Electrophysiology 09/13/21 Regina Esquivel NP [address] [place] [address] [address] [place] [address] Nurse Practitioner Nurse Practitioner, Acute Care 09/22/21 Maverick Waterman DO [address] [place] [address] Advanced Heart Failure/Transplant 09/30/21 Aris Tracey MD [address] [place] [address] [address] [place] [address] Urology 10/28/21 Noé Sofia DO [address] [place] [address] [place] [address] Critical Care Medicine 12/28/22 documented as of this encounter
--- OUTSIDE RECORDS SUMMARY | 2025-05-03 00:56 | XMS_ITS | Encounter Summary ---
Author Organization [facility] Address [address] [place] [address] Care Team Providers Care Flight Test Mechanic Name Role Phone Pamela Apple Primary Care Provider Stephany Ortega RN Unavailable Amaris Cueva MD Unavailable [phone] Maverick Lee MD Unavailable [phone] Michael Gonzales MD Unavailable [phone] Lolly Warren NP Unavailable [phone] Daniel Whittington MD, PhD Unavailable [phone] Regina Esquivel NP Unavailable [phone] Maverick Waterman DO Unavailable [phone] Aris Tracey MD Unavailable [phone] Noé Sofia DO Unavailable [phone] Sudhakar Lipscomb DRIVER RETRAINING INSTRUCTOR Primary Care Provider Encounter Details Date Type Department Care Team (Latest Contact Info) Description 10/08/2021 Preop Surgical Orders [facility] Physicians - Urology, [facility] [address] [place] [address] [address] [place] [phone] Lolly Lipscomb, RN Gross hematuria (Primary Dx) [...] [facility] Outpatient Center [address] [facility], [address] [place] [address] 05/14/2025 1:15 PM EDT Appointment [facility] Physicians - Spine Surgery, [facility] [address] [place] [address] [address] [place] [phone] Leo Mosley PA-C [address] [place], [place] [id number] 05/16/2025 8:00 PM EDT Appointment [facility] Sleep Center [address] Medical Office Building [address] [place] [address] 05/19/2025 9:40 AM EDT Appointment [facility] Physicians - Pulmonary Medicine, [address] [place] [address] Noé Sofia DO [address] [place], [place] [address] 06/25/2025 9:45 AM EDT Hospital Encounter Cardiovascular Recovery Unit (CVRU) [address] [place] [address] Daniel Elder MD [address] [facility] [place] [address] Persistent atrial fibrillation (CMS/HCC) 06/25/2025 9:45 AM EDT - 06/25/2025 11:30 AM EDT Surgery Electrophysiology Lab 9 [place] [address] Daniel Elder MD [address] [facility] [place] [address] A[employer] PULSED FIELD 07/02/2025 1:00 PM EDT Appointment [facility] Physicians - Sleep Medicine[address] [phone] Jayy Whitfield NP [address] [facility] [address] [place] [address] 07/02/2025 2:15 PM EDT Appointment [facility] Physicians - Heart & Vascular, [facility] [address] [place] [address] [address] [facility] [place] [address] Amaris Cueva MD [address] [facility] [address] [facility] [place] [address] 07/28/2025 1:00 PM EST Appointment [facility] Physicians - Heart & Vascular, [facility] [address] [place] [address], [address] [place] [phone] Lynnette Lopez NP [address] [facility] [address] [place] [address] documented as of this encounter Goals Goal Patient Goal Type Associated Problems Recent Progress Patient-Stated? Author Limit fluid intake to 2 liters per day Diet No Tariq Lee BS Reduce salt intake to 2 grams per day Diet No Tariq Lee BS Record weight daily Lifestyle Yes Tariq Lee BS documented as of this encounter Visit Diagnoses Diagnosis Gross hematuria- Primary Persistent atrial fibrillation (CMS/HCC)- Primary Atrial fibrillation Persistent atrial fibrillation (CMS/HCC) Atrial fibrillation documented in this encounter Care Teams Flight Test Mechanic Relationship Specialty Start Date End Date Apple Santiago [address] [place] [address] [place] [address] PCP - General Family Medicine 08/02/21 08/29/23 Sudhakar Lipscomb NP [address] [place] [id number] PCP - General Family Medicine 08/30/23 Stephany Ortega, SHARONDA Cardiology 08/04/21 Amaris Cueva MD [address] [facility] [address] [place], [place] [id number] Cardiology 08/10/21 Maverick Lee MD [address] [facility] [address] [place], [place] [id number] Interventional Cardiology 09/06/21 Michael Gonzales MD [address] [facility] [place] [address] Internal Medicine, Sleep Medicine 09/07/21 Lolly Warren NP [address] [place] [address] Nurse Practitioner Nurse Practitioner, Acute Care 09/08/21 Daniel Whittington MD, PhD [address] [place] [address] [address] [place] [address] Clinical Cardiac Electrophysiology 09/13/21 Regina Esquivel NP [facility] [place] [address] Nurse Practitioner Nurse Practitioner, Acute Care 09/22/21 Maverick Waterman DO [address] [facility] [place] [address] Advanced Heart Failure/Transplant 09/30/21 Aris Tracey MD [address] [place] [address] [address] [place] [address] Urology 10/28/21 Noé Sofia DO [address] [place] [address] Critical Care Medicine 12/28/22 documented as of this encounter
--- OUTSIDE RECORDS SUMMARY | 2025-05-03 00:56 | XMS_ITS | Encounter Summary ---
Author Organization [facility] Address [address] [place] [address] Care Team Providers Care Sales Office Administrator Name Role Phone Pamela Apple Primary Care Provider Stephany Ortega RN Unavailable Amaris Cueva MD Unavailable [phone] Maverick Lee MD Unavailable [phone] Michael Gonzales MD Unavailable [phone] Lolly Warren NP Unavailable [phone] Daniel Whittington MD, PhD Unavailable +[phone] Regina Esquivel NP Unavailable [phone] Maverick Waterman DO Unavailable [phone] Aris Tracey MD Unavailable [phone] Noé Sofia DO Unavailable [phone] Sudhakar Lipscomb BIG DATA ANALYTICS LEAD Primary Care Provider Encounter Details Date Type Department Care Team (Late st Contact Info) Description 08/21/2023 Preop Surgical Orders [facility] Physicians - Pulmonary Medicine, [facility] [address] [facility] [address] [place] [address] Noé Sofia DO [address] [facility] [place] [address] Social History Tobacco Use Types Packs/Day Years [...] Description 05/13/2025 10:45 AM EDT Appointment [facility] Outpatient Center [address] [facility], [address] [place] [address] 05/14/2025 1:15 PM EDT Appointment [facility] Physicians - Spine Surgery, [facility] [address] [facility] [address] [place] [address] Leo Mosley PA-C [address] [place] [address] 05/16/2025 8:00 PM EDT Appointment [facility] Sleep Center [facility] [address] [facility] Medical Office Building [address] [place] [address] 05/19/2025 9:40 AM EDT Appointment [facility] Physicians - Pulmonary Medicine, [facility] [address] [facility] [address] [place] [address] Noé Sofia DO [address] [place], [place] [address] 06/25/2025 9:45 AM EDT Hospital Encounter Cardiovascular Recovery Unit (CVRU) [address] [place] [address] Daniel Elder MD [address] [place] [address] Persistent atrial fibrillation (CMS/HCC) 06/25/2025 9:45 AM EDT - 06/25/2025 11:30 AM EDT Surgery Electrophysiology Lab [address] [place] [address] Daniel Elder MD [address] [place] [address] ABL[employer] PULSED FIELD 07/02/2025 1:00 PM EDT Appointment The [facility] - Sleep Medicine[address] [phone] Jayy Whitfield NP [address] [place], [place] [address] 07/02/2025 2:15 PM EDT Appointment [facility] [address] [place] [address] [address] [place] [address] Amaris Cueva MD [address] [facility] [address] [place], [place] [id number] 07/28/2025 1:00 PM EST Appointment [facility] Physicians - Heart & Vascular, [facility] [address] [place] [address] Lynnette Lopez NP [address] [place] [address] documented as of this encounter Goals Goal [...] on filedocumented in this encounter Care Teams Sales Office Administrator Relationship Specialty Start Date End Date Apple Santiago [address] [place] [address] [place] [address] PCP - General Family Medicine 08/02/21 08/29/23 Sudhkaar Lipscomb NP [address] [place] [id number] PCP - General Family Medicine 08/30/23 Stephany Ortega RN Cardiology 08/04/21 Amaris Cueva MD [address] [facility] [address] [place], [place] [id number] Cardiology 08/10/21 Maverick Lee MD [address] [facility] [address] [place], [place] [phone] Interventional Cardiology 09/06/21 Michael Gonzales MD [address] [place] [address] Internal Medicine, Sleep Medicine 09/07/21 Lolly Warren NP [address] [place] [address] Nurse Practitioner Nurse Practitioner, Acute Care 09/08/21 Daniel Whittington MD, PhD [address] [place] [address] Clinical Cardiac Electrophysiology 09/13/21 Regina Esquivel NP [address] [place] [address] Nurse Practitioner Nurse Practitioner, Acute Care 09/22/21 Maverick Waterman DO [address] [place] [address] Advanced Heart Failure/Transplant 09/30/21 Aris Tracey MD [facility] [address] [place] [address] Urology 10/28/21 Noé Sofia DO [address] [place] [address] Critical Care Medicine 12/28/22 documented as of this encounter
--- OUTSIDE RECORDS SUMMARY | 2025-05-03 00:57 | XMS_ITS ---
Author Organization [facility] Address [facility] [place] [address] Care Team Providers Care Assembler Product Name Role Phone Alfredito Ramey MD Unavailable [phone] Joann Zarate RN Unavailable Unavailable Ezekiel Kang MD Unavailable Alfredito Ramey MD Unavailable [phone] Jerri Santiago MD Primary Care Provider [phone] Active Problems Patient Care Coordination No te Formatting of this note is d ifferent from the original. Mr. Yo Ruiz is a 63 year old male who refers self at the direction of daughter, Benny Stephenson to discuss radiation therapy for prostate cancer. Mr. Ruiz reports his care was at [facility] # [phone] prior to obtaining insurance. He currently has [...] has a CT of abd/pelvis scheduled at [facility] on 02/26/2019. Mr. Ruiz has not had [...] carcinoma: 12 02/14/2019 Pathology Adenocarcinoma of prostate Toledo score 10(5+5) left lateral mid 1/1 core [...] core 100% (10 mm of 10 mm). Toledo score 9 (5+4) 1/1 core 100% 16 [...] Chronic insomnia 01/13/2025 Coronary artery disease involving nisqually coronar y artery 07/23/2024 Lesion of lung 06/21/2024 Acute bronchitis 05/30/2023 Chronic obstructive pulmonary disease 11/23/2022 Essential hypertension 05/09/2022 Bladder stone 10/28/2021 Overview (04/21/2025): Added automatically from request for surgery [id number] Chronic systolic CHF (congestive heart failure) 09/21/2021 [...] core 100% (10 mm of 10 mm). Toledo score 9 (5+4) 1/1 core 100% 16 [...] knee pain 10/08/2013 Chronic neck pain 04/26/2012 Current Treatment and Therapy Plans No current plan information found. Past Treatment and Therapy Plans No past plan information found. Treatment Summaries Oncology Care Plan* Cancer Care Plan for Yo Ruiz Prepared on 06/03/20 This document represents your personalized cancer care plan. Your care team has developed a unique plan to provide you with information and education about what to expect. At the [facility], you have access to a specialized team [...] the best in the country. Your Information [id number] 1955 Yo Ruiz male White or Not or [email or web address] [phone] (home) Your Oncology Care Team Medical Oncologist No care housekeeping and laundry team leader to display Surgical Oncologist No care housekeeping and laundry team leader to display Gynecological Oncologist No care housekeeping and laundry team leader to display Radiation Oncologist Alfredito Ramey MD [phone] Nurse Practitioner No care housekeeping and laundry team leader to display Nurse Navigator No care housekeeping and laundry team leader to display Oncology Nurse (Clinic & BUSINESS DEVELOPMENT ASSOCIATE) Joann Zarate RN [phone] Oncology Pharmacist No care housekeeping and laundry team leader to display Oncology Transit Driver No care housekeeping and laundry team leader to display Coil Winding Supervisor No care housekeeping and laundry team leader to display Primary Care Physician ELDER PENG [phone] External Referring Oncologist No care housekeeping and laundry team leader to display Radiologist No care housekeeping and laundry team leader to display Advanced Directives and Code Status An advance directive is a document by which a person makes provision for health care decisions in the event that, in the future, he/she becomes unable to make those decisions. There are two main types of advance directive - the ???Living Will?? and the ???Durable Power of Prop Worker for Health Care.?? In a living will, a person instructs a physician to withhold/withdraw medical interventions if he/she is in a terminal condition and is unable to make medical treatment decisions. In a Durable Power of Prop Worker for Health Care a person designates an agent to make health care decisions if the person is temporarily or permanently unable to make such decisions. Power of Prop Worker: Offered, Patient declined Living Will: Offered, Patient [...] and ask to speak with the physician leather production worker. (Please allow 30 min for a return [...] disabilities, so that we can offer assistance. [facility] has an onsite Social Work team and a territory account representative from the [employer] that can connect you with internal resources or community based agencies who may be able to offer assistance. The information for your psychotherapist social worker is listed above so that [...] need to speak to the Oncology Care Assistant Accounting Manager. Legal Barriers to Care, Vocational Status, and [...] healthy include the following: Routine Exercise The [employer] recommends that cancer survivors engage inat least 150 minutes of exercise a week, such as 30 minutes 5 days a week and include some weight bearing exercises. The [employer] 2020 Guidelines recommends 150-300 minutes [...] the Cancer Exercise program for patients at [facility]. Healthy Diet Individuals should eat foods high [...] and refined grain products(ACS, 2020). Book Resource: [employer] Complete Guide to Nutrition for Cancer Survivors. Edited by Eliane Barton et al. [facility] offers nutritional consults for cancer survivors. Alcohol [...] provider. There are many specialists in the [facility] system that are trained in treating side [...]
--- OUTSIDE RECORDS SUMMARY | 2025-05-03 00:57 | XMS_ITS | Clinical Summary ---
Author Organization [facility] Address [address] [place] [address] Care Team Providers Care Manager Desktop Name Role Phone Unavailable Primary Care Provider Unavailabl e Source Comments PLEASE NOTE, if this patient is a minor, it may be UNLAWFUL to discuss sensitive information that is contained in these records (such as FAMILY PLANNING, MENTAL HEALTH or SUBSTANCE ABUSE) with the minor patient's parent or other person without the patient's specific authorization.BONNYIN Allergies Active Allergy Reactions Criticality Noted Date Comments Antihistamines - Alkylamine Anxiety Low 01/08/2019 Clemastine-Phenylprop 04/26/2012 Per pt, he experiences panic attacks Codeine Itching 06/30/2011 Meperidine 08/16/2010 Scared feeling Pheniramine 2016 Other reaction(s): increased heart rate Pseudoephedrine Hcl Anxiety,Other (See Comments) 06/30/2011 Rapid heart rate. Medications sildenafil (VIAGRA) 25 mg tablet Take 1 Tab by mouth once daily as needed for erectile dysfunction 2 Tab 7 Active albuterol sulfate 90 mcg/actuation inhalerIndicati ons:Bronchitis, Acute non-recurrent maxillary sinusitis Inhale 2 Puffs into the lungs every 4 (four) hours as needed for wheezing 1 Inhaler 11 8 Active tamsulosin (FLOMAX) 0.4 mg 24 hr capsuleIndicati ons:Urinary urgency,Nocturi a Take 1 Cap by mouth once daily Take 30 minutes following the same meal each day. Swallow whole. Do not open, crush, or chew. 30 Cap 2 8 Active doxazosin (CARDURA) 4 mg tabletIndicatio ns:BPH with obstruction/low er urinary tract symptoms Take 1 Tab by mouth nightly at bedtime 30 Tab 11 9 Active ibuprofen (ADVIL,MOTRIN) 600 mg tabletIndicatio ns:Acute purulent bronchitis Take 1 Tab by mouth 3 (three) times daily as needed for pain 30 Tab 1 9 Active amiodarone (PACERONE) 200 mg tablet Take 200 mg by mouth once daily 9 Active apixaban (ELIQUIS) 5 mg tab Take 5 mg by mouth 2 (two) times daily 9 Active metoprolol succinate (TOPROL-XL) 50 mg 24 hr tablet Take 50 mg by mouth once daily 9 Active polyethylene glycol 3350 (GLYCOLAX, MIRALAX) 17 gram packet Take 17 g by mouth once daily as needed 9 Active sennosides-docu sate sodium (PERICOLACE) 8.6-50 mg per tablet Take 1 Tab by mouth once daily 9 Active Active Problems Problem Noted Date Diagnosed Date H/O amiodarone therapy 02/20/2019 Hyperkalemia 02/07/2019 Atrial fibrillation with RVR ([facility]) Bladder outlet obstruction 02/03/2019 Hydronephrosis, bilateral 02/02/2019 Accommodative paresis, bilateral 01/16/2019 Age-related nuclear cataract of both eyes 2018 Benign prostatic hyperplasia with urinary obstru ction 01/16/2019 Urinary urgency 08/19/2018 Nocturia 08/19/2018 Influenza vaccination declined by patient 2017 Urinary frequency 08/06/2018 Prediabetes 08/06/2018 Elevated PSA 08/06/2018 Overview (02/20/2019): Images from the original note were not included. 02/01/2019 4.24 (H) While in [facility] with BPH and urinary obstruction, Prabhakar inserted until Prostate BX and possible TURP needed if BX negative. History of urinary calculi 08/06/2018 Microscopic hematuria 08/06/2018 Labral tear of shoulder, left, sequela 8 Chondromalacia of patella 05/12/2017 Skin tags, multiple acquired 03/31/2017 Contusion of knee, left 01/05/2017 Vertigo, 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 CTS (carpal tunnel syndrome) 08/17/2015 Ulnar neuropathy 08/17/2015 Chronic shoulder pain 08/04/2015 Chronic low back pain 08/04/2015 Chronic pain syndrome 08/04/2015 Prolapsed cervical intervertebral disc 5 Impingement syndrome of shoulder region 07/13/20 15 Intervertebral disc disorder of cervical region with myelopathy 07/13/2015 IGT (impaired glucose tolerance) 08/21/2014 Morbid obesity ([facility]) 12/30/2013 Kidney stones 10/30/2013 Chronic knee pain 10/08/2013 Seasonal allergies 10/08/2013 Mild intermittent asthma ([facility]) 10/08/2013 Esophageal reflux 11/15/2012 Non-compliant patient 11/15/2012 Depressive disorder, not elsewhere classified Chronic neck pain 04/26/2012 Resolved Problems Problem Noted Date Diagnosed Date Resolved Date Obesity (BMI 30-39.9) 11/03/20152018 Head injury 08/04/2015 02/10/2016 Meningioma ([facility]) 08/04/2015 0 11/03/2015 Allergic rhinitis, cause unspecified 10/08/2013 02/10/2016 Obesity, unspecified 10/07/2013 014 Overweight(278.02) 04/26/2012 4 Social History Tobacco Use Types Packs/Day Years Used Date Smoking Tobacco: Former Cigarettes Smokeless Tobacco: Never Tobacco Cessation:Counseling Given: Yes Comments:quit 1972-exposed to second hand smoke Alcohol Use Standard Drinks/Week Comments No 0 (1 standard drink = 0.6 oz pur e alcohol) Quit 1983 Social Connections Answer Date Recorded Social Connections and Isolation 0 05/03/2022 Financial Resource Strain Answer Date R ecorded Financial Resource Strain 0 2021 Stress Answer Date Recorded Stress 0 05/03/2022 Physical Activity Answer Date Recorded Physical Activity 0 05/03/2022 Food Insecurity Answer Date Recorded Food 0 05/03/2022 Transportation Needs Answer Date Record ed Transportation 0 05/03/2022 Housing Stability Answer Date Recorded Housing 0 05/03/2022 Safety and Environment Answer Date Zhao rded Safety 0 05/03/2022 Utilities Answer Date Recorded Utilities 0 05/03/2022 Employment Answer Date Recorded Employment 0 05/03/2022 Sex and Gender Information Value Date Recorded Sex Assigned at Male 08/01/2018 12:05 PM PST Legal Sex Male 11:22 PM PST Gender Identity Male 03/31/2017 7:40 AM PDT Sexual Orientation Straight 08/01/2018 12 :05 PM PST Last Filed Vital Signs Vital Sign Reading Time Taken Comments Blood Pressure 142/85 01/16/2019 3:44 PM EDT Pulse 79 01/16/2019 3:44 PM EDT Temperature 36.1 C (97 F) 08/15/2018 3:50 PM EST Respiratory Rate 20 07/31/2017 10:13 AM EST Oxygen Saturation 94% 01/16/2019 3:44 PM EDT Inhaled Oxygen Concentration - - Weight 114.8 kg (253 lb) 01/16/2019 3:44 PM EDT Height 167.6 cm (5' 6 ) 01/16/2019 3:44 PM EDT Body Mass Index 40.84 01/16/2019 3:44 PM EDT Plan of Treatment Not on file Goals Goal Patient Goal Type Associated Problems Recent Progress Patient-Stated? Author Weight (lb) < 200 lb (90.7 kg) Weight 253 lb (114.8 kg)(01/16/2019 3:44 PM EDT) Aundrea Sampson, SUPERVISOR BUFFING AND PASTING,ELECTROMECHANICAL TECHNICIAN
--- OUTSIDE RECORDS SUMMARY | 2025-05-03 00:57 | XMS_ITS | Encounter Summary ---
Author Organization [facility] Address [address] [place] [address] Care Team Providers Care Dewer Name Role Phone Stephany Orteag RN Unavailable Amaris Cueva MD Unavailable [phone] Maverick Lee MD Unavailable [phone] Michael Gonzales MD Unavailable [phone] Lolly Warren NP Unavailable [phone] Daniel Whittington MD, PhD Unavailable [phone] Regina Esquivel NP Unavailable [phone] Maverick Waterman DO Unavailable [phone] Aris Tracey MD Unavailable [phone] Noé Sofia DO Unavailable [phone] Sudhakar Lipscomb TELEVISION EQUIPMENT OPERATOR Primary Care Provider Encounter Details Date Type Department Care Team (Late st Contact Info) Description 04/17/2025 Telephone [facility] - Heart & Vascular, [place] [address]I CRAVEN, [address] [place] [address] Selena Posada Social History Tobacco Use Types Packs/Day Years [...] Appointment [facility] [place] [address], [address] [place] [address] 05/14/2025 1:15 PM EDT Appointment [facility] - Spine Surgery, [facility] [address] [place] [phone] Leo Mosley PA-C [address] [place] [address] 05/16/2025 8:00 PM EDT Appointment [facility] [address] [place] [address] 05/19/2025 9:40 AM EDT Appointment [facility] - Pulmonary Medicine, [address] [place] [phone] Noé Sofia DO [address] [place] [address]. [address] [place], [place] [address] 06/25/2025 9:45 AM EDT Hospital Encounter Cardiovascular Recovery Unit (CVRU) [address] [place] [address] Daniel Elder MD [address] [place] [address] Persistent atrial fibrillation (CMS/HCC) 06/25/2025 9:45 AM EDT - 06/25/2025 11:30 AM EDT Surgery Electrophysiology Lab [address] [place] [address] Daniel Elder MD [address] [place] [address] ABLATION PULSED FIELD 07/02/2025 1:00 PM EDT Appointment [facility] - Sleep Medicine, [address] [phone] Jayy Whitfield NP [address] [place], [place] [address] 07/02/2025 2:15 PM EDT App[facility]ment [facility] [address] [place] [address] Amaris Cueva MD [address] [place], [place] [id number] 07/28/2025 1:00 PM EST Appointment [facility] - Heart & Vascular, [facility] [address] [facility] [address] [place] [phone] Lynnette Lopez NP [address] [place] [address] documented as of this encounter Goals Goal [...] on filedocumented in this encounter Care Teams Dewer Relationship Specialty Start Date End Date Sudhakar Lipscomb NP [address] [place] [address] PCP - General Family Medicine 08/30/23 Stephany Ortega, SHARONDA Cardiology 08/04/21 Amaris Cueva MD [address] [place], [place] [id number] Cardiology 08/10/21 Maverick Lee MD [address] [place], [place] [id number] Interventional Cardiology 09/06/21 Michael Gonzales MD [address] [place] [address] Internal Medicine, Sleep Medicine 09/07/21 Lolly Warren, TORRES [address] [place] [address] Nurse Practitioner Nurse Practitioner, Acute Care 09/08/21 Daniel Whittington MD, PhD [address] [place] [address] Clinical Cardiac Electrophysiology 09/13/21 Regina Esquivel NP [address] [place] [address] Nurse Practitioner Nurse Practitioner, Acute Care 09/22/21 Maverick Waterman DO [address] [facility] [place] [address] Advanced Heart Failure/Transplant 09/30/21 Aris Tracey MD [facility] [facility] [address] [place] [address] Urology 10/28/21 Noé Sofia DO [address] [place] [address] Critical Care Medicine 12/28/22 documented as of this encounter
--- OUTSIDE RECORDS SUMMARY | 2025-05-03 00:57 | XMS_ITS | Encounter Summary ---
Author Organization [facility] Address [address] [place] [address] [place] [address] Phone Care Team Providers Care Rehabilitation Team Lead Name Role Phone [facility] Primary Care Provider Lico Villareal MD Primary Care Provider [phone] Aundrea Hussein CNP Primary Care Provider [phone] Encounter Details Date Type Department Care Team (Late st Contact Info) Description 02/07/2019 Discharge Call Center Patient Call Center [address] [place] [address] Social History Tobacco Use Types Packs/Day Years [...] Servin, Registered Nurse * Do you have serious [...] documented as of this encounter Care Teams Rehabilitation Team Lead Relationship Specialty Start [place] [address] [place] [address] PCP - General Family Medicine 02/07/19 04/03/19 Lico Villareal MD [address] [place] [address] PCP - General Internal Medicine 04/04/19 12/22/19 Aundrea Hussein CNP [facility] [place] [address] PCP - General 12/23/19 documented as of this encounter
--- OUTSIDE RECORDS SUMMARY | 2025-05-03 00:58 | XMS_ITS | Encounter Summary ---
Author Organization [facility] Address [address] [place] [address] Care Team Providers Care Cigar Packer And Shader Name Role Phone Alfredito Ramey MD Unavailable [phone] Joann Zarate RN Unavailable Unavailable Ezekiel Kang MD Unavailable [phone] Alfredito Ramey MD Unavailable [phone] Jerri Santiago MD Primary Care Provider [phone] Source Comments This information has been disclosed [...] release of HIV test results or diagnoses. 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 Not on file Not on file documented as of this encounter Plan of Treatment Not on file documented as of this encounter Results * XR Knee Outside [...] documented as of this encounter Care Teams Cigar Packer And Shader Relationship Specialty Start Date [place] [address] PCP - General Family Medicine 04/12/21 Alfredito Ramey MD Radiation Oncologist Radiation Oncology 02/18/19 Joann Zarate, RN Registered Nurse 02/18/19 Ezekiel Kang MD [address] [facility] [address] [place] [phone] 02/18/19 Alfredito Ramey MD Initiating Oncologist Radiation Oncology 06/03/20 documented as of this encounter
--- OUTSIDE RECORDS SUMMARY | 2025-05-03 00:58 | XMS_ITS | Encounter Summary ---
Author Organization [facility] Address [address] [place] [address] Care Team Providers Care Street Light Mechanic Name Role Phone Alfredito Ramey MD Unavailable [phone] Joann Zarate RN Unavailable Unavailable Ezekiel Kang MD Unavailable [phone] Alfredito Ramey MD Unavailable [phone] Jerri Santiago MD Primary Care Provider [phone] Source Comments This information has been disclosed [...] release of HIV test results or diagnoses. 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 Not on file Not on file documented as of this encounter Plan of Treatment Not on file documented as of this encounter Results * XR Pelvis Outside [...] documented as of this encounter Care Teams Street Light Mechanic Relationship Specialty Start Date End [place] [address] PCP - General Family Medicine 04/12/21 Alfredito Ramey MD Radiation Oncologist Radiation Oncology 02/18/19 Joann Zarate, RN Registered Nurse 02/18/19 Ezekiel Kang MD [address] [facility] [address] [place] [phone] 02/18/19 Alfredito Ramey MD Initiating Oncologist Radiation Oncology 06/03/20 documented as of this encounter
--- OUTSIDE RECORDS SUMMARY | 2025-05-03 00:59 | XMS_ITS | Encounter Summary ---
Author Organization [facility] Address [facility] [place] [address] Care Team Providers Care Transcription Coordinator Name Role Phone Alfredito Ramey MD Unavailable [phone] Joann Zarate RN Unavailable Unavailable Ezekiel Kang MD Unavailable [phone] Alfredito Ramey MD Unavailable [phone] Jerri Santiago MD Primary Care Provider [phone] Source Comments This information has been disclosed [...] release of HIV test results or diagnoses. 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 * Telephone Encounter - Joann Zarate RN - 04/24/2025 5:44 PM EDT 5 CD's taken to [facility] radiology documented in this encounter Plan of Treatment Not on file documented as of this encounter Visit Diagnoses Not on filedocumented in this encounter Additional Health Concerns Assessment Noted Time PHQ-9 Depression Total Score: 3 02/20/20 19 3:00 PM EDT documented as of this encounter Care Teams Transcription Coordinator Relationship Specialty Start Date [place] [address] PCP - General Family Medicine 04/12/21 Alfredito Ramey MD Radiation Oncologist Radiation Oncology 02/18/19 Joann Zarate, RN Registered Nurse 02/18/19 Ezekiel Kang MD [address] [address] 02/18/19 Alfredito Ramey MD Initiating Oncologist Radiation Oncology 06/03/20 documented as of this encounter
--- OUTSIDE RECORDS SUMMARY | 2025-05-03 01:00 | XMS_ITS | Encounter Summary ---
Author Organization [facility] Address [address] [place] [id number] Care Team Providers Care Wound Care Physician Name Role Phone Alfredito Ramey MD Unavailable [phone] Joann Zarate RN Unavailable Unavailable Ezekiel Kang MD Unavailable [phone] Alfredito Ramey MD Unavailable [phone] Jerri Santiago MD Primary Care Provider [phone] Source Comments This information has been disclosed [...] release of HIV test results or diagnoses. 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 patient who has a [place] medical [place] [place] [place]), Asthma, and Cancer [place] [place]. Prescription: ABIRATERONE How patient is currently taking specialty medication (dose/frequency): 1000mg daily Chart previously reviewed for diagnosis, medication appropriateness (including dose and duration), and potential interactions Previously provided patient with handout: Chemotherapy Safety: Oral . Contacted patient to coordinate refill. Side effects: denies Adherence: denies missed doses Patient's prescription and non-prescription medications and natural supplements were reviewed and updated. Medication changes: d/c bicalutamide and ASA. Added Eliquis Current Outpatient Medications Medication Sig Dispense Refill abiraterone (ZYTIGA) 250 mg Tab Take 4 tablets (1,000 mg total) by mouth daily. Indications: metastatic castration-resistant prostate cancer 120 tablet 11 abiraterone (ZYTIGA) 250 mg Tab Take 4 tablets (1,000 mg total) by mouth daily. 120 tablet 11 acetaminophen (TYLENOL) 500 MG tablet Take 1 tablet (500 mg total) by mouth every 6 hours as needed. aspirin 81 MG EC tablet Take 1 tablet (81 mg total) by mouth daily. (Patient not taking: Reported on 04/16/2025) bicalutamide (CASODEX) 50 MG tablet Take 1 tablet (50 mg total) by mouth daily. (Patient not taking: Reported on 04/16/2025) dapagliflozin (FARXIGA) 10 mg Tab tablet Take 1 tablet (10 mg total) by mouth daily. furosemide (LASIX) 20 MG tablet Take 1 tablet (20 mg total) by mouth if needed. losartan (COZAAR) 100 MG tablet Take 1 tablet (100 mg total) by mouth daily. metoprolol succinate (TOPROL-XL) 50 MG 24 hr tablet Take 1 tablet (50 mg total) by mouth daily. predniSONE (DELTASONE) 5 MG tablet Take 1 tablet (5 mg total) by mouth 2 times a day. 180 tablet 3 tamsulosin (FLOMAX) 0.4 mg Cap Take 1 capsule (0.4 mg total) by mouth in the morning and at bedtime. 180 capsule 3 No current facility-administered medications for this visit. Allergies: Allergies[1] Plan: - Prescription will be filled by [facility]. Method of delivery: shipped via [facility] by end of day 04/18. Patient should receive 04/19. - Recommended monitoring: LFTs, potassium, blood pressure - Specialty pharmacy staff will contact patient prior to next refill due date for patient consent to bill/ship. [1] Allergies Allergen Reactions Anti-Hyst excitable Clemastine-Phenylprop Per pt, he experiences panic attacks Codeine Itching itchy Meperidine Scared feeling States he has taken recently but no incidence of paranoia like he experiences in 2006 Pheniramine Other reaction(s): increased heart rate Other reaction(s): increased heart rate Antihistamines - Alkylamine Anxiety Other Anxiety Pseudoephedrine Hcl Anxiety and Other (See Comments) Rapid heart rate. documented in this encounter Plan of Treatment Not on file documented as of this encounter Visit Diagnoses Not on filedocumented in this encounter Additional Health Concerns Assessment Noted Time PHQ-9 Depression Total Score: 3 02/20/20 19 3:00 PM EDT documented as of this encounter Care Teams Wound Care Physician Relationship Specialty Start Date End Date Jerri Santiago MD O [address] [address] PCP - General Family Medicine 04/12/21 Alfredito Ramey MD Radiation Oncologist Radiation Oncology 02/18/19 Joann Zarate, RN Registered Nurse 02/18/19 Ezekiel Kang MD [address] [place] [id number] 02/18/19 Alfredito Ramey MD Initiating Oncologist Radiation Oncology 06/03/20 documented as of this encounter
--- OUTSIDE RECORDS SUMMARY | 2025-05-03 01:00 | XMS_ITS | Encounter Summary ---
Author Organization [facility] Address [address] [place] [address] Care Team Providers Care Cutting Tool Sharpener Name Role Phone Alfredito Ramey MD Unavailable [phone] Joann Zarate RN Unavailable Unavailable Ezekiel Kang MD Unavailable [phone] Alfredito Ramey MD Unavailable [phone] Jerri Santiago MD Primary Care Provider [phone] Source Comments This information has been disclosed [...] release of HIV test results or diagnoses. 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 Not on file Not on file documented as of this encounter Plan of Treatment Not on file documented as of this encounter Results * XR Spine Outside [...] documented as of this encounter Care Teams Cutting Tool Sharpener Relationship Specialty Start Date [place] [address] PCP - General Family Medicine 04/12/21 Alfredito Ramey MD Radiation Oncologist Radiation Oncology 02/18/19 Joann Zarate, RN Registered Nurse 02/18/19 Ezekiel Kang MD [address] [facility] [address] [place] [phone] 02/18/19 Alfredito Ramey MD Initiating Oncologist Radiation Oncology 06/03/20 documented as of this encounter
[2025-05-03 01:01] VITALS: BP 170/81; PULSE 83; O2SAT 98
--- OUTSIDE RECORDS SUMMARY | 2025-05-03 01:01 | XMS_ITS | Encounter Summary ---
Author Organization [facility] Address [facility] [place] [address] Care Team Providers Care Brazing Furnace Feeder Name Role Phone Alfredito Ramey MD Unavailable [phone] Joann Zarate RN Unavailable Unavailable Ezekiel Kang MD Unavailable [phone] Alfredito Ramey MD Unavailable [phone] Jerri Santiago MD Primary Care Provider [phone] Source Comments This information has been disclosed [...] release of HIV test results or diagnoses. 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 Will need to approve future prescriptions with [employer]. documented in this encounter Plan of Treatment Not on file documented as of this encounter Visit Diagnoses Not on filedocumented in this encounter Additional Health Concerns Assessment Noted Time PHQ-9 Depression Total Score: 3 02/20/20 19 3:00 PM EDT documented as of this encounter Care Teams Brazing Furnace Feeder Relationship Specialty Start Date [place] [address] PCP - General Family Medicine 04/12/21 Alfredito Ramey MD Radiation Oncologist Radiation Oncology 02/18/19 Joann Zarate RN Registered Nurse 02/18/19 Ezekiel Kang MD [address] [facility] [address] [place] [phone] 02/18/19 Alfredito Ramey MD Initiating Oncologist Radiation Oncology 06/03/20 documented as of this encounter
--- OUTSIDE RECORDS SUMMARY | 2025-05-03 01:01 | XMS_ITS | Encounter Summary ---
Author Organization [facility] Address [facility] [place] [address] Care Team Providers Care Light Equipment Operator Name Role Phone Alfredito Ramey MD Unavailable [phone] Joann Zarate RN Unavailable Unavailable Ezekiel Kang MD Unavailable [phone] Alfredito Ramey MD Unavailable [phone] Jerri Santiago MD Primary Care Provider [phone] Source Comments This information has been disclosed [...] release of HIV test results or diagnoses. 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 Have a blessed evening. Joann Zarate RN-CN III OCN [facility] Department of Radiation Oncology [address] [place] [address]. [id number] [email or web address] documented in this encounter Plan of Treatment Not on file documented as of this encounter Visit Diagnoses Not on filedocumented in this encounter Additional Health Concerns Assessment Noted Time PHQ-9 Depression Total Score: 3 02/20/20 19 3:00 PM EDT documented as of this encounter Care Teams Light Equipment Operator Relationship Specialty Start Date [place] [address] PCP - General Family Medicine 04/12/21 Alfredito Ramey MD Radiation Oncologist Radiation Oncology 02/18/19 Joann Zarate, RN Registered Nurse 02/18/19 Ezekiel Kang MD [address] [place] [phone] 02/18/19 Alfredito Ramey MD Initiating Oncologist Radiation Oncology 06/03/20 documented as of this encounter
[2025-05-03 01:17] VITALS: BP 147/84; PULSE 87; O2SAT 96
[2025-05-03 01:30] VITALS: BP 146/81; PULSE 81; O2SAT 98
[2025-05-03] MEDS: OXYCODONE 5MG W/APAP 325MG TABLET 1 EACH PO (02:06)
[2025-05-03] MEDS: KETOROLAC 30MG/ML VIAL 15 MG IM (02:06)
--- NOTE | 2025-05-03 02:33 | HMH.EDGENADL ---
Discharge Plan Disposition Patient Disposition: Home, Self-Care Condition: Good Prescriptions Prescriptions: New methocarbamol 500 mg tablet 500 mg PO Q8H PRN (Reason: muscle spasm) Qty: 30 0RF No Action metoprolol succinate 50 mg tablet extended release 24 hr 50 mg PO BID prednisone 5 mg tablet 5 mg PO DAILY tamsulosin 0.4 mg capsule 0.4 mg PO DAILY furosemide 20 mg tablet 20 mg PO DAILY losartan 100 mg tablet 100 mg PO DAILY abiraterone 250 mg tablet 250 mg PO DIRECTED Eliquis 5 mg tablet 5 mg PO BID dapagliflozin propanediol [Farxiga] 10 mg tablet 10 mg PO DIRECTED Referrals Follow up/Referrals: Sudhakar Lipscomb APRN [Primary Care Provider, Medical] - See instructions Activity Restrictions/Add. Instructions Additional Instructions/Restrictions: You were evaluated in the ER and are believed to be appropriate for discharge at this time. If needed, take the prescribed muscle relaxer. It may make you slightly sleepy or unsteady on your feet so be careful with this medication and do not drive after taking it. Continue your home medications as previously prescribed. Take Tylenol if needed for pain, do not exceed the recommended dose on the bottle. Drink water and eat a small snack each time you take this medication to avoid side effects. Make an appointment with your primary care doctor for reevaluation, follow-up for the MRI as scheduled. Also call your pain management doctor for further evaluation and treatment. Return to the ER with new, worsening, or otherwise concerning symptoms. Clinical Impressions Clinical Impression: Chronic sciatica of right side Print Language Print Language: Ukrainian Discharge ED Provider: Delaney Palacios Adult HPI General Chief complaint: PAIN Stated complaint: sciatic nerve pain Time Seen by Provider: 05/03/25 00:57 Mode of Arrival: Ambulatory Source of Information: Patient and Significant Other Description of Symptoms (Recalled from ER Triage Doc. by RN): PT presents to the ED for evaluation of sciatic pain. Pt states it has been going on for 4 months. PT did not take any pain medication prior to arrival. History of Present Illness HPI narrative: 69-year-old male on oral chemo for prostate and lung cancer presents with 4 months of sciatic pain. Patient states he is not taking any medications for it at this time because nothing has seemed to work. He has previously tried tramadol, muscle relaxers, lidocaine patches. He did not even take Tylenol prior to arrival. He states he has follow-up with pain management and for an MRI coming up but his pain was really annoying him tonight so he came to the ER for further evaluation. He is having no new pain, no pain in the back, his pain starts in the right hip and radiates down the right leg. He reports no bowel or bladder incontinence, no saddle anesthesia, no numbness, tingling, or weakness. He is able to ambulate independently. No acute injury. Simply requesting pain medications. No other complaints or concerns. Related Data Home Medications ?Medication ?Instructions ?Recorded ?Confirmed abiraterone 250 mg tablet 250 mg PO DIRECTED 04/15/25 04/15/25 apixaban 5 mg tablet (Eliquis) 5 mg PO BID 04/15/25 04/15/25 dapagliflozin propanediol 10 mg 10 mg PO DIRECTED 04/15/25 04/15/25 tablet (Farxiga) furosemide 20 mg tablet 20 mg PO DAILY 04/15/25 04/15/25 losartan 100 mg tablet 100 mg PO DAILY 04/15/25 04/15/25 metoprolol succinate 50 mg 50 mg PO BID 04/15/25 04/15/25 tablet,extended release 24 hr prednisone 5 mg tablet 5 mg PO DAILY 04/15/25 04/15/25 tamsulosin 0.4 mg capsule 0.4 mg PO DAILY 04/15/25 04/15/25 Previous Rx's ?Medication ?Instructions ?Recorded methocarbamol 500 mg tablet 500 mg PO Q8H PRN muscle spasm #30 05/03/25 tabs Allergies Allergy/AdvReac Type Severity Reaction Status Date / Time codeine AdvReac Other Verified 05/03/25 01:54 meperidine (From Demerol) AdvReac Confusion Verified 05/03/25 01:54 antihistamines AdvReac Anxiety Uncoded 04/15/25 14:23 [facility] Disclaimer: The information contained in this section may have been updated after the patient was seen, as this information can be updated by other users. Medical History (Updated 05/03/25 @ 01:59 by Delaney Palacios MD) Skin cancer Cancer of prostate Cancer of lung Afib Social History (Updated 04/15/25 @ 14:20 by hSanti Arriaga RN) Smoking Status: Former smoker alcohol intake: former current occupational status: retired Travel in the last 8 weeks?: None Have you lived/traveled outside US in past 30 days?: No Contact w/someone who lives/traveled outside US past 30 days?: No Exposure to someone with infectious disease in past 14 days?: No Do you have a fever (greater than 100.4 F or 38 C)?: No Have you tested positive for COVID-19?: No Exposed to someone with COVID-19 in past 14 days?: No Do you have a sore throat?: No Do you have a cough?: No Do you have any weakness?: No Do you have any diarrhea?: No Are you experiencing any unusual bleeding?: No Do you have any muscle aches/pain?: No Do you have any abdominal pain?: No Are you experiencing loss of taste or smell?: No Other Medical History Have you received the Flu Vaccine for this season: No Have you received the Pneumonia Vaccine: No ROS Obtained: Yes Systems reviewed as appropriate & no additional complaints except as documented Per HPI Physical Exam General General appearance: alert, in no apparent distress and obese Head Head exam: atraumatic and normocephalic Eye Eye exam: Present PERRL and EOMI ENT ENT exam: Present mucous membranes moist Neck Neck exam: Present normal inspection and full ROM Chest Chest inspection: Present symmetric chest wall rise Respiratory Respiratory exam: Absent respiratory distress or stridor Cardiovascular Cardiovascular exam: Present regular rate and normal rhythm Abdominal Exam Abdominal exam: Present soft; Absent distention or tenderness Extremities Exam Extremities exam: Present full ROM and edema (Trace bilateral lower extremity); Absent joint swelling or calf tenderness Back Exam Back exam: Present full ROM; Absent paraspinal tenderness or vertebral tenderness Back 1 view image:  1. Discomfort in the right leg in this distribution. Starts behind the right hip, only mild tenderness but travels along the posterior lateral aspect Neurological Exam Neurological exam: Present alert, oriented X3 and normal gait; Absent motor sensory deficit (No saddle anesthesia) Psychiatric Psychiatric exam: Present normal affect and normal mood Skin Skin exam: Present warm and dry Medical Decision Making Medical Records Medical records reviewed: Yes I reviewed the patient's medical records. Screening: Per USPSTF and CDC recommendations, given the prevalence of disease in our region, it is our hospital?s policy to screen for HIV and viral Hepatitis for all patients aged 18 and over and those with ongoing risk factors. Elier Inquiry Pt receiving controlled substance: No Vital Signs: 05/03/25 00:47 05/03/25 01:01 05/03/25 01:17 Temperature 98.3 F Temperature Source Oral Pulse Rate 83 87 Pulse Rate [Right] 85 Respiratory Rate 16 Blood Pressure 170/81 H 147/84 H Blood Pressure [Right Arm] 167/93 H Blood Pressure Mean [Right Arm] 117 02 Sat by Pulse Oximetry 100 98 96 Oxygen Delivery Method Room Air 05/03/25 01:30 Temperature Temperature Source Pulse Rate 81 Pulse Rate [Right] Respiratory Rate Blood Pressure 146/81 H Blood Pressure [Right Arm] Blood Pressure Mean [Right Arm] 02 Sat by Pulse Oximetry 98 Oxygen Delivery Method Orders (Tests/Meds): ED MEDICATIONS Discontinued Medications Generic Name Dose Route Start Last Admin Trade Name Freq PRN Reason Stop Dose Admin Ketorolac Tromethamine 15 mg 05/03/25 01:57 05/03/25 02:06 Ketorolac 30mg/Ml Vial IM 05/03/25 01:58 15 mg ONCE ONE Administration Oxycodone/Acetaminophen 1 each 05/03/25 01:57 05/03/25 02:06 Oxycodone 5mg W/Apap 325mg Tablet PO 05/03/25 01:58 1 each ONCE ONE Administration ORDERS Category Date Time Status HIV Combo Stat Lab 05/03/25 00:53 Ordered Hepatitis C Ab Qual. W/ RFX Stat Lab 05/03/25 00:53 Ordered Medical Decision Narrative: In summary, this 69-year-old male with comorbidities described in HPI presents to the emergency department today with sciatica pain down the right leg persistent for the last 4 months, not acutely exacerbated tonight but annoying him more than normal reportedly. On initial evaluation patient is hemodynamically stable, afebrile, ambulatory into the ER, no saddle anesthesia, no neurologic deficits, overall well-appearing, he has discomfort within the sciatic distribution with only mild tenderness to palpation near the posterior hip but full range of motion. Differential diagnosis includes but is not limited to sciatica, muscle spasm, radiculopathy, I considered cauda equina but patient has no red flag symptoms and this has been a chronic persistent problem for months without acute exacerbation so I do not suspect cauda equina at all tonight. I do not believe labs or imaging are indicated at this time since he has had no acute changes. Patient was requesting pain management. I explained to him that with a chronic problem the recurrent use of narcotics is not going to be beneficial but I would give him a one-time dose of Percocet in the ER since he states he has tolerated these before. I also gave him a one-time shot of Toradol. He was comfortable with this plan. He is already on steroids so I do not think this would be beneficial. He does not have any more muscle relaxers at home so I prescribed a course of methocarbamol to be used if he wants. He has follow-up for MRI and pain management and I encouraged him to keep these appointments. Patient was given instructions on symptomatic monitoring and management, follow up instructions, and return precautions for the emergency department. Patient indicated understanding and was discharged in stable condition. Critical Care Critical Care Time Critical Care Time: No
[2025-05-03 02:37] VITALS: BP 132/92; PULSE 89; RESP 16; TEMP 36.6; O2SAT 100
== END 2025-05-03 02:39 | disposition home or self-care (01) ==
PROVIDERS: Emergency Provider Emergency Medicine; PCP Nurse Practitioner Family
DX: M54.31 Sciatica, right side (principal)
CPT/HCPCS: 96374; 99283; J1885

== ENCOUNTER 2025-08-05 14:15 | Outpatient (CLI) | payer MEDICARE, MEDICAID, SELFPAY ==
--- OUTSIDE RECORDS SUMMARY | 2025-06-06 09:03 | XMS_ITS | Encounter Summary ---
Author Organization [facility] Address [address] [place] [address] Care Team Providers Care Patient Care Technician Instructor Name Role Phone Stephany Ortega RN Unavailable Amaris Cueva MD Unavailable [phone] Maverick Lee MD Unavailable [phone] Michael Gonzales MD Unavailable [phone] Lolly Warren NP Unavailable [phone] Daniel Whittington MD, PhD Unavailable [phone] Regina Esquivel NP Unavailable [phone] Maverick Waterman DO Unavailable [phone] Aris Tracey MD Unavailable [phone] Noé Sofia DO Unavailable [phone] Sudhakar Lipscomb SEISMIC OBSERVER Primary Care Provider [phone] Reason for Referral * Consult, Test & Treat (Routine) - Not Needed Specialty Diagnoses / Procedures Referred By Contac t Referred To Contact Diagnoses Lumbar radiculopathy Procedures [facility]MA LUMBAR FORAMINAL EPIDURAL INJ (INITIAL) Daisy Felder NP [address] [facility] [place] [address] Phone: tel: fax: [facility] [address] [place] [address] Phone: tel: Referral ID Status Reason Start Date Expiration Date V isits Requested Visits Authorized [id number] Not Needed 05/21/2025 05/21/2026 1 1 Reason for Visit * Reason Comments Back Pain * Auth/Cert (Routine) Specialty Diagnoses / Procedures Referred By Winter soriano Referred To Contact Diagnoses Pain Procedures [facility] AMBULATORY PAIN Referral ID Status Reason Start Date Expiration Date Visits Re quested Visits Authorized [id number] 1 1 Encounter Details Date Type Department Care Team (Latest Contact Info) Description 06/06/2025 10:03 AM EDT - 06/06/2025 10:09 AM EDT Hospital Encounter [facility] Pain Management - Dr. Royal [address] [place] [address] Trevor Christian MD [address] [facility] [id number] [place], [place] [id number] Lumbar radiculopathy (Primary Dx); Obesity (BMI 30-39.9); Essential hypertension; Antiplatelet or antithrombotic long-term use; Persistent atrial fibrillation (CMS/HCC); Spinal stenosis of lumbar region with neurogenic claudication Discharge Disposition: Home or Self Care Social History Tobacco Use Types Packs/Day Years Used Date Smoking Tobacco: Former Cigarettes 1 6 0 09/11/1964 - 09/11/1970 Passive Smoke Exposure: Past Smokeless Tobacco: Never Tobacco Cessation:Counseling Given: Not Answered Alcohol Use Standard Drinks/Week Comments Not Currently [...] Sign Reading Time Taken Comments Blood Pressure 152/86 06/06/2025 10:41 AM EDT Pulse 68 06/06/2025 10:41 AM EDT Temperature 35.6 C (96 F) 06/06/2025 10:10 AM EDT Respiratory Rate 18 06/06/2025 10:41 AM EDT Oxygen Saturation 96% 06/06/2025 10:41 AM EDT Inhaled Oxygen Concentration - - Weight 115.7 kg (255 lb) 06/06/2025 10:10 AM EDT Height 172.7 cm (5' 8 ) 06/06/2025 10:10 AM EDT Body Mass Index 38.77 06/06/2025 10:10 AM EDT documented in this encounter Functional [...] documented in this encounter Discharge Instructions * Patient Instructions* Adia Mejia RN - 06/06/2025 11:00 AM EDT [facility], [place] [address] AMBULATORY PROCEDURE DEPARTMENT Steroid Block Discharge Instructions [facility] Appointments Today, you have had the following procedure: Epidural Steroid Injection, which was performed by and [place]on Keep band-aid to needle site for 24 hours, then remove. Soreness at the needle site is normal and can be expected for at least the first 24 hours. The steroid will begin to work in 24 to 72 hours after the injection. You may shower in 24 hours. No tub baths, hot tubs, whirlpools or swimming for 48 hours. Rest for the duration of the day. You may resume your normal activity the next day. Call your doctor as soon as possible should any of the following occur: any unusual drainage at thesite, fever or weakness, new onset of incontinence, or severe pain. If it is after hours and we arenot available, please go to the nearest emergency room Relief from your pain after having this injection is very individual and varies from patient to patient. You will be asked for the following information during your next visit: New Medications Maximum percentage of pain relief from the injection and how long it lasted. Current percentage of pain relief Improvements in pain since injection (i.e intensity, frequency, duration) Any other problems or concerns as they relate to your pain. IF YOU HAVE AN EMERGENCY, PLEASE GO TO THE NEAREST EMERGENCY ROOM. You have received a numbing medication during your procedure that could make your legs or arms feelweak. Expectations from the procedure: 1. Temporary numbness/weakness from the numbing medicine. This will typically last 2-3 hours. 2. Temporary increase in pain. Your pain may flare up for approximately a day or so. 3. Temporary pain at injection site--ice and heat helps. Possible side effects: Steroids in the spine have not been shown to have the same effects as steroids pills; however, there can be occasional side effects from this procedure: 1. Restlessness, trouble sleeping or jitteriness 2. Increased hunger 3. Flushing or hot flashes - may consider Benadryl 4. Increased blood sugar 5. Headache or hiccups 6. Menstrual spotting- even if you are post-menopausal, this can happen 7. Cramping or nuha horse type muscle discomfort 8. Depression with steroids wearing off. 9. Similar side effects to oral pills if you have had them before These side effects do not happen typically; however, they do happen. Do not be concerned if you encounter this, it typically resolves within a couple days. Risks: 1. Spinal headache - Improves with laying down. Increase caffeine and fluid intake. Call us as soon as possible. 2. Nerve or spinal cord injury (unusual and rare) 3. Spinal injection, infection, or bleeding (unusual and rare) Please review your blood pressure. If you are not currently treated for high blood pressure and your blood pressure is above the recommended hypertension diagnostic parameters of 120/80, please follow up with your primary care provider in the next week for reevaluation and further management. If you use tobacco products, we strongly encourage you to stop using these products. This will greatly improve many aspects of your health. If you take aspirin (even low dose): There have recently been recommendations to discontinue aspirin 6 days prior to spinal procedures. If your physician does not feel this is appropriate, we will proceed with the understanding that there may be a slight increased risk of intraspinal bleeding. If you take aspirin based on medical provider recommendation, please check with prescribing provider before discontinuing the aspirin. You may resume your aspirin the day after your procedure. Blood Sugar Injection of steroids may cause a temporary increase in your blood sugar. Monitor frequently over the next few days. Contact the physician who manages your diabetes if there is significant increase above your normal range. You may eat prior to your next injection. ELIQUIS (apixaban) Resume Eliquis tomorrow. You will need to hold Eliquis 3 days prior to your next procedure. We expect you to have cleared the discontinuing of your blood thinner with your prescribing Physician. documented in this encounter Medications at Time of Discharge abiraterone (Zytiga) 250 mg Tablet Take 1,000 mg by mouth in the morning. 0 4 acetaminophen 325 mg Capsule Take 2 Capsules by mouth every 6 hours as needed. albuterol (VENTOLIN/PROAIR/IA OVENTIL HFA) 90 mcg/actuation HFA Aerosol Inhaler apixaban (Eliquis) 5 mg Tablet Take 1 Tablet (5 mg) by mouth 2 times daily. 60 Tablet 11 5 dapagliflozin propanediol (Farxiga) 10 mg Tablet tablet [...] morning and 5 mg before bedtime. 4 tamsulosin (FLOMAX) 0.4 mg sustained release capsule 5 documented as of this encounter H&P Notes * Bela Dudley NP - 06/06/2025 11:00 AM EDT Images from the original note were not included. Interventional Pain Management Evaluation Referring provider: Dr. Mosley Chief Complaint: Chief Complaint Patient presents with Back Pain History: Initial Visit History This is the initial evaluation. Yo Ruiz is a 69 y.o. male with a 4 month history of symptoms involving right low back. Symptoms include right low back pain radiating into the right hip and throughout the right leg pain is worse with walking, standing. He has been to the chiropractor, uses heat, TENs unit, and takes Tylenol with minimal benefit. He has been unable to participate in his home exercise program due to the pain. Denies any bowel/bladder changes or saddle anesthesia. He does take Eliquis and the last dose of this was 06/02/2025. MRI shows Modic changes at L5-S1, L5-S1 bilateral foraminal stenosis, disc protrusion at L4-5 with moderate bilateral foraminal stenosis. Patient has tried and failed conservative treatment including ice, heat, TENS, medications and HEP. Modalities tried to date: HEP ongoing as tolerated PT seen by chiropractor OTC medications including tylenol RX medications none Pain Management Level/HPI Pain Quality/Previous treatment : The symptoms affect the patient???s ability to perform activiites of daily living. Patient identified Goals: Reduce pain to a manageable level Previous diagnostic testing: MRI. Results were reviewed and show . Review of External Notes from other sources: Leo Mosley, MRI PDMP checked: Yes; gabapentin Review of systems: Pertinent items noted in HPI. Otherwise negative except as noted General: (-) fever,(-) night sweats,(-) unexplained weight loss HEENT: (-) headache,(-) vision changes,(-) hearing loss Cardiovascular: (-) chest pain,(-) palpitations,(-) inability to lie flat Respiratory: (-) cough,(-) wheeze,(-) shortness of breath on exertion Endocrine: (-) change in appetite,(-) hair loss,(-) tiredness Gastrointestinal: (-) indigestion,(-) abdominal pain,(-) nausea/vomitting,(-) constipation,(-) diarrhea,(-) blood in stool Urinary: (-) incontinence,(-) problems getting urine flow started,(-) blood in urine Neurologic: (-) seizures,(-) passing out spells,(-) paralysis Musculoskeletal: (-) joint pain,(-) muscle weakness,(-) joint immobility Psychological: (-) depression,(-) anxiety Tobacco Use History[1] Past Medical history:Past Medical History[2] Past Surgeries: Past Surgical History[3] Allergies: Allergies[4] Medications: Current Medications[5] Social history: Social History Socioeconomic History Marital status: Spouse name: Not on file Number of children: Not on file Years of education: Not on file Highest education level: Not on file Occupational History Not on file Tobacco Use Smoking status: Former Current packs/day: 0.00 Average packs/day: 1 pack/day for 6.0 years (6.0 ttl pk-yrs) Types: Cigarettes Start date: 09/11/1964 Quit date: 09/11/1970 Years since quittin.7 Passive exposure: Past Smokeless tobacco: Never Vaping Use Vaping status: Never Used Substance and Sexual Activity Alcohol use: Not Currently Drug use: Not Currently Comment: quit in 1983 Sexual activity: Not on file Other Topics Concern Not on file Social History Narrative Not on file Social Drivers of Health Financial Resource Strain: Not on File (05/03/2022) Received from [facility] Financial Resource Strain Financial Resource Strain: 0 Food Insecurity: No Transportation Needs (01/09/2025) Received from [facility] Yearly Questionnaire Do you need any assistance with obtaining housing, meals, medication, transportation or medical equipment?: No Assistance needed for:: Not on file Transportation Needs: No Transportation Needs (01/09/2025) Received from [facility] Yearly Questionnaire Do you need any assistance with obtaining housing, meals, medication, transportation or medical equipment?: No Assistance needed for:: Not on file Physical Activity: Not on File (05/03/2022) Received from [facility] Physical Activity Physical Activity: 0 Stress: Not on File (05/03/2022) Received from [facility] Stress Stress: 0 Social Connections: Not on File (05/03/2022) Received from [facility] Social Connections Social Connections and Isolation: 0 Intimate Partner Violence: Not on file Housing Stability: No Transportation Needs (01/09/2025) Received from [facility] Yearly Questionnaire Do you need any assistance with obtaining housing, meals, medication, transportation or medical equipment?: No Assistance needed for:: Not on file Family history: Family History[6] Physical Exam: GENERAL: Vitals: 06/06/25 1010 BP: 163/79 Pulse: 72 Resp: 18 Temp: (!) 96 ??F (35.6 ??C) TempSrc: Temporal SpO2: 97% Weight: 255 lb (115.7 kg) Height: 5' 8 (1.727 m) Body mass index is 38.77 kg/m??. MUSCULOSKELETAL: Ambulation: Patient ambulates with a Normal gait pattern. Lumbar range of motion is decreased and painful with extension, no pain on forward bending Straight leg raise test was negative bilaterally. Palpation of musculature in the lumbosacral area shows tenderness. Manual muscle testing of the lower extremities shows 5/5. NEUROLOGIC: Sensory function to light touch in lower extremities are equal and intact. RESPIRATORY: Normal respiratory effort Lungs: clear to ausculation. CARDIOVASCULAR: Heart: : clear to ausculation Diagnosis: 1. Lumbar radiculopathy 2. Obesity (BMI 30-39.9) 3. Essential hypertension 4. Antiplatelet or antithrombotic long-term use Plan/Recommendations: Yo Ruiz was evaluated as a candidate for interventional pain management. After reviewing the history, diagnostic testing, and performing a physical examination, the following recommendations are being made: Anticoagulants- The patient is on a chronic medication which affects coagulation. To reduce the risk of a post-procedural hematoma, this medication will need to be held for an appropriate period of time to allow coagulation to return to normal. Pre-procedural laboratory testing may be required to confirm this. The patient will have cleared this with the prescriber. Epidural steroid- He is appropriate for a trial of lumbar epidural steroid injections. Based on thepatient's history, exam, and findings on diagnostic testing, the initial injection will be done using a transforaminal technique. (Patient is having initial epidural injection in this spinal region-(R adiculopathy or radicular pain or neurogenic claudication is present Pain duration of 4 weeks or longer Inadequate relief with at least 4 weeks of conservative management Pain level severe enough to impact quality of life or function- see documented VAS)) Plan for LTFESI Right L4-5 Pain intensity at worst: /10 Pain intensity at best: /10 Current pain intensity: /10 Possible risks of procedure discussed. These include nerve or spinal cord injury, infection at the injection site, bleeding in the spine, paralysis, seizures or strokes, visual deficit/blindness. Evaluation and Management Level of Service to be determined by: Medical Decision Making Medical Decision Making: Number and Complexity of Problems Addressed: Chronic illness with exacerbation, progression, or side effects of treatment Coexisting medical conditions addressed during visit due to impact on planned treatment: HTN-Interventional pain procedures can cause a temporary elevation in blood pressure. This can be more pronounced in people whose blood pressure is not under good control prior to the procedure and in people who are excessively anxious. There is a lower potential for some prolonged blood pressure elevation due to the effects of the steroid. The patient's blood pressure today was BP Readings from Last 1 Encounters: 06/06/25 163/79 . Today's BP reading is elevated. This was discussed with the patient and it was decided it would be safe to proceed with the planned procedure. However, the patient was encouraged to schedule a follow up with the appropriate provider and discuss BP control. Increased BMI-Patient's BMI has been recorded in the evaluation note. Increased BMI is a significant factor for coexisting medical problems which effects multiple organ systems. This is taken into consideration when considering the patient for interventional pain procedures. The BMI has an effect on patient positioning, needle selection, and other procedural factors. Anticoagulation-This patient is taking anticoagulation medication. There is a risk of bleeding withany interventional pain procedure that is increased if anticoagulation is not discontinued an appropriate period of time prior to procedure. A risk versus benefit analysis of discontinuing the patient's prescribed medication in order for them to undergo a pain procedure was considered prior to the procedure and discussed with the patient. The patient has been asked to contact their prescribing provider to get their approval prior to discontinuing any anticoagulant medication. The patient was provided with education on the appropriate amount of time needed to be off their particular prescribedmedication prior to the recommended pain procedure pain. ( Eliquis (Apixaban) which needs to be held for a full 3 days ) Amount and/or Complexity of Data: Review of prior external notes from each unique source (Zi Mosley) Review of result of each unique test (X MRI) Risk of Complications and/or Morbidity or Mortality of Patient Management: Moderate risk MIPS Quality Measures: 1) Screening For Hypertension and Follow-up (Measure #317): Today's BP was 06/06/25 : 163/79 (Normal defined as SBP<120; DBP<80) (G9744) Patient previously diagnosed with HTN-not eligible for this screening measure 2) Screening For Tobacco Use and Intervention in Adults-Age 18 and older (Measure #226): The patient was screened for tobacco use Yes G9903- Patient screened for tobacco AND identified as a NON-USER N/A [1] Social History Tobacco Use Smoking Status Former Current packs/day: 0.00 Average packs/day: 1 pack/day for 6.0 years (6.0 ttl pk-yrs) Types: Cigarettes Start date: 09/11/1964 Quit date: 09/11/1970 Years since quittin.7 Passive exposure: Past Smokeless Tobacco Never [2] Past Medical History: Diagnosis Date Accidental [...] by Daniel Whittington MD, PhD at [facility] HX KNEE SURGERY HX SPLENECTOMY IABP INSERTION 09/02/2021 IABP INSERTION performed by Maverick Lee MD at [facility] LEFT & RIGHT HEART CATH 09/02/2021 LEFT & RIGHT HEART CATH performed by Maverick Lee MD at [facility] IA LITHOLAPAXY SMPL/SM <2.5 CM N/A 01/24/2022 Cystoscopy Laser Litholapaxy. performed by Aris Tracey MD at [facility] IA THORACENTESIS NEEDLE/CATH PLEURA W/O IMAGING Right 08/30/2023 RIGHT ULTRASOUND GUIDED THORACENTESIS performed by Schuyler Dueñas MD at ENDOSCOPY [4] Allergies Allergen Reactions Amiodarone Low TSH Anti-Hyst excitable Antihistamine [Diphenhydramine Hcl] excitable Codeine itchy Demerol [Meperidine] Scared feeling Proton Pump Inhibitors Other (See Comments) Pyridium [Phenazopyridine] Other (See Comments) Visual disturbances- orange color in eyes [5] Current Outpatient Medications Medication Sig Dispense Refill abiraterone (Zytiga) 250 mg Tablet Take 1,000 mg by mouth in the morning. 0 acetaminophen 325 mg Capsule Take 2 Capsules by mouth every 6 hours as needed. albuterol (VENTOLIN/PROAIR/PROVENTIL HFA) 90 mcg/actuation HFA Aerosol Inhaler apixaban (Eliquis) 5 mg Tablet Take 1 Tablet (5 mg) by mouth 2 times daily. 60 Tablet 11 dapagliflozin propanediol (Farxiga) 10 mg Tablet tablet Take 1 Tablet by mouth every morning. 90 Tablet 3 furosemide (LASIX) 20 mg tablet Take 1 Tablet (20 mg) by mouth daily. 60 Tablet 0 leuprolide (Eligard) 22.5 mg Syringe 22.5 mg by Subcutaneous route. losartan (COZAAR) 100 mg Tablet Take 1 Tablet by mouth in the morning. 90 Tablet 3 metoprolol succinate (TOPROL) 50 mg Tablet Sustained Release 24 hr Take 1 Tablet (50 mg) by mouth 2times daily. 180 Tablet 3 predniSONE (DELTASONE) 5 mg tablet Take 5 mg by mouth in the morning and 5 mg before bedtime. tamsulosin (FLOMAX) 0.4 mg sustained release capsule Current Facility-Administered Medications Medication Dose Route Frequency Provider Last Rate Last Admin triamcinolone (KENALOG-40) injection *Pyxis Override* triamcinolone (KENALOG-40) injection 20-120 mg 20-120 mg Epidural Intra- Procedure Trevor Christian MD [6] Family History Problem Relation Name Age of Onset Heart Problems Brother Diabetes Brother Anesthesia Complications Neg Hx documented in this encounter Procedure Notes * Trevor Christian MD - 06/06/2025 11:00 AM EDT Images from the original note were not included. [facility] Location: [facility] Date of Procedure: 06/06/2025 Procedure Performed By: Slim Christian MD Referring Provider: Leo Mosley PA-C Primary Care Provider: Sudhakar Lipscomb NP Preoperative Diagnoses: 1. Lumbar radiculopathy 2. Obesity (BMI 30-39.9) 3. Essential hypertension 4. Antiplatelet or antithrombotic long-term use 5. Persistent atrial fibrillation ([facility]) 6. Spinal stenosis of lumbar region with neurogenic claudication Postoperative Diagnoses: Same Operative Procedures: Lumbar Transforaminal Epidural Injection, Fluoroscopic Guidance for needle placement Right at L5-S1 Image Guidance for Needle Placement: Fluoroscopy Anesthesia: Local Complications: None Evaluation For Procedure: Yo Ruiz is a 69 y.o. male with a 4 month history of symptoms involving right low back.Symptoms include right low back pain radiating into the right hip and throughout the right leg painis worse with walking, standing. He has been to the chiropractor, uses heat, TENs unit, and takes Tylenol with minimal benefit. He has been unable to participate in his home exercise program due to the pain. Denies any bowel/bladder changes or saddle anesthesia. He does take Eliquis and the last dose of this was 06/02/2025. MRI shows Modic changes at L5-S1, L5-S1 bilateral foraminal stenosis, disc protrusion at L4-5 with moderate bilateral foraminal stenosis. Patient has tried and failed conservative treatment His MRI scan shows: Pain intensity at worst: 7 7 /10 Pain intensity at best: 0 0 /10 Current pain intensity: 4 4 /10 Documentation of Medical Necessity: (Patient is having initial epidural injection in this spinal region- (Radiculopathy or radicular pain or neurogenic claudication is present Pain duration of 4 weeks or longer Inadequate relief with at least 4 weeks of conservative management Pain level severe enough to impact quality of life or function- see documented VAS Evaluation of patient indicates pain due to allowed documented diagnosis )) Details Of Procedure: The patient was taken into the procedure room and assisted to move onto the table into the prone position. Fluoroscopy was utilized to identify/evaluate the planned injection area. A sterile prep (using Chloraprep) and drape of the area was performed. The needle puncture site was anesthetized with an injection of lidocaine. Under fluoroscopic guidance, a 22/5 gauge Spinal needle was incrementally advanced into the Right L5-S1 intervertebral foramen. No blood or CSF was aspirated. Needle placement was confirmed with an injection of Isovue/Omnipaque 300. Continuous fluoroscopic evaluation of this injection in the AP andlateral planes confirmed transforaminal flow into the epidural space. No vascular uptake was noted during continuous real-time fluoroscopy . 80 mg of Kenalog was injected. The needle was cleared and removed intact. The patient tolerated theprocedure well and no complications were noted. After an appropriate period of observation, the patient was discharged in good condition. Exposure time during procedure using fluoroscopy: (6045F): 06/06/2025 10:00 AM EXPOSURE TIME DURING PROCEDURE USING FLUROSCOPY Fluoroscopy Time (Seconds) 15 Seconds Recommended follow up: The patient was reminded to follow up with the referring physician and return to see us on an as needed basis per their recommendation. The patient was instructed regarding when to restart their chronic anticoagulation medication Thanks very much to Leo Mosley PA-C for giving us the opportunity to be involved in this patient's care. [facility] Quality Measures: 1) Screening For Hypertension and Follow-up (Measure #317): Today's BP was 06/06/25 : 152/86 (Normal defined as SBP<120; DBP<80) (G9744) Patient previously diagnosed with HTN-not eligible for this screening measure 2) Screening For Tobacco Use and Intervention in Adults-Age 18 and older (Measure #226): The patient was screened for tobacco use Yes G9903- Patient screened for tobacco AND identified as a NON-USER N/A documented in this encounter Plan of Treatment Upcoming Encounters Date Type Department Care Team (Late st Contact Info) Description 09/10/2025 1:30 PM EST Appointment [facility] Physicians - Heart & Vascular, [facility] [address] [place] [address] [address] [place] [address] Amaris Cueva MD [address] [facility] [address] [place] [address] 10/15/2025 2:40 PM EST Appointment [facility] Physicians - Pulmonary Medicine, [address] Medical Office Building [address] [place] [phone] Noé Sofia DO [address] [place] [address]. [address] [place], [place] [phone] Scheduled Orders Name Type Priority Associated Diagnoses Orde r Schedule PMA LUMBAR FORAMINAL EPIDURAL INJ (INITIAL) Procedures Routine Lumbar radiculopathy 1 Occurrences starting 06/06/2025 until 06/06/2025 documented as of this encounter Goals Goal Patient Goal Type Associated Problems Recent Progress Patient-Stated? Author Limit fluid intake to 2 liters per day Diet No Tariq Lee BS Reduce salt intake to 2 grams per day Diet No Tariq Lee BS Record weight daily Lifestyle Yes Tariq Lee BS documented as of this encounter Visit Diagnoses Diagnosis Lumbar radiculopathy- Primary Thoracic or lumbosacral neuritis or radiculitis, unspecified Obesity (BMI 30-39.9) Obesity, unspecified Essential hypertension Antiplatelet or antithrombotic long-term use Encounter for long-term (current) use of antiplatelets/antithrombotics Persistent atrial fibrillation (CMS/HCC) Atrial fibrillation Spinal stenosis of lumbar region with neurogenic claudication Spinal stenosis, lumbar region, with neurogenic claudication documented in this encounter Administered Medications Inactive Administered Medications - up to 3 most recent administrations Medication Order MAR Action Action Date Dose Rate Site triamcinolone (KENALOG-40) injection *Pyxis Override* Starting on Mon06/06/25 at 1006, For 1 dose, Created by sergot override triamcinolone (KENALOG-40) injection 20-120 mg 20-120 mg, Epidural, INTRA-PROCEDURE, Starting on Mon06/06/25 at 1006, For 1 dose, Intra-Procedure (GI) Given 06/06/2025 10:36 AM EDT 80 mg documented in this encounter Care Teams Patient Care Technician Instructor Relationship Specialty Start Date End Date Sudhakar Lipscomb NP [address] [place] [address] PCP - General Family Medicine 08/30/23 Stephany Ortega, SHARONDA Cardiology 08/04/21 Amaris Cueva MD [address] [facility] [address] [place] [address] Cardiology 08/10/21 Maverick Lee MD [address] [facility] [address] [facility] [place], [place] [phone] Interventional Cardiology 09/06/21 Michael Gonzales MD [address] [place] [address] Internal Medicine, Sleep Medicine 09/07/21 Lolly Warren NP [address] [place] [address] Nurse Practitioner Nurse Practitioner, Acute Care 09/08/21 Daniel Whittington MD, PhD [address] [place] [address] Clinical Cardiac Electrophysiology 09/13/21 Regina Esquivel SEISMIC OBSERVER [address] [place] [address] Nurse Practitioner Nurse Practitioner, Acute Care 09/22/21 Maverick Waterman DO [address] [facility]. [address] [place] [address] Advanced Heart Failure/Transplant 09/30/21 Aris Tracey MD [facility] [address] [place] [address] Urology 10/28/21 Noé Sofia DO [address] [place] [address] Critical Care Medicine 12/28/22 documented as of this encounter
--- OUTSIDE RECORDS SUMMARY | 2025-06-06 09:10 | XMS_ITS | Encounter Summary ---
Author Organization [facility] Address [address] [place] [address] Care Team Providers Care Dispenser Operator Name Role Phone Stephany Ortega RN Unavailable Amaris Cueva MD Unavailable [phone] Maverick Lee MD Unavailable [phone] Michael Gonzales MD Unavailable [phone] Lolly Warren NP Unavailable [phone] Daniel Whittington MD, PhD Unavailable [phone] Regina Esquivel NP Unavailable [phone] Maverick Waterman DO Unavailable [phone] Aris Tracey MD Unavailable [phone] Noé Sofia DO Unavailable [phone] Sudhakar Lipscomb [employer] Primary Care Provider [phone] Reason for Visit * Auth/Cert (Routine) Specialty Diagnoses / Procedures Referred By Contac t Referred To Contact Diagnoses Pain Procedures DIAG-RAD [facility] AMBULATORY PAIN Referral ID Status Reason Start Date Expiration Date Visits Re quested Visits Authorized [id number] 1 1 Encounter Details Date Type Department Care Team (Latest Contact Info) Description 06/06/2025 10:10 AM EDT - 06/06/2025 11:59 PM EDT Hospital Encounter C-Level, Diagnostic Services [address] [place] [address] Pain Discharge Disposition: Home or Self Care Social [...] capsule 5 documented as of this encounter Plan of Treatment Upcoming Encounters Date Type Department Care Team (Late st Contact Info) Description 09/10/2025 1:30 PM EST Appointment [facility] Physicians - Heart & Vascular, [facility] [address] [place] [address] [address] [place] [address] Amaris Cueva MD [address] [facility] [address] [place] [address] 10/15/2025 2:40 PM EST Appointment [facility] Physicians - Pulmonary Medicine, [address] Medical Office Building [address] [place] [phone] Noé Sofia DO [address] [facility]. [address] [place] [address] documented as of this encounter Goals Goal Patient Goal Type Associated Problems Recent Progress Patient-Stated? Author Limit fluid intake to 2 liters per day Diet No Tariq Lee BS Reduce salt intake to 2 grams per day Diet No Tariq Lee BS Record weight daily Lifestyle Yes Tariq Lee BS documented as of this encounter Procedures Procedure Name Priority Date/Time Associated Diagnosis Comments DIAG-RAD [facility]CS AMBULATORY PAIN Routine 06/06/2025 10:41 AM EDT Pain documented in this encounter Results * DIAG-RAD [facility] AMBULATORY PAIN (06/06/2025 10:41 AM EDT) Impressions Martha Devine, RT - 06/06/2025 10:41 AM EDT ABOVE Narrative Martha Devine, RT - 06/06/2025 10:41 AM EDT Fluoroscopic assistance was provided and/or was available during the above procedure. If images are being stored, they are for documentation purposes only. Please see performing physician for interpretation. A Radiologist was not in attendance and will not be providing an interpretation of these images. Fluoro time = 0 minutes and 15 seconds. Trevor Christian MD IMG FLUOROSCOPY ORDERABLES Final Result documented in this encounter Visit Diagnoses Diagnosis Pain Generalized pain documented in this encounter Care Teams Dispenser Operator Relationship Specialty Start Date End Date Sudhakar Lipscomb NP [address] [place] [address] PCP - General Family Medicine 08/30/23 Stephany Ortega, SHARONDA Cardiology 08/04/21 Amaris Cueva MD [address] [facility] [address] [place], [place] [phone] Cardiology 08/10/21 Maverick Lee MD [address] [facility] [address] [place], [place] [id number] Interventional Cardiology 09/06/21 Michael Gonzales MD [address] [place] [address] Internal Medicine, Sleep Medicine 09/07/21 Lolly Warren NP [address] [place] [address] Nurse Practitioner Nurse Practitioner, Acute Care 09/08/21 Daniel Whittington MD, PhD [facility] [address] [place] [address] Clinical Cardiac Electrophysiology 09/13/21 Regina Esquivel NP [address] [place] [address] Nurse Practitioner Nurse Practitioner, Acute Care 09/22/21 Maverick Waterman DO [address] [facility]. [address] [place] [address] Advanced Heart Failure/Transplant 09/30/21 Aris Tracey MD [address] [place] [address] [address] [place] [address] Urology 10/28/21 Noé Sofia DO [address] [place] [address] Critical Care Medicine 12/28/22 documented as of this encounter
--- OUTSIDE RECORDS SUMMARY | 2025-07-14 13:00 | XMS_ITS | Encounter Summary ---
Author Organization [facility] Address [address] [place] [address] Care Team Providers Care Twisthand Name Role Phone Stephany Ortega RN Unavailable Amaris Cueva MD Unavailable [phone] Maverick Lee MD Unavailable [phone] Michael Gonzales MD Unavailable [phone] Lolly Warren NP Unavailable [phone] Daniel Whittington MD, PhD Unavailable [phone] Regina Esquivel NP Unavailable [phone] Maverick Waterman DO Unavailable [phone] Aris Tracey MD Unavailable [phone] Noé Sofia DO Unavailable [phone] Sudhakar Lipscomb [employer] B[employer]NER Primary Care Provider [phone] Reason for Visit * Reason Comments Back Pain Encounter Details Date Type Department Care Team (Latest Contact Info) Description 07/14/2025 1:00 PM EST Office Visit [facility] Physicians - Spine Surgery, [facility] [address] [place] [address] [address] [place] [phone] Leo Mosley PA-C [address] [place], [place] [phone] Lumbar radiculopathy, acute (Primary Dx); Degeneration of intervertebral disc of lumbar region with discogenic back pain and lower extremity pain; Neural foraminal stenosis of lumbar spine Social History Tobacco Use Types Packs/Day Years [...] - Inhaled Oxygen Concentration - - Weight 115.7 kg (255 lb) 07/14/2025 12:36 PM EST Height 172.7 cm (5' 8 ) 07/14/2025 12:36 PM EST Body Mass Index 38.77 07/14/2025 12:36 PM EST documented in this encounter Functional Status * [...] documented in this encounter Progress Notes * Leo Mosley PA-C - 07/14/2025 1:00 PM EST Yo Ruiz returns today in follow up on his right L5-S1 transforaminal epidural steroid injection with Dr. Christian on June 06, 2025. He states his right leg pain is worse than it was before the injection. I asked him to describe where he feels the pain and he feels it predominantly inthe right buttock, posterolateral thigh and posterolateral calf. I told him I do not see anything on his MRI around his right L5 or S1 nerve root. He does have moderate bilateral foraminal stenosis at L3-4 and L4-5 but that would send the pain over the front of the thigh if it was L3 and over the front of the thigh and duncan if it was L4. I told him I did not have any other suggestions. He was nothappy with my answer and was going to go somewhere else for another opinion. Assessment Worsening right leg pain after a right L5-S1 transforaminal epidural steroid injection with Dr. Christian. Plan He is going to seek out another opinion as to the source of his right leg pain. documented in this encounter Plan of Treatment Upcoming Encounters Date Type Department Care Team (Late st Contact Info) Description 09/10/2025 1:30 PM EST Appointment [facility] Physicians - Heart & Vascular, [facility] [address] [place] [address] [address] [facility] [place] [address] Amaris Cueva MD [address] [facility] [address] [place] [address] 10/15/2025 2:40 PM EST Appointment [facility] Physicians - Pulmonary Medicine, [facility] [address] [facility] Medical Office Building [address] [place] [phone] Noé Sofia DO [address] [facility] [place], [place] [address] documented as of this encounter Goals Goal Patient Goal Type Associated Problems Recent Progress Patient-Stated? Author Limit fluid intake to 2 liters per day Diet No Tariq Lee BS Reduce salt intake to 2 grams per day Diet No Tariq Lee BS Record weight daily Lifestyle Yes Tariq Lee BS documented as of this encounter Visit Diagnoses Diagnosis Lumbar radiculopathy, acute- Primary Thoracic or lumbosacral neuritis or radiculitis, unspecified Degeneration of intervertebral disc of lumbar region with discogenic back pain and lower extremity pain Neural foraminal stenosis of lumbar spine Spinal stenosis, lumbar region, without neurogenic claudication documented in this encounter Care Teams Twisthand Relationship Specialty Start Date End Date Sudhakar Lipscomb NP [address] [place] [address] PCP - General Family Medicine 08/30/23 Stephany Ortega, RN Cardiology 08/04/21 Amaris Cueva MD [address] [facility] [address] [place], [place] [phone] Cardiology 08/10/21 Maverick Lee MD [address] [facility] [address] [place], [place] [phone] Interventional Cardiology 09/06/21 Michael Gonzales MD [address] [place], [place] [address]. [address] [place], [place] [address] Internal Medicine, Sleep Medicine 09/07/21 Lolly Warren NP [address] [place] [address] Nurse Practitioner Nurse Practitioner, Acute Care 09/08/21 Daniel Whittington MD, PhD [facility] [address] [place] [address] Clinical Cardiac Electrophysiology 09/13/21 Regina Esquivel NP [facility] [address] [place] [address] Nurse Practitioner Nurse Practitioner, Acute Care 09/22/21 Maverick Waterman DO [address] [facility] [place] [address] Advanced Heart Failure/Transplant 09/30/21 Aris Tracey MD [address] [place] [address] [address] [place] [address] Urology 10/28/21 Noé Sofia DO [facility] [address] [place] [address] Critical Care Medicine 12/28/22 documented as of this encounter
--- OUTSIDE RECORDS SUMMARY | 2025-07-17 13:00 | XMS_ITS | Encounter Summary ---
Author Organization [facility] Address [facility] [place] [place] [address] Care Team Providers Care Livestock Farm Workers Name Role Phone Alfredito Ramey MD Unavailable [phone] Joann Zarate RN Unavailable Unavailable Ezekiel Kang MD Unavailable [phone] Alfredito Ramey MD Unavailable [phone] Jerri Santiago MD Primary Care Provider [phone] Source Comments This information has been disclosed [...] release of HIV test results or diagnoses. [id number] Reason for Visit * Reason Comments Labs Only * Auth/Cert (Routine) Specialty Diagnoses / Procedures Referred By Contac t Referred To Contact Radiation Oncology Diagnoses Malignant neoplasm of prostate ([facility]) Procedures LA LEUPROLIDE (LUPRON) 7.5 MG LA CHEMOTX ADMN SUBQ/IM HORMONAL ANTI-LEONAROD [facility] Radiation Oncology at [facility] [address] [place] [address] Phone: tel: fax: Referral ID Status Reason Start Date Expiration Date Visits Re quested Visits Authorized [id number] 1 1 Encounter Details Date Type Department Care Team (Late st Contact Info) Description 07/17/2025 1:00 PM EST Specimen [facility] Outreach Lab [address] [place] [id number] Alfredito Ramey MD [address] [place] [address] Adenocarcinoma of prostate (CMS-HCC); Prostate cancer (CMS-HCC) Social History Tobacco Use Types Packs/Day Years Used Date Smoking Tobacco: Former Cigarettes Q uit: 1972 Smokeless Tobacco: Never Alcohol Use Standard Drinks/Week Comments No 0 (1 standard drink = 0.6 oz pur e alcohol) PHQ-2 Answer Date Recorded PHQ-2 Total Score 0 07/17/2025 Yearly Questionnaire Answer Date Record ed Do you need any assistance w ith obtaining housing, meals, medication, transportation or medical equipment? No 07/17 Assistance needed for: Not on file Yearly Questionnaire Answer Date Record ed Do you need any assistance w ith obtaining housing, meals, medication, transportation or medical equipment? No 07/17 Assistance needed for: Not on file Yearly Questionnaire Answer Date Record ed Do you need any assistance w ith obtaining housing, meals, medication, transportation or medical equipment? 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 Not on f ile Not on file Not on file documented as of this encounter Plan of Treatment Not on file documented as of this encounter Procedures Procedure Name Priority Date/Time Associated Diagnosis Comments PSA TOTAL, DIAGNOSTIC Routine 07/17/2025 1:56 PM EST Adenocarcinoma of prostate (CMS-HCC) HEPATIC FUNCTION PANEL Routine 07/17/2025 1:40 PM EST Prostate cancer (CMS-HCC) RENAL FUNCTION PANEL W/EGFR Routine 07/17/2025 1:40 PM EST Prostate cancer (CMS-HCC) DIFFERENTIAL Routine 07/17/2025 1:40 PM EST Prostate cancer (CMS-HCC) CBC Routine 07/17/2025 1:40 PM EST Prostate cancer (CMS-HCC) documented in this encounter Results * PSA Total, Diagnostic (07/17/2025 1:56 PM EST) PSA 3.39 0.0 - 4.0 ng/mL 07/17/2025 2:54 PM EST [facility] Serum 07/17/2025 1:56 PM EST 07/17/2025 2:22 PM EST Narrative [facility] - 07/17/2025 2:54 PM EST The testing method for PSA is a chemiluminescent immunoassay manufactured by [employer] Concentrations of PSA obtained by different assay methods or kits may vary and cannot be used interchangeably. PSA results cannot be interpreted as absolute evidence of the presence or absence of malignant disease. Alfredito Ramey MD LAB BLOOD ORDERABLES Final Re sult [facility] [address] [place] [address], [facility] * (ABNORMAL) Hepatic Function Panel (07/17/2025 1:40 PM EST) Total Bilirubin 0.8 0.0 - 1.5 mg/dL 07/17/2025 2:54 PM EST [facility] Bilirubin, Direct 0.1 0.0 - 0.4 mg/dL 07/17/2025 2:54 PM EST [facility] AST 14 13 - 39 U/L 07/17/2025 2:54 PM EST [facility] ALT 12 7 - 52 U/L 07/17/2025 2:54 PM EST [facility] Alkaline Phosphatase 208(H) 36 - 125 U/L 07/17/2025 2:54 PM EST [facility] Total Protein 6.4 6.4 - 8.9 g/dL 07/17/2025 2:54 PM EST [facility] Albumin 3.6 3.5 - 5.7 g/dL 07/17/2025 2:54 PM EST [facility] Plasma 07/17/2025 1:40 PM EST 07/17/2025 2:16 PM EST us Alfredito Ramey MD LAB BLOOD ORDERABLES Final Re sult [facility] [address] [place] [address], [facility] * (ABNORMAL) Renal Function Panel w/EGFR (07/17/2025 1:40 PM EST) Sodium 140 133 - 146 mmol/L 07/17/2025 2:54 PM EST [facility] Potassium 4.1 3.5 - 5.3 mmol/L 07/17/2025 2:54 PM EST [facility] Chloride 107 98 - 110 mmol/L 07/17/2025 2:54 PM EST [facility] CO2 22 21 - 33 mmol/L 07/17/2025 2:54 PM EST [facility] Comment:High lactate dehydro genase concentrations in patient samples may cause falsely increased bicarbonate results. If markedly elevated LDH is observed or suspected, please assess results in conjunction with patient`s clinical presentation. In cases of discrepant results, consider evaluating CO2 in with a blood gas order. Anion Gap 11 3 - 16 mmol/L 07/17/2025 2:54 PM EST [facility] BUN 15 7 - 25 mg/dL 07/17/2025 2:54 PM EST [facility] Creatinine 0.75 0.60 - 1.30 mg/dL 07/17/2025 2:54 PM [facility] Glucose 123(H) 70 - 100 mg/dL 07/17/2025 2:54 PM EST [facility] Calcium 8.6 8.6 - 10.3 mg/dL 07/17/2025 2:54 PM EST [facility] Phosphorus 3.3 2.1 - 4.5 mg/dL 07/17/2025 2:54 PM EST [facility] Albumin 3.6 3.5 - 5.7 g/dL 07/17/2025 2:54 PM EST [facility] Osmolality, Calculated 292 278 - 305 mOsm/kg 07/17/2025 2:54 PM EST [facility] EGFR >90 07/17/2025 2:54 PM EST [facility] Comment: As of 2021, the estimated GFR is calculated [...] Kidney Disease. Am J Kidney Dis. 2020. GFR is estimated using creatinine, age, and sex. Patient's values should be interpreted as a trend. Below 90 mL/min/1.73m2, the patient may have renal disease. For additional information: www.kidney.org Plasma 07/17/2025 1:40 PM EST 07/17/2025 2:16 PM EST us Alfredito Ramey MD LAB BLOOD ORDERABLES Final Re sult [facility] [address] [id number], [facility] * (ABNORMAL) Differential (07/17/2025 1:40 PM EST) Metamyelocytes Relative 1.0(H) 0.0 - 0.0 % 07/17/2025 2:42 PM EST [facility] Neutrophils Relative 73.0 40.0 - 80.0 % 07/17/2025 2:42 PM EST [facility] Lymphocytes Relative 19.0 15.0 - 45.0 % 07/17/2025 2:42 PM EST [facility] Monocytes Relative 7.0 0.0 - 12.0 % 07/17/2025 2:42 PM EST [facility] Eosinophils Relative 0.0 0.0 - 8.0 % 07/17/2025 2:42 PM EST [facility] Basophils Relative 0.0 0.0 - 1.0 % 07/17/2025 2:42 PM EST [facility] Neutrophils Absolute 7,519 1,520 - 8,640 /uL 07/17/2025 2:42 PM EST [facility] Metamyelocytes Absolute 103(H) 0 - 0 /uL 07/17/2025 2:42 PM EST [facility] Lymphocytes Absolute 1,957 570 - 4,860 /uL 07/17/2025 2:42 PM EST [facility] Monocytes Absolute 721 0 - 1,296 /uL 07/17/2025 2:42 PM EST [facility] Eosinophils Absolute 0 0 - 864 /uL 07/17/2025 2:42 PM EST [facility] Basophils Absolute 0 0 - 108 /uL 07/17/2025 2:42 PM EST [facility] PLT Morphology PLATELET MORPHO 07/17/2025 2:42 PM EST [facility] Whole Blood 07/17/2025 1:40 PM EST 07/17/2025 2:16 PM EST Narrative [facility] - 07/17/2025 2:42 PM EST Manual WBC differential performed per review criteria approved by the adjunct faculty for medical terminology. us Alfredito Ramey MD LAB BLOOD ORDERABLES Final Re sult [facility] [address] [place] [address], [facility] * (ABNORMAL) CBC (07/17/2025 1:40 PM EST) WBC 10.3 3.8 - 10.8 10E3/uL 07/17/2025 2:19 PM EST [facility] RBC 5.02 4.20 - 5.80 10E6/uL 07/17/2025 2:19 PM EST [facility] Hemoglobin 14.1 13.2 - 17.1 g/dL 07/17/2025 2:19 PM EST [facility] Hematocrit 43.2 38.5 - 50.0 % 07/17/2025 2:19 PM EST [facility] MCV 86.1 80.0 - 100.0 fL 07/17/2025 2:19 PM EST [facility] MCH 28.2 27.0 - 33.0 pg 07/17/2025 2:19 PM EST [facility] MCHC 32.7 32.0 - 36.0 g/dL 07/17/2025 2:19 PM EST [facility] RDW 15.7(H) 11.0 - 15.0 % 07/17/2025 2:19 PM EST [facility] Platelets 302 140 - 400 10E3/uL 07/17/2025 2:19 PM EST [facility] MPV 8.2 7.5 - 11.5 fL 07/17/2025 2:19 PM EST [facility] Whole Blood 07/17/2025 1:40 PM EST 07/17/2025 2:16 PM EST Alfredito Ramey MD LAB BLOOD ORDERABLES Final Re sult [facility] [address] [facility]. [address] documented in this encounter Visit Diagnoses Diagnosis Adenocarcinoma of prostate (CMS-HCC) Malignant neoplasm of prostate Prostate cancer (CMS-HCC) Malignant neoplasm of prostate documented in this encounter Additional Health Concerns Assessment Noted Time PHQ-9 Depression Total Score: 3 02/20/20 19 3:00 PM EDT documented as of this encounter Care Teams Livestock Farm Workers Relationship Specialty Start Date [place] [address] PCP - General Family Medicine 04/12/21 Alfredito Ramey MD Radiation Oncologist Radiation Oncology 02/18/19 Joann Zarate, RN Registered Nurse 02/18/19 [place] [address] [place] [address] [address] [place] [address] 02/18/19 Alfredito Ramey MD Initiating Oncologist Radiation Oncology 06/03/20 documented as of this encounter
--- OUTSIDE RECORDS SUMMARY | 2025-07-17 14:15 | XMS_ITS | Encounter Summary ---
Author Organization [facility] Address [facility] [place] [address] Care Team Providers Care Accounts Payable Or Receivable Clerk Name Role Phone Alfredito Ramey MD Unavailable [phone] Joann Zarate RN Unavailable Unavailable Ezekiel Kang MD Unavailable [phone] Alfredito Ramey MD Unavailable [phone] Jerri Santiago MD Primary Care Provider [phone] Source Comments This information has been disclosed [...] release of HIV test results or diagnoses. [id number] Reason for Referral * Imaging/Cardiovascular Scan (Routine) - Pending Review Specialty Diagnoses / Procedures Referred By Contac t Referred To Contact Radiology Diagnoses Adenocarcinoma of prostate ([facility]-HCC) Procedures NM PET CT Skull to Thigh- PSMA Alfredito Ramey MD [address] [place] [address] Phone: tel: fax: Referral ID Status Reason Start Date Expiration Date V isits Requested Visits Authorized [id number] Pending Review 07/17/2025 01/13/2026 2 2 Reason for Visit * Reason Comments Follow-up * Auth/Cert (Routine) Specialty Diagnoses / Procedures Referred By Contac t Referred To Contact Radiation Oncology Diagnoses Malignant neoplasm of prostate ([facility]-HCC) Procedures WA LEUPROLIDE (LUPRON) 7.5 MG [place] CHEMOTX ADMN SUBQ/IM HORMONAL ANTI-LEONARDO [facility] Radiation Oncology at [address] [address] Phone: tel: fax: Referral ID Status Reason Start Date Expiration Date Visits Re quested Visits Authorized [id number] 1 1 Encounter Details Date Type Department Care Team (Late st Contact Info) Description 07/17/2025 2:15 PM EST Office Visit [facility] Radiation Oncology at [address] [address] Alfredito Ramey MD [address] 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 Not on f ile Not on file Not on file documented as of this encounter Last Filed Vital Signs Vital Sign Reading Time Taken Comments Blood Pressure 137/91 07/17/2025 2:20 PM EST Pulse 76 07/17/2025 2:20 PM EST Temperature 36.4 C (97.6 F) 07/17/2025 2:20 PM EST Respiratory Rate 16 07/17/2025 2:20 PM EST Oxygen Saturation 97% 07/17/2025 2:20 PM EST Inhaled Oxygen Concentration 97% 07/17/2025 2 :20 PM EST Weight 120 kg (264 lb 9.6 oz) 07/17/2025 2:20 PM EST Height 172.7 cm (5' 8 ) 07/17/2025 2:20 PM EST Body Mass Index 40.23 07/17/2025 2:20 PM EST documented in this encounter Progress Notes * Alfredito Ramey MD - 07/17/2025 2:15 PM EST Images from the original note were not included. RADIATION ONCOLOGY FOLLOW-UP NOTE Date of Service 07/18/2025 Diagnosis and Treatment History: Adenocarcinoma of the prostate stage T3b, [place] score 10, PSA 4.24 for which the [...] of Zytiga in September 2023 which is continued. Interval History: Yo Ruiz is a 69 y.o. male with the above diagnosis and treatment history who presents today for follow up. He was last seen in April. He has hx of sciatica and right hip oa and is endorsing right sided back pain, that radiates down his leg without bowel/ bladder numbness. Has been evaluated by chiropractor, has tried conservative treatments and has been evaluated by pain management at [facility] where he received steroid shots without any significant relief. He states he wants to get 2nd opinion. Regarding urinary function, His IPSS score today is 13, previously 10 at last visit. Describes 5x per night nocturia. He describes frequency and hesitancy. No urgency, decreased force/stream. Denies any incontinence, dysuria or hematuria. He is currently using flomax medications for urinary symptoms. He has ED since he is on ADT. He describes normal bowel function with no pain with defecation, diarrhea/constipation or rectal bleeding. His energy level is normal and appetite is normal. Most bothered by bilateral leg swelling which is worse on right side vs left. Physical Exam: Gen: Age appropriate, in no acute distress HEENT: Atraumatic, normocephalic. Moist mucous membranes. Eyes: EOMI, no conjunctivitis, no scleral icterus, no erythema or discharge Neck: No stiffness, with normal range of motion Resp: No increased work of breathing. MSK: Normal range of motion, moving all extremities spontaneously, 1+ RLE edema and 2+ LLE edema Neuro: Alert and oriented, motor and sensory function grossly intact. Strength 4/5 in bilateral LE Psych: Normal mood and affect. Lab Results Component Value Date PSA 3.39 07/17/2025 PSA 1.92 04/16/2025 PSA 1.42 01/09/2025 PSA 1.43 10/10/2024 PSA 1.81 07/04/2024 Assessment: Yo Ruiz is a patient with history of Adenocarcinoma of the prostate stage T3b, Anjali score 10, PSA 4.24 for which the patient presented with complete urinary obstruction requiring Prabhakar catheterization and the above noted treatment history. He is doing okay clinically with rising PSA. 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 His physical examis reassuring no acute concerns for cord compression. Plan: - Continue Abiraterone - Eligard today - Will call with PET scan results - Return to clinic in 3 months with PSA Parmjit Alonzo MD Radiation Oncology Resident, PGY - 2 Addendum: I saw and evaluated the patient and have performed a history and physical examination anddiscussed management with the resident. I have reviewed and edited this note and am in agreement. Signed: Alfredito Ramey M.D. 07/18/2025 documented in this encounter Nursing Notes * Joann Zarate RN - 07/17/2025 2:15 PM EST 3 month Eligard 22.5 mg subcutaneous. No bleeding, band-aid applied Future Appointments Date Time Provider Department Center 07/22/2025 1:30 PM HOL OMS PROC RM 2 OMS [facility] 10/16/2025 3:00 PM Alfredito Ramey MD [facility] documented in this encounter Plan of Treatment Scheduled Orders Name Type Priority Associated Diagnoses Orde r Schedule NM PET CT Skull to Thigh- PSMA Imaging Routine Adenocarcinoma of prostate (CMS-HCC) 1 Occurrences starting 07/17/2025 until 01/29/2026 documented as of this encounter Results * PSA Total, Diagnostic (07/17/2025 1:56 PM EST) PSA 3.39 0.0 - 4.0 ng/mL 07/17/2025 2:54 PM EST [facility] Serum 07/17/2025 1:56 PM EST 07/17/2025 2:22 PM EST Narrative [facility] - 07/17/2025 2:54 PM EST The testing method for PSA is a chemiluminescent immunoassay manufactured by [employer] Concentrations of PSA obtained by different assay methods or kits may vary and cannot be used interchangeably. PSA results cannot be interpreted as absolute evidence of the presence or absence of malignant disease. us Alfredito Ramey MD LAB BLOOD ORDERABLES Final Re sult [facility] [address] [place] [address], [facility] documented in this encounter Visit Diagnoses [...] 22.5 mg 22.5 mg, Subcutaneous, Once, On Lorna 07/17/25 at 1500, For 1 dose, LEVEL 1 HAZARDOUS MEDICATIONHIGH ALERTIndications:Adenoc arcinoma of prostate (CMS-HCC) Given 07/17/2025 3:04 PM EST 22.5 mg Abdominal Tissue documented in this encounter Additional Health Concerns Assessment Noted Time PHQ-9 Depression Total Score: 3 02/20/20 19 3:00 PM EDT documented as of this encounter Care Teams Accounts Payable Or Receivable Clerk Relationship Specialty Start Date End Date Jerri Santiago MD [address] [place] [address] PCP - General Family Medicine 04/12/21 Alfredito Ramey MD Radiation Oncologist Radiation Oncology 02/18/19 Joann Zarate, RN Registered Nurse 02/18/19 Ezekiel Kang MD [address] [place] [address] [place] [address] 02/18/19 Alfredito Ramey MD Initiating Oncologist Radiation Oncology 06/03/20 documented as of this encounter
--- OUTSIDE RECORDS SUMMARY | 2025-08-05 14:28 | XMS_ITS | Encounter Summary ---
Author Organization [facility] Address [address] [place] [address] Care Team Providers Care Kraft Digester Operator Name Role Phone Stephany Ortega RN Unavailable Amaris Cueva MD Unavailable [phone] Maverick Lee MD Unavailable [phone] Michael Gonzales MD Unavailable [phone] Lolly Warren NP Unavailable [phone] Daniel Whittington MD, PhD Unavailable [phone] Regina Esquivel NP Unavailable [phone] Maverick Waterman DO Unavailable [phone] Aris Tracey MD Unavailable [phone] Noé Sofia DO Unavailable [phone] Sudhakar Lipscomb ICE SELLER Primary Care Provider [phone] Reason for Visit * Reason Onset Date Comments Follow-up 06/17/2025 Encounter Details Date Type Department Care Team (Late st Contact Info) Description 06/17/2025 Telephone [facility] - Central Scheduling [address] [place] [address] Trevor Christian MD [address] [facility] [address] [place] [address] Follow-up Social History Tobacco Use Types Packs/Day Years [...] encounter Miscellaneous Notes * Telephone Encounter - Katy Greene - 06/17/2025 10:45 AM EDT Ptn calling says injection did not help and still having pain. Having R side pain . Injection was 06/06/25 documented in this encounter Plan of Treatment Upcoming Encounters Date Type Department Care Team (Late st Contact Info) Description 09/10/2025 1:30 PM EST Appointment [facility] - Heart & Vascular, [facility] [address] [place], [place] [address] [address] [place] [address] Amaris Cueva MD [address] [facility] [address] [place] [address] 10/15/2025 2:40 PM EST Appointment [facility] - Pulmonary Medicine, [address] Medical Office Building [address] [place] [id number] Noé Sofia DO [address] [place] [address]. [address] [place], [place] [id number] documented as of this encounter Goals Goal [...] on filedocumented in this encounter Care Teams Kraft Digester Operator Relationship Specialty Start Date End Date Sudhakar Lipscomb NP [address] [place] [address] PCP - General Family Medicine 08/30/23 Stephany Ortega, SHARONDA Cardiology 08/04/21 Amaris Cueva MD [address] [facility] [address] [place], [place] [id number] Cardiology 08/10/21 Maverick Lee MD [address] [facility] [address] [place], [place] [id number] Interventional Cardiology 09/06/21 Michael Gonzales MD [address] [place] [address] Internal Medicine, Sleep Medicine 09/07/21 Lolly Warren NP [address] [place] [address] Nurse Practitioner Nurse Practitioner, Acute Care 09/08/21 Daniel Whittington MD, PhD [address] [place] [address] Clinical Cardiac Electrophysiology 09/13/21 Regina Esquivel NP [address] [place] [address] Nurse Practitioner Nurse Practitioner, Acute Care 09/22/21 Maverick Waterman DO [address] [facility]. [address] [place] [address] Advanced Heart Failure/Transplant 09/30/21 Aris Tracey MD [address] [place] [address] [address] [place] [address] Urology 10/28/21 Noé Sofia DO [address] [place] [address] Critical Care Medicine 12/28/22 documented as of this encounter
--- OUTSIDE RECORDS SUMMARY | 2025-08-05 14:28 | XMS_ITS | Encounter Summary ---
Author Organization [facility] Address [address] [place] [address] Care Team Providers Care Library Circulation Technician Name Role Phone Apple Santiago Primary Care Provider Stephany Ortega RN Unavailable Amaris Cueva MD Unavailable [phone] Maverick Lee MD Unavailable [phone] Michael Gonzales MD Unavailable [phone] Lolly Warren NP Unavailable [phone] Daniel Whittington MD, PhD Unavailable +[phone] Regina Esquivel DESK MANAGER Unavailable [phone] Maverick Watreman DO Unavailable [phone] Aris Tracey MD Unavailable [phone] Noé Sofia DO Unavailable [phone] Sudhakar Lipscomb DESK MANAGER Primary Care Provider [phone] Encounter Details Date Type Department Care Team (Latest Contact Info) Description 10/08/2021 Preop Surgical Orders [facility] - Urology, [address] Medical Office [address] [place] [id number] Lolly Lipscomb, SHARONDA Gross hematuria (Primary Dx) Social History Tobacco [...] Description 09/10/2025 1:30 PM EST Appointment [facility] - Heart & Vascular, [address] [place] [address] Amaris Cueva MD [address] [facility] [address] [facility] [place] [address] 10/15/2025 2:40 PM EST Appointment [facility] - Pulmonary Medicine, [address] Medical Office Building [address] [place] [address] Noé Sofia DO [address] [place] [address]. [address] [place], [place] [address] documented as of this encounter Goals Goal [...] Primary documented in this encounter Care Teams Library Circulation Technician Relationship Specialty Start Date End Date Apple Santiago [address] [place] [address] [place] [address] PCP - General Family Medicine 08/02/21 08/29/23 Sudhakar Lipscomb NP [address] [place], [place] [id number] PCP - General Family Medicine 08/30/23 Stephany Ortega, SHARONDA Cardiology 08/04/21 Amaris Cueva MD [address] [facility] [address] [place], [place] [id number] Cardiology 08/10/21 Maverick Lee MD [address] [facility] [address] [place], [place] [id number] Interventional Cardiology 09/06/21 Michael Gonzales MD [address] [place] [address] Internal Medicine, Sleep Medicine 09/07/21 Lolly Warren NP [address] [place] [address] Nurse Practitioner Nurse Practitioner, Acute Care 09/08/21 Daniel Whittington MD, PhD [address] [place] [address] Clinical Cardiac Electrophysiology 09/13/21 Regina Esquivel NP [address] [facility] [address] [place] [address] Nurse Practitioner Nurse Practitioner, Acute Care 09/22/21 Maverick Waterman DO [address] [place] [address] Advanced Heart Failure/Transplant 09/30/21 Aris Tracey MD [facility] [address] [place] [address] Urology 10/28/21 Noé Sofia DO [address] [place], [place] [address]. [address] [place] [address] Critical Care Medicine 12/28/22 documented as of this encounter
--- OUTSIDE RECORDS SUMMARY | 2025-08-05 14:28 | XMS_ITS | Encounter Summary ---
Author Organization [facility] Address [address] [place] [address] Care Team Providers Care Camera Technician Name Role Phone Stephany Ortega RN Unavailable Amaris Cueva MD Unavailable [phone] Maverick Lee MD Unavailable [phone] Michael Gonzales MD Unavailable [phone] Lolly Warren NP Unavailable [phone] Daniel Whittington MD, PhD Unavailable +[phone] Regina Esquivel NP Unavailable [phone] Maverick Waterman DO Unavailable [phone] Aris Tracey MD Unavailable [phone] Noé Sofia DO Unavailable [phone] Sudhakar Lipscomb DIRECT CHILL CASTER Primary Care Provider [phone] Encounter Details Date Type Department Care Team (Late st Contact Info) Description 03/21/2025 Telephone [facility] - Sleep Medicine, [address] Medical Office [address] [place] [address] Michael Gonzales MD [address] [place], [place] [id number] Social History Tobacco Use Types Packs/Day Years [...] Description 09/10/2025 1:30 PM EST Appointment [facility] - Heart & Vascular, [facility] [address] [place] [address] [address] [place] [address] Amaris Cueva MD [address] [facility] [address] [place] [address] 10/15/2025 2:40 PM EST Appointment [facility] - Pulmonary Medicine, [address] Medical Office Building [address] [place] [address] Noé Sofia DO [address] [place] [address]. [address] [place], [place] [id number] documented as of this encounter Goals Goal [...] on filedocumented in this encounter Care Teams Camera Technician Relationship Specialty Start Date End Date Sudhakar Lipscomb NP [address] [place] [id number] PCP - General Family Medicine 08/30/23 Stephany Ortega, SHARONDA Cardiology 08/04/21 Amaris Cueva MD [address] [facility] [address] [place] [id number] Cardiology 08/10/21 Maverick Lee MD [address] [facility] [address] [place], [place] [phone] Interventional Cardiology 09/06/21 Michael Gonzales MD [address] [place] [address] Internal Medicine, Sleep Medicine 09/07/21 Lolly Warren NP [address] [place] [address] Nurse Practitioner Nurse Practitioner, Acute Care 09/08/21 Daniel Whittington MD, PhD [address] [place] [address] Clinical Cardiac Electrophysiology 09/13/21 Regina Esquivel NP [address] [place] [address] Nurse Practitioner Nurse Practitioner, Acute Care 09/22/21 Maverick Waterman DO [address] [facility]. [address] [place] [address] Advanced Heart Failure/Transplant 09/30/21 Aris Tracey MD [address] [place] [address] [address] [place] [address] Urology 10/28/21 Noé Sofia DO [address] [place] [address] Critical Care Medicine 12/28/22 documented as of this encounter
--- OUTSIDE RECORDS SUMMARY | 2025-08-05 14:28 | XMS_ITS | Encounter Summary ---
Author Organization [facility] Address [address] [place] [address] Care Team Providers Care Resource Economist Name Role Phone Stephany Ortega RN Unavailable Amaris Cueva MD Unavailable [phone] Maverick Lee MD Unavailable [phone] Michael Gonzales MD Unavailable [phone] Lolly Warren NP Unavailable [phone] Daniel Whittintgon MD, PhD Unavailable +[phone] Regina Esquivel NP Unavailable [phone] Maverick Waterman DO Unavailable [phone] Aris Tracey MD Unavailable [phone] Noé Sofia DO Unavailable [phone] Sudhakar Lipscomb MOTOR DRIVER Primary Care Provider [phone] Encounter Details Date Type Department Care Team (Latest Contact Info) Description 06/13/2025 Preop Surgical Orders [facility] Physicians - Heart & Vascular, [facility] [address] [facility] Medical Office Building [address] [place] [address] Aundrea Justice RN [address] [place] [address] Persistent atrial fibrillation (CMS/HCC) (Primary Dx); Paroxysmal A-fib (CMS/HCC); Nonischemic cardiomyopathy (CMS/HCC) Social History Tobacco Use [...] PM EST Appointment [facility] - Heart & Vascular, [facility] [address] [place] [address] [address] [place] [address] Amaris Cueva MD [address] [facility] [address] [place] [address] 10/15/2025 2:40 PM EST Appointment [facility] Physicians - Pulmonary Medicine, [address] Medical Office Building [address] [place] [address] Noé Sofia DO [address] [place] [address]. [address] [place], [place] [address] Scheduled Orders Name Type Priority Associated Diagnoses Orde r Schedule CBC (COMPLETE BLOOD COUNT) Lab STAT Persistent atrial fibrillation (CMS/HCC) Paroxysmal A-fib (CMS/HCC) Nonischemic cardiomyopathy (CMS/HCC) 1 Occurrences starting 06/13/2025 until 06/13/2026 BASIC METABOLIC PANEL (BMP=EP1) Lab STAT Persistent atrial fibrillation (CMS/HCC) Paroxysmal A-fib (CMS/HCC) Nonischemic cardiomyopathy (CMS/HCC) 1 Occurrences starting 06/13/2025 until 06/13/2026 PT (PRO TIME INCLUDES INR) Lab STAT Persistent atrial fibrillation (CMS/HCC) Paroxysmal A-fib (CMS/HCC) Nonischemic cardiomyopathy (CMS/HCC) 1 Occurrences starting 06/13/2025 until 06/13/2026 APTT Lab STAT Persistent atrial fibrillation (CMS/HCC) Paroxysmal A-fib (CMS/HCC) Nonischemic cardiomyopathy (CMS/HCC) 1 Occurrences starting 06/13/2025 until 06/13/2026 TYPE AND SCREEN Lab STAT Persistent atrial fibrillation (CMS/HCC) Paroxysmal A-fib (CMS/HCC) Nonischemic cardiomyopathy (CMS/HCC) 1 Occurrences starting 06/13/2025 until 06/13/2026 documented as of this encounter Goals Goal Patient Goal Type Associated Problems Recent Progress Patient-Stated? Author Limit fluid intake to 2 liters per day Diet No Tariq Lee BS Reduce salt intake to 2 grams per day Diet No Tariq Lee BS Record weight daily Lifestyle Yes Tariq Lee BS documented as of this encounter Visit Diagnoses Diagnosis Persistent atrial fibrillation (CMS/HCC)- Primary Atrial fibrillation Paroxysmal A-fib (CMS/HCC) Atrial fibrillation Nonischemic cardiomyopathy (CMS/HCC) Other primary cardiomyopathies documented in this encounter Care Teams Resource Economist Relationship Specialty Start Date End Date Sudhakar Lipscomb NP [address] [place] [address] PCP - General Family Medicine 08/30/23 Stephany Ortega, RN Cardiology 08/04/21 Amaris Cueva MD [address] [facility] [address] [place] [address] Cardiology 08/10/21 Maverick Lee MD [address] [facility] [address] [place] [address] Interventional Cardiology 09/06/21 Michael Gonzales MD [address] [place] [address] Internal Medicine, Sleep Medicine 09/07/21 Lolly Warren NP [address] [place] [address] Nurse Practitioner Nurse Practitioner, Acute Care 09/08/21 Dainel Whittington MD, PhD [address] [place] [address] Clinical Cardiac Electrophysiology 09/13/21 Regina Esquivel NP [address] [place] [address] Nurse Practitioner Nurse Practitioner, Acute Care 09/22/21 Maverick Waterman DO [address] [place] [address] Advanced Heart Failure/Transplant 09/30/[address] [facility]3 [facility] [address] [place] [address] Urology 10/28/[address] [facility]3 [facility] [address] [place] [address] Critical Care Medicine 12/28/22 documented as of this encounter
--- OUTSIDE RECORDS SUMMARY | 2025-08-05 14:28 | XMS_ITS | Clinical Summary ---
Author Organization [facility] Address [address] [facility], [address] [place] [address] Care Team Providers Care Market Risk Specialist Name Role Phone Donell Decker Primary Care Provider [phone] Allergies Active Allergy Reactions Criticality Noted Date [...] of Treatment Not on file Care Teams Market Risk Specialist Relationship Specialty Start Date End Date Donell Decker [address] [facility] [address] PCP - General 11/25/10
--- OUTSIDE RECORDS SUMMARY | 2025-08-05 14:28 | XMS_ITS | Encounter Summary ---
Author Organization [facility] Address [address] [place] [address] Care Team Providers Care Doggy Daycare Activities Director Name Role Phone Stephany Ortega RN Unavailable Amaris Cueva MD Unavailable [phone] Maverick Lee MD Unavailable Michael Gonzales MD Unavailable [phone] Lolly Warren NP Unavailable [phone] Daniel Whittington MD, PhD Unavailable [phone] Regina Esquivel NP Unavailable [phone] Maverick Waterman DO Unavailable [phone] Aris Tracey MD Unavailable [phone] Noé Sofia DO Unavailable [phone] Sudhakar Lipscomb NP Primary Care Provider Encounter Details Date Type Department Care Team (Late st Contact Info) Description 06/09/2025 Telephone Pain Management [address] [place], [place] [id number] Daisy Felder NP [address] [place] [address] Social History Tobacco Use Types Packs/Day Years [...] encounter Miscellaneous Notes * Telephone Encounter - Daisy Felder NP - 06/09/2025 2:32 PM EDT Yo is returning follow up phone call. He was last seen 06/06/2025 for lumbar transforaminal injection right L5-S1. He reports limited relief so far, though he does feel like it is beginning to takeeffect today. He will pay attention how he feels over the next few days and reach out to us should his symptoms continue. He is also planning to follow up with the [facility] to discuss the results. documented in this encounter Plan of Treatment Upcoming Encounters Date Type Department Care Team (Late st Contact Info) Description 09/10/2025 1:30 PM EST Appointment [facility] Physicians - Heart & Vascular, [facility] [address] [place] [address] [place] [address] Amaris Cueva MD [address] [facility] [address] [place] [address] 10/15/2025 2:40 PM EST Appointment [facility] Physicians - Pulmonary Medicine, [address] Medical Office Building [address] [place] [phone] Noé Sofia DO [address] [place] [address]. [address] [place] [address] documented as of this encounter Goals Goal [...] on filedocumented in this encounter Care Teams Doggy Daycare Activities Director Relationship Specialty Start Date End Date Sudhakar Lipscomb NP [address] [place], [place] [address] PCP - General Family Medicine 08/30/23 Stephany Ortega, SHARONDA Cardiology 08/04/21 Amaris Cueva MD [address] [facility] [address] [place] [address] Cardiology 08/10/21 Maverick Lee MD [address] [facility] [address] [place] [address] Interventional Cardiology 09/06/21 Michael Gonzales MD [address] [place] [address] Internal Medicine, Sleep Medicine 09/07/21 Lolly Warren NP [address] [place] [address] Nurse Practitioner Nurse Practitioner, Acute Care 09/08/21 Daniel Whittington MD, PhD [address] [place] [address] Clinical Cardiac Electrophysiology 09/13/21 Regina Esquivel NP [address] [place] [address] Nurse Practitioner Nurse Practitioner, Acute Care 09/22/21 Maverick Waterman DO [address] [facility]. [address] [place] [address] Advanced Heart Failure/Transplant 09/30/21 Aris Tracey MD [facility] [address] [place] [address] Urology 10/28/21 Noé Sofia DO [address] [facility]. [address] [place] [address] Critical Care Medicine 12/28/22 documented as of this encounter
--- OUTSIDE RECORDS SUMMARY | 2025-08-05 14:28 | XMS_ITS | Encounter Summary ---
Author Organization [facility] Address [address] [place] [address] Care Team Providers Care Kayaking Instructor Name Role Phone Stephany Ortega RN Unavailable Amaris Cueva MD Unavailable [phone] Maverick Lee MD Unavailable [phone] Michael Gonzales MD Unavailable [phone] Lolly Warren NP Unavailable [phone] Daniel Whittington MD, PhD Unavailable +[phone] Regina Esquivel NP Unavailable [phone] Maverick Waterman DO Unavailable [phone] Aris Tracey MD Unavailable [phone] Noé Sofia DO Unavailable [phone] Sudhakar Lipscomb SENIOR SALES CONSULTANT Primary Care Provider [phone] Reason for Visit * Reason Onset Date Comments FYI 07/17/2025 Encounter Details Date Type Department Care Team (Late st Contact Info) Description 07/17/2025 Clinical Update [facility] - Central Scheduling [address] [place] [address] Leo Mosley PA-C [address] [place] [address] FYI Social History Tobacco Use Types Packs/Day Years [...] Description 09/10/2025 1:30 PM EST Appointment [facility] Physicians - Heart & Vascular, [address] [place] [address] Amaris Cueva MD [address] [facility] [address] [place], [place] [id number] 10/15/2025 2:40 PM EST Appointment [facility] Physicians - Pulmonary Medicine, [facility] [address] [facility] Medical Office Building [address] [place] [phone] Noé Sofia DO [address] [facility] [place] [address] documented as of this encounter Goals Goal [...] on filedocumented in this encounter Care Teams Kayaking Instructor Relationship Specialty Start Date End Date Sudhakar Lipscomb NP [address] [place] [address] PCP - General Family Medicine 08/30/23 Stephany Ortega, SHARONDA Cardiology 08/04/21 Amaris Cueva MD [address] [facility] [address] [place] [id number] Cardiology 08/10/21 Maverick Lee MD [address] [facility] [address] [place] [id number] Interventional Cardiology 09/06/21 Michael Gonzales MD [address] [place], [place] [address]. [address] [place] [address] Internal Medicine, Sleep Medicine 09/07/21 Lolly Warren, TORRES [address] [place] [address] Nurse Practitioner Nurse Practitioner, Acute Care 09/08/21 Daniel Whittington MD, PhD [address] [place] [address] Clinical Cardiac Electrophysiology 09/13/21 Regina Esquivel NP [address] [place] [address] Nurse Practitioner Nurse Practitioner, Acute Care 09/22/21 Maverick Waterman DO [address] [facility] [place] [address] Advanced Heart Failure/Transplant 09/30/21 Aris Tracey MD [facility] [address] [place] [address] Urology 10/28/21 Noé Sofia DO [address] [place] [address] Critical Care Medicine 12/28/22 documented as of this encounter
--- OUTSIDE RECORDS SUMMARY | 2025-08-05 14:28 | XMS_ITS | Encounter Summary ---
Author Organization [facility] Address [address] [place] [address] Care Team Providers Care Sales Demonstrator Name Role Phone Stephany Ortega RN Unavailable Amaris Cueva MD Unavailable [phone] Maverick Lee MD Unavailable [phone] Michael Gonzales MD Unavailable [phone] Lolly Warren NP Unavailable [phone] Daniel Whittington MD, PhD Unavailable +[phone] Regina Esquivel NP Unavailable [phone] Maverick Waterman DO Unavailable [phone] Aris Tracey MD Unavailable [phone] Noé Sofia DO Unavailable [phone] Sudhakar Lipscomb CLOUD DEVELOPER Primary Care Provider [phone] Reason for Visit * Reason Onset Date Comments Other 07/17/2025 Requesting offic e visit notes Encounter Details Date Type Department Care Team (Late st Contact Info) Description 07/17/2025 Telephone [facility] - Central Scheduling [address] [place] [address] Trevor Christian MD [address] [facility] [address] [place] [address] Other (Requesting office visit notes) Social History Tobacco Use Types Packs/Day Years [...] encounter Miscellaneous Notes * Telephone Encounter - Opal Cutler - 07/18/2025 8:13 AM EST Left voicemail re: Faxing medication records request. Fax number left on voice message. * Telephone Encounter - Opal Cutler - 07/17/2025 8:22 AM EST Yo Sheppard Joseph 1955 Message: Received call from [facility]. They are requesting office visit notes because the ptn would like to return this pain management group. DOS: Date of last Appt: 06/06/2025 Pharmacy: Contact #: [phone] Fax #: [phone] documented in this encounter Plan of Treatment Upcoming Encounters Date Type Department Care Team (Late st Contact Info) Description 09/10/2025 1:30 PM EST Appointment [facility] Physicians - Heart & Vascular, [address] [place] [phone] Amaris Cueva MD [address] [place] [address] [place] [address] 10/15/2025 2:40 PM EST Appointment [facility] Physicians - Pulmonary Medicine, [address] Medical Office Building [address] [place] [phone] Noé Sofia DO [address] [place] [address]. [address] [place] [address] documented as of this encounter Goals Goal [...] filedocumented in this encounter Care Teams Sales Demonstrator Relationship Specialty Start Date End Date Sudhakar Lipscomb NP [address] [place] [address] PCP - General Family Medicine 08/30/23 Stephany Ortega, RN Cardiology 08/04/21 Amaris Cueva MD [address] [facility] [address] [place] [address] Cardiology 08/10/21 Maverick Lee MD [address] [facility] [address] [place] [address] Interventional Cardiology 09/06/21 Michael Gonzales MD [address] [place] [address] Internal Medicine, Sleep Medicine 09/07/21 Lolly Warren NP [address] [place] [address] Nurse Practitioner Nurse Practitioner, Acute Care 09/08/21 Daniel Whittington MD, PhD [address] [place] [address] Clinical Cardiac Electrophysiology 09/13/21 Regina Esquivel NP [address] [place] [address] Nurse Practitioner Nurse Practitioner, Acute Care 09/22/21 Maverick Waterman DO [address] [place] [address] Advanced Heart Failure/Transplant 09/30/21 Aris Tracey MD [address] [place] [address] [address] [place], [place] [address] Urology 10/28/21 Noé Sofia DO [address] [place] [address] [address] [place], [place] [address] Critical Care Medicine 12/28/22 documented as of this encounter
--- OUTSIDE RECORDS SUMMARY | 2025-08-05 14:28 | XMS_ITS | Encounter Summary ---
Author Organization [facility] Address [address] [place] [address] Care Team Providers Care Candy Supervisor Name Role Phone Alfredito Ramey MD Unavailable [phone] Joann Zarate RN Unavailable Unavailable Ezekiel Kang MD Unavailable [phone] Alfredito Ramey MD Unavailable [phone] Jerri Santiago MD Primary Care Provider [phone] Source Comments This information has been disclosed [...] release of HIV test results or diagnoses. [id number] Health Reason for Visit * Reason Comments Medication Management Holding/Stopping M edication Inquiry Encounter Details Date Type Department Care Team (Late st Contact Info) Description 07/21/2025 Telephone [facility] bradley linebacker crewmember at [facility] [address] [facility] [address] [place] [address] Yo Mcqueen DMD [address] [place] [address] Medication Management (Holding/Stopping Medication Inquiry ) Social History Tobacco Use Types Packs/Day [...] 07/17 Assistance needed for: Not on file 5 Yearly Questionnaire Answer Date Record ed Do you need any assistance w ith obtaining housing, meals, medication, transportation or medical equipment? No 07/17 Assistance needed for: Not on file 5 Yearly Questionnaire Answer Date Record ed Do you need any assistance w ith obtaining housing, meals, medication, transportation or medical equipment? 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 documented in this encounter Plan of Treatment Not on file documented as of this encounter Visit Diagnoses Not on filedocumented in this encounter Additional Health Concerns Assessment Noted Time PHQ-9 Depression Total Score: 3 02/20/20 19 3:00 PM EDT documented as of this encounter Care Teams Candy Supervisor Relationship Specialty Start Date End [place] [address] PCP - General Family Medicine 04/12/21 Alfredito Ramey MD Radiation Oncologist Radiation Oncology 02/18/19 Joann Zarate, RN Registered Nurse 02/18/19 Ezekiel Kang MD [address] [facility] [address] [place] [address] 02/18/19 Alfredito Ramey MD Initiating Oncologist Radiation Oncology 06/03/20 documented as of this encounter
--- OUTSIDE RECORDS SUMMARY | 2025-08-05 14:28 | XMS_ITS | Clinical Summary ---
Author Organization [facility] Address [address] [place] [address] Care Team Providers Care Pharmacy District Manager Name Role Phone Stephany Ortega RN Unavailable Amaris Cueva MD Unavailable [phone] Maverick Lee MD Unavailable [phone] Michael Gonzales MD Unavailable Lolly Warren NP Unavailable [phone] Daniel Whittington MD, PhD Unavailable [phone] Regina Esquivel NP Unavailable [phone] Maverick Waterman DO Unavailable [phone] Aris Tracey MD Unavailable [phone] Noé Sofia DO Unavailable Sudhakar Lipscomb SUPERINTENDENT JOB Primary Care Provider [phone] Allergies Active Allergy Reactions Criticality Noted Date [...] the morning and 5 mg before bedtime. 10/09/19 24 Active abiraterone (Zytiga) 250 mg Tablet Take 1,000 mg by mouth in the morning. 0 10/16/19 24 Active leuprolide (Eligard) 22.5 mg Syringe 22.5 mg by Subcutaneous route. 01/03/20 24 Active albuterol (VENTOLIN/PROAIR/P ROVENTIL HFA) 90 mcg/actuation HFA Aerosol Inhaler Acti ve furosemide (LASIX) 20 mg tabletIndications: Nonischemic cardiomyopathy (CMS/HCC) Take 1 Tablet (20 mg) by mouth daily. 60 Tablet 11/06/19 25 Active metoprolol succinate (TOPROL) 50 mg Tablet Sustained Release 24 hrIndications:Prim tobias hypertension,Persi stent atrial fibrillation (CMS/HCC) Take 1 Tablet (50 mg) by mouth 2 times daily. 180 Tablet 3 12/17/19 25 Active losartan (COZAAR) 100 mg Tablet Take 1 Tablet by mouth in the morning. 90 Tablet 3 02/27/20 25 Active dapagliflozin propanediol (Farxiga) 10 mg Tablet tablet Take 1 Tablet by mouth every morning. 90 Tablet 3 02/27/20 25 Active apixaban (Eliquis) 5 mg Tablet Take 1 Tablet (5 mg) by mouth 2 times daily. 60 Tablet 11 04/09/20 25 Active tamsulosin (FLOMAX) 0.4 mg sustained release capsule 04/09/20 25 Active Active Problems Problem Noted Date Diagnosed Date Degeneration of intervertebr al disc of lumbar region with discogenic back pain and lower extremity pain 05/14/2025 Lumbar radiculopathy, acute 05/14/2025 Other idiopathic scoliosis, thoracolumbar region 05/14/2025 Neural foraminal stenosis of lumbar spine 2024 Facet arthropathy, lumbar 05/14/2025 Nonrheumatic mitral valve regurgitation 04/01/20 25 RLS (restless legs syndrome) 01/13/2025 Chronic insomnia 01/13/2025 A-fib 10/29/2024 Obesity (BMI 30-39.9) 09/12/2024 Atrial fibrillation with RVR 09/07/2024 Coronary artery disease involving unga coronar y artery 07/23/2024 Mixed hyperlipidemia 07/23/2024 Nonischemic cardiomyopathy 07/23/2024 Pleural effusion 07/18/2023 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 11/08/2022 Essential hypertension 05/09/2022 Bladder stone 10/28/2021 Overview (10/28/2021): Added automatically from request for surgery [id number] Chronic systolic CHF (congestive heart failure) 09/21/2021 [...] Encounters Date Type Department Care Team Description 07/17/2025 Clinical Update [facility] - Central Scheduling [address] [place] [address] Leo Mosley PA-C FYI 07/17/2025 Telephone [facility] - Central Scheduling [address] [place] [address] Trevor Christian MD Other (Requesting office visit notes) 07/14/2025 1:00 PM EST Office Visit [facility] - Spine Surgery, [facility] [address] [place] [address] [address] [place] [phone] Leo Mosley PA-C Lumbar radiculopathy, acute (Primary Dx); Degeneration of intervertebral disc of lumbar region with discogenic back pain and lower extremity pain; Neural foraminal stenosis of lumbar spine 06/23/2025 Telephone [facility], [address] [place] [address] Aundrea Justice RN Other (Cancel ablation) 06/18/2025 Telephone [facility] & [facility] [address] [place] [address] [address] [place] [address] Amaris Cueva MD FYI 06/18/2025 Telephone [facility] Medical Office [address] [place] [address] Aundrea Justice RN Patient Education 06/18/2025 Telephone [facility] - Physical Medicine & Rehabilitation, [facility] [address] [place] [address]e [address] [place] [address] Iram Campbell RN Back Pain 06/17/2025 Telephone [facility] & [address] [place] [address] Amaris Cueva MD Other (Calling to give an update on his afib) 06/17/2025 Telephone [facility] [address] [place] [address] Trevor Christian MD Follow-up 06/13/2025 Preop Surgical Orders [facility], [address] Medical Office [address] [place] [address] Aundrea Justice RN Persistent atrial fibrillation (CMS/HCC) (Primary Dx); Paroxysmal A-fib (CMS/HCC); Nonischemic cardiomyopathy (CMS/HCC) 06/09/2025 Telephone Pain Management [address] [place] [address] Daisy Felder NP 06/06/2025 10:10 AM EDT - 06/06/2025 11:59 PM EDT Hospital Encounter [facility], Diagnostic Services [address] [place] [address] Pain Discharge Disposition: Home or Self Care 06/06/2025 10:03 AM EDT - 06/06/2025 10:09 AM EDT Hospital Encounter [facility] Pain Management - Dr. Royal [address] [place] [phone] Trevor Christian MD Lumbar radiculopathy (Primary Dx); Obesity (BMI 30-39.9); Essential hypertension; Antiplatelet or antithrombotic long-term use; Persistent atrial fibrillation (CMS/HCC); Spinal stenosis of lumbar region with neurogenic claudication Discharge Disposition: Home or Self Care 05/29/2025 Telephone [facility] [place] [address] [place] [address] Trevor Christian MD Patient Calling 05/26/2025 [facility]phone [facility] [address] [facility] Medical Office [address] [place] [phone] Alfredito Panda (Echocardiogram results) 05/23/2025 Telephone [facility] - Heart & Vascular, [facility] [address] [facility] Medical Office [address] [place] [address] Rubia Hopkins RN Medication Management (Eliquis Hold) 05/23/2025 Telephone [facility] - Physical Medicine & Rehabilitation, [facility] [address] [facility] [address] [place] [phone] Iram Campbell litigation associate Management 05/22/2025 2:22 PM EDT - 05/22/2025 11:59 PM EDT Hospital Encounter [facility] [address] [facility], [address] [place] [address] Discharge Disposition: Home or Self Care 05/21/2025 Telephone Pain Management [address] [place] [address] Daisy Felder NP 05/20/2025 10:00 AM EDT Office Visit [facility] - Heart & Vascular, [facility] [address] [place] [address] [address] [place] [address] Persistent atrial fibrillation (CMS/HCC) (Primary Dx) 05/20/2025 Telephone [facility] - Central Scheduling [address] [place] [address] Trevor Christian MD Scheduling 05/15/2025 Telephone [facility] [address] [place] [address] Michael Gonzales MD Advice Only 05/15/2025 Telephone [facility] - Central Scheduling [address] [place] [address] Leo Mosley PA-C Patient Calling 05/14/2025 1:15 PM EDT Office Visit [facility] - Spine Surgery, [facility] [address] [facility] [address] [place] [phone] Leo Mosley PA-C Lumbar radiculopathy, acute (Primary Dx); Low back pain, unspecified back pain laterality, unspecified chronicity, unspecified whether sciatica present; Degeneration of intervertebral disc of lumbar region with discogenic back pain and lower extremity pain; Other idiopathic scoliosis, thoracolumbar region; Neural foraminal stenosis of lumbar spine; Facet arthropathy, lumbar 05/14/2025 Orders Only [facility] - Spine Surgery, [place] [address] [place] [address] Leo Mosley PA-C Degeneration of intervertebral disc of lumbar region with discogenic back pain and lower extremity pain (Primary Dx); Lumbar radiculopathy, acute; Other idiopathic scoliosis, thoracolumbar region; Neural foraminal stenosis of lumbar spine; Facet arthropathy, lumbar 05/13/2025 1:30 PM EDT Office Visit [facility] [place] [address] Paroxysmal A-fib (CMS/HCC) (Primary Dx) 05/13/2025 Telephone The [facility] & [address] [place] [address] Tiffanie Cole RN Procedure 05/13/2025 Orders Only The [address] [place] [address] Tiffanie Cole RN Persistent atrial fibrillation (CMS/HCC) (Primary Dx) from Last 3 Months Family History Medical [...] Mass Index 38.77 07/14/2025 12:36 PM EST Plan of Treatment Upcoming Encounters Date Type Department Care Team (Late st Contact Info) Description 09/10/2025 1:30 PM EST Appointment [facility] - Heart & Vascular, [facility] [address] [place] [address] [address] [place] [address] Amaris Cueva MD [address] [facility] [address] [place] [address] 10/15/2025 2:40 PM EST Appointment [facility] - Pulmonary Medicine, [address] Medical Office [address] [place] [address] Noé Sofia DO [address] [place] [address]. [address] [place], [place] [address] Health Maintenance Due Date Last Done Comments Cologuard 1955 Colonoscopy 1955 Colorectal Cancer Screening 1955 FIT 1955 COVID-19 Vaccine (#1) 1959 Tetanus Vaccination (Every 10 Years) 1972 Pneumococcal Vaccine: 50+ Ye ars (1 of 2 - PCV) 1973 Hepatitis C Virus (HCV) Screening 1975 Zoster-RZV(Shingrix) (1 of 2) 2004 RSV Vaccines (1 - Risk 60-74 years 1-dose series) 2014 Fall Risk Assessment 2019 Advance Care Planning 09/11/2024 BMI Counseling 09/11/2024 Depression Screening 09/11/2024 Influenza Vaccination (#1) 2025 Lipid Screening 09/07/2029 09/07/2024, 11/0 11/2022, 08/30/2021 Goals Goal Patient [...] PAIN Routine 06/06/2025 10:41 AM EDT Pain 2D ECHO COMPLETE W/STRAIN/3D PRN CONTR/BUBBLE Routine 05/22/2025 3:24 PM EDT Nonischemic cardiomyopathy (CMS/HCC) ECG Routine 05/20/2025 9:51 AM EDT Persistent atrial fibrillation (CMS/HCC) [id number] MIN 4-VIEWS Today 05/14/2025 1:15 PM EDT Low back pain, unspecified back pain laterality, unspecified chronicity, unspecified whether sciatica present ECG Routine 05/13/2025 11:24 AM EDT Persistent atrial fibrillation (CMS/HCC) LIPID PROFILE STAT Future 09/07/2024 7:14 PM EST from Last 3 Months or Most Recently Relevant to Health Maintenance Results * DIAG-RAD [facility] AMBULATORY PAIN (06/06/2025 [...] time = 0 minutes and 15 seconds. us Trevor Christian MD IMG FLUOROSCOPY ORDERABLES Final Result * (ABNORMAL) 2D ECHO COMPLETE W/STRAIN/3D PRN CONTR/BUBBLE (05/22/2025 3:24 PM EDT) Aortic Valve Area 1.3 cm^2 [facility] Mitral Valve Regurgitation no significant [facility] Tricuspid Regurgitation no significant [facility] EF 45(L) 50 - 72 percent [facility] Anatomical Region Laterality Modality Cardiac Ultrasou nd 05/13/2025 11:0 0 AM EDT Narrative 05/26/2025 8:07 AM EDT [facility] Ech[facility] [address] [place] [address] Transthoracic Echocardiogram Patient: Renetta Ruiz Gender: M MR #: [id number] Age: 69 Account: [id number] : 1955 Study Date: 05/13/2025 Room: BP: 124 / 66 Referring Physician: Daniel Elder Interpreting Physician: Amaris Cueva REFERRING Daniel Elder ORDERING Daniel Elder PERFORMING Amaris Cueva EDUCATIONAL TECHNOLOGY COORDINATOR Kendal Wilson Procedure:2D ECHO COMPLETE W/STRAIN/3D PRN Order: Accession CONTR/BUBBLE Number:[id number] Facility: [facility] Indications: Nonischemic cardiomyopathy (CMS/HCC) [I42.8 (ICD-10-CM)]. PMH: Congestive heart failure. Coronary artery disease. Atrial fibrillation. Right bundle branch block. Hypertension. Hyperlipidemia. Obesity. Obstructive sleep apnea. Study data: Study status: Routine. Procedure: A transthoracic echocardiogram was performed. Image quality was suboptimal. The study was technically limited due to poor acoustic window availability and body habitus. Scanning was performed from the parasternal, apical, subcostal, and suprasternal notch acoustic windows. Echo images were inconclusive and there was need for contrast enhancement. More than two contiguous segments of the left ventricular border were not visualized. Definity was administered to opacify the LV. Transthoracic echocardiogram. M-mode, complete 2D, complete spectral Doppler, Color Flow Doppler, and intravenous contrast injection. Age: Patient is 69year(s) old. Sex: gender: male. Body mass index: BMI: 37.6kg/m^2. Patient status: Outpatient. Study date: Study date: 05/13/2025. Study time: 11:00 AM. Location: Echo laboratory. Study Conclusions - Left ventricle: The cavity is mildly dilated. Wall thickness is normal. LV systolic function is mildly reduced. The estimated ejection fraction is 45%, by biplane method of disks. There is mild diffuse LV hypokinesis. Left ventricle function has increased compared to the 03/2025 study. Features are consistent with a pseudonormal left ventricular filling pattern, with concomitant abnormal relaxation and increased filling pressure (grade 2 diastolic dysfunction). The LVOT stroke index is 36ml/m^2. - Aortic valve: The leaflets are mildly thickened and moderately calcified. Cusp separation is mildly reduced. There is moderate stenosis. The peak systolic gradient is 29mm Hg. The valve area by the velocity-time integral method is 1.3cm^2. - Aortic root: The root is not dilated. - Left atrium: The atrium is moderately dilated. - Right ventricle: Systolic pressure is mildly increased. - Inferior vena cava: The IVC is normal-sized. Respirophasic diameter changes are in the normal range (>= 50%), consistent with normal central venous pressure. Cardiac Anatomy Left ventricle: The cavity is mildly dilated. Wall thickness is normal. The end-diastolic septal thickness is 1.1cm. The end-diastolic dimension is 5.7cm. The end-diastolic posterior wall thickness is 1.0cm. The end-diastolic relative thickness (SMM) is 0.35. The wall mass is 231g. The wall mass index is 103g/m^2. The chordal end-systolic diameter is 4.8cm. The end-systolic diameter index at the chordal level is 2.1cm/m^2. The fractional shortening at the chordal level is 16%. The stroke volume index is 42ml/m^2. The lateral e' velocity is 7.9cm/sec. The lateral E/e' ratio is 10. The medial e' velocity is 4.8cm/sec. The medial E/e' ratio is 17. The average of medial and lateral annular e' velocities is 6.4cm/sec. The average E/e' ratio is 13. The LVOT diameter during systole is 2.1cm. The LVOT endocardial area is 3.5cm^2. The LVOT peak systolic velocity is 1.03m/sec. The LVOT mean systolic velocity is 1.03m/sec. The LVOT systolic velocity-time integral is 23.3cm. The LVOT peak systolic gradient is 4mm Hg. The LVOT mean systolic gradient is 3mm Hg. The LVOT stroke index is 36ml/m^2. LV systolic function is mildly reduced. The estimated ejection fraction is 45%, by biplane method of disks. There is mild diffuse LV hypokinesis. Left ventricle function has increased compared to the 03/2025 study. Features are consistent with a pseudonormal left ventricular filling pattern, with concomitant abnormal relaxation and increased filling pressure (grade 2 diastolic dysfunction). Aortic valve: - The leaflets are mildly thickened and moderately calcified. Cusp separation is mildly reduced. There is moderate stenosis. There is trivial regurgitation. The peak systolic velocity is 2.7m/sec. The mean systolic velocity is 2m/sec. The systolic velocity-time integral is 62.9cm. The mean systolic gradient is 18mm Hg. The peak systolic gradient is 29mm Hg. The dimensionless index is 0.37. The valve area by the velocity-time integral method is 1.3cm^2. The valve area index by the velocity-time integral method is 0.57cm^2/m^2. The ratio of LVOT to aortic valve peak velocity is 0.38. The valve area by the peak velocity method is 1.3cm^2. The valve area index by the peak velocity method is 0.59cm^2/m^2. The ratio of LVOT to aortic valve mean velocity is 0.52. The valve area by the mean velocity method is 1.8cm^2. The valve area index by the mean velocity method is 0.8cm^2/m^2. Aorta: The end-diastolic aortic root diameter is 3.4cm. The ascending aorta A-P systolic diameter is 3.5cm. The ascending aorta A-P systolic diameter indexed to bsa is 1.6cm/m^2. Aortic root: The root is not dilated. Mitral valve: - The valve is structurally normal. Leaflet separation is normal. Inflow velocity is within the normal range. There is no stenosis. There is no significant regurgitation. The peak E-wave velocity is 0.83m/sec. The peak A-wave velocity is 0.61m/sec. The deceleration time is 180ms. The pressure half-time is 53ms. The valve area by pressure half-time is 4.2cm^2. The valve area index by pressure half-time is 1.86cm^2/m^2. Left atrium: The atrium is moderately dilated. The volume is 98ml. The volume index is 44ml/m^2. Right ventricle: - The cavity size is normal. Wall thickness is normal. Systolic function is normal. Systolic pressure is mildly increased. The tricuspid annular plane systolic excursion is 2.7cm. The basal end-diastolic minor axis dimension (A4C) is 3.8cm. The mid-ventricular end-diastolic minor axis dimension (A4C) is 3.3cm. The RV pressure during systole is 25mm Hg. The RV s' is 12.6cm/sec. Pulmonic valve: - The valve is structurally normal. There is no stenosis. There is trivial regurgitation. The peak systolic velocity is 1m/sec. Pulmonary arteries: Not well visualized. The peak systolic pressure is 25mm Hg. Tricuspid valve: - The valve is structurally normal. Leaflet separation is normal. Inflow velocity is within the normal range. There is no stenosis. There is no significant regurgitation. The regurgitant peak velocity is 2.3m/sec. The peak RV-RA systolic gradient is 22mm Hg. Right atrium: The atrium is normal in size. The estimated central venous pressure is 3mm Hg. The volume at ventricular end-systole is 40.0ml. The end-systolic volume index is 18ml/m^2. Pericardium: - The pericardium is normal in appearance. There is no pericardial effusion. . Systemic veins: Inferior vena cava: The IVC is normal-sized. Respirophasic diameter changes are in the normal range (>= 50%), consistent with normal central venous pressure. The proximal internal diameter during inspiration is 0.7cm. The proximal internal diameter during expiration is 1.9cm. The respirophasic change in diameter is 61.6%. Measurements Left ventricle Value Ref ESD, LAX chord (H) 4.8 cm 2.5 - 4.0 ESD/bsa, LAX chord (N) 2.1 cm/m^2 1.3 - 2.1 FS, LAX chord (L) 16 % 25 - 43 SV/bsa, 1-p A4C 42 ml/m^2 IVS, ED, MM on 2D (H) 1.1 cm 0.6 - 1.0 BRUCE, MM on 2D (N) 5.7 cm 4.2 - 5.8 PW, ED, MM on 2D (N) 1.0 cm 0.6 - 1.0 RWT, ED SMM (N) 0.35 0.24 - 0.42 Mass, MM on 2D (H) 231 g 88 - 224 Mass/bsa, MM on 2D (N) 103 g/m^2 49 - 115 e', lateral, TDI (L) 7.9 cm/sec >=10.0 E/e', lateral, TDI (N) 10 <=13 e', medial, TDI (L) 4.8 cm/sec >=7.0 E/e', med delvis, TDI 17 e', avg, TDI 6.4 cm/sec E/e', avg, TDI (N) 13 <=14 LVOT Value Ref Diam, S 2.1 cm Area 3.5 cm^2 Peak sam, S 1.03 m/sec Mean sam, S 1.03 m/sec VTI, S 23.3 cm Peak grad, S 4 mm Hg Mean grad, S 3 mm Hg SV/bsa 36 ml/m^2 Right ventricle Value Ref BRUCE minor ax, A4C base (N) 3.8 cm 2.5 - 4.1 BRUCE minor ax, A4C mid (N) 3.3 cm 1.9 - 3.5 TAPSE, MM (N) 2.7 cm >=1.7 Pressure, S 25 mm Hg s', lateral (N) 12.6 cm/sec >=9.5 Left atrium Value Ref Vol, S (H) 98 ml 18 - 58 Vol/bsa, S (H) 44 ml/m^2 16 - 34 Right atrium Value Ref Vol, ES, A/L 40.0 ml Vol/bsa, ES, A/L (N) 18 ml/m^2 11 - 39 Aortic valve Value Ref Peak v, S (H) 2.7 m/sec <=2.5 Mean v, S 2 m/sec VTI, S 62.9 cm Mean grad, S 18 mm Hg Peak grad, S 29 mm Hg DI 0.37 FRANCO, VTI 1.3 cm^2 FRANCO/bsa, VTI 0.57 cm^2/m^2 LVOT/AV, Vpeak ratio 0.38 FRANCO, Vmax 1.3 cm^2 FRANCO/bsa, Vmax 0.59 cm^2/m^2 LVOT/AV, Vmean ratio 0.52 FRANCO, Vmean 1.8 cm^2 FRANCO/bsa, Vmean 0.8 cm^2/m^2 Mitral valve Value Ref Peak E 0.83 m/sec Peak E gradient 3 mm Hg Peak A 0.61 m/sec Decel time 180 ms PHT 53 ms MVA, PHT 4.2 cm^2 MVA/bsa, PHT 1.86 cm^2/m^2 Pulmonic valve Value Ref Peak v, S 1 m/sec Tricuspid valve Value Ref TR peak v (N) 2.3 m/sec <=2.8 Peak RV-RA grad, S 22 mm Hg Aortic root Value Ref Root diam, ED (N) 3.4 cm 2.8 - 4.3 Ascending aorta Value Ref AAo AP diam, S 3.5 cm AAo AP diam/bsa, S 1.6 cm/m^2 Pulmonary artery Value Ref Pressure, S 25 mm Hg Systemic veins Value Ref Estimated CVP 3 mm Hg Inferior vena cava Value Ref Prox diam, insp (N) 0.7 cm <=2.1 Prox diam, exp 1.9 cm Collapse 61.6 % Legend: (L) and (H) jenny values outside specified reference range. (N) diaz values inside specified reference range. Reviewed and confirmed by Amaris Cueva [id number]:25 Procedure Note Amaris Cueva MD - 05/26/2025 [facility] [address] [place] [address] Transthoracic Echocardiogram Patient: Renetta Ruiz Gender: Loco MR #: [id number] Age: 69 Account: [id number] : 1955 Study Date: 05/13/2025 Room: BP: 124 / 66 Referring Physician: Daniel Elder Interpreting Physician: Amaris Cueva REFERRING Daniel Elder ORDERING Daniel Elder PERFORMING Amaris Cueva EDUCATIONAL TECHNOLOGY COORDINATOR Kendal Wilson Procedure:2D ECHO COMPLETE W/STRAIN/3D PRN Order: Accession CONTR/BUBBLE Number:[id number] Facility: [facility] Indications: Nonischemic cardiomyopathy (CMS/HCC) [I42.8 (ICD-10-CM)]. PMH: Congestive heart failure. Coronary artery disease. Atrial fibrillation. Right bundle branch block. Hypertension. Hyperlipidemia. Obesity. Obstructive sleep apnea. Study data: Study status: Routine. Procedure: A transthoracic echocardiogram was performed. Image quality was suboptimal. The studywas technically limited due to poor acoustic window availability and body habitus. Scanning was performed from the parasternal, apical, subcostal,and suprasternal notch acoustic windows. Echo images were inconclusive andthere was need for contrast enhancement. More than two contiguous segments ofthe left ventricular border were not visualized. Definity was administeredto opacify the LV. Transthoracic echocardiogram. M-mode, [id number], complete spectral Doppler, Color Flow Doppler, and intravenous contrast injection. Age: Patient is 69year(s) old. Sex: gender: male.Body mass index: BMI: 37.6kg/m^2. Patient status: Outpatient. Study date: Study date: 05/13/2025. Study time: 11:00 AM. [facility] Conclusions - Left ventricle: The cavity is mildly dilated. Wall thickness is normal.LV systolic function is mildly reduced. The estimated ejection fractionis 45%, by biplane method of disks. There is mild diffuse LV hypokinesis. Left ventricle function has increased compared to the 03/2025 study. Features are consistent with a pseudonormal left ventricular filling pattern, with concomitant abnormal relaxation and increased filling pressure (grade 2 diastolic dysfunction). The LVOT stroke index is 36ml/m^2. - Aortic valve: The leaflets are mildly thickened and moderatelycalcified. Cusp separation is mildly reduced. There is moderate stenosis. Thepeak systolic gradient is 29mm Hg. The valve area by the velocity-timeintegral method is 1.3cm^2. - Aortic root: The root is not dilated. - Left atrium: The atrium is moderately dilated. - Right ventricle: Systolic pressure is mildly increased. - Inferior vena cava: The IVC is normal-sized. Respirophasic diameter changes are in the normal range (>= 50%), consistent with normalcentral venous pressure. Cardiac Anatomy Left ventricle: The cavity is mildly dilated. Wall thickness is normal.The end-diastolic septal thickness is 1.1cm. The end-diastolic dimension is 5.7cm. The end-diastolic posterior wall thickness is 1.0cm. The end-diastolic relative thickness (SMM) is 0.35. The wall mass is 231g.The wall mass index is 103g/m^2. The chordal end-systolic diameter is 4.8cm.The end-systolic diameter index at the chordal level is 2.1cm/m^2. The fractional shortening at the chordal level is 16%. The stroke volumeindex is 42ml/m^2. The lateral e' velocity is 7.9cm/sec. The lateral E/e' ratiois 10. The medial e' velocity is 4.8cm/sec. The medial E/e' ratio is 17.The average of medial and lateral annular e' velocities is 6.4cm/sec. The average E/e' ratio is 13. The LVOT diameter during systole is 2.1cm. The LVOT endocardial area is 3.5cm^2. The LVOT peak systolic velocity is 1.03m/sec. The LVOT mean systolic velocity is 1.03m/sec. The LVOTsystolic velocity-time integral is 23.3cm. The LVOT peak systolic gradient is 4mmHg. The LVOT mean systolic gradient is 3mm Hg. The LVOT stroke index is 36ml/m^2. LV systolic function is mildly reduced. The estimated ejection fraction is 45%, by biplane method of disks. There is mild diffuse LV hypokinesis. Left ventricle function has increased compared to the03/2025 study. Features are consistent with a pseudonormal left ventricularfilling pattern, with concomitant abnormal relaxation and increased fillingpressure (grade 2 diastolic dysfunction). Aortic valve: - The leaflets are mildly thickened and moderately calcified. Cusp separation is mildly reduced. There is moderate stenosis. There istrivial regurgitation. The peak systolic velocity is 2.7m/sec. The meansystolic velocity is 2m/sec. The systolic velocity-time integral is 62.9cm. The mean systolic gradient is 18mm Hg. The peak systolic gradient is 29mmHg. The dimensionless index is 0.37. The valve area by the velocity-time integral method is 1.3cm^2. The valve area index by the velocity-time integral method is 0.57cm^2/m^2. The ratio of LVOT to aortic valvepeak velocity is 0.38. The valve area by the peak velocity method is1.3cm^2. The valve area index by the peak velocity method is 0.59cm^2/m^2. The ratio of LVOT to aortic valve mean velocity is 0.52. The valve area bythe mean velocity method is 1.8cm^2. The valve area index by the meanvelocity method is 0.8cm^2/m^2. Aorta: The end-diastolic aortic root diameter is 3.4cm. The ascending aorta A-P systolic diameter is 3.5cm. The ascending aorta A-P systolic diameter indexed to bsa is 1.6cm/m^2. Aortic root: The root is not dilated. Mitral valve: - The valve is structurally normal. Leaflet separation is normal. Inflow velocity is within the normal range. There is no stenosis. There is no significant regurgitation. The peak E-wave velocity is 0.83m/sec. Thepeak A-wave velocity is 0.61m/sec. The deceleration time is 180ms. Thepressure half-time is 53ms. The valve area by pressure half-time is 4.2cm^2.The valve area index by pressure half-time is 1.86cm^2/m^2. Left atrium: The atrium is moderately dilated. The volume is 98ml. The volume index is 44ml/m^2. Right ventricle: - The cavity size is normal. Wall thickness is normal. Systolic functionis normal. Systolic pressure is mildly increased. The tricuspid annularplane systolic excursion is 2.7cm. The basal end-diastolic minor axisdimension (A4C) is 3.8cm. The mid-ventricular end-diastolic minor axis dimension (A4C) is 3.3cm. The RV pressure during systole is 25mm Hg. The RV s'is 12.6cm/sec. Pulmonic valve: - The valve is structurally normal. There is no stenosis. There istrivial regurgitation. The peak systolic velocity is 1m/sec. Pulmonary arteries: Not well visualized. The peak systolic pressure is 25mm Hg. Tricuspid valve: - The valve is structurally normal. Leaflet separation is normal. Inflow velocity is within the normal range. There is no stenosis. There is no significant regurgitation. The regurgitant peak velocity is 2.3m/sec.The peak RV-RA systolic gradient is 22mm Hg. Right atrium: The atrium is normal in size. The estimated centralvenous pressure is 3mm Hg. The volume at ventricular end-systole is 40.0ml. The end-systolic volume index is 18ml/m^2. Pericardium: - The pericardium is normal in appearance. There is no pericardial effusion. . Systemic veins: Inferior vena cava: The IVC is normal-sized. Respirophasic diameterchanges are in the normal range (>= 50%), consistent with normal central venous pressure. The proximal internal diameter during inspiration is 0.7cm.The proximal internal diameter during expiration is 1.9cm. The respirophasic change in diameter is 61.6%. Measurements Left ventricle Value Ref ESD, LAX chord (H) 4.8 cm 2.5 - 4.0 ESD/bsa, LAX chord (N) 2.1 cm/m^2 1.3 - 2.1 FS, LAX chord (L) 16 % 25 - 43 SV/bsa, 1-p A4C 42 ml/m^2 IVS, ED, MM on 2D (H) 1.1 cm 0.6 - 1.0 BRUCE, MM on 2D (N) 5.7 cm 4.2 - 5.8 PW, ED, MM on 2D (N) 1.0 cm 0.6 - 1.0 RWT, ED SMM (N) 0.35 0.24 - 0.42 Mass, MM on 2D (H) 231 g 88 - 224 Mass/bsa, MM on 2D (N) 103 g/m^2 49 - 115 e', lateral, TDI (L) 7.9 cm/sec >=10.0 E/e', lateral, TDI (N) 10 <=13 e', medial, TDI (L) 4.8 cm/sec >=7.0 E/e', med delvis, TDI 17 e', avg, TDI 6.4 cm/sec E/e', avg, TDI (N) 13 <=14 LVOT Value Ref Diam, S 2.1 cm Area 3.5 cm^2 Peak sam, S 1.03 m/sec Mean sam, S 1.03 m/sec VTI, S 23.3 cm Peak grad, S 4 mm Hg Mean grad, S 3 mm Hg SV/bsa 36 ml/m^2 Right ventricle Value Ref BRUCE minor ax, A4C base (N) 3.8 cm 2.5 - 4.1 BRUCE minor ax, A4C mid (N) 3.3 cm 1.9 - 3.5 TAPSE, MM (N) 2.7 cm >=1.7 Pressure, S 25 mm Hg s', lateral (N) 12.6 cm/sec >=9.5 Left atrium Value Ref Vol, S (H) 98 ml 18 - 58 Vol/bsa, S (H) 44 ml/m^2 16 - 34 Right atrium Value Ref Vol, ES, A/L 40.0 ml Vol/bsa, ES, A/L (N) 18 ml/m^2 11 - 39 Aortic valve Value Ref Peak v, S (H) 2.7 m/sec <=2.5 Mean v, S 2 m/sec VTI, S 62.9 cm Mean grad, S 18 mm Hg Peak grad, S 29 mm Hg DI 0.37 FRANCO, VTI 1.3 cm^2 FRANCO/bsa, VTI 0.57 cm^2/m^2 LVOT/AV, Vpeak ratio 0.38 FRANCO, Vmax 1.3 cm^2 FRANCO/bsa, Vmax 0.59 cm^2/m^2 LVOT/AV, Vmean ratio 0.52 FRANCO, Vmean 1.8 cm^2 FRANCO/bsa, Vmean 0.8 cm^2/m^2 Mitral valve Value Ref Peak E 0.83 m/sec Peak E gradient 3 mm Hg Peak A 0.61 m/sec Decel time 180 ms PHT 53 ms MVA, PHT 4.2 cm^2 MVA/bsa, PHT 1.86 cm^2/m^2 Pulmonic valve Value Ref Peak v, S 1 m/sec Tricuspid valve Value Ref TR peak v (N) 2.3 m/sec <=2.8 Peak RV-RA grad, S 22 mm Hg Aortic root Value Ref Root diam, ED (N) 3.4 cm 2.8 - 4.3 Ascending aorta Value Ref AAo AP diam, S 3.5 cm AAo AP diam/bsa, S 1.6 cm/m^2 Pulmonary artery Value Ref Pressure, S 25 mm Hg Systemic veins Value Ref Estimated CVP 3 mm Hg Inferior vena cava Value Ref Prox diam, insp (N) 0.7 cm <=2.1 Prox diam, exp 1.9 cm Collapse 61.6 % Legend: (L) and (H) jenny values outside specified reference range. (N) diaz values inside specified reference range. Reviewed and confirmed by Amaris Cueva [id number] us Daniel Elder MD CARDNT ECHO ORDERABLES F inal Result * ECG (05/20/2025 9:51 AM EDT) Only the most recent of2 resultswithin the time period is included. 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 : 1955 Requested By: AMARIS Centeno Order Number: [id number] Reading MD: Amaris Cueva MD Interpretive Statements Sinus rhythm RBBB and LAFB Abnormal EKG AFib with RVR has resolved compared to the prior EKG Electronically Signed On 05-20-2025 13:31:54 EDT by Amaris Cueva MD Procedure Note Amaris Cueva MD - 05/20/2025 [facility] Test Date: 2025-05-20 09:51:11 Pat Name: RENETTA RUIZ Department: [facility] Room: blank Gender: Male 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 : 1955 Requested By: AMARIS Centeno Order Number: [id number] Reading MD: Amaris Cueva MD Interpretive Statements Sinus rhythm RBBB and LAFB Abnormal EKG AFib with RVR has resolved compared to the prior EKG Electronically Signed On 05-20-2025 13:31:54 EDT by Amaris Cueva MD us Amaris Cueva MD ECG ORDERABLES Final Resul t [facility] [address] * [id number] MIN 4-VIEWS (05/14/2025 1:15 PM EDT) Anatomical Region Laterality Modality T-Spine, L-Spine, Pelvis Other Narrative 05/14/2025 1:15 PM EDT Leo Mosley PA-C 05/14/2025 1:51 PM Four view radiographs of the lumbar spine obtained today and reviewed by myself include AP, neutral lateral, lateral flexion and lateral extension views. Five [id number]-[id number] lumbar vertebrae. Convex left lumbar scoliosis with a left lateral listhesis at L3-4 and L4-5. Hip joints appear normal. SI joints appear normal. Disc space narrowing L3-4 through L5-S1. No acute bony abnormalities. us Leo Mosley PA-C IMG DIAGNOSTIC IMAGING ORDER ELY Final Result * (ABNORMAL) LIPID PROFILE (09/07/2024 7:14 PM EST) Cholesterol 118(L) 125 - 199 mg/dL [facility] Comment: TOTAL CHOLESTEROL INTERPRETATION: Less than 200 mg/dL Desireable 200-239 mg/dL Borderline Greater or Equal to 240 mg/dL High LDL Calculated 72 0 - 100 mg/dL [facility] Comment: LDL CHOLESTEROL INTERPRETATION: Less than 100 mg/dL Optimal 100-129 mg/dL Near optimal/above optimal 130-159 mg/dL Borderline High 160-189 mg/dL High Greater or Equal to 190 mg/dL Very High HDL 35(L) 40 - 180 mg/dL [facility] Comment: HDL CHOLESTEROL INTERPRETATION: Less [...] 7:14 PM EST 09/07/2024 7:37 PM EST Shraddhaiimaria t Taylor MD CHEMISTRY ORDERABLES Final Result [facility] [address] from Last 3 Months or Most Recently Relevant to Health Maintenance Insurance [place] [address] [place] [address] Advance Directives For more information, please contact: [phone] Documents on File Type Date Recorded Patient Teacher Of The Emotionally Disturbed Expl anation Advance Directives and Living Will 09/17/2021 10:26 AM [facility] POWER OF LONG LINES OPERATOR * Full Code (Latest Code Status on [...] Name Relationship Healthcare Agent Relationshi p Communication Crystal Sachin Daughter First Alternate Health Care Agent Care Teams Pharmacy District Manager Relationship Specialty Start Date End Date Sudhakar Lipscomb NP [address] [place] [address] PCP - General Family Medicine 08/30/23 Stephany Ortega, SHARONDA Cardiology 08/04/21 Amaris Cueva MD [address] [id number] Cardiology 08/10/21 Maverick Lee MD [address] [facility] [address] [place], [place] [id number] Interventional Cardiology 09/06/21 Michael Gonzales MD [address] [place] [address] Internal Medicine, Sleep Medicine 09/07/21 Lolly Warren NP [address] [place] [address] Nurse Practitioner Nurse Practitioner, Acute Care 09/08/21 Daniel Whittington MD, PhD [address] [place] [address] Clinical Cardiac Electrophysiology 09/13/21 Regina Esquivel NP [address] [place] [address] Nurse Practitioner Nurse Practitioner, Acute Care 09/22/21 Maverick Waterman DO [address] [facility]. [address] [place] [address] Advanced Heart Failure/Transplant 09/30/21 Aris Tracey MD [address] [place] [address] [address] [place] [address] Urology 10/28/21 Noé Sofia DO [address] [place] [address] Critical Care Medicine 12/28/22
--- OUTSIDE RECORDS SUMMARY | 2025-08-05 14:28 | XMS_ITS | Clinical Summary ---
Author Organization [facility] Address [facility] [address] [address] Phone Care Team Providers Care Order Department Supervisor Name Role Phone Pat Campoverde MD Unavailable Rena Hussein BOTANY TEACHER Primary Care Provider [phone] Allergies Active Allergy Reactions Criticality Noted Date [...] 50+ (1 of 1 - PCV) 2004 RSV or 60+ (1 - Ris k 50-74 years 1-dose series) 2004 Zoster (1 of 2) 2004 AAA Screening 2019 COVID-19 Vaccine (2024-2 6 season) 2025 Influenza Vaccine (#1) 2025 Hepatitis B Vaccine Aged Out No longe r eligible based on patient's age to complete this topic Meningococcal B Vaccine Aged Out No l onger eligible based on patient's age to complete this topic Insurance [employer] MEDICARE ADVANTAGE MR MEDICARE [place] PART B CLAIMS PB Care Teams Order Department Supervisor Relationship Specialty Start Date End Date Rena Hussein FNP [address] [place] [address] PCP - General Nurse Practitioner 04/02/20 Pat Campoverde MD Internal Medicine-Nephrology 04/02/20
--- OUTSIDE RECORDS SUMMARY | 2025-08-05 14:28 | XMS_ITS | Encounter Summary ---
Author Organization [facility] Address [address] [place] [address] Care Team Providers Care Sweatband Separator Name Role Phone Apple Santiago Primary Care Provider Stephany Ortega RN Unavailable Amaris Cueva MD Unavailable [phone] Maverick Lee MD Unavailable [phone] Michael Gonzales MD Unavailable [phone] Lolly Warren NP Unavailable [phone] Daniel Whittington MD, PhD Unavailable [phone] Regina Esquivel GOLF SHOE SPIKE ASSEMBLER Unavailable [phone] Maverick Waterman DO Unavailable [phone] Aris Tracey MD Unavailable [phone] Noé Sofia DO Unavailable [phone] Sudhakar Lispcomb GOLF SHOE SPIKE ASSEMBLER Primary Care Provider Encounter Details Date Type Department Care Team (Latest Contact Info) Description 10/28/2021 Preop Surgical Orders [facility] Physicians - Urology, [address] Medical Office [address] [place] [phone] Lolly Lipscomb, SHARONDA Bladder stone (Primary Dx); Gross hematuria Social [...] Description 09/10/2025 1:30 PM EST Appointment [facility] - Heart & Vascular, [facility] [address] [place] [address] [address] [place] [address] Amaris Cueva MD [address] [facility] [address] [facility] [place] [address] 10/15/2025 2:40 PM EST Appointment [facility] - Pulmonary Medicine, [address] Medical Office [address] [place] [phone] Noé Sofia DO [address] [place] [address]. [address] [place], [place] [id number] documented as of this encounter Goals Goal [...] hematuria documented in this encounter Care Teams Sweatband Separator Relationship Specialty Start Date End Date Apple Santiago [address] [facility] [place] [address] PCP - General Family Medicine 08/02/21 08/29/23 Sudhakar Lipscomb NP [address] [place], [place] [id number] PCP - General Family Medicine 08/30/23 Stephany Ortega, RN Cardiology 08/04/21 Amaris Cueva MD 130[address] [facility] [address] [place] [address] Cardiology 08/10/21 Maverick Lee MD 58[address] [facility] [address] [place], [place] [phone] Interventional Cardiology 09/06/21 Michael Gonzales MD [address] [place] [address] Internal Medicine, Sleep Medicine 09/07/21 Lolly Wraren NP [address] [place] [address] Nurse Practitioner Nurse Practitioner, Acute Care 09/08/21 Daniel Whittington MD, PhD [address] [place], [place] [address] Clinical Cardiac Electrophysiology 09/13/21 Regina Esquivel NP [address] [place] [address] [address] [place] [phone] (Work) Nurse Practitioner Nurse Practitioner, Acute Care 09/22/21 Maverick Waterman DO [address] [facility] [place] [address] Advanced Heart Failure/Transplant 09/30/21 Aris Tracey MD [address] [place] [address] [address] [place] [address] Urology 10/28/21 Noé Sofia DO [address] [place] [address] [place] [address] Critical Care Medicine 12/28/22 documented as of this encounter
--- OUTSIDE RECORDS SUMMARY | 2025-08-05 14:28 | XMS_ITS | Encounter Summary ---
Author Organization [facility] Address [address] [place] [address] Care Team Providers Care Gm/Svp Global Publisher Business Name Role Phone Stephany Ortega RN Unavailable Amaris Cueva MD Unavailable [phone] Maverick Lee MD Unavailable [phone] Michael Gonzales MD Unavailable [phone] Lolly Warren NP Unavailable [phone] Daniel Whittington MD, PhD Unavailable [phone] Regina Esquivel NP Unavailable [phone] Maverick Wtaerman DO Unavailable [phone] Aris Tracey MD Unavailable [phone] Noé Sofia DO Unavailable [phone] Sudhakar Lipscomb CERAMIC RESEARCH ENGINEER Primary Care Provider [phone] Reason for Visit * Reason Onset Date Comments Other 06/17/2025 Calling to give an update on his afib Encounter Details Date Type Department Care Team (Late st Contact Info) Description 06/17/2025 Telephone [facility] Physicians - Heart & Vascular, [place] [address] [facility] [address] [place] [address] Amaris Cueva MD [address] [facility] [address] [place] [address] Other (Calling to give an update on his afib) Social History Tobacco Use Types Packs/Day Years [...] Telephone Encounter - Tiffanie Cole RN - 06/17/2025 2:12 PM EDT JLE aware * Telephone Encounter - Tiffanie Cole RN - 06/17/2025 11:17 AM EDT BP 112/60 HR 60-80's His HR will get up into the 90's while at work [employer] on 06-25-25 NOV 07-02-25 * Telephone Encounter - Lila Perales - 06/17/2025 10:56 AM EDT Calling to give an update on his afib documented in this encounter Plan of Treatment Upcoming Encounters Date Type Department Care Team (Late st Contact Info) Description 09/10/2025 1:30 PM EST Appointment [facility] Physicians - Heart & Vascular, [facility] [address] [place] [address] [place] [phone] Amaris Cueva MD [address] [facility] [address] [place] [address] 10/15/2025 2:40 PM EST Appointment [facility] Physicians - Pulmonary Medicine, [address] Medical Office Building [address] [place] [phone] Noé Sofia DO [address] [place] [address]. [address] [place], [place] [address] documented as of this encounter Goals Goal Patient Goal Type Associated Problems Recent Progress Patient-Stated? Author Limit fluid intake to 2 liters per day Diet No Tariq Lee BS Reduce salt intake to 2 grams per day Diet No Tariq Lee BS Record weight daily Lifestyle Yes Cornette, Tariq W., BS documented as of this encounter Visit Diagnoses Not on filedocumented in this encounter Care Teams Gm/Svp Global Publisher Business Relationship Specialty Start Date End Date Sudhakar Lipscomb NP [address] [place] [address] PCP - General Family Medicine 08/30/23 Stephany Ortega, RN Cardiology 08/04/21 Amaris Cueva MD [address] [facility] [address] [place] [address] Cardiology 08/10/21 Maverick Lee MD [address] [facility] [address] [place] [address] Interventional Cardiology 09/06/21 Michael Gonzales MD [address] [place] [address] Internal Medicine, Sleep Medicine 09/07/21 Lolly Warren NP [address] [place] [address] Nurse Practitioner Nurse Practitioner, Acute Care 09/08/21 Daniel Whittington MD, PhD [address] [place] [address] Clinical Cardiac Electrophysiology 09/13/21 Regina Esquivel NP [address] [place] [address] Nurse Practitioner Nurse Practitioner, Acute Care 09/22/21 Maverick Waterman DO [address] [place] [address] Advanced Heart Failure/Transplant 09/30/21 Aris Tracey MD [address] [place] [address] [address] [place], [place] [address] Urology 10/28/21 Noé Sofia DO [address] [place] [address] [address] [place], [place] [address] Critical Care Medicine 12/28/22 documented as of this encounter
--- OUTSIDE RECORDS SUMMARY | 2025-08-05 14:28 | XMS_ITS | Encounter Summary ---
Author Organization [facility] Address [address] [place] [address] Care Team Providers Care Aligner Barrel And Receiver Name Role Phone Stephany Ortega RN Unavailable Amaris Cueva MD Unavailable [phone] Maverick Lee MD Unavailable +[phone] Michael Gonzales MD Unavailable [phone] Lolly Warren NP Unavailable [phone] Daniel Whittington MD, PhD Unavailable +[phone] Regina Esquivel NP Unavailable [phone] Maverick Waterman DO Unavailable [phone] Aris Tracey MD Unavailable [phone] Noé Sofia DO Unavailable [phone] Sudhakar Lipscomb BUZZSAW OPERATOR HELPER Primary Care Provider [phone] Reason for Visit * Reason Onset Date Comments Other 06/23/2025 Cancel ablation Encounter Details Date Type Department Care Team (Late st Contact Info) Description 06/23/2025 Telephone [facility] Physicians - Heart & Vascular, [facility] [address] [place] [address] Medical Office [address] [place] [phone] Aundrea Justice RN [address] [place] [address] Other (Cancel ablation) Social History Tobacco Use Types Packs/Day Years [...] encounter Miscellaneous Notes * Telephone Encounter - Aundrea Justice RN - 06/23/2025 9:49 AM EDT Patient is scheduled for PFA on 06/25/25. Patient currently experiencing sciatic nerve pain and issues with his lower back. Advised that patient cannot interrupt his blood thinner for 3 months post ablation and therefore cannot undergo epidural injection for that amount of time. Patient states he would like to cancel the ablation at this time, he has an appt with spine surgery clinic on 07/14/25. He is going to discuss options with them and then he will call back to reschedule the ablation. Dr. Elder and Dr. Cueva's office notified. documented in this encounter Plan of Treatment Upcoming Encounters Date Type Department Care Team (Late st Contact Info) Description 09/10/2025 1:30 PM EST Appointment [facility] Physicians - Heart & Vascular, [address] [place] [phone] Amaris Cueva MD [address] [place] [address] [place] [address] 10/15/2025 2:40 PM EST Appointment [facility] Physicians - Pulmonary Medicine, [address] Medical Office Building [address] [place] [phone] Noé Sofia DO [address] [place] [address]. [address] [place] [phone] documented as of this encounter Goals Goal [...] on filedocumented in this encounter Care Teams Aligner Barrel And Receiver Relationship Specialty Start Date End Date Sudhakar Lipscomb NP [address] [place] [address] PCP - General Family Medicine 08/30/23 Stephany Ortega, RN Cardiology 08/04/21 Amaris Cueva MD [address] [facility] [address] [place] [address] Cardiology 08/10/21 Maverick Lee MD [address] [facility] [address] [place], [place] [phone] Interventional Cardiology 09/06/21 Michael Gonzales MD [address] [place] [address] Internal Medicine, Sleep Medicine 09/07/21 Lolly Warren NP [address] [place] [address] Nurse Practitioner Nurse Practitioner, Acute Care 09/08/21 Daniel Whittington MD, PhD [address] [place] [address] Clinical Cardiac Electrophysiology 09/13/21 Regina Esquivel NP [address] [place] [address] Nurse Practitioner Nurse Practitioner, Acute Care 09/22/21 Maverick Waterman DO [address] [facility] [address] [place] [address] Advanced Heart Failure/Transplant 09/30/21 Aris Tracey MD [facility] [facility] [address] [place] [address] Urology 10/28/21 Noé Sofia DO [address] [place] [address] [address] [place], [place] [address] Critical Care Medicine 12/28/22 documented as of this encounter
--- OUTSIDE RECORDS SUMMARY | 2025-08-05 14:28 | XMS_ITS | Encounter Summary ---
Author Organization [facility] Address [address] [place] [address] Care Team Providers Care Cage Manager Name Role Phone Stephany Ortega RN Unavailable Amaris Cueva MD Unavailable [phone] Maverick Lee MD Unavailable +[phone] Michael Gonzales MD Unavailable [phone] Lolly Warren NP Unavailable [phone] Daniel Whittington MD, PhD Unavailable +[phone] Regina Esquivel NP Unavailable [phone] Maverick Waterman DO Unavailable [phone] Aris Tracey MD Unavailable [phone] Noé Sofia DO Unavailable [phone] Sudhakar Lipscomb BARREL POLISHER INSIDE Primary Care Provider [phone] Encounter Details Date Type Department Care Team (Late st Contact Info) Description 09/17/2024 Telephone [facility] Physicians - Pulmonary Medicine, [facility] [address] [facility] Medical Office Building [address] [place] [address] Noé Sofia DO [address] [facility] [place] [address] Social History Tobacco Use Types Packs/Day Years [...] Medical Center Physicians - Heart & Vascular, [address] [place] [address] Amaris Cueva MD [address] [facility] [address] [facility] [place] [address] 10/15/2025 2:40 PM EST Appointment [facility] Physicians - Pulmonary Medicine, [address] Medical Office Building [address] [place] [phone] Noé Sofia DO [address] [facility] [place] [address] documented as of this encounter Goals Goal [...] on filedocumented in this encounter Care Teams Cage Manager Relationship Specialty Start Date End Date Sudhakar Lipscomb NP [address] [id number] PCP - General Family Medicine 08/30/23 Stephany Ortega, SHARONDA Cardiology 08/04/21 Amaris Cueva MD [address] [facility] [address] [place], [place] [phone] Cardiology 08/10/21 Maverick Lee MD [address] [facility] [address] [place], [place] [phone] Interventional Cardiology 09/06/21 Michael Gonzales MD [address] [place] [address] Internal Medicine, Sleep Medicine 09/07/21 Lolly Warren NP [address] [place] [address] Nurse Practitioner Nurse Practitioner, Acute Care 09/08/21 Daniel Whittington MD, PhD [address] [place], [place] [address] Clinical Cardiac Electrophysiology 09/13/21 Regina Esquivel NP [facility] [place] [address] Nurse Practitioner Nurse Practitioner, Acute Care 09/22/21 Maverick Waterman DO [address] [place] [address] Advanced Heart Failure/Transplant 09/30/21 Aris Tracey MD [facility]3 [facility] [address] [place] [address] Urology 10/28/21 Noé Sofia DO [address] [place], [place] [address]ch[address]. [address] [place] [address] Critical Care Medicine 12/28/22 documented as of this encounter
--- OUTSIDE RECORDS SUMMARY | 2025-08-05 14:28 | XMS_ITS | Encounter Summary ---
Author Organization [facility] Address [address] [place] [address] Care Team Providers Care Casino Cage Manager Name Role Phone Stephany Ortega RN Unavailable Amaris Cueva MD Unavailable [phone] Maverick Lee MD Unavailable [phone] Michael Gonzales MD Unavailable [phone] Lolly Warren NP Unavailable [phone] Daniel Whittington MD, PhD Unavailable [phone] Regina Esquivel NP Unavailable [phone] Maverick Waterman DO Unavailable [phone] Aris Tracey MD Unavailable [phone] Noé Sofia DO Unavailable [phone] Sudhakar Lipscomb ROOM SERVICE ASSOCIATE Primary Care Provider [phone] Reason for Visit * Reason Onset Date Comments Back Pain 06/18/2025 Encounter Details Date Type Department Care Team (Late st Contact Info) Description 06/18/2025 Telephone [facility] Physicians - Physical Medicine & Rehabilitation, [facility] [address] [facility] [address] [place] [phone] Iram Campbell RN Back Pain Social History Tobacco Use Types Packs/Day Years [...] encounter Miscellaneous Notes * Telephone Encounter - Iram Campbell RN - 06/18/2025 9:54 AM EDT Patient calling to report minimal relief from previous LESI, he will follow-up with Nito Mosley as instructed. documented in this encounter Plan of Treatment Upcoming Encounters Date Type Department Care Team (Late st Contact Info) Description 09/10/2025 1:30 PM EST Appointment [facility] Physicians - Heart & Vascular, [facility] [address] [place], [place] [address] [address] [place] [address] Amaris Cueva MD [address] [facility] [address] [place] [address] 10/15/2025 2:40 PM EST Appointment [facility] Physicians - Pulmonary Medicine, [address] Medical Office Building [address] [place] [phone] Noé Sofia DO [address] [place] [address]. [address] [place], [place] [phone] documented as of this encounter Goals Goal [...] on filedocumented in this encounter Care Teams Casino Cage Manager Relationship Specialty Start Date End Date Sudhakar Lipscomb NP [address] [place] [address] PCP - General Family Medicine 08/30/23 Stephany Ortega, SHARONDA Cardiology 08/04/21 Amaris Cueva MD [address] [facility] [address] [place] [phone] Cardiology 08/10/21 Maverick Lee MD [address] [facility] [address] [place] [address] Interventional Cardiology 09/06/21 Michael Gonzales MD [address] [place] [address] Internal Medicine, Sleep Medicine 09/07/21 Lolly Warren, TORRES [address] [place] [address] Nurse Practitioner Nurse Practitioner, Acute Care 09/08/21 Daniel Whittington MD, PhD [address] [place] [address] Clinical Cardiac Electrophysiology 09/13/21 Regina Esquivel NP [address] [place] [address] Nurse Practitioner Nurse Practitioner, Acute Care 09/22/21 Maverick Waterman DO [address] [facility]. [address] [place] [address] Advanced Heart Failure/Transplant 09/30/21 Aris Tracey MD [facility]3 [facility] [address] [place] [address] Urology 10/28/21 Noé Sofia DO [address] [place] [address] Critical Care Medicine 12/28/22 documented as of this encounter
--- OUTSIDE RECORDS SUMMARY | 2025-08-05 14:28 | XMS_ITS | Encounter Summary ---
Author Organization [facility] Address [address] [place] [address] Care Team Providers Care Ingredient Handler Name Role Phone Stephany Ortega RN Unavailable Amaris Cueva MD Unavailable [phone] Maverick Lee MD Unavailable [phone] Michael Gonzales MD Unavailable [phone] Lolly Warren NP Unavailable [phone] Daniel Whittington MD, PhD Unavailable [phone] Regina Esquivel NP Unavailable [phone] Maverick Waterman DO Unavailable [phone] Aris Tracey MD Unavailable [phone] Noé Sofia DO Unavailable [phone] Sudhakar Lipscomb NP Primary Care Provider [phone] Reason for Visit * Reason Onset Date Comments Patient Education 06/18/2025 Encounter Details Date Type Department Care Team (Late st Contact Info) Description 06/18/2025 Telephone [facility] Physicians - Heart & Vascular, [place] [address] Medical Office [address] [place] [phone] Aundrea Justice RN [address] [place] [address] Patient Education Social History Tobacco Use Types Packs/Day Years [...] Telephone Encounter - Aundrea Justice RN - 06/18/2025 12:15 PM EDT Spoke with patient to provide education for upcoming PFA that is scheduled on 06/25/[address] Elder. The patient will obtain pre-op lab work on 06/20/25. We discussed arrival time, where to park and register for the procedure, NPO status, pre-op medications instructions, what to expect during the procedure, transportation home, as well as post-op restrictions. The patient requested that the procedure instructions be sent via email. I answered all of the questions that he had at this time. I provided my contact number and instructed the patient to please call me back with any questions or concerns in the future. He verbalized understanding. documented in this encounter Plan of Treatment Upcoming Encounters Date Type Department Care Team (Late st Contact Info) Description 09/10/2025 1:30 PM EST Appointment [facility] Physicians - Heart & Vascular[address] [place] [phone] Amaris Cueva MD [address] [place] [address] 10/15/2025 2:40 PM EST Appointment [facility] Physicians - Pulmonary Medicine, [address] Medical Office Building [address] [place] [phone] Noé Sofia DO [address] [place] [address]. [address] [place] [phone] documented as of this encounter Goals Goal [...] on filedocumented in this encounter Care Teams Ingredient Handler Relationship Specialty Start Date End Date Sudhakar Lipscomb NP [address] [place] [address] PCP - General Family Medicine 08/30/23 Stephany Ortega, SHARONDA Cardiology 08/04/21 Amaris Cueva MD [address] [facility] [address] [place], [place] [phone] Cardiology 08/10/21 Maverick Lee MD [address] [facility] [address] [place], [place] [phone] Interventional Cardiology 09/06/21 Michael Gonzales MD [address] [place] [address] Internal Medicine, Sleep Medicine 09/07/21 Lolly Warren NP [address] [place] [address] Nurse Practitioner Nurse Practitioner, Acute Care 09/08/21 Daniel Whittington MD, PhD [address] [place] [address] Clinical Cardiac Electrophysiology 09/13/21 Regina Esquivel NP [address] [place] [address] Nurse Practitioner Nurse Practitioner, Acute Care 09/22/21 Maverick Waterman DO [address] [facility] [place], [place] [address] Advanced Heart Failure/Transplant 09/30/21 Aris Tracey MD [facility]3 [facility] [address] [place] [address] Urology 10/28/21 Noé Sofia DO [address] [place] [address] [address] [place] [address] Critical Care Medicine 12/28/22 documented as of this encounter
--- OUTSIDE RECORDS SUMMARY | 2025-08-05 14:28 | XMS_ITS | Encounter Summary ---
Author Organization [facility] Address [address] [place] [address] Care Team Providers Care Nurses' Aide Name Role Phone Stephany Ortega RN Unavailable Amaris Cueva MD Unavailable [phone] Maverick Lee MD Unavailable [phone] Michael Gonzales MD Unavailable [phone] Lolly Warren NP Unavailable [phone] Daniel Whittington MD, PhD Unavailable [phone] Regina Esquivel NP Unavailable [phone] Maverick Waterman DO Unavailable [phone] Aris Tracey MD Unavailable [phone] Noé Sofia DO Unavailable [phone] Sudhakar Lipscomb FIELD ADMINISTRATOR Primary Care Provider [phone] Reason for Visit * Reason Onset Date Comments FYI 06/18/2025 Encounter Details Date Type Department Care Team (Late st Contact Info) Description 06/18/2025 Telephone [facility] Physicians - Heart & Vascular, [facility] [address] [place] [address] [address] [place] [address] Amaris Cueva MD [address] [facility] [address] [place] [address] FYI Social History Tobacco Use Types Packs/Day [...] Telephone Encounter - Tiffanie Cole RN - 06/19/2025 10:35 AM EDT JLE aware. She strongly encourages Yo to not reschedule and to proceed with ablation. Yo is aware. He states he will keep us informed. * Telephone Encounter - Tfifanie Cole RN - 06/18/2025 3:26 PM EDT FYI : Spoke to Yo who voiced concerns about having his ablation done due to the possibility of needing additional steroid injections for his back pain. Requested Yo to reach out to EP to discuss as his procedure is still scheduled for 06-25-25. Provided office phone number as well. * Telephone Encounter - Adia Singh - 06/18/2025 1:24 PM EDT FYI: Pt stating he just wanted to let Tiffanie/Dr Cueva know that he's not having the cardiac ablation done at this moment. Pt's contact #[phone] documented in this encounter Plan of Treatment Upcoming Encounters Date Type Department Care Team (Late st Contact Info) Description 09/10/2025 1:30 PM EST Appointment [facility] Physicians - Heart & Vascular, [address] [place] [phone] Amaris Cueva MD [address] [place] [address] [place] [address] 10/15/2025 2:40 PM EST Appointment [facility] Physicians - Pulmonary Medicine, [address] Medical Office Building [address] [place] [phone] Noé Sofia DO [address] [place] [address]. [address] [place] [address] documented as of this encounter Goals Goal [...] on filedocumented in this encounter Care Teams Nurses' Aide Relationship Specialty Start Date End Date Sudhakar Lipscomb NP [address] [id number] PCP - General Family Medicine 08/30/23 Stephany Ortega, SHARONDA Cardiology 08/04/21 Amaris Cueva MD [address] [facility] [address] [place] [address] Cardiology 08/10/21 Maverick Lee MD [address] [facility] [address] [place], [place] [phone] Interventional Cardiology 09/06/21 Michael Gonzales MD [address] [place] [address] Internal Medicine, Sleep Medicine 09/07/21 Lolly Warren NP [address] [place] [address] Nurse Practitioner Nurse Practitioner, Acute Care 09/08/21 Daniel Whittington MD, PhD [address] [place] [address] Clinical Cardiac Electrophysiology 09/13/21 Regina Esquivel NP [address] [facility] [place] [address] Nurse Practitioner Nurse Practitioner, Acute Care 09/22/21 Maverick Waterman DO [address] [place] [address] Advanced Heart Failure/Transplant 09/30/21 Aris Tracey MD [address] [facility] [address] [place] [address] Urology 10/28/21 Noé Sofia DO [address] [facility] [place] [address] Critical Care Medicine 12/28/22 documented as of this encounter
--- OUTSIDE RECORDS SUMMARY | 2025-08-05 14:28 | XMS_ITS | Encounter Summary ---
Author Organization [facility] Address [address] [place] [address] Care Team Providers Care Elder Assistant Name Role Phone Stephany Ortega RN Unavailable Amaris Cueva MD Unavailable [phone] Maverick Lee MD Unavailable [phone] Michael Gonzales MD Unavailable [phone] Lolly Warren NP Unavailable [phone] Daniel Whittington MD, PhD Unavailable +[phone] Regina Esquivel NP Unavailable [phone] Maverick Waterman DO Unavailable [phone] Aris Tracey MD Unavailable [phone] Noé Sofia DO Unavailable [phone] Sudhakar Lipscomb CODING SPEC Primary Care Provider [phone] Reason for Visit * Reason Onset Date Comments Questions About Medications 09/12/2024 Encounter Details Date Type Department Care Team (Late st Contact Info) Description 09/12/2024 Telephone [facility] Physicians - Pulmonary Medicine, [facility] [address] [facility] Medical Office Building [address] [place] [phone] Noé Sofia DO [address] [facility] [place], [place] [address] Questions About Medications Social History Tobacco Use [...] scan. It was done here at the [facility] on 09/10. Please advise. Leif would send this message. documented in this encounter Plan of Treatment Upcoming Encounters Date Type Department Care Team (Late st Contact Info) Description 09/10/2025 1:30 PM EST Appointment [facility] Physicians - Heart & Vascular, [address] [place] [address] Amaris Cueva MD [address] [facility] [address] [place] [address] 10/15/2025 2:40 PM EST Appointment [facility] Physicians - Pulmonary Medicine, [address] Medical Office Building [address] [place] [phone] Noé Sofia DO [address] [place] [address] documented as of this encounter Goals Goal [...] on filedocumented in this encounter Care Teams Elder Assistant Relationship Specialty Start Date End Date Sudhakar Lipscomb NP [address] [place] [address] PCP - General Family Medicine 08/30/23 Stephany Ortega, RN Cardiology 08/04/21 Amaris Cueva MD [address] [facility] [address] [place] [address] Cardiology 08/10/21 Maverick Lee MD [address] [facility] [address] [place] [address] Interventional Cardiology 09/06/21 Michael Gonzales MD [facility] [address] [place] [address] Internal Medicine, Sleep Medicine 09/07/21 Lolly Warren NP [facility] [place] [address] Nurse Practitioner Nurse Practitioner, Acute Care 09/08/21 Daniel Whittington MD, PhD [facility] [address] [place] [address] Clinical Cardiac Electrophysiology 09/13/21 Regina Esquivel NP [facility] [place] [address] Nurse Practitioner Nurse Practitioner, Acute Care 09/22/21 Maverick Wateramn DO [address] [facility] [place] [address] Advanced Heart Failure/Transplant 09/30/21 Aris Tracey MD [address] [place] [address] [address] [place] [address] Urology 10/28/21 Noé Sofia DO [facility] [place] [address] Critical Care Medicine 12/28/22 documented as of this encounter
--- OUTSIDE RECORDS SUMMARY | 2025-08-05 14:29 | XMS_ITS | Encounter Summary ---
Author Organization [facility] Address [address] [place] [address] Care Team Providers Care Building Trades Instructor Name Role Phone Apple Santiago Primary Care Provider [phone] Stephany Ortega RN Unavailable Amaris Cueva MD Unavailable [phone] Maverick Lee MD Unavailable [phone] Michael Gonzales MD Unavailable [phone] Lolly Warren NP Unavailable [phone] Daniel Whittington MD, PhD Unavailable [phone] Regina Esquivel BUFFET SERVER Unavailable [phone] Maverick Waterman DO Unavailable [phone] Aris Tracey MD Unavailable [phone] Noé Sofia DO Unavailable [phone] Sudhakar Lipscomb BUFFET SERVER Primary Care Provider Encounter Details Date Type Department Care Team (Late st Contact Info) Description 08/21/2023 Preop Surgical Orders [facility] Physicians - Pulmonary Medicine, [place] [id number] [facility] Medical Office Building [address] [place] [phone] Noé Sofia DO [address] [place], [place] [address]e. [address] [place], [place] [address] Social History Tobacco Use Types Packs/Day Years [...] Medical Center Physicians - Heart & Vascular, [facility] [address] [place] [address] [address] [facility] [place] [address] Amaris Cueva MD [address] [facility] Suite [facility] [place] [address] 10/15/2025 2:40 PM EST Appointment [facility] Physicians - Pulmonary Medicine, [address] Medical Office Building [address] [place] [phone] Noé Sofia DO [address] [place], [place] [address] documented as of this encounter Goals Goal [...] on filedocumented in this encounter Care Teams Building Trades Instructor Relationship Specialty Start Date End Date Apple Santiago [address] [place] [address] [place] [address] PCP - General Family Medicine 08/02/21 08/29/23 Sudhakar Lipscomb NP [address] [place] [address] PCP - General Family Medicine 08/30/23 Stephany Ortega, SHARONDA Cardiology 08/04/21 Amaris Cueva MD [address] [facility] [address] [place], [place] [id number] Cardiology 08/10/21 Maverick Lee MD [address] [facility] [address] [place], [place] [phone] Interventional Cardiology 09/06/21 Michael Gonzales MD [address] [place] [address] Internal Medicine, Sleep Medicine 09/07/21 Lolly Warren, TORRES [address] [place] [address] Nurse Practitioner Nurse Practitioner, Acute Care 09/08/21 Daniel Whittington MD, PhD [address] [place] [address] Clinical Cardiac Electrophysiology 09/13/21 Rgeina Esquivel, BUFFET SERVER [address] [place] [address] Nurse Practitioner Nurse Practitioner, Acute Care 09/22/21 Maverick Waterman DO [address] [facility] [place] [address] Advanced Heart Failure/Transplant 09/30/21 Aris Tracey MD [facility] [address] [place] [address] Urology 10/28/21 Noé Sofia DO [facility] [address] [place] [address] Critical Care Medicine 12/28/22 documented as of this encounter
--- OUTSIDE RECORDS SUMMARY | 2025-08-05 14:29 | XMS_ITS | Encounter Summary ---
Author Organization [facility] Address [address] [place] [address] Care Team Providers Care Occupational Health Specialist Name Role Phone Stephany Ortega RN Unavailable Amaris Cueva MD Unavailable [phone] Maverick Lee MD Unavailable [phone] Michael Gonzales MD Unavailable [phone] Lolly Warren NP Unavailable [phone] Daniel Whittington MD, PhD Unavailable [phone] Regina Esquivel NP Unavailable [phone] Maverick Waterman DO Unavailable [phone] Aris Tracey MD Unavailable [phone] Noé Sofia DO Unavailable [phone] Sudhakar Lipscomb CHANGE ANALYST Primary Care Provider [phone] Encounter Details Date Type Department Care Team (Late st Contact Info) Description 04/17/2025 Telephone [facility] Physicians - Heart & Vascular, [facility] [address] [place] [address] Medical Office Building [address] [place] [address] Selena Posada Social History Tobacco Use Types [...] Description 09/10/2025 1:30 PM EST Appointment [facility] Physicians - Heart & Vascular, [facility] [address] [place] [address] [place] [phone] Amaris Cueva MD [address] [facility] [address] [place] [phone] 10/15/2025 2:40 PM EST Appointment [facility] Physicians - Pulmonary Medicine, [facility] [address] [facility] Medical Office Building [address] [place] [phone] Noé Sofia DO [address] [facility]. [address] [place], [place] [phone] documented as of this encounter Goals Goal [...] on filedocumented in this encounter Care Teams Occupational Health Specialist Relationship Specialty Start Date End Date Sudhakar Lipscomb NP [address] [place] [address] PCP - General Family Medicine 08/30/23 Stephany Ortega RN Cardiology 08/04/21 Amaris Cueva MD [address] [facility] Suite [facility] [place], [place] [phone] Cardiology 08/10/21 Maverick Lee MD [address] [facility] Suite [facility] [place], [place] [phone] Interventional Cardiology 09/06/21 Michael Gonzales MD [address] [place] [address]. [address] [place] [address] Internal Medicine, Sleep Medicine 09/07/21 Lolly Warren NP [address] [place] [address] Nurse Practitioner Nurse Practitioner, Acute Care 09/08/21 Daniel Whittington MD, PhD [address] [place] [address] Clinical Cardiac Electrophysiology 09/13/21 Regina Esquivel NP [address] [place] [address] Nurse Practitioner Nurse Practitioner, Acute Care 09/22/21 Maverick Waterman DO [address] [place] [address] Advanced Heart Failure/Transplant 09/30/21 Aris Tracey MD [facility]3 [facility] [address] [place] [address] Urology 10/28/21 Noé Sofia DO [address] [place] [address] Critical Care Medicine 12/28/22 documented as of this encounter
--- OUTSIDE RECORDS SUMMARY | 2025-08-05 14:29 | XMS_ITS | Encounter Summary ---
Author Organization [facility] Address [address] [place] [address] Care Team Providers Care Drafter Civil Engineering Name Role Phone Alfredito Ramey MD Unavailable [phone] Joann Zarate RN Unavailable Unavailable Ezekiel Kang MD Unavailable [phone] Alfredito Ramey MD Unavailable [phone] Jerri Santiago MD Primary Care Provider [phone] Source Comments This information has been disclosed [...] release of HIV test results or diagnoses. [id number] Health Encounter Details Date Type Department Care Team (Late st Contact Info) Description 06/24/2025 Orders Only [facility] Radiation Oncology at [facility] [address] [place] [address] Alfredito Ramey MD [address] 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 f ile Not on file Not on file documented as of this encounter Plan of Treatment Not on file documented as of this encounter Results * (ABNORMAL) Hepatic Function Panel (07/17/2025 1:40 PM EST) Total Bilirubin 0.8 0.0 - 1.5 mg/dL 07/17/2025 2:54 PM EST [facility] Bilirubin, Direct 0.1 0.0 - 0.4 mg/dL 07/17/2025 2:54 PM EST [facility] AST 14 13 - 39 U/L 07/17/2025 2:54 PM EST [facility] ALT 12 7 - 52 U/L 07/17/2025 2:54 PM EST [facility] Alkaline Phosphatase 208(H) 36 - 125 U/L 07/17/2025 2:54 PM EST [facility] Total Protein 6.4 6.4 - 8.9 g/dL 07/17/2025 2:54 PM EST [facility] Albumin 3.6 3.5 - 5.7 g/dL 07/17/2025 2:54 PM EST [facility] Plasma 07/17/2025 1:40 PM EST 07/17/2025 2:16 PM EST Alfredito Ramey MD LAB BLOOD ORDERABLES Final Re sult [facility] [address] [place] [id number], [place] * (ABNORMAL) Renal Function Panel w/EGFR (07/17/2025 1:40 PM EST) Sodium 140 133 - 146 mmol/L 07/17/2025 2:54 PM EST [facility] Potassium 4.1 3.5 - 5.3 mmol/L 07/17/2025 2:54 PM EST [facility] Chloride 107 98 - 110 mmol/L 07/17/2025 2:54 PM EST [facility] CO2 22 21 - 33 mmol/L 07/17/2025 2:54 PM EST [facility] Comment:High lactate dehydro genase concentrations in patient samples may cause falsely increased bicarbonate results. If markedly elevated LDH is observed or suspected, please assess results in conjunction with patient`s clinical presentation. In cases of discrepant results, consider evaluating CO2 in with a blood gas order. Anion Gap 11 3 - 16 mmol/L 07/17/2025 2:54 PM EST [facility] BUN 15 7 - 25 mg/dL 07/17/2025 2:54 PM EST [facility] Creatinine 0.75 0.60 - 1.30 mg/dL 07/17/2025 2:54 PM EST [facility] Glucose 123(H) 70 - 100 mg/dL 07/17/2025 2:54 PM EST [facility] Calcium 8.6 8.6 - 10.3 mg/dL 07/17/2025 2:54 PM EST [facility] Phosphorus 3.3 2.1 - 4.5 mg/dL 07/17/2025 2:54 PM EST [facility] Albumin 3.6 3.5 - 5.7 g/dL 07/17/2025 2:54 PM EST [facility] Osmolality, Calculated 292 278 - 305 mOsm/kg 07/17/2025 2:54 PM EST [facility] EGFR >90 07/17/2025 2:54 PM EST [facility] Comment: As of 2021, the estimated [...] MD LAB BLOOD ORDERABLES Final Re sult [facility] [address] * (ABNORMAL) Differential (07/17/2025 1:40 PM EST) Metamyelocytes Relative 1.0(H) 0.0 - 0.0 % 07/17/2025 2:42 PM EST [facility] Neutrophils Relative 73.0 40.0 - 80.0 % 07/17/2025 2:42 PM EST [facility] Lymphocytes Relative 19.0 15.0 - 45.0 % 07/17/2025 2:42 PM EST [facility] Monocytes Relative 7.0 0.0 - 12.0 % 07/17/2025 2:42 PM EST [facility] Eosinophils Relative 0.0 0.0 - 8.0 % 07/17/2025 2:42 PM EST [facility] Basophils Relative 0.0 0.0 - 1.0 % 07/17/2025 2:42 PM EST [facility] Neutrophils Absolute 7,519 1,520 - 8,640 /uL 07/17/2025 2:42 PM EST [facility] Metamyelocytes Absolute 103(H) 0 - 0 /uL 07/17/2025 2:42 PM EST [facility] Lymphocytes Absolute 1,957 570 - 4,860 /uL 07/17/2025 2:42 PM EST [facility] Monocytes Absolute 721 0 - 1,296 /uL 07/17/2025 2:42 PM EST [facility] Eosinophils Absolute 0 0 - 864 /uL 07/17/2025 2:42 PM EST [facility] Basophils Absolute 0 0 - 108 /uL 07/17/2025 2:42 PM EST [facility] PLT Morphology PLATELET MORPHO 07/17/2025 2:42 PM EST [facility] Whole Blood 07/17/2025 1:40 PM EST 07/17/2025 2:16 PM EST Narrative [facility] - 07/17/2025 2:42 PM EST Manual WBC differential performed per review criteria approved by the medical tech. us Alfredito Ramey MD LAB BLOOD ORDERABLES Final Re sult Performing Organization Address City/State/[facility] Co de Phone Number [facility] [address] * (ABNORMAL) CBC (07/17/2025 1:40 PM EST) WBC 10.3 3.8 - 10.8 10E3/uL 07/17/2025 2:19 PM EST [facility] RBC 5.02 4.20 - 5.80 10E6/uL 07/17/2025 2:19 PM EST [facility] Hemoglobin 14.1 13.2 - 17.1 g/dL 07/17/2025 2:19 PM EST [facility] Hematocrit 43.2 38.5 - 50.0 % 07/17/2025 2:19 PM EST [facility] MCV 86.1 80.0 - 100.0 fL 07/17/2025 2:19 PM EST [facility] MCH 28.2 27.0 - 33.0 pg 07/17/2025 2:19 PM EST [facility] MCHC 32.7 32.0 - 36.0 g/dL 07/17/2025 2:19 PM EST [facility] RDW 15.7(H) 11.0 - 15.0 % 07/17/2025 2:19 PM EST [facility] Platelets 302 140 - 400 10E3/uL 07/17/2025 2:19 PM EST [facility] MPV 8.2 7.5 - 11.5 fL 07/17/2025 2:19 PM EST [facility] Whole Blood 07/17/2025 1:40 PM EST 07/17/2025 2:16 PM EST us Alfredito Ramey MD LAB BLOOD ORDERABLES Final Re sult [facility] [address] [facility] [place] [address], [place] documented in this encounter Visit Diagnoses Diagnosis Prostate cancer (CMS-HCC)- Primary Malignant neoplasm of prostate Adenocarcinoma of prostate (CMS-HCC) Malignant neoplasm of prostate Prostate cancer (CMS-HCC) Malignant neoplasm of prostate documented in this encounter Additional Health Concerns Assessment Noted Time PHQ-9 Depression Total Score: 3 02/20/20 19 3:00 PM EDT documented as of this encounter Care Teams Drafter Civil Engineering Relationship Specialty Start Date [place] [address] PCP - General Family Medicine 04/12/21 Alfredito Ramey MD Radiation Oncologist Radiation Oncology 02/18/19 Joann Zarate, RN Registered Nurse 02/18/19 Ezekiel Kang MD [address] [facility] [address] [place] [phone] 02/18/19 Alfredito Ramey MD Initiating Oncologist Radiation Oncology 06/03/20 documented as of this encounter
--- OUTSIDE RECORDS SUMMARY | 2025-08-05 14:29 | XMS_ITS | Encounter Summary ---
Author Organization [facility] Address [address] [place] [address] Care Team Providers Care Medical Lab Technician Name Role Phone Stephany Ortega RN Unavailable Amaris Cueva MD Unavailable [phone] Maverick Lee MD Unavailable Michael Gonzales MD Unavailable [phone] Lolly Warren NP Unavailable [phone] Daniel Whittington MD, PhD Unavailable [phone] Regina Esquivel NP Unavailable [phone] Maverick Waterman DO Unavailable [phone] Aris Tracey MD Unavailable [phone] Noé Sofia DO Unavailable [phone] Sudhakar Lipscomb METER SHOP SUPERINTENDENT Primary Care Provider [phone] Encounter Details Date Type Department Care Team (Late st Contact Info) Description 08/30/2023 Orders Only [facility] [address] [place] [id number] Ermelinda Melendez, RT [address] [facility] [address] Social History Tobacco Use Types Packs/Day Years [...] Description 09/10/2025 1:30 PM EST Appointment [facility] Physicians - Heart & Vascular, [address] SU[address] [facility] [place] [address] Amaris Cueva MD [address] [facility] [address] [place] [id number] 10/15/2025 2:40 PM EST Appointment [facility] Physicians - Pulmonary Medicine, [address] Medical Office Building [address] [place] [phone] Noé Sofia DO [address] [place] [address]. [address] [place], [place] [address] documented as of this encounter Goals Goal [...] on filedocumented in this encounter Care Teams Medical Lab Technician Relationship Specialty Start Date End Date Sudhakar Lipscomb NP [address] [place] [address] PCP - General Family Medicine 08/30/23 Stephany Ortega, RN Cardiology 08/04/21 Amaris Cueva MD [address] [facility] [address] [place] [address] Cardiology 08/10/21 Maverick Lee MD [address] [facility] [address] [place], [place] [phone] Interventional Cardiology 09/06/21 Michael Gonzales MD [address] [place] [address] Internal Medicine, Sleep Medicine 09/07/21 Lolly Warren NP [address] [place] [address] Nurse Practitioner Nurse Practitioner, Acute Care 09/08/21 Daniel Whittington MD, PhD [address] [place] [address] Clinical Cardiac Electrophysiology 09/13/21 Regina Esquivel NP [address] [place] [address] Nurse Practitioner Nurse Practitioner, Acute Care 09/22/21 Maverick Waterman DO [address] [place] [address] Advanced Heart Failure/Transplant 09/30/21 Aris Tracey MD [address] [place] [address] [place] [address] Urology 10/28/21 Noé Sofia DO [address] [place] [address] [place] [address] Critical Care Medicine 12/28/22 documented as of this encounter
--- OUTSIDE RECORDS SUMMARY | 2025-08-05 14:29 | XMS_ITS | Encounter Summary ---
Author Organization [facility] Address [facility][note 3]0 [place] [address] Care Team Providers Care Meter Repairer Name Role Phone Alfredito Ramey MD Unavailable [phone] Joann Zarate RN Unavailable Unavailable Ezekiel Kang MD Unavailable [phone] Alfredito Ramey MD Unavailable [phone] Jerri Santiago MD Primary Care Provider [phone] Source Comments This information has been disclosed [...] release of HIV test results or diagnoses. 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 Not on file Not on file documented as of this encounter Plan of Treatment Not on file documented as of this encounter Visit Diagnoses Not on filedocumented in this encounter Additional Health Concerns Assessment Noted Time PHQ-9 Depression Total Score: 3 02/20/20 19 3:00 PM EDT documented as of this encounter Care Teams Meter Repairer Relationship Specialty Start Date End [place] [address] PCP - General Family Medicine 04/12/21 Alfredito Ramey MD Radiation Oncologist Radiation Oncology 02/18/19 Joann Zarate, RN Registered Nurse 02/18/19 Ezekiel Kang MD [address] [place] [address] [address] [place] [phone] 02/18/19 Alfredito Ramey MD Initiating Oncologist Radiation Oncology 06/03/20 documented as of this encounter
--- OUTSIDE RECORDS SUMMARY | 2025-08-05 14:29 | XMS_ITS | Encounter Summary ---
Author Organization [facility] Address [facility] [place] [address] Care Team Providers Care Pulp Roller Name Role Phone Alfredito Ramey MD Unavailable [phone] Joann Zarate RN Unavailable Unavailable Ezekiel Kang MD Unavailable [phone] Alfredito Ramey MD Unavailable [phone] Jerri Santiago MD Primary Care Provider [phone] Source Comments This information has been disclosed [...] release of HIV test results or diagnoses. [id number] Health Encounter Details Date Type Department Care Team (Late st Contact Info) Description 06/12/[address] 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
--- OUTSIDE RECORDS SUMMARY | 2025-08-05 14:29 | XMS_ITS | Encounter Summary ---
Author Organization [facility] Address [address] [place] [address] Care Team Providers Care Scrap Metal Collector Name Role Phone Alfredito Ramey MD Unavailable [phone] Joann Zarate RN Unavailable Unavailable Ezekiel Kang MD Unavailable [phone] Alfredito Ramey MD Unavailable [phone] Jerri Santiago MD Primary Care Provider [phone] Source Comments This information has been disclosed [...] release of HIV test results or diagnoses. 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
--- OUTSIDE RECORDS SUMMARY | 2025-08-05 14:29 | XMS_ITS | Encounter Summary ---
Author Organization [facility] Address [address] [place] [address] Care Team Providers Care Alumina Refinery Operator Name Role Phone Alfredito Ramey MD Unavailable [phone] Joann Zarate RN Unavailable Unavailable Ezekiel Kang MD Unavailable [phone] Alfredito Ramey MD Unavailable [phone] Jerri Santiago MD Primary Care Provider [...] release of HIV test results or diagnoses. [id number] Reason for Visit * Reason Comments Medication Refill Encounter Details Date Type Department Care Team (Late st Contact Info) Description 07/28/2025 Refill [facility] Radiation Oncology at [facility] [address] [place] [phone] Alfredito Ramey MD [address] 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 Not on file Not on file documented as of this encounter Plan of Treatment Not on file documented as of this encounter Visit Diagnoses Diagnosis Adenocarcinoma of prostate ([facility]) Malignant neoplasm of prostate documented in this encounter Additional Health Concerns Assessment Noted Time PHQ-9 Depression Total Score: 3 02/20/20 19 3:00 PM EDT documented as of this encounter Care Teams Alumina Refinery Operator Relationship Specialty Start Date End [place] [address] PCP - General Family Medicine 04/12/21 Alfredito Ramey MD Radiation Oncologist Radiation Oncology 02/18/19 Joann Zarate, RN Registered Nurse 02/18/19 Ezekiel Kang MD [address] [facility] [address] [place] [address] 02/18/19 Alfredito Ramey MD Initiating Oncologist Radiation Oncology 06/03/20 documented as of this encounter
--- OUTSIDE RECORDS SUMMARY | 2025-08-05 14:29 | XMS_ITS | Encounter Summary ---
Author Organization [facility] Address [address] [place] [address] Care Team Providers Care Beveler Name Role Phone Alfredito Ramey MD Unavailable [phone] Joann Zarate RN Unavailable Unavailable Ezekiel Kang MD Unavailable [phone] Alfredito Ramey MD Unavailable [phone] Jerri Santiago MD Primary Care Provider [phone] Source Comments This information has been disclosed [...] release of HIV test results or diagnoses. [id number] Encounter Details Date Type Department Care Team (Late st Contact Info) Description 02/25/2025 Orders Only EXTERNAL PROV RESULTS [address] [place], [place] [id number] System, Provider Not In Social History Tobacco [...] documented as of this encounter Care Teams Beveler Relationship Specialty Start Date End Date [place] [address] PCP - General Family Medicine 04/12/21 Alfredito Ramey MD Radiation Oncologist Radiation Oncology 02/18/19 Joann Zarate, RN Registered Nurse 02/18/19 Ezekiel Kang MD [address] [facility] [address] [place] [phone] 02/18/19 Alfredito Ramey MD Initiating Oncologist Radiation Oncology 06/03/20 documented as of this encounter
--- OUTSIDE RECORDS SUMMARY | 2025-08-05 14:29 | XMS_ITS ---
Author Organization [facility] Address [facility] [place] [address] Care Team Providers Care Leveling Machine Operator Name Role Phone Alfredito Ramey MD Unavailable [phone] Joann Zarate RN Unavailable Unavailable Ezekiel Kang MD Unavailable Alfredito Ramey MD Unavailable [phone] Jerri Santiago MD Primary Care Provider [phone] Active Problems Patient Care Coordination No te Formatting of this note is d ifferent from the original. Mr. Yo Ruiz is a 63 year old male who refers self at the direction of daughter, Benny Stephenson to discuss radiation therapy for prostate cancer. Mr. Ruiz reports his care was at [facility] # [phone] prior to obtaining insurance. He currently has [...] has a CT of abd/pelvis scheduled at [facility] on 02/26/2019. Mr. Ruiz has not had [...] Chronic insomnia 01/13/2025 Coronary artery disease involving [place] coronar y artery 07/23/2024 Lesion of lung 06/21/2024 Acute bronchitis 05/30/2023 Chronic obstructive pulmonary disease 11/23/2022 Essential hypertension 05/09/2022 Bladder stone 10/28/2021 Overview (04/21/2025): Added automatically from request for surgery [id number] Chronic systolic CHF (congestive heart failure) 09/21/2021 Gross hematuria 08/10/2021 History of prostate cancer 08/10/2021 Localized edema 08/10/2021 H/O amiodarone therapy 02/20/2019 Adenocarcinoma of prostate 02/18/2019 Cancer Staging:Clinical: cT3b - Unsigned Overview (02/18/2019): Devine score 10(5+5) left lateral mid 1/1 core [...] education about what to expect. At the [facility], you have access to a specialized team [...] the best in the country. Your Information [id number] 1955 oY Ruiz male White or Not or [email or web address] [phone] (home) Your Oncology Care Team Medical Oncologist No care grocery team member to display Surgical Oncologist No care grocery team member to display Gynecological Oncologist No care grocery team member to display Radiation Oncologist Alfredito Ramey MD [phone] Nurse Practitioner No care grocery team member to display Nurse Navigator No care grocery team member to display Oncology Nurse (Clinic & AUTOMATIC PAD MAKING MACHINE OPERATOR) Joann Zarate RN [phone] Oncology Pharmacist No care grocery team member to display Oncology Winch Derrick Operator No care grocery team member to display Cyber Defense Analyst No care grocery team member to display Primary Care Physician ELDER PENG [phone] External Referring Oncologist No care grocery team member to display Radiologist No care grocery team member to display Advanced Directives and Code Status An advance directive is a document by which a person makes provision for health care decisions in the event that, in the future, he/she becomes unable to make those decisions. There are two main types of advance directive - the ???Living Will?? and the ???Durable Power of Overhead Cleaner Maintainer for Health Care.?? In a living will, a person instructs a physician to withhold/withdraw medical interventions if he/she is in a terminal condition and is unable to make medical treatment decisions. In a Durable Power of Overhead Cleaner Maintainer for Health Care a person designates an agent to make health care decisions if the person is temporarily or permanently unable to make such decisions. Power of Overhead Cleaner Maintainer: Offered, Patient declined Living Will: Offered, Patient [...] and ask to speak with the physician conductor and engineer. (Please allow 30 min for a return [...] disabilities, so that we can offer assistance. [facility] has an onsite Social Work team and a artist's representative from the [employer] that can connect you with internal resources or community based agencies who may be able to offer assistance. The information for your neonatal social worker is listed above so that [...] need to speak to the Oncology Care Director Of [employer]. Legal Barriers to Care, Vocational Status, and [...] healthy include the following: Routine Exercise The [employer] recommends that cancer survivors engage inat least 150 minutes of exercise a week, such as 30 minutes 5 days a week and include some weight bearing exercises. The [employer] 2020 Guidelines recommends 150-300 minutes [...] the Cancer Exercise program for patients at [facility]. Healthy Diet Individuals should eat foods [...] and refined grain products(ACS, 2020). Book Resource: [employer] Complete Guide to Nutrition for Cancer Survivors. Edited by Eliane Barton et al. [facility] offers nutritional consults for cancer survivors. [...] provider. There are many specialists in the [facility] system that are trained in treating side [...]
--- OUTSIDE RECORDS SUMMARY | 2025-08-05 14:29 | XMS_ITS | Clinical Summary ---
Author Organization [facility] Address [facility] [place] [address] Care Team Providers Care Transformer Inspector Name Role Phone Alfredito Ramey MD Unavailable [phone] Joann Zarate RN Unavailable Unavailable Ezekiel Kang MD Unavailable [phone] Alfredito Ramey MD Unavailable [phone] Jerri Santiago MD Primary Care Provider [phone] Source Comments This information has been disclosed [...] therelease of HIV test results or diagnoses. [id number] Allergies Active Allergy Reactions Criticality Noted [...] needed. Active abiraterone (ZYTIGA) 250 mg TabIndications :Adenocarcinom a of prostate ([facility]) Take 4 tablets (1,000 mg total) by mouth daily. 120 tablet 11 12/11/19 25 Active tamsulosin (FLOMAX) 0.4 mg CapIndications :Adenocarcinom a of prostate ([facility]) Take 1 capsule (0.4 mg total) by mouth in the morning and at bedtime. 180 capsule 3 12/11/19 25 Active predniSONE (DELTASONE) 5 MG tabletIndicati ons:Adenocarci noma of prostate ([facility]) Take 1 tablet (5 mg total) by mouth 2 times a day. 180 tablet 3 01/15/20 25 Active ELIQUIS 5 mg Tab Take 1 [...] Active cyclobenzaprin e (FLEXERIL) 5 MG tablet 02/21/20 25 Active famotidine (PEPCID) 20 MG tablet 12/06/19 23 Active gabapentin (NEURONTIN) 300 MG capsule 02/17/20 25 Active HYDROcodone-ac etaminophen (NORCO) 5-325 mg per tablet Take 1 tablet twice a day by oral route for 2 days. Active traMADoL (ULTRAM) 50 mg tablet 01/04/20 25 Active abiraterone (ZYTIGA) 250 mg TabIndications :metastatic castration-res istant prostate cancer Take 4 tablets (1,000 mg total) by mouth daily. Indications: metastatic castration-re sistant prostate cancer 120 tablet 11 5 11:56 AM EST 07/29/20 25 Active abiraterone (ZYTIGA) 250 mg TabIndications :metastatic castration-res istant prostate cancer Take 4 tablets (1,000 mg total) by mouth daily. 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 Mr. Yo Ruiz is a 63 year old male who refers self at the direction of daughter, Benny Stephenson to discuss radiation therapy for prostate cancer. Mr. Ruiz reports his care was at [facility] # [phone] prior to obtaining insurance. He currently has [...] has a CT of abd/pelvis scheduled at [facility] on 02/26/2019. Mr. Ruiz has not [...] his daughter. Oncology History Adenocarcinoma of prostate ([facility]) 02/01/2019 Imaging Imaging Completed: Ultrasound Renal Kidney [...] carcinoma: 12 02/14/2019 Pathology Adenocarcinoma of prostate Manchester score 10(5+5) left lateral mid 1/1 core [...] core 100% (10 mm of 10 mm). Manchester score 9 (5+4) 1/1 core 100% 16 [...] Chronic insomnia 01/13/2025 Coronary artery disease involving [place] coronar y artery 07/23/2024 Lesion of lung 06/21/2024 Acute bronchitis 05/30/2023 Chronic obstructive pulmonary disease 11/23/2022 Essential hypertension 05/09/2022 Bladder stone 10/28/2021 Overview (04/21/2025): Added automatically from request for surgery [id number] Chronic systolic CHF (congestive heart failure) 09/21/2021 [...] core 100% (10 mm of 10 mm). Manchester score 9 (5+4) 1/1 core 100% 16 [...] Encounters Date Type Department Care Team Description 07/29/2025 Telephone [facility] Radiation Oncology at [facility] [address] [place] [address] Joann Zarate, RN 07/28/2025 Refill [facility] Radiation Oncology at [facility] [address] [place] [address] Alfredito Ramey MD Adenocarcinoma of prostate ([facility]) 07/21/2025 Telephone [facility] supervisor line department at [facility] [address] [place] [phone] Yo Mcqueen DMD Medication Management (Holding/Stopping Medication Inquiry ) 07/17/2025 2:15 PM EST Office Visit [facility] Radiation Oncology at [address] [phone] Alfredito Ramey MD Adenocarcinoma of prostate ([facility]) (Primary Dx) 07/17/2025 1:00 PM EST [facility] [address] [place] [phone] Alfredito Ramey MD Adenocarcinoma of prostate ([facility]); Prostate cancer ([facility]) 07/07/2025 Telephone [facility] Radiation Oncology at [address] [phone] Joann Zarate, RN 06/24/2025 Orders Only [facility] Radiation Oncology at [address] [phone] Alfredito Ramey MD Prostate cancer ([facility]) (Primary Dx) 06/12/2025 Telephone [facility] Radiation Oncology at [address] [phone] Joann Zarate, RN 05/20/2025 Telephone [facility] Radiation Oncology at [address] [phone] Joann Zarate, RN 05/19/2025 Telephone [facility] Radiation Oncology at [address] [phone] Joann Zarate, RN 05/14/2025 Telephone [facility] Radiation Oncology at [address] [phone] Joann Zarate RN 05/13/2025 Telephone [facility] Radiation Oncology at [facility] [address] [place] [address] Joann Zarate, RN from Last 3 Months [...] Mass Index 40.23 07/17/2025 2:20 PM EST Plan of Treatment Health Maintenance Due Date [...] 1999 Immunization: RSV (Adult) (1 - Risk 50-74 years 1-dose series) 2004 Abdominal Aortic Aneurysm (AAA) Screening 2019 Immunization: Influenza (MyChart) (#1) 2025 Depression Screening 07/17/2026 07/17/2025, 01/09/2025, 07/04/2024, Additional history exists Renal Function/GFR 07/17/2026 07/17/2025, 1 , 04/04/2024, Additional history exists Immunization: HPV Aged [...] 07/17/2025 1:40 PM EST Prostate cancer (CMS-HCC) from Last 3 Months Results * PSA Total, Diagnostic (07/17/2025 1:56 PM EST) PSA 3.39 0.0 - 4.0 ng/mL 07/17/2025 2:54 PM EST [facility] Serum 07/17/2025 1:56 PM EST 07/17/2025 2:22 PM EST [facility] - 07/17/2025 2:54 PM EST The testing method for PSA is a chemiluminescent immunoassay manufactured by [employer] Concentrations of PSA obtained by different assay methods or kits may vary and cannot be used interchangeably. PSA results cannot be interpreted as absolute evidence of the presence or absence of malignant disease. us Alfredito Ramey MD LAB BLOOD ORDERABLES Final Re sult [facility] [address] [place] [address], [facility] * (ABNORMAL) Hepatic Function Panel (07/17/2025 1:40 PM EST) Total Bilirubin 0.8 0.0 - 1.5 mg/dL 07/17/2025 2:54 PM EST [facility] Bilirubin, Direct 0.1 0.0 - 0.4 mg/dL 07/17/2025 2:54 PM EST [facility] AST 14 13 - 39 U/L 07/17/2025 2:54 PM EST [facility] ALT 12 7 - 52 U/L 07/17/2025 2:54 PM EST [facility] Alkaline Phosphatase 208(H) 36 - 125 U/L 07/17/2025 2:54 PM EST [facility] Total Protein 6.4 6.4 - 8.9 g/dL 07/17/2025 2:54 PM EST [facility] Albumin 3.6 3.5 - 5.7 g/dL 07/17/2025 2:54 PM EST [facility] Plasma 07/17/2025 1:40 PM EST 07/17/2025 2:16 PM EST us Alfredito Ramey MD LAB BLOOD ORDERABLES Final Re sult [facility] [address] [place], [place] [address] * (ABNORMAL) Renal Function Panel w/EGFR (07/17/2025 1:40 PM EST) Sodium 140 133 - 146 mmol/L 07/17/2025 2:54 PM EST [facility] Potassium 4.1 3.5 - 5.3 mmol/L 07/17/2025 2:54 PM EST [facility] Chloride 107 98 - 110 mmol/L 07/17/2025 2:54 PM EST [facility] CO2 22 21 - 33 mmol/L 07/17/2025 2:54 PM EST [facility] Comment:High lactate dehydro genase concentrations in patient samples may cause falsely increased bicarbonate results. If markedly elevated LDH is observed or suspected, please assess results in conjunction with patient`s clinical presentation. In cases of discrepant results, consider evaluating CO2 in with a blood gas order. Anion Gap 11 3 - 16 mmol/L 07/17/2025 2:54 PM EST [facility] BUN 15 7 - 25 mg/dL 07/17/2025 2:54 PM EST [facility] Creatinine 0.75 0.60 - 1.30 mg/dL 07/17/2025 2:54 PM EST [facility] Glucose 123(H) 70 - 100 mg/dL 07/17/2025 2:54 PM EST [facility] Calcium 8.6 8.6 - 10.3 mg/dL 07/17/2025 2:54 PM EST [facility] Phosphorus 3.3 2.1 - 4.5 mg/dL 07/17/2025 2:54 PM EST [facility] Albumin 3.6 3.5 - 5.7 g/dL 07/17/2025 2:54 PM EST [facility] Osmolality, Calculated 292 278 - 305 mOsm/kg 07/17/2025 2:54 PM EST [facility] EGFR >90 07/17/2025 2:54 PM EST [facility] Comment: As of 2021, the estimated [...] Damaris DC, Stan [place], Mabel [place], Valentine BRYANT, et al. A Unifying Approach for GFR [...] MD LAB BLOOD ORDERABLES Final Re sult [facility] [address] [place] [id number] * (ABNORMAL) Differential (07/17/2025 1:40 PM EST) Metamyelocytes Relative 1.0(H) 0.0 - 0.0 % 07/17/2025 2:42 PM EST [facility] Neutrophils Relative 73.0 40.0 - 80.0 % 07/17/2025 2:42 PM EST [facility] Lymphocytes Relative 19.0 15.0 - 45.0 % 07/17/2025 2:42 PM EST [facility] Monocytes Relative 7.0 0.0 - 12.0 % 07/17/2025 2:42 PM EST [facility] Eosinophils Relative 0.0 0.0 - 8.0 % 07/17/2025 2:42 PM EST [facility] Basophils Relative 0.0 0.0 - 1.0 % 07/17/2025 2:42 PM EST [facility] Neutrophils Absolute 7,519 1,520 - 8,640 /uL 07/17/2025 2:42 PM EST [facility] Metamyelocytes Absolute 103(H) 0 - 0 /uL 07/17/2025 2:42 PM EST [facility] Lymphocytes Absolute 1,957 570 - 4,860 /uL 07/17/2025 2:42 PM EST [facility] Monocytes Absolute 721 0 - 1,296 /uL 07/17/2025 2:42 PM EST [facility] Eosinophils Absolute 0 0 - 864 /uL 07/17/2025 2:42 PM EST [facility] Basophils Absolute 0 0 - 108 /uL 07/17/2025 2:42 PM EST [facility] PLT Morphology PLATELET MORPHO 07/17/2025 2:42 PM EST [facility] Whole Blood 07/17/2025 1:40 PM EST 07/17/2025 2:16 PM EST Narrative [facility] - 07/17/2025 2:42 PM EST Manual WBC differential performed per review criteria approved by the medical record specialist. Alfredito Ramey MD LAB BLOOD ORDERABLES Final Re sult [facility] [address] * (ABNORMAL) CBC (07/17/2025 1:40 PM EST) WBC 10.3 3.8 - 10.8 10E3/uL 07/17/2025 2:19 PM EST [facility] RBC 5.02 4.20 - 5.80 10E6/uL 07/17/2025 2:19 PM EST [facility] Hemoglobin 14.1 13.2 - 17.1 g/dL 07/17/2025 2:19 PM EST [facility] Hematocrit 43.2 38.5 - 50.0 % 07/17/2025 2:19 PM EST [facility] MCV 86.1 80.0 - 100.0 fL 07/17/2025 2:19 PM EST [facility] MCH 28.2 27.0 - 33.0 pg 07/17/2025 2:19 PM EST [facility] MCHC 32.7 32.0 - 36.0 g/dL 07/17/2025 2:19 PM EST [facility] RDW 15.7(H) 11.0 - 15.0 % 07/17/2025 2:19 PM EST [facility] Platelets 302 140 - 400 10E3/uL 07/17/2025 2:19 PM EST [facility] MPV 8.2 7.5 - 11.5 fL 07/17/2025 2:19 PM EST [facility] Whole Blood 07/17/2025 1:40 PM EST 07/17/2025 2:16 PM EST us Alfredito Ramey MD LAB BLOOD ORDERABLES Final Re sult [facility] [address] [place] [address], [facility] from Last 3 Months Insurance MEDICAID [place] [facility] DUAL COMPLETE DENTAL OTHER MANAGED MEDICARE Care Teams Transformer Inspector Relationship Specialty Start Date End Date Jerri Santiago MD [address] [place] [address] PCP - General Family Medicine 04/12/21 Alfredito Ramey MD Radiation Oncologist Radiation Oncology 02/18/19 Joann Zarate, RN Registered Nurse 02/18/19 Ezekiel Kang MD [address] [address] 02/18/19 Alfredito Ramey MD Initiating Oncologist Radiation Oncology 06/03/20
--- OUTSIDE RECORDS SUMMARY | 2025-08-05 14:29 | XMS_ITS | Encounter Summary ---
Author Organization The Address [address] [place] [address] Care Team Providers Care Business Intelligence Manager Name Role Phone Stephany Ortega RN Unavailable Amaris Cueva MD Unavailable [phone] Maverick Lee MD Unavailable [phone] Michael Gonzales MD Unavailable [phone] Lolly Warren NP Unavailable [phone] Daniel Whittington MD, PhD Unavailable [phone] Regina Esquivel NP Unavailable [phone] Maverick Waterman DO Unavailable [phone] Aris Tracey MD Unavailable [phone] Noé Sofia DO Unavailable [phone] Sudhakar Lipscomb CLIN NURSE Primary Care Provider [phone] Reason for Visit * Reason Onset Date Comments Other 09/06/2023 Encounter Details Date Type Department Care Team (Late st Contact Info) Description 09/06/2023 Telephone [facility], [place] [address] [address] [place] [address] Noé Sofia DO [address] [facility] [place], [place] [address] Other Social History Tobacco Use Types Packs/Day [...] She is listed as emerg contact. PH. [phone] documented in this encounter Plan of Treatment Upcoming Encounters Date Type Department Care Team (Late st Contact Info) Description 09/10/2025 1:30 PM EST Appointment [facility], [facility] [address] [place] [address] [address] [place] [address] Amaris Cueva MD [address] [facility] [address] [place] [address] 10/15/2025 2:40 PM EST Appointment [facility], [facility] [address] [facility] [address] [place] [phone] Noé Sofia DO [address] [place] [address] documented as of this encounter Goals Goal [...] on filedocumented in this encounter Care Teams Business Intelligence Manager Relationship Specialty Start Date End Date Sudhakar Lipscomb NP [address] [place] [address] PCP - General Family Medicine 08/30/23 Stephany Ortega, SHARONDA Cardiology 08/04/21 Amaris Cueva MD [address] [facility] [address] [place] [address] Cardiology 08/10/21 Maverick Lee MD [address] [facility] [address] [place] [address] Interventional Cardiology 09/06/21 Michael Gonzales MD [address] [place] [address] Internal Medicine, Sleep Medicine 09/07/21 Lolly Warren NP [address] [place] [address] Nurse Practitioner Nurse Practitioner, Acute Care 09/08/21 Daniel Whittington MD, PhD [address] [place] [address] Clinical Cardiac Electrophysiology 09/13/21 Regina Esquivel NP [address] [place] [address] Nurse Practitioner Nurse Practitioner, Acute Care 09/22/21 Maverick Waterman DO [address] [place] [address] Advanced Heart Failure/Transplant 09/30/21 Aris Tracey MD [address] [facility] [address] [place] [address] Urology 10/28/21 Noé Sofia DO [address] [place], [place] [address] Critical Care Medicine 12/28/22 documented as of this encounter
--- OUTSIDE RECORDS SUMMARY | 2025-08-05 14:29 | XMS_ITS | Encounter Summary ---
Author Organization [facility] Address [address] [place] [address] Care Team Providers Care Industrial Sales Manager Name Role Phone Stephany Ortega RN Unavailable Amaris Cueva MD Unavailable [phone] Maverick Lee MD Unavailable [phone] Michael Gonzales MD Unavailable [phone] Lolly Warren NP Unavailable [phone] Daniel Whittington MD, PhD Unavailable [phone] Regina Esquivel NP Unavailable [phone] Maverick Waterman DO Unavailable [phone] Aris Tracey MD Unavailable [phone] Noé Sofia DO Unavailable [phone] Sudhakar Lipscomb THREADING MACHINE TENDER Primary Care Provider Encounter Details Date Type Department Care Team (Late st Contact Info) Description 11/23/2023 Abstract [facility] Physicians - Heart & Vascular, [facility] [address] [place], [place] [address] [address] [place] [address] Stephany Ortega RN Social History Tobacco Use [...] [facility] Physicians - Heart & Vascular, [address] [place] [phone] Amaris Cueva MD [address] [place] [address] [place] [address] 10/15/2025 2:40 PM EST Appointment [facility] Physicians - Pulmonary Medicine, [address] Medical Office Building [address] [place] [phone] Noé Sofia DO [address] [place] [address]. [address] [place] [address] documented as of this encounter Goals Goal [...] on filedocumented in this encounter Care Teams Industrial Sales Manager Relationship Specialty Start Date End Date Sudhakar Lipscomb NP [address] [place] [address] PCP - General Family Medicine 08/30/23 Stephany Ortega, RN Cardiology 08/04/21 Amaris Cueva MD [address] [facility] [address] [place], [place] [id number] Cardiology 08/10/21 Maverick Lee MD [address] [facility] [address] [place], [place] [phone] Interventional Cardiology 09/06/21 Michael Gonzales MD [address] [place] [address] Internal Medicine, Sleep Medicine 09/07/21 Lolly Warren NP [address] [place] [address] Nurse Practitioner Nurse Practitioner, Acute Care 09/08/21 Daniel Whittington MD, PhD [address] [place] [address] Clinical Cardiac Electrophysiology 09/13/21 Regina Esquivel NP [address] [place], [place] [address] Nurse Practitioner Nurse Practitioner, Acute Care 09/22/21 Maverick Waterman DO [address] [facility]. [address] [place] [address] Advanced Heart Failure/Transplant 09/30/21 Aris Tracey MD [facility] [address] [place] [address] Urology 10/28/21 Noé Sofia DO [address] [place] [address] [address] [place] [address] Critical Care Medicine 12/28/22 documented as of this encounter
--- OUTSIDE RECORDS SUMMARY | 2025-08-05 14:29 | XMS_ITS | Encounter Summary ---
Author Organization [facility] Address [address] [place] [address] Care Team Providers Care Production Staff Worker Name Role Phone Apple Santiago Primary Care Provider Stephany Ortega RN Unavailable Amaris Cueva MD Unavailable [phone] Maverick Lee MD Unavailable [phone] Michael Gonzales MD Unavailable [phone] Lolly Warren NP Unavailable [phone] Daniel Whittington MD, PhD Unavailable [phone] Regina Esquivel SKATING RINK ICE MAKER Unavailable [phone] Maverick Waterman DO Unavailable [phone] Aris Tracey MD Unavailable [phone] Noé Sofia DO Unavailable [phone] Sudhakar Lipscomb SKATING RINK ICE MAKER Primary Care Provider [phone] Encounter Details Date Type Department Care Team (Late st Contact Info) Description 06/20/2022 Abstract [facility] Physicians - Heart & Vascular, [facility] [address] [place] [address] [address] [place] [address] Stephany Ortega, RN Social History Tobacco Use [...] Description 09/10/2025 1:30 PM EST Appointment [facility] Physicians - Heart & Vascular, [facility] [address] [place] [address] [address] [place] [address] Amaris Cueva MD [address] [facility] [address] [place] [id number] 10/15/2025 2:40 PM EST Appointment [facility] Physicians - Pulmonary Medicine, [address] Medical Office Building [address] [place] [phone] Noé Sofia DO [address] [place] [address]. [address] [place] [address] documented as of this encounter Goals Goal [...] on filedocumented in this encounter Care Teams Production Staff Worker Relationship Specialty Start Date End Date Apple Santiago 7 [facility] [place] [address] PCP - General Family Medicine 08/02/21 08/29/23 Sudhakar Lipscomb NP [address] [place] [address] PCP - General Family Medicine 08/30/23 Stephany Ortega, SHARONDA Cardiology 08/04/21 Amaris Cueva MD [address] [facility] [address] [place], [place] [phone] Cardiology 08/10/21 Maverick Lee MD [address] [facility] [address] [place] [address] Interventional Cardiology 09/06/21 Michael Gonzales MD [address] [place], [place] [address] Internal Medicine, Sleep Medicine 09/07/21 Lolly Warren NP [address] [place] [address] Nurse Practitioner Nurse Practitioner, Acute Care 09/08/21 Daniel Whittington MD, PhD [address] [place], [place] [address] Clinical Cardiac Electrophysiology 09/13/[address] Esqu[address] NP [address] [place], [place] [address] Nurse Practitioner Nurse Practitioner, Acute Care 09/22/21 Maverick Waterman DO [address] [facility]. [address] [place] [address] Advanced Heart Failure/Transplant 09/30/21 Aris Tracey MD [address] [place] [address] [address] [place] [address] Urology 10/28/21 Noé Sofia DO [address] [place] [address] [address] [place] [address] Critical Care Medicine 12/28/22 documented as of this encounter
--- OUTSIDE RECORDS SUMMARY | 2025-08-05 14:29 | XMS_ITS | Encounter Summary ---
Author Organization [facility] Address [facility] [place] [address] Care Team Providers Care Associate Professor Of Physics Name Role Phone Alfredito Ramey MD Unavailable [phone] Joann Zarate RN Unavailable Unavailable Ezekiel Kang MD Unavailable [phone] Aundrea Hussein APRN Primary Care Provider [phone] Alfredito Ramey MD Unavailable [phone] Jerri Santiago MD Primary Care Provider [phone] Source Comments This information has been disclosed [...] release of HIV test results or diagnoses. 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 [...] documented as of this encounter Care Teams Associate Professor Of Physics Relationship Specialty Start Date End Date Aundrea Hussein APRN [facility] [place] [address] PCP - General Internal Medicine 02/18/19 04/11/21 [place] [address] PCP - General Family Medicine 04/12/21 Alfredito Ramey MD Radiation Oncologist Radiation Oncology 02/18/19 Joann Zarate, RN Registered Nurse 02/18/19 Ezekiel Kang MD [address] [facility] [address] [place] [address] 02/18/19 Alfredito Ramey MD Initiating Oncologist Radiation Oncology 06/03/20 documented as of this encounter
--- OUTSIDE RECORDS SUMMARY | 2025-08-05 14:29 | XMS_ITS | Clinical Summary ---
Author Organization [facility] Address [id number] [place] [phone] Care Team Providers Care Compliance Attorney Name Role Phone Tasha Husseingifty LANTIGUA Primary Care Provider Allergies Active Allergy Reactions [...] cancer (HCC) Gleas on 10, treating at [facility]. 02/25/2019 Hyperkalemia 02/07/2019 Atrial fibrillation with [...] Hyperkalemia 02/02/2019 02/03/2019 Metabolic acidosis 02/02/2019 9 Family History Medical History Relation Name Comments [...] 2004 Influenza Vaccine (#1) 2025 PSA YEARLY 07/17/2026 07/17/2025, 08/0 02/2025, 01/09/2025, Additional history exists RSV Vaccine (60+ or ) (1 - 1-dose 75+ series) 2029 Hepatitis C Screening Completed 04/17/2017 Abdominal Aortic Aneurysm Screening Completed 02/26/2019 HPV Aged Out No longer eligi ble based on patient's age to complete this topic Meningococcal conjugate valent 4 (MCV4) Aged Out No longer eligible based on patient's age to complete this topic RSV Immunization (<20 months) Aged Out No longer eligible based on patient's age to complete this topic Procedures Procedure Name Priority Date/Time Associated Diagnosis Comments CT ABDOMEN PELVIS W CONTRAST Routine 02/26/2019 7:50 AM EDT Prostate cancer PROSTATIC SPECIF AG-BLOOD Routine 02/01/2019 12:32 PM EDT Enlarged prostate with urinary obstruction from Last 3 Months or Most Recently Relevant to Health Maintenance Results * CT ABDOMEN PELVIS W CONTRAST (02/26/2019 [...] the content of this report, please contact [facility] radiology by calling [phone] FINDINGS: LOWER CHEST: Unremarkable LIVER: Unremarkable GALLBLADDER/BILE [...] about the content of this report, pleasecontact [facility] radiology by calling [phone] FINDINGS: LOWER CHEST: Unremarkable LIVER: Unremarkable GALLBLADDER/BILE [...] Most Recently Relevant to Health Maintenance Insurance [facility] [employer]UAL [employer]PLETE * Guarantor: [facility]DO NOT BILL Account Type Relation to Patient Date of Phone Billing Address Corporate Other [address] [place] [address] Advance Directives * Full Code (Latest Code Status on File) Date Activated Date Inactivated Comments 02/02/2019 4:07 PM 02/06/2019 5:53 PM Care Teams Compliance Attorney Relationship Specialty Start Date End Date Aundrea Hussein CNP PCP - General 12/23/19
--- OUTSIDE RECORDS SUMMARY | 2025-08-05 14:29 | XMS_ITS | Encounter Summary ---
Author Organization [facility] Address [address] [place] [address] Care Team Providers Care Fibre Cement Moulder Name Role Phone Alfredito Ramey MD Unavailable [phone] Joann Zarate RN Unavailable Unavailable Ezekiel Kang MD Unavailable [phone] Alfredito Ramey MD Unavailable [phone] Jerri Santiago MD Primary Care Provider [phone] Source Comments This information has been disclosed [...] release of HIV test results or diagnoses. 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
--- OUTSIDE RECORDS SUMMARY | 2025-08-05 14:29 | XMS_ITS | Encounter Summary ---
Author Organization [facility] Address [address] [place] [address] [place] [address] Phone Care Team Providers Care Principal Quality Engineer Name Role Phone [facility] Primary Care Provider Lico Villareal MD Primary Care Provider [phone] Aundrea Hussein CNP Primary Care Provider [phone] Encounter Details Date Type Department Care Team (Late st Contact Info) Description 02/07/2019 Discharge Call Center Patient Call Center [address] [place] [address] Social History Tobacco Use Types Packs/Day Years [...] documented as of this encounter Care Teams Principal Quality Engineer Relationship Specialty Start Date End Date [facility] [place] [address] [place] [address] PCP - General Family Medicine 02/07/19 04/03/19 Lico Villareal MD [address] [place] [address] PCP - General Internal Medicine 04/04/19 12/22/19 Aundrea Hussein CNP [facility] [place] [address] PCP - General 12/23/19 documented as of this encounter
--- OUTSIDE RECORDS SUMMARY | 2025-08-05 14:29 | XMS_ITS | Encounter Summary ---
Author Organization [facility] Address [facility] [place] [address] Care Team Providers Care Mix Technician Name Role Phone Alfredito Ramey MD Unavailable [phone] Joann Zarate RN Unavailable Unavailable Ezekiel Kang MD Unavailable [phone] Alfredito Ramey MD Unavailable [phone] Jerri Santiago MD Primary Care Provider [phone] Source Comments This information has been disclosed [...] release of HIV test results or diagnoses. 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 Not on f ile Not on file Not on file documented as of this encounter Plan of Treatment Not on file documented as of this encounter Visit Diagnoses Not on filedocumented in this encounter Additional Health Concerns Assessment Noted Time PHQ-9 Depression Total Score: 3 02/20/20 19 3:00 PM EDT documented as of this encounter Care Teams Mix Technician Relationship Specialty Start Date [place] [address] PCP - General Family Medicine 04/12/21 Alfredito Ramey MD Radiation Oncologist Radiation Oncology 02/18/19 Joann Zarate, RN Registered Nurse 02/18/19 Ezekiel Kang MD [address] [place] [address] [address] [place] [phone] 02/18/19 Alfredito Ramey MD Initiating Oncologist Radiation Oncology 06/03/20 documented as of this encounter
--- OUTSIDE RECORDS SUMMARY | 2025-08-05 14:29 | XMS_ITS | Encounter Summary ---
Author Organization [facility] Address [address] [place] [address] Care Team Providers Care Wire Insulator Name Role Phone Apple Santiago Primary Care Provider Stephany Ortega RN Unavailable Amaris Cueva MD Unavailable [phone] Maverick Lee MD Unavailable [phone] Michael Gonzales MD Unavailable [phone] Lolly Warren NP Unavailable [phone] Daniel Whittington MD, PhD Unavailable [phone] Regina Esquivel HOLTER SCANNING TECHNICIAN Unavailable [phone] Maverick Waterman DO Unavailable [phone] Aris Tracey MD Unavailable [phone] Noé Sofia DO Unavailable [phone] Sudhakar Lipscomb HOLTER SCANNING TECHNICIAN Primary Care Provider Reason for Visit * Reason Onset Date Comments Results 08/18/2023 Encounter Details Date Type Department Care Team (Late st Contact Info) Description 08/18/2023 Clinical Update [facility] [address] [place] [address] [address] [place] [address] Stephany Ortega RN Results Social History Tobacco Use Types [...] Description 09/10/2025 1:30 PM EST Appointment [facility] Heart & Vascular[address] [place] [phone] Amaris Cueva MD [address] [phone] 10/15/2025 2:40 PM EST Appointment [facility] Physicians - Pulmonary Medicine, [address] Medical Office Building [address] [place] [phone] Noé Sofia DO [address] [place] [address] [address] [place] [address] documented as of this encounter Goals Goal [...] on filedocumented in this encounter Care Teams Wire Insulator Relationship Specialty Start Date End Date Apple Santiago [address] [place] [address] [place] [address] PCP - General Family Medicine 08/02/21 08/29/23 Sudhakar Lipscomb NP [address] [place] [address] PCP - General Family Medicine 08/30/23 Stephany Ortega, RN Cardiology 08/04/21 Amaris Cueva MD [address] [facility] [address] [place] [address] Cardiology 08/10/21 Maverick Lee MD [address] [facility] [address] [place] [address] Interventional Cardiology 09/06/21 Michael Gonzales MD [facility] [place] [address] Internal Medicine, Sleep Medicine 09/07/21 Lolly Warren NP [facility] [place] [address] Nurse Practitioner Nurse Practitioner, Acute Care 09/08/21 Daniel Whittington MD, PhD [facility] [place] [address] Clinical Cardiac Electrophysiology 09/13/21 Regina Esquivel NP [address] [place] [address] Nurse Practitioner Nurse Practitioner, Acute Care 09/22/21 Maverick Waterman DO [address] [place] [address] Advanced Heart Failure/Transplant 09/30/21 Aris Tracey MD [address] [place] [address] [address] [place] [address] Urology 10/28/21 Noé Sofia DO [address] [place] [address] [address] [place] [address] Critical Care Medicine 12/28/22 documented as of this encounter
--- OUTSIDE RECORDS SUMMARY | 2025-08-05 14:29 | XMS_ITS | Encounter Summary ---
Author Organization [facility] Address [address] [place] [address] Care Team Providers Care Associate Data Scientist Name Role Phone Stephany Ortega RN Unavailable Amaris Cueva MD Unavailable [phone] Maverick Lee MD Unavailable [phone] Michael Gonzales MD Unavailable [phone] Lolly Warren NP Unavailable [phone] Dnaiel Whittington MD, PhD Unavailable [phone] Regina Esquivel NP Unavailable [phone] Maverick Waterman DO Unavailable [phone] Aris Tracey MD Unavailable [phone] Noé Sofia DO Unavailable [phone] Sudhakar Lipscomb ONION FARMER Primary Care Provider [phone] Reason for Visit * Reason Onset Date Comments Imaging Results 11/23/2023 Patient called a nd stated he had his PET CT done yesterday, 11/22/23 at Encounter Details Date Type Department Care Team (Late st Contact Info) Description 11/23/2023 Telephone [facility] Physicians - Pulmonary Medicine, [facility] [address] [facility] Medical Office Building [address] [place] [address] Noé Sofia DO [address] [facility] [address] [place] [address] Imaging Results (Patient called and [...] stated that PET SCAN was done at [facility]. * Telephone Encounter - Mariza Singh MA - 11/23/2023 9:52 AM EDT Left MessageCommunicated - lvm for pt to confirm the location where [...] [facility] - [facility]ascular, [facility] [address] [place] [address] [address] [place] [address] Amaris Cueva MD [address] [facility] [address] [place] [address] 10/15/2025 2:40 PM EST Appointment [facility] Physicians - Pulmonary Medicine, [address] Medical Office Building [address] [place] [phone] Noé Sofia DO [address] [place] [address]. [address] [place] [address] documented as of this encounter [...] on filedocumented in this encounter Care Teams Associate Data Scientist Relationship Specialty Start Date End Date Sudhakar Lipscomb NP [address] [place] [id number] PCP - General Family Medicine 08/30/23 Stephany Ortega RN Cardiology 08/04/21 Amaris Cueva MD [address] [facility] [address] [place] [address] Cardiology 08/10/21 Maverick Lee MD [address] [facility] [address] [place] [address] Interventional Cardiology 09/06/21 Michael Gonzales MD [address] [place] [address] [place] [address] Internal Medicine, Sleep Medicine 09/07/21 Lolly Warren NP [address] [place] [address] Nurse Practitioner Nurse Practitioner, Acute Care 09/08/21 Daniel Whittington MD, PhD [address] [place] [address] Clinical Cardiac Electrophysiology 09/13/21 Regina Esquivel NP [address] [place] [address] Nurse Practitioner Nurse Practitioner, Acute Care 09/22/21 Maverick Waterman DO [address] [place] [address] Advanced Heart Failure/Transplant 09/30/21 Aris Tracey MD [facility] [address] [place] [address] Urology 10/28/21 Noé Sofia DO [address] [facility] [place] [address] Critical Care Medicine 12/28/22 documented as of this encounter
--- NOTE | 2025-08-05 14:45 | MR_ITS ---
FINAL REPORT CLINICAL HISTORY: right hip pain FALL X 6 WEEKS AGO FINDINGS: Multiplanar and multisequence imaging of the pelvis and right hip were obtained without contrast. There is no acute fracture or dislocation. Signal intensity within the right femoral head and femoral neck is preserved. There is an incompletely imaged T2 hyperintense lesion within the intramedullary cavity of the right proximal and mid femoral diaphysis. This is hypointense on T1-weighted imaging. This could represent an enchondroma but is otherwise nonspecific. There is a 3 cm rounded, T1 hypointense, T2 hyperintense lesion within the anterior right acetabulum. This is also nonspecific. 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 This exam was not tailored to evaluate the labrum. No large labral tear is identified. There is abnormal signal intensity adjacent to the right greater trochanter. This could be related to gluteus medius strain or mild trochanteric bursitis. There is no significant joint effusion. There is mild edema in the adductor musculature of the medial, proximal right thigh. There are bilateral fat-containing inguinal hernias, the left is very large with fat extending into the left hemiscrotum. IMPRESSION: 1. Bone lesions in the anterior right acetabulum and within the proximal to mid right femoral diaphysis. These are nonspecific. The femoral shaft lesion could be an enchondroma. The acetabular lesion does not appear to be an enchondroma. Metastatic disease or multiple myeloma are not excluded. Recommend correlation with plain radiographs and consider follow-up exam without and with contrast. Bone scan could also be performed. 2. Degenerative joint disease. 3. Gluteus medius strain or mild right trochanteric bursitis. 4. Large bilateral, left greater than right inguinal hernias. Authenticated and ERN
== END 2025-08-05 23:59 | disposition home or self-care (01) ==
LOC: RAD 14:16
PROVIDERS: PCP Nurse Practitioner Family; Visit Provider Nurse Practitioner Family
DX: K40.20 Bilateral inguinal hernia, without obstruction or gangrene, not specified as recurrent (principal); M16.11 Unilateral primary osteoarthritis, right hip; M89.9 Disorder of bone, unspecified; M54.31 Sciatica, right side; R93.6 Abnormal findings on diagnostic imaging of limbs; W19.XXXA Unspecified fall, initial encounter
CPT/HCPCS: 73721